=== PATIENT | female | born 1995 | race Caucasian/White ===

== ENCOUNTER 2024-06-10 14:03 | Outpatient (OUT) | payer OTHER, SELFPAY ==
--- NOTE | 2024-06-10 14:10 | US_ITS ---
[place] [id number] Patient Name: DC RODRIGUEZ MRN: [id number] date: 1995 Sex: F Assigned Patient Location: [facility] Current Patient Location: [facility] Accession/Order Number: [id number] Exam Date: 06/10/2024 14:11 Report Date: 06/14/2024 04:30 At the request of: ROBERTO BARBA Procedure: US OB transvaginal EXAMINATION: US OB transvaginal HISTORY: MISSED MENSES COMPARISON: No relevant comparison available. FINDINGS: GESTATIONAL SAC: Present and normal appearing. YOLK SAC: Present and normal appearing. POLE: Present and normal appearing. CARDIAC: Present. UTERUS: Normal size and appearance. OVARIES: Right: Not seen. Left: Normal. CERVIX: 4.0 cm in length and closed. CUL-DE-SAC: Normal. OTHER: None. AGE BY LMP: 9 weeks 5 days JAY BY LMP: 01/08/2025 AGE BY US CRL: 9 weeks 2 days JAY BY US CRL: 01/11/2025 US/US OB transvaginal IMPRESSION: 1. Single live intrauterine . Electronically authenticated by: MERRILL MAGDALENO Date: 06/14/2024 04:30
== END 2024-06-10 14:04 | disposition home or self-care (01) ==
LOC: NOMS 14:03
PROVIDERS: Visit Provider Obstetrics & Gynecology
DX: Z34.01 Encounter for supervision of normal first pregnancy, first trimester (principal); Z3A.09 9 weeks gestation of pregnancy; N92.6 Irregular menstruation, unspecified
CPT/HCPCS: 76817

== ENCOUNTER 2024-06-24 11:46 | Outpatient (OUT) | payer OTHER, SELFPAY ==
--- OUTSIDE RECORDS SUMMARY | 2024-06-24 11:52 | XMS_ITS | CCD ---
Author Organization [facility] CliniSyal Care Team Providers Care Guide Tour Name Role Phone HOY, ТАТЬЯНА Admitting Unavailable HOY, ТАТЬЯНА Attending Unavailable HOY, ТАТЬЯНА Primary Care Unavailable HOY, ТАТЬЯНА Consulting Unavailable KARASIK, JOANNE Admitting Unavailable KARASIK, JOANNE Attending Unavailable HOY, ТАТЬЯНА Primary Care Unavailable KARASIK, JOANNE Consulting Unavailable WESTWILD V Consulting Unavailable KARASIK, JOANNE Admitting Unavailable KARASIK, JOANNE Attending Unavailable HOY, ТАТЬЯНА Primary Care Unavailable KARASIK, JOANNE Consulting Unavailable KARASIK, JOANNE Admitting Unavailable KARASIK, JOANNE Attending Unavailable KARASIK, JOANNE Consulting Unavailable KARASIK, JOANNE Admitting Unavailable KARASIK, JOANNE Attending Unavailable HOY, ТАТЬЯНА Primary Care Unavailable KARASIK, JOANNE Consulting Unavailable KARASIK, JOANNE Admitting Unavailable KARASIK, JOANNE Attending Unavailable HOY, ТАТЬЯНА Primary Care Unavailable KARASIK, JOANNE Consulting Unavailable WEST, WILD V Consulting Unavailable KARASIK, JOANNE Admitting Unavailable KARASIK, JOANNE Attending Unavailable HOY, ТАТЬЯНА Primary Care Unavailable KARASIK, JOANNE Consulting Unavailable KARASIK, JOANNE Admitting Unavailable KARASIK, JOANNE Attending Unavailable KARASIK, JOANNE Primary Care Unavailable KARASIK, JOANNE Consulting Unavailable HOY, ТАТЬЯНА Admitting Unavailable HOY, ТАТЬЯНА Attending Unavailable KARASIK, JOANNE Primary Care Unavailable HOY, ТАТЬЯНА Consulting Unavailable KARASIK, JOANNE Admitting Unavailable KARASIK, JOANNE Attending Unavailable KARASIK, JOANNE Consulting Unavailable KENNEDY, ROBERTO Consulting Unavailable BRYANRAN ROBERTSON L Consulting Unavailable KARASIK, JOANNE Procedure Practitioner Unavaila Marti Casillas Unavailable Татьяна Uriarte MD Primary Care Provider [phone] Allergies Allergy Classification Reported Allergen(s) Allergy Type Date of Onset Reaction(s) Facility (1 source) Latex Drug allergy (disorder) 10-09-18 97 [facility] (1 source) Penicillin Drug Allergy 05-27-20 15 [facility] (1 source) Sulfamethoxazole / Trimethoprim Drug Allergy 05-23-20 15 [facility] (2 sources) [facility] Sulfamethoxazole / Trimethoprim Drug Allergy 06-10-20 anaphylaxis, Palpitations, Shortness of breath [facility] Other (1 source) Sulfamethoxazole Drug Allergy 11-27-19 anaphylaxis [facility] (2 sources) Trimethoprim Drug Allergy 11-27-19 anaphylaxis [facility] (1 source) Latex Propensity to adverse reactions 06-10-20 Rash [facility] (1 source) penicillAMINE Drug Allergy 11-27-19 [facility] (1 source) Penicillins Drug Allergy 06-10-20 Itching, Rash [facility] (1 source) Sulfonamides (Antibiotic) Drug Allergy 11-27-19 [facility] Medications Current Medications Medication Drug Class(es) Dates Sig (Normalized) Sig (Original) ondansetron 4 mg disintegrating oral tablet (1 source) Serotonin-3 Receptor Antagonist Start: 06-10-2024 End: 07-10-2024 take 1 tablet by mouth every six hours for nausea ondansetron ODT (Zofran-ODT) 4 MG disintegrating tablet Indications: Nausea and vomiting in Take 1 tablet (4 mg) by mouth every 6 (six) hours if needed for nausea or vomiting 30 tablet 2 06/10/2024 07/10/2024 Active Completed/Discontinued Medications Medication Drug Class(es) Dates Sig (Normalized) Sig (Original) Albuterol (1 source) beta2-Adrenergic Agonist Ventolin HFA Not-Taking/PRN Aspir-81 (1 source) Aspir-81 Not-Taking/PRN fluticasone propionate 0.05 mg/actuat metered dose nasal spray (1 source) Corticosteroid Start: 09-28-2019 take 1 spray(s) nasal route once daily as needed Fluticasone Propionate 50 MCG/ACT 1 spray in each nostril Nasally Once a day for 30 day(s) Sep, Not-Taking/PRN Labetalol (1 source) beta-Adrenergic Merly Labetalol HCl Not-Taking/PRN oseltamivir 75 mg oral capsule (1 source) Neuraminidase Inhibitor Start: 09-28-2019 take 1 capsule by mouth every twelve hours Tamiflu 75 MG 1 capsule Orally Twice a day for 5 day(s) Sep, Not-Taking/PRN Pre- (1 source) Pre-Nabil with DHA Not-Taking/PRN Problems Active Problems Problem Classification Problem Date Documented Date Episodic/Chronic Hypertension complicating ; childbirth and the puerperium (4 sources) Unspecified pre-existing hypertension complicating , first trimester; Translations: [Unspecified pre-existing hypertension complicating , third trimester] Onset: 10-13-2019 Chronic Immunizations and screening for infectious disease (5 sources) Encounter for screening for other viral diseases; Translations: [Encounter for screening for infections with a predominantly sexual mode of transmission] Onset: 02-16-2020 Episodic Influenza (1 source) Influenza due to other identified influenza virus with other respiratory manifestations Episodic Menstrual disorders (5 sources) Excessive and frequent menstruation with irregular cycle; Translations: [Missed period] Onset: 07-20-2019 06-10-2024 Chronic Other complications of ; puerperium affecting management of mother (1 source) Obesity complicating childbirth; Translations: [OBESITY COMPLICATING CHILDBIRTH] Onset: 03-17-2020 Chronic Other complications of ; puerperium affecting management of mother (1 source) Other viral diseases complicating childbirth; Translations: [OTH VIRAL DISEASES COMP CHILDBIRTH] Onset: 03-17-2020 Episodic Other complications of ; puerperium affecting management of mother (1 source) Streptococcus B carrier state complicating childbirth; Translations: [STREP B LOMBARDI STATE COMP CHILDBIRTH] Onset: 03-17-2020 Other complications of (1 source) Vomiting of , unspecified; Translations: [Unspecified vomiting of , unspecified as to episode of care or not applicable] 06-10-2024 Episodic Other female genital disorders (1 source) Other specified noninflammatory disorders of vagina; Translations: [OTH SPEC NONINFLAMMATORY D/O VAGINA] Onset: 02-16-2020 Episodic Other nutritional; endocrine; and metabolic disorders (1 source) Obesity, unspecified; Translations: [OBESITY UNSPECIFIED] Onset: 03-17-2020 Chronic Other and delivery including normal (11 sources) Single live ; Translations: [Encounter for supervision of other normal , second trimester] Onset: 07-27-2019 06-10-2024 Episodic Other screening for suspected conditions (not mental disorders or infectious disease) (12 sources) Encounter for other specified screening; Translations: [Encounter for screening for Streptococcus B] Onset: 10-11-2019 Residual codes; unclassified (1 source) 12 weeks gestation of ; Translations: [12 WEEKS GESTATION OF ] Onset: 09-08-2019 Residual codes; unclassified (1 source) 39 weeks gestation of ; Translations: [39 WEEKS GESTATION OF ] Onset: 03-17-2020 Unclassified (1 source) COVID-19; Translations: [COVID-19] Onset: 03-17-2020 Past or Other Problems Problem Classification Problem Date Documented Da te Episodic/Chronic Other complications of (1 source) Supervision of high risk , unspecified, first trimester; Translations: [SUP HIGH RISK UNS 1ST TRI] Onset: 09-08-2019 Episodic Other screening for suspected conditions (not mental disorders or infectious disease) (10 sources) Encounter for screening for malignant neoplasm of cervix; Translations: [Encounter for screening for other metabolic disorders] Onset: 09-07-2019 Episodic Unclassified (1 source) Acute cough R05.1 Results Test Name Value Interpretation Reference Range Facility HCG ( test) Ql (U)o n 06-10-2024 Interpretation and review of laboratory results Abnormal [facility] Preg Test, Ur Positive [facility] care [facility] Urinalysis macro (dipstick) panel (U)on 06-10-2024 Bilirubin, UA Negative Negative - 4(70) +++ mg/dL [facility] Blood, UA Negative Negative - 50 Leandro/mcL [facility] Clarity, UA Clear [facility], [facility]A Yellow [facility] Glucose, UA Negative Negative - 2000(110) ++++ mg/dL [facility] Interpretation and review of laboratory results Normal [facility] Ketones, UA Negative Negative - 160(16) ++++ mg/dL [facility] Leukocytes, UA Negative Negative - 500+++ Therese/mcL [facility] Nitrite, UA Negative Negative - Positive [facility] pH, UA 6.5 5 - 9 [facility] Protein, UA Negative Negative - 2000(20) ++++ mg/dL [facility] Spec Grav, UA 1.02 1 - 1.03 [facility] care Urobilinogen, UA 1.0 0.2 - 12 mg/dL [facility] COVID + FLU Quick Testingon 08-19-2023 SARS-CoV-2 (COVID-19) RNA ALISSON+probe Ql (Unsp spec) Negative [facility] Other COVID + FLU Quick Testing Positive [facility] Other COVID + FLU Quick Testing Negative [facility] Other COVID-19 PCRon 03-24-2020 SARS-CoV-2, ALISSON Not Detected Normal Not Detected [facility] Comment on above: Result Comment: This test was developed and its performance characteristics determined by [facility] [employer]. This test has not been FDA cleared or approved. This test has been authorized by FDA under an Emergency Use Authorization (EUA). This test is only authorized for the duration of time the declaration that circumstances exist justifying the authorization of the emergency use of in vitro diagnostic tests for detection of SARS-CoV-2 virus and/or diagnosis of COVID-19 infection under section 564(b)(1) of the Act, 21 U.S.C. 360bbb-3(b)(1), unless the authorization is terminated or revoked sooner. When diagnostic testing is negative, the possibility of a false negative result should be considered in the context of a patient's recent exposures and the presence of clinical signs and symptoms consistent with COVID-19. An individual without symptoms of COVID-19 and who is not shedding SARS-CoV-2 virus would expect to have a negative (not detected) result in this assay. Performed By: #### C BC #### [facility] [address] [address] Dee Dee Griggs CBC AUTO DIFFon 03-11-2020 Basophils (Bld) [#/Vol] 0.0 103/ul Normal 0.0-0.1 [facility] Comment on above: Performed By: #### C BC #### [facility] [address] [place], [place] [address] Dee Dee Indu Basophils/100 WBC (Bld) 0.2 % Normal 0.2-2.0 [facility] Comment on above: Performed By: #### C BC #### [facility] [address] [place], [place] [address] Dee Dee Indu Eosinophils (Bld) [#/Vol] 0.2 103/ul Normal 0.0-0.7 [facility] Comment on above: Performed By: #### C BC #### [facility] [address] [place], [place] [address] Dee Dee Indu Eosinophils/100 WBC (Bld) 1.8 % Normal 0.9-7.0 [facility] Comment on above: Performed By: #### C BC #### [facility] [address] [id number] Dee Dee Indu Erythrocyte distribution width (RBC) [Ratio] 14.0 % Normal 11.0-15.0 [facility] Comment on above: Performed By: #### C BC #### [facility] [address] [place], [place] [address] Dee Dee Indu Hematocrit (Bld) [Volume fraction] 26.9 % Critically low 36.0-48.0 [facility] Comment on above: Performed By: #### C BC #### [facility] [address] [place], [place] [address] Dee Dee Indu Hemoglobin (Bld) [Mass/Vol] 9.1 g/dL Critically low 12.0-16.0 [facility] Comment on above: Performed By: #### C BC #### [facility] [address] [place], [place] [address] Dee Dee Indu IG # 0.08 10e3/ul Critically high 0.00-0.03 [facility] Comment on above: Performed By: #### C BC #### [facility] [address] [id number] Dee Dee Indu IG % 0.6 % Critically high 0.0-0.5 [facility] Comment on above: Performed By: #### C BC #### [facility] [address] [place], [place] [address] Dee Dee Indu Lymphocytes (Bld) [#/Vol] 2.7 103/ul Normal 1.2-3.8 [facility] Comment on above: Performed By: #### C BC #### [facility] [address] [place], [place] [address] Dee Dee Indu Lymphocytes/100 WBC (Bld) 20.9 % Normal 20.5-60.0 [facility] Comment on above: Performed By: #### C BC #### [facility] [address] [place], [place] [address] Dee Dee Indu MANUAL DIFF REQ NO Normal [facility] Comment on above: Performed By: #### C BC #### [facility] [address] [place] [address] Dee Dee Indu MCH (RBC) [Entitic mass] 30.7 pg Normal 26.7-34.0 [facility] Comment on above: Performed By: #### C BC #### [facility] [address] [place] [address] Dee Dee Indu MCHC (RBC) [Mass/Vol] 33.8 g/dL Normal 29.9-35.2 [facility] Comment on above: Performed By: #### C BC #### [facility] [address] [place] [address] Dee Dee Indu MCV (RBC) [Entitic vol] 90.9 fL Normal 81.0-99.0 [facility] Comment on above: Performed By: #### C BC #### [facility] [address] [place], [place] [address] Dee Dee Indu Monocytes (Bld) [#/Vol] 1.2 103/ul Critically high 0.3-0.8 [facility] Comment on above: Performed By: #### C BC #### [facility] [address] [place], [place] [address] Dee Dee Indu Monocytes/100 WBC (Bld) 8.9 % Normal 1.7-12.0 [facility] Comment on above: Performed By: #### C BC #### [facility] [address] [place], [place] [address] Dee Dee Griggs Neutrophils (Bld) [#/Vol] 8.8 103/ul Critically high 1.4-6.5 [facility] Comment on above: Performed By: #### C BC #### [facility] [address] [place] [address] Dee Dee Griggs Neutrophils/100 WBC (Bld) 67.6 % Normal 43.0-75.0 [facility] Comment on above: Performed By: #### C BC #### [facility] [address] [place] [address] Dee Dee Griggs Platelet mean volume (Bld) [Entitic vol] 10.2 fL Normal 9.5-13.5 [facility] Comment on above: Performed By: #### C BC #### [facility] [address] [place] [address] Dee Dee Griggs Platelets (Bld) [#/Vol] 178 103/ul Normal 150-450 [facility] Comment on above: Performed By: #### C BC #### [facility] [address] [place] [address] Dee Dee Acostaen RBC (Bld) [#/Vol] 2.96 106/ul Critically low 4.20-5.40 [facility] Comment on above: Performed By: #### C BC #### [facility] [address] [place] [address] Dee Dee Acostaen WBC (Bld) [#/Vol] 13.1 103/ul Critically high 4.0-11.0 [facility] Comment on above: Performed By: #### C BC #### [facility] [address] [place] [address] Dee Dee Griggs COVID-19 PCRon 03-11-2020 SARS-CoV-2, ALISSON Detected Abnormal Not Detected [facility] Comment on above: Result Comment: This test was developed and its performance characteristics determined by [employer]. This test has not been FDA cleared or approved. This test has been authorized by FDA under an Emergency Use Authorization (EUA). This test is only authorized for the duration of time the declaration that circumstances exist justifying the authorization of the emergency use of in vitro diagnostic tests for detection of SARS-CoV-2 virus and/or diagnosis of COVID-19 infection under section 564(b)(1) of the Act, 21 U.S.C. 360bbb-3(b)(1), unless the authorization is terminated or revoked sooner. When diagnostic testing is negative, the possibility of a false negative result should be considered in the context of a patient's recent exposures and the presence of clinical signs and symptoms consistent with COVID-19. An individual without symptoms of COVID-19 and who is not shedding SARS-CoV-2 virus would expect to have a negative (not detected) result in this assay. Performed By: #### C BC #### [facility] [address] [place] [address] Dee Dee Indu PRIORITY COVID PROCESSINGon 03-11-2020 Comment Comment Normal [facility] Comment on above: Result Comment: Rece ived Performed By: #### C BC #### [facility] [address] [place] [address] Dee Dee Indu RESPIRATORY PANEL PLUSon Adenovirus NOT DETECTED Normal NOT DETECTED [facility] Comment on above: Performed By: #### C BC #### [facility] [address] [place] [address] Dee Dee Indu B. Parapertusis NOT DETECTED Normal NOT DETECTED [facility] Comment on above: Performed By: #### C BC #### [facility] [address] [place] [address] Dee Dee Indu B. Pertussis NOT DETECTED Normal NOT DETECTED [facility] Comment on above: Performed By: #### C BC #### [facility] [address] [place] [address] Dee Dee Indu Chlamydia Pneumoniae NOT DETECTED Normal NOT DETECTED [facility] Comment on above: Performed By: #### C BC #### [facility] [address] [place] [address] Dee Dee Indu Coronavirus 229E NOT DETECTED Normal NOT DETECTED [facility] Comment on above: Performed By: #### C BC #### [facility] [address] [address] Dee Dee Indu Coronavirus HKU1 NOT DETECTED Normal NOT DETECTED [facility] Comment on above: Performed By: #### C BC #### [facility] [address] [address] Dee Dee Indu Coronavirus NL63 NOT DETECTED Normal NOT DETECTED [facility] Comment on above: Performed By: #### C BC #### [facility] [address] [address] Dee Dee Indu Coronavirus OC43 NOT DETECTED Normal NOT DETECTED [facility] Comment on above: Performed By: #### C BC #### [facility] [address] [place] [address] Dee Dee Indu Influenza A H1 2009 NOT DETECTED Normal NOT DETECTED [facility] Comment on above: Performed By: #### C BC #### [facility] [address] [place] [address] Dee Dee Indu Influenza B NOT DETECTED Normal NOT DETECTED [facility] Comment on above: Performed By: #### C BC #### [facility] [address] [place] [address] Dee Dee Indu Metapneumovirus NOT DETECTED Normal NOT DETECTED [facility] Comment on above: Performed By: #### C BC #### [facility] [address] [place] [address] Dee Dee Indu Mycoplas. Pneumoniae NOT DETECTED Normal NOT DETECTED [facility] Comment on above: Performed By: #### C BC #### [facility] [address] [place] [address] Dee Dee Indu Parainfluenza 1 NOT DETECTED Normal NOT DETECTED [facility] Comment on above: Performed By: #### C BC #### [facility] [address] [address] Dee Dee Indu Parainfluenza 2 NOT DETECTED Normal NOT DETECTED [facility] Comment on above: Performed By: #### C BC #### [facility] [address] [place] [address] Dee Dee Indu Parainfluenza 3 NOT DETECTED Normal NOT DETECTED [facility] Comment on above: Performed By: #### C BC #### [facility] [address] [place] [address] Dee Dee Indu Parainfluenza 4 NOT DETECTED Normal NOT DETECTED [facility] Comment on above: Performed By: #### C BC #### [facility] [address] [place] [address] Dee Dee Indu Rhino/Enterovirus NOT DETECTED Normal NOT DETECTED [facility] Comment on above: Performed By: #### C BC #### [facility] [address] [place] [address] Dee Dee Indu RP2 Header 1 RESPIRATORY PANEL: VIRUSES Normal [facility] Comment on above: Performed By: #### C BC #### [facility] [address] [place] [address] Dee Dee Indu RP2 Header 2 RESPIRATORY PANEL: BACTERIA Normal [facility] Comment on above: Performed By: #### C BC #### [facility] [address] [place] [address] Dee Dee Indu RP2 Header 4 EUA SEE BELOW Normal [facility] Comment on above: Result Comment: This test is not yet approved or cleared by the [place] FDA. When there are no FDA-approved or cleared tests available, and other criteria are met, FDA can make tests available under an emergency access mechanism called an Emergency Use Authorization (EUA). The EUA for this test is supported by the [employer] Worker of Health and Human Service?s (HHS?s) declaration that circumstances exist to justify the emergency use of in vitro diagnostics for the detection and/or diagnosis of the virus that causes COVID-19. This EUA will remain in effect (meaning this test can be used) for the duration of the COVID-19 declaration justifying emergency of IVDs, unless it is terminated or revoked by FDA (after which the test may no longer be used). Performed By: #### C BC #### [facility] [address] [place] [address] Dee Dee Indu RSV NOT DETECTED Normal NOT DETECTED [facility] Comment on above: Performed By: #### C BC #### [facility] [address] [place], [place] [id number] Dee Dee Indu SARS-CoV-2: COVID-19 DETECTED NOT DETECTED [facility] Comment on above: Performed By: #### C BC #### [facility] [address] [place], [place] [id number] Dee Dee Indu CBC AUTO DIFFon 03-10-2020 Basophils (Bld) [#/Vol] 0.0 103/ul Normal 0.0-0.1 [facility] Comment on above: Performed By: #### C BC #### [facility] [address] [place] [address] Dee Dee Indu Basophils/100 WBC (Bld) 0.1 % Critically low 0.2-2.0 [facility] Comment on above: Performed By: #### C BC #### [facility] [address] [place] [address] Dee Dee Indu Eosinophils (Bld) [#/Vol] 0.1 103/ul Normal 0.0-0.7 [facility] Comment on above: Performed By: #### C BC #### [facility] [address] [place], [place] [id number] Dee Dee Indu Eosinophils/100 WBC (Bld) 0.5 % Critically low 0.9-7.0 [facility] Comment on above: Performed By: #### C BC #### [facility] [address] [place], [place] [id number] Dee Dee Indu Erythrocyte distribution width (RBC) [Ratio] 13.8 % Normal 11.0-15.0 [facility] Comment on above: Performed By: #### C BC #### [facility] [address] [place] [address] Dee Dee Indu Hematocrit (Bld) [Volume fraction] 30.3 % Critically low 36.0-48.0 [facility] Comment on above: Performed By: #### C BC #### [facility] [address] [place], [place] [phone] Dee Dee Indu Hemoglobin (Bld) [Mass/Vol] 10.1 g/dL Critically low 12.0-16.0 [facility] Comment on above: Performed By: #### C BC #### [facility] [address] [place], [place] [address] Dee Dee Indu IG # 0.08 10e3/ul Critically high 0.00-0.03 [facility] Comment on above: Performed By: #### C BC #### [facility] [address] [id number] Dee Dee Indu IG % 0.6 % Critically high 0.0-0.5 [facility] Comment on above: Performed By: #### C BC #### [facility] [address] [id number] Dee Dee Indu Lymphocytes (Bld) [#/Vol] 2.4 103/ul Normal 1.2-3.8 [facility] Comment on above: Performed By: #### C BC #### [facility] [address] [place], [place] [id number] Dee Dee Indu Lymphocytes/100 WBC (Bld) 16.9 % Critically low 20.5-60.0 [facility] Comment on above: Performed By: #### C BC #### [facility] [address] [id number] Dee Dee Indu MANUAL DIFF REQ NO Normal [facility] Comment on above: Performed By: #### C BC #### [facility] [address] [place], [place] [id number] Dee Dee Indu MCH (RBC) [Entitic mass] 30.2 pg Normal 26.7-34.0 [facility] Comment on above: Performed By: #### C BC #### [facility] [address] [place], [place] [id number] Dee Dee Indu MCHC (RBC) [Mass/Vol] 33.3 g/dL Normal 29.9-35.2 [facility] Comment on above: Performed By: #### C BC #### [facility] [address] [id number] Dee Dee Indu MCV (RBC) [Entitic vol] 90.7 fL Normal 81.0-99.0 [facility] Comment on above: Performed By: #### C BC #### [facility] [address] [place], [place] [address] Dee Dee Indu Monocytes (Bld) [#/Vol] 1.3 103/ul Critically high 0.3-0.8 [facility] Comment on above: Performed By: #### C BC #### [facility] [address] [place], [place] [address] Deed Ee Indu Monocytes/100 WBC (Bld) 8.9 % Normal 1.7-12.0 [facility] Comment on above: Performed By: #### C BC #### [facility] [address] [place], [place] [address] Dee Dee Indu Neutrophils (Bld) [#/Vol] 10.4 103/ul Critically high 1.4-6.5 [facility] Comment on above: Performed By: #### C BC #### [facility] [address] [place] [address] Dee Dee Indu Neutrophils/100 WBC (Bld) 73.0 % Normal 43.0-75.0 [facility] Comment on above: Performed By: #### C BC #### [facility] [address] [place], [place] [address] Dee Dee Indu Platelet mean volume (Bld) [Entitic vol] 10.4 fL Normal 9.5-13.5 [facility] Comment on above: Performed By: #### C BC #### [facility] [address] [place] [address] Dee Dee Indu Platelets (Bld) [#/Vol] 179 103/ul Normal 150-450 [facility] Comment on above: Performed By: #### C BC #### [facility] [address] [place], [place] [address] Dee Dee Indu RBC (Bld) [#/Vol] 3.34 106/ul Critically low 4.20-5.40 Th [facility] Comment on above: Performed By: #### C BC #### [facility] [address] [place], [place] [address] Dee Dee Indu WBC (Bld) [#/Vol] 14.2 103/ul Critically high 4.0-11.0 [facility] Comment on above: Performed By: #### C BC #### [facility] [address] [place] [address] Dee Dee Indu CBC AUTO DIFFon 03-09-2020 Basophils (Bld) [#/Vol] 0.0 103/ul Normal 0.0-0.1 [facility] Comment on above: Performed By: #### N BOX #### [facility] [address] [place] [address] Dee Dee Indu Basophils/100 WBC (Bld) 0.3 % Normal 0.2-2.0 [facility] Comment on above: Performed By: #### N BOX #### [facility] [address] [place] [address] Dee Dee Indu Eosinophils (Bld) [#/Vol] 0.1 103/ul Normal 0.0-0.7 [facility] Comment on above: Performed By: #### N BOX #### [facility] [address] [place] [address] Dee Dee Indu Eosinophils/100 WBC (Bld) 0.9 % Normal 0.9-7.0 [facility] Comment on above: Performed By: #### N BOX #### [facility] [address] [place] [address] Dee Dee Indu Erythrocyte distribution width (RBC) [Ratio] 13.8 % Normal 11.0-15.0 [facility] Comment on above: Performed By: #### N BOX #### [facility] [address] [place] [address] Dee Dee Indu Hematocrit (Bld) [Volume fraction] 35.5 % Critically low 36.0-48.0 [facility] Comment on above: Performed By: #### N BOX #### [facility] [address] [place], [place] [address] Dee Dee Indu Hemoglobin (Bld) [Mass/Vol] 12.0 g/dL Normal 12.0-16.0 [facility] Comment on above: Performed By: #### N BOX #### [facility] [address] [place] [address] Dee Dee Indu IG # 0.09 10e3/ul Critically high 0.00-0.03 [facility] Comment on above: Performed By: #### N BOX #### [facility] [address] [id number] Dee Dee Indu IG % 0.8 % Critically high 0.0-0.5 [facility] Comment on above: Performed By: #### N BOX #### [facility] [address] [address] Dee Dee Indu Lymphocytes (Bld) [#/Vol] 2.3 103/ul Normal 1.2-3.8 [facility] Comment on above: Performed By: #### N BOX #### [facility] [address] [place] [address] Dee Dee Griggs Lymphocytes/100 WBC (Bld) 19.8 % Critically low 20.5-60.0 [facility] Comment on above: Performed By: #### N BOX #### [facility] [address] [place] [address] Dee Dee Griggs MANUAL DIFF REQ NO Normal [facility] Comment on above: Performed By: #### N BOX #### [facility] [address] [place] [address] Dee Deemino Acostaen MCH (RBC) [Entitic mass] 30.4 pg Normal 26.7-34.0 [facility] Comment on above: Performed By: #### N BOX #### [facility] [address] [place] [address] Dee Deemino Griggs MCHC (RBC) [Mass/Vol] 33.8 g/dL Normal 29.9-35.2 [facility] Comment on above: Performed By: #### N BOX #### [facility] [address] [place] [address] Dee Dee Indu MCV (RBC) [Entitic vol] 89.9 fL Normal 81.0-99.0 [facility] Comment on above: Performed By: #### N BOX #### [facility] [address] [place] [address] Dee Dee Indu Monocytes (Bld) [#/Vol] 0.9 103/ul Critically high 0.3-0.8 [facility] Comment on above: Performed By: #### N BOX #### [facility] [address] [place], [place] [address] Dee Dee Indu Monocytes/100 WBC (Bld) 7.8 % Normal 1.7-12.0 [facility] Comment on above: Performed By: #### N BOX #### [facility] [address] [place], [place] [address] Dee Dee Indu Neutrophils (Bld) [#/Vol] 8.2 103/ul Critically high 1.4-6.5 [facility] Comment on above: Performed By: #### N BOX #### [facility] [address] [place], [place] [address] Dee Dee Indu Neutrophils/100 WBC (Bld) 70.4 % Normal 43.0-75.0 [facility] Comment on above: Performed By: #### N BOX #### [facility] [address] [place] [address] Dee Dee Indu Platelet mean volume (Bld) [Entitic vol] 10.3 fL Normal 9.5-13.5 [facility] Comment on above: Performed By: #### N BOX #### [facility] [address] [place], [place] [address] Dee Dee Indu Platelets (Bld) [#/Vol] 211 103/ul Normal 150-450 [facility] Comment on above: Performed By: #### N BOX #### [facility] [address] [place], [place] [address] Dee Dee Indu RBC (Bld) [#/Vol] 3.95 106/ul Critically low 4.20-5.40 Th [facility] Comment on above: Performed By: #### N BOX #### [facility] [address] [place], [place] [address] Dee Dee Indu WBC (Bld) [#/Vol] 11.6 103/ul Critically high 4.0-11.0 [facility] Comment on above: Performed By: #### N BOX #### [facility] [address] [id number] Dee Dee Indu Basophils (Bld) [#/Vol] 0.0 103/ul Normal 0.0-0.1 [facility] Comment on above: Performed By: #### N BOX #### [facility] [address] [id number] Dee Dee Indu Basophils/100 WBC (Bld) 0.4 % Normal 0.2-2.0 [facility] Comment on above: Performed By: #### N BOX #### [facility] [address] [id number] Dee Dee Indu Eosinophils (Bld) [#/Vol] 0.2 103/ul Normal 0.0-0.7 [facility] Comment on above: Performed By: #### N BOX #### [facility] [address] [place] [address] Dee Dee Indu Eosinophils/100 WBC (Bld) 2.0 % Normal 0.9-7.0 [facility] Comment on above: Performed By: #### N BOX #### [facility] [address] [place], [place] [address] Dee Dee Indu Erythrocyte distribution width (RBC) [Ratio] 13.8 % Normal 11.0-15.0 [facility] Comment on above: Performed By: #### N BOX #### [facility] [address] [place], [place] [address] Dee Dee Indu Hematocrit (Bld) [Volume fraction] 35.0 % Critically low 36.0-48.0 [facility] Comment on above: Performed By: #### N BOX #### [facility] [address] [place], [place] [address] Dee Dee Indu Hemoglobin (Bld) [Mass/Vol] 11.8 g/dL Critically low 12.0-16.0 [facility] Comment on above: Performed By: #### N BOX #### [facility] [address] [place], [place] [address] Dee Dee Indu IG # 0.07 10e3/ul Critically high 0.00-0.03 [facility] Comment on above: Performed By: #### N BOX #### [facility] [address] [id number] Dee Dee Indu IG % 0.7 % Critically high 0.0-0.5 [facility] Comment on above: Performed By: #### N BOX #### [facility] [address] [id number] Dee Dee Indu Lymphocytes (Bld) [#/Vol] 3.1 103/ul Normal 1.2-3.8 [facility] Comment on above: Performed By: #### N BOX #### [facility] [address] [place], [place] [address] Dee Dee Indu Lymphocytes/100 WBC (Bld) 29.5 % Normal 20.5-60.0 [facility] Comment on above: Performed By: #### N BOX #### [facility] [address] [place], [place] [address] Dee Dee Indu MANUAL DIFF REQ NO Normal [facility] Comment on above: Performed By: #### N BOX #### [facility] [address] [place] [address] Dee Dee Indu MCH (RBC) [Entitic mass] 30.3 pg Normal 26.7-34.0 [facility] Comment on above: Performed By: #### N BOX #### [facility] [address] [place] [address] Dee Dee Indu MCHC (RBC) [Mass/Vol] 33.7 g/dL Normal 29.9-35.2 [facility] Comment on above: Performed By: #### N BOX #### [facility] [address] [place] [address] Dee Dee Indu MCV (RBC) [Entitic vol] 90.0 fL Normal 81.0-99.0 [facility] Comment on above: Performed By: #### N BOX #### [facility] [address] [place], [place] [address] Dee Dee Indu Monocytes (Bld) [#/Vol] 0.9 103/ul Critically high 0.3-0.8 [facility] Comment on above: Performed By: #### N BOX #### [facility] [address] [place], [place] [address] Dee Dee Indu Monocytes/100 WBC (Bld) 8.4 % Normal 1.7-12.0 [facility] Comment on above: Performed By: #### N BOX #### [facility] [address] [place], [place] [address] Dee Dee Indu Neutrophils (Bld) [#/Vol] 6.3 103/ul Normal 1.4-6.5 [facility] Comment on above: Performed By: #### N BOX #### [facility] [address] [place], [place] [address] Dee Dee Indu Neutrophils/100 WBC (Bld) 59.0 % Normal 43.0-75.0 [facility] Comment on above: Performed By: #### N BOX #### [facility] [address] [place] [address] Dee Dee Indu Platelet mean volume (Bld) [Entitic vol] 10.4 fL Normal 9.5-13.5 [facility] Comment on above: Performed By: #### N BOX #### [facility] [address] [place] [address] Dee Dee Indu Platelets (Bld) [#/Vol] 221 103/ul Normal 150-450 [facility] Comment on above: Performed By: #### N BOX #### [facility] [address] [place] [address] Dee Dee Indu RBC (Bld) [#/Vol] 3.89 106/ul Critically low 4.20-5.40 [facility] Comment on above: Performed By: #### N BOX #### [facility] [address] [place] [address] Dee Dee Indu WBC (Bld) [#/Vol] 10.6 103/ul Normal 4.0-11.0 [facility] Comment on above: Performed By: #### N BOX #### [facility] [address] [place] [address] Dee Dee Indu DRUG SCREEN RAPID (URINE)on 03-09-2020 AMP Negative Normal NEGATIVE [facility] Comment on above: Performed By: #### N BOX #### [facility] [address] [address] Dee Dee Indu BAR Negative Normal NEGATIVE [facility] Comment on above: Performed By: #### N BOX #### [facility] [address] [place] [address] Dee Dee Indu BUP Negative Normal NEGATIVE [facility] Comment on above: Performed By: #### N BOX #### [facility] [address] [place] [address] Dee Dee Indu BZO Negative Normal NEGATIVE [facility] Comment on above: Performed By: #### N BOX #### [facility] [address] [place] [address] Dee Dee Indu CLINT Negative Normal NEGATIVE [facility] Comment on above: Performed By: #### N BOX #### [facility] [address] [place] [address] CUT-OFFS SEE BELOW Normal [facility] Comment on above: Result Comment: AMP (Amphetamine): 500ng/mL, BAR (Barbituates): 200 ng/mL, BZO (Benzodiazepines): 150 ng/mL, BUP (Buprenorphine): 10 ng/mL, CLINT (Cocaine): 150 ng/mL, mAMP (Methamphetamine): 500 ng/mL, MTD (Methadone): 200 ng/mL, OPI (Opiates): 100 ng/mL or 2000 ng/mL, OXY (Oxycodone): 100 ng/mL, PCP (Phencyclidine): 25 ng/mL, PPX (Propoxyphene): 300 ng/mL, THC (Cannabinoids): 50 ng/mL, TCA (Trycyclic Antidepressants): 300 ng/mL Performed By: #### N BOX #### [facility] [address] [place] [address] [facility] DR[facility] CUT HEADER DRUG CLASS TEST SYSTEM CUT-OFF CONCENTRATIONS ARE FOLLOWS: Normal [facility] Comment on above: Performed By: #### N BOX #### [facility] [address] [place] [address] Dee Dee Indu mAMP Negative Normal NEGATIVE [facility] Comment on above: Performed By: #### N BOX #### [facility] [address] [address] Dee Dee Indu MTD Negative Normal NEGATIVE [facility] Comment on above: Performed By: #### N BOX #### [facility] [address] [address] Dee Dee Indu OPI Negative Normal NEGATIVE [facility] Comment on above: Performed By: #### N BOX #### [facility] [address] [place] [address] Dee Dee Indu OXY Negative Normal NEGATIVE [facility] Comment on above: Performed By: #### N BOX #### [facility] [address] [place] [address] Dee Dee Indu PCP Negative Normal NEGATIVE [facility] Comment on above: Performed By: #### N BOX #### [facility] [address] [place] [address] Dee Dee Indu PPX Negative Normal NEGATIVE [facility] Comment on above: Performed By: #### N BOX #### [facility] [address] [place] [address] Dee Dee Indu TCA Negative Normal NEGATIVE [facility] Comment on above: Performed By: #### N BOX #### [facility] [address] [place] [address] Dee Dee Indu THC Negative Normal NEGATIVE [facility] Comment on above: Performed By: #### N BOX #### [facility] [address] [place] [address] Dee Dee Indu LDHon 03-09-2020 LDH 190 U/L Normal 122-222 [facility] Comment on above: Performed By: #### N BOX #### [facility] [address] [place] [address] Dee Dee Indu PROF 14(COMP METB)on 020 Albumin [Mass/Vol] 2.9 g/dL Critically low 3.5-5.0 Th [facility] Comment on above: Performed By: #### N BOX #### [facility] [address] [place] [address] Dee Dee Indu Albumin/Globulin [Mass ratio] 0.7 {ratio} Normal [facility] Comment on above: Performed By: #### N BOX #### [facility] [address] [id number] Dee Dee Indu ALP [Catalytic activity/Vol] 152 U/L Critically high 38-126 [facility] Comment on above: Performed By: #### N BOX #### [facility] [address] [address] Dee Dee Indu Anion gap [Moles/Vol] 13.6 mmol/L Normal [facility] Comment on above: Performed By: #### N BOX #### [facility] [address] [address] Dee Dee Indu Bilirubin Ql (U) 0.7 mg/dL Normal 0.2-1.3 [facility] Comment on above: Performed By: #### N BOX #### [facility] [address] [address] Dee Dee Indu Calcium [Mass/Vol] 9.5 mg/dL Normal 8.4-10.2 [facility] Comment on above: Performed By: #### N BOX #### [facility] [address] [address] Dee Dee Indu Chloride [Moles/Vol] 102 mmol/L Normal 98-107 [facility] Comment on above: Performed By: #### N BOX #### [facility] [address] [place] [address] Dee Dee Indu CO2 [Moles/Vol] 24.1 mmol/L Normal 22.0-30.0 [facility] Comment on above: Performed By: #### N BOX #### [facility] [address] [address] Dee Dee Indu Creatinine [Mass/Vol] 0.63 mg/dL Normal 0.52-1.04 [facility] Comment on above: Performed By: #### N BOX #### [facility] [address] [place] [address] Dee Dee Indu EGFR-AF WALLISIAN >60 Normal >=60 [facility] Comment on above: Performed By: #### N BOX #### [facility] [address] [place], [place] [address] Dee Dee Indu EGFR-NON AF WALLISIAN >60 Normal >=60 [facility] Comment on above: Performed By: #### N BOX #### [facility] [address] [id number] Dee Dee Indu Globulin (S) [Mass/Vol] 4.1 g/dL Normal [facility] Comment on above: Performed By: #### N BOX #### [facility] [address] [address] Dee Dee Indu Glucose [Mass/Vol] 92 mg/dL Normal 74-106 [facility] Comment on above: Performed By: #### N BOX #### [facility] [address] [address] Dee Dee Indu Potassium [Moles/Vol] 3.7 mmol/L Normal 3.4-5.0 [facility] Comment on above: Performed By: #### N BOX #### [facility] [address] [place] [address] Dee Dee Indu Protein [Mass/Vol] 7.0 g/dL Normal 6.1-8.2 [facility] Comment on above: Performed By: #### N BOX #### [facility] [address] [address] Dee Dee Indu Sodium [Moles/Vol] 136 mmol/L Critically low 137-145 Th [facility] Comment on above: Performed By: #### N BOX #### [facility] [address] [address] Dee Dee Indu Urea nitrogen [Mass/Vol] 7.0 mg/dL Normal 7.0-17.0 [facility] Comment on above: Performed By: #### N BOX #### [facility] [address] [id number] Dee Dee Indu Urea nitrogen/Creatinine [Mass ratio] 11.1 mg/mg Normal [facility] Comment on above: Performed By: #### N BOX #### [facility] [address] [id number] Dee Dee Indu PROTIMEon 03-09-2020 INR Coag (PPP) [Relative time] 0.90 {INR} Normal [facility] Comment on above: Performed By: #### N BOX #### [facility] [address] [place] [address] Dee Dee Indu PT Coag (PPP) [Time] PLEASE NOTE: NORMAL RANGE CHANGE 05-05-2014 DUE TO REAGENT LOT CHANGE Normal [facility] Comment on above: Performed By: #### N BOX #### [facility] [address] [place], [place] [id number] Dee Dee Indu PT Coag (PPP) [Time] SEE BELOW Normal [facility] Comment on above: Result Comment: RAYO RED INR: 2.0 - 3.0 CONDITIONS NOT LISTED BELOW 2.5 - 3.5 FOR PROSTHETIC HEART VALVE REPLACEMENT 2.5 - 3.5 RECURRENT THROMBOSIS Performed By: #### N BOX #### [facility] [address] [place] [address] Dee Dee Indu PT Coag (PPP) [Time] 9.4 s Normal 9.0-11.6 [facility] Comment on above: Performed By: #### N BOX #### [facility] [address] [place], [place] [address] Dee Dee Indu PTTon 03-09-2020 aPTT Coag (Bld) [Time] 24.5 s Normal 22.3-36.2 [facility] Comment on above: Performed By: #### N BOX #### [facility] [address] [place], [place] [address] Dee Dee Indu aPTT Coag (Bld) [Time] PLEASE NOTE: NORMAL RANGE CHANGE 07-12-2015 DUE TO REAGENT LOT CHANGE Normal [facility] Comment on above: Performed By: #### N BOX #### [facility] [address] [place], [place] [address] Dee Dee Indu SGOTon 03-09-2020 AST [Catalytic activity/Vol] 16 U/L Normal 14-36 [facility] Comment on above: Performed By: #### N BOX #### [facility] [address] [place], [place] [address] Dee Dee Indu SGPTon 03-09-2020 ALT [Catalytic activity/Vol] 23 U/L Normal 9-52 [facility] Comment on above: Performed By: #### N BOX #### [facility] [address] [address] Dee Dee Griggs URIC ACID SERUMon 03-09-2020 Urate [Mass/Vol] 5.2 mg/dL Normal 2.5-6.2 [facility] Comment on above: Performed By: #### N BOX #### [facility] [address] [address] Dee Dee Griggs GROUP B STREP CULTUREon S. agalactiae Ag Ql (Unsp spec) Culture Observations: FAXED TO OFFICE 02/19/2020 BH Isolate 1 Streptococcus agalactiae Heavy growth of ORGANISM 1 Streptococcus agalactiae ANTIBIOTIC M.I.C RX STATUS Benzylpenicillin <=0.06 S F Ampicillin <=0.25 S F Cefotaxime <=0.12 S F Ceftriaxone <=0.12 S F Levofloxacin 0.5 S F Inducible Clindamycin Resistance Neg NEG F Erythromycin >=8 R F Clindamycin >=1 R F Linezolid <=2 S F Vancomycin 0.5 S F Tetracycline <=0.25 S F Normal [facility] Comment on above: Performed By: #### G BSCX ####[facility] [address] [place], [place] [address] CHLAMYDIA/GONOCOCCUS ALISSON (SW AB/URINE/PAPon 02-18-2020 Chlamydia trachomatis, ALISSON Negative Normal Negative [facility] Comment on above: Performed By: #### C T/NGNA ####[facility] [address] [place] [address] Indu Neisseria gonorrhoeae, ALISSON Negative Normal Negative [facility] Comment on above: Performed By: #### C T/NGNA ####[facility] [address] [place] [address] Indu VAGINITIS/VAGINOSIS DNA PROB Ezequiel 02-17-2020 Fatou species Negative Normal Negative [facility] Comment on above: Performed By: #### V AGINT ####[facility] [address] [place] [address] Indu Gardnerella vaginalis Negative Normal Negative [facility] Comment on above: Performed By: #### V AGINT ####[facility] [address] [place] [address] Indu Trichomonas vaginalis Negative Normal Negative [facility] Comment on above: Performed By: #### V AGINT ####[facility] [address] [place] [address] Indu GLUCOSE - 1HRon 12-02-2019 Glucose [Mass/Vol] 130 mg/dL Critically high 74-106 [facility] Comment on above: Performed By: #### G LU1HR ####[facility] [address] [place] [address] Indu HEMOGRAM AND PLATELon 2019 Hematocrit (Bld) [Volume fraction] 35.2 % Critically low 36.0-48.0 [facility] Comment on above: Performed By: #### H H ####[facility] [address] [place] [address] Indu Hemoglobin (Bld) [Mass/Vol] 11.7 g/dL Critically low 12.0-16.0 [facility] Comment on above: Performed By: #### H H ####[facility] [address] [place] [address] Indu MCH (RBC) [Entitic mass] 30.0 pg Normal 26.7-34.0 [facility] Comment on above: Performed By: #### H H ####[facility] [address] [place] [address] Indu MCHC (RBC) [Mass/Vol] 33.2 g/dL Normal 29.9-35.2 [facility] Comment on above: Performed By: #### H H ####[facility] [address] [place] [address] Indu MCV (RBC) [Entitic vol] 90.3 fL Normal 81.0-99.0 [facility] Comment on above: Performed By: #### H H ####[facility] [address] [place], [place] [address]GgqiqkDee Dee Griggs Platelets (Bld) [#/Vol] 276 103/ul Normal 150-450 [facility] Comment on above: Performed By: #### H H ####[facility] [address] [place], [place] [address]ZledpkDee Dee Griggs RBC (Bld) [#/Vol] 3.90 106/ul Critically low 4.20-5.40 Th [facility] Comment on above: Performed By: #### H H ####[facility] [address] [place], [place] [address]GqtdyeDee Dee Griggs WBC (Bld) [#/Vol] 14.2 103/ul Critically high 4.0-11.0 [facility] Comment on above: Performed By: #### H H ####[facility] [address] [place], [place] [address]WgiexkDee Dee Griggs US PREG ANATOMY SINGLEon US PREG ANATOMY SINGLE EXAMINATION: US PREG ANATOMY SINGLE HISTORY: screening COMPARISON: No relevant comparison available. TECHNIQUE: Transabdominal sonographic examination was performed for obstetrical and evaluation. FINDINGS: Number: 1 Heart Rate: 141 H.B. /min Amniotic Fluid Volume: Subjectively normal Placental Location: Posterior, placental edge 4.1 cm from the internal cervical os Cervix Length: Closed, 4.6 cm Presentation: Cephalic Normally visualized anatomy: Cerebellum, choroid plexus, cisterna magna, lateral cerebral ventricles, orbits, midline falx, hard palate, four-chamber heart, RVOT, LVOT, stomach, kidneys, bladder, umbilical cord insertion into the abdomen, three-vessel cord, cervical spine, thoracic spine, lumbar spine, sacral spine, right upper extremity, left upper extremity, right lower extremity, left lower extremity Suboptimally visualized anatomy: None BIOMETRY: BPD: 4.6 cm 20 weeks 0 days HC: 17.8 cm 20 weeks 2 days AC: 15.2 cm 20 weeks 2 days FL: 3.4 cm 20 weeks 4 days EFW:3 57 g; 56% FL/AC: 0.963277 FL/BPD: 0.499076 HC/AC: 1.169283 GESTATIONAL AGE: Age by EDC: 20 weeks, 0 days Age by current US: 20 weeks, 2 days JAY by current US: 03/14/2020 JAY by EDC: 03/16/2020 IMPRESSION: Normal anatomy scan *Reference: AIUM Practice Guideline for the performance of Obstetric Ultrasound Examinations, May 18, 2007. Normal [facility] AFP MATERNAL FOR SPINA BIFID Aon 10-13-2019 AFP MoM 0.72 Normal [facility] Comment on above: Performed By: #### A FPMAT ####[facility] Ol[address]om[address]ms[address] Indu AFP Value 24.8 ng/mL Normal [facility] Comment on above: Performed By: #### A FPMAT ####[facility] Fjlsaedouz[address] Indu AFP, Serum for Spina Bifida Report Normal [facility] Comment on above: Performed By: #### A FPMAT ####[facility] X[address] Comment Comment Normal [facility] Comment on above: Result Comment: Ashish Robertson, Ph.D., [facility] Principal Genetics Claims Auditor . References: Available Upon Request. . Multiples Of Median Cutoffs For AFP Elevations Cooney 2.5 Black 2.8 IDD 2.0 Twins 4.5 Abbreviation Definitions IDD - Insulin Dep Diabetes OSBR - Open Spina Bifida Risk . For further inquiries contact [employer] [facility] at [phone]. Performed By: #### A FPMAT ####[facility] Uikctqxjle24[address] In[place] Gest Age Collection Date 17.6 weeks Normal [facility] Comment on above: Performed By: #### A FPMAT ####[facility] Rodjswmtsc[address] Indu Gestat, Age Based on Ultrasound Normal [facility] Comment on above: Result Comment: 14.7 on 09/21/2019 Recalculations are not recommended when gestational dating by LMP and ultrasound are within 10 days. Performed By: #### A FPMAT ####[facility] Earywtexdt[address] Indu Insulin Dep Diabetes No Normal [facility] Comment on above: Performed By: #### A FPMAT ####[facility] Yhjpkvlzsq[address] Indu Interpretation Comment Normal [facility] Comment on above: Result Comment: Inte rpretation: Screen Negative . This result is screen negative for OSB. The AFP MoM calculated is based on the gestational age provided. MS-AFP can identify up to 80% of open neural tube defects. Closed neural tube defects and some open defects may not be detected by this test. This test does not screen for Down Syndrome or Trisomy 18. If screening for Down Syndrome or Trisomy 18 is desired, contact [employer] to discuss available options. The [employer] recommends amniocentesis be offered to women age 35 and older. Performed By: #### A FPMAT ####[facility] X[address]bm[address] Indu [age] Normal [facility] Comment on above: Performed By: #### A FPMAT ####[facility] Iwjwphmsqp10[address] Indu Multiple Gestation No Normal [facility] Comment on above: Performed By: #### A FPMAT ####[facility] Wxqjccglwc[address] In[place] OSBR Risk 1 [place] [address] Normal [facility] Comment on above: Performed By: #### A FPMAT ####[facility] U[address]unw[address] Indu PDF . Normal [facility] Comment on above: Performed By: #### A FPMAT ####[facility] Wcfznpyxbt5043 [address] Indu Race Normal [facility] Comment on above: Performed By: #### A FPMAT ####[facility] Lsdnixfxdl2140 [address] Indu Test Results: Negative Normal [facility] Comment on above: Performed By: #### A FPMAT ####[facility] [address] [place] [address]Dee Dee Griggs CHLAMYDIA/GONOCOCCUS ALISSON (SW AB/URINE/PAPon 09-09-2019 Chlamydia trachomatis, ALISSON Negative Normal Negative [facility] Comment on above: Performed By: #### C T/NGNA ####[facility] X[address]oly[address] In[place] Neisseria gonorrhoeae, ALISSON Negative Normal Negative [facility] Comment on above: Performed By: #### C T/NGNA ####[facility] Xlhdoxqbro[address] Indu HEP B SURFACE ANTIGEN SCREEN on 09-08-2019 HBsAg Screen Negative Normal Negative [facility] Comment on above: Performed By: #### H BSANS #### [facility] [address] [address] Dee Dee Griggs HEPATITIS C VIRUS AB W/ REFL EX QUANTon 09-08-2019 HCV AB 0.2 s/co ratio Normal 0.0-0.9 [facility] Comment on above: Performed By: #### H CVPCRR #### [facility] [address] [address] Dee Dee Griggs Interpretation: Comment Normal [facility] Comment on above: Result Comment: Nega tive Not infected with HCV, unless recent infection is suspected or other evidence exists to indicate HCV infection. Performed By: #### H CVPCRR #### [facility] [address] [address] Dee Dee Griggs HIV 1 AND 2 WITH REFLEXon HIV Screen 4th Generation wRfx Non Reactive Normal Non Reactive [facility] Comment on above: Performed By: #### H IV12 #### [facility] [address] [address] Dee Dee Griggs RPR QUANTon 09-08-2019 Rapid Plasma Reagin, Quant Non Reactive Normal NonRea<1:1 [facility] Comment on above: Performed By: #### R PRQ ####[facility] [address] [place] [id number] Griggs RUBELLA AB IGGon 09-08-2019 Rubella Antibodies, IgG 3.18 index Normal Immune >0.99 [facility] Comment on above: Result Comment: Non- immune <0.90 Equivocal 0.90 - 0.99 Immune >0.99 Performed By: #### R UBIGG #### [facility] [address] [place], [place] [address] Dee Dee Indu CBC AUTO DIFFon 09-07-2019 Basophils (Bld) [#/Vol] 0.0 103/ul Normal 0.0-0.1 [facility] Comment on above: Performed By: #### C BC #### [facility] [address] [place] [address] Dee Dee Indu Basophils/100 WBC (Bld) 0.4 % Normal 0.2-2.0 [facility] Comment on above: Performed By: #### C BC #### [facility] [address] [place] [address] Dee Dee Indu Eosinophils (Bld) [#/Vol] 0.3 103/ul Normal 0.0-0.7 [facility] Comment on above: Performed By: #### C BC #### [facility] [address] [place], [place] [address] Dee Dee Indu Eosinophils/100 WBC (Bld) 2.8 % Normal 0.9-7.0 [facility] Comment on above: Performed By: #### C BC #### [facility] [address] [place], [place] [address] Dee Dee Indu Erythrocyte distribution width (RBC) [Ratio] 13.9 % Normal 11.0-15.0 [facility] Comment on above: Performed By: #### C BC #### [facility] [address] [place], [place] [address] Dee Dee Indu Hematocrit (Bld) [Volume fraction] 36.8 % Normal 36.0-48.0 [facility] Comment on above: Performed By: #### C BC #### [facility] [address] [place], [place] [address] Dee [place] In[place] Hemoglobin (Bld) [Mass/Vol] 12.3 g/dL Normal 12.0-16.0 [facility] Comment on above: Performed By: #### C BC #### [facility] [address] [place], [place] [address] Dee Deemino Griggs IG # 0.03 10e3/ul Normal 0.00-0.03 [facility] Comment on above: Performed By: #### C BC #### [facility] [address] [place] [address] Dee Dee In[place] IG % 0.3 % Normal 0.0-0.5 [facility] Comment on above: Performed By: #### C BC #### [facility] [address] [place] [address] Dee Dee Griggs Lymphocytes (Bld) [#/Vol] 2.6 103/ul Normal 1.2-3.8 [facility] Comment on above: Performed By: #### C BC #### [facility] [address] [place] [address] Dee Dee Griggs Lymphocytes/100 WBC (Bld) 23.3 % Normal 20.5-60.0 [facility] Comment on above: Performed By: #### C BC #### [facility] [address] [place], [place] [address] Dee Dee Griggs MANUAL DIFF REQ NO Normal [facility] Comment on above: Performed By: #### C BC #### [facility] [address] [place] [address] Dee Deemino Griggs MCH (RBC) [Entitic mass] 28.7 pg Normal 26.7-34.0 [facility] Comment on above: Performed By: #### C BC #### [facility] [address] [place], [place] [address] Dee Deemino Griggs MCHC (RBC) [Mass/Vol] 33.4 g/dL Normal 29.9-35.2 [facility] Comment on above: Performed By: #### C BC #### [facility] [address] [place], [place] [address] Dee Deemino Griggs MCV (RBC) [Entitic vol] 85.8 fL Normal 81.0-99.0 [facility] Comment on above: Performed By: #### C BC #### [facility] [address] [place] [address] Dee Dee Indu Monocytes (Bld) [#/Vol] 1.0 103/ul Critically high 0.3-0.8 [facility] Comment on above: Performed By: #### C BC #### [facility] [address] [place], [place] [address] Dee Dee Indu Monocytes/100 WBC (Bld) 8.8 % Normal 1.7-12.0 [facility] Comment on above: Performed By: #### C BC #### [facility] [address] [place], [place] [address] Dee Dee Indu Neutrophils (Bld) [#/Vol] 7.1 103/ul Critically high 1.4-6.5 [facility] Comment on above: Performed By: #### C BC #### [facility] [address] [place], [place] [address] Dee Dee Indu Neutrophils/100 WBC (Bld) 64.4 % Normal 43.0-75.0 [facility] Comment on above: Performed By: #### C BC #### [facility] [address] [place], [place] [address] Dee Dee Indu Platelet mean volume (Bld) [Entitic vol] 9.4 fL Critically low 9.5-13.5 [facility] Comment on above: Performed By: #### C BC #### [facility] [address] [place], [place] [address] Dee Dee Indu Platelets (Bld) [#/Vol] 272 103/ul Normal 150-450 [facility] Comment on above: Performed By: #### C BC #### [facility] [address] [place], [place] [address] [place] In[place] RBC (Bld) [#/Vol] 4.29 106/ul Normal 4.20-5.40 [facility] Comment on above: Performed By: #### C BC #### [facility] [address] [place], [place] [address] Dee Dee Indu WBC (Bld) [#/Vol] 11.0 103/ul Normal 4.0-11.0 [facility] Comment on above: Performed By: #### C BC #### [facility] [address] [place], [place] [address] Dee Dee Griggs CULTURE URINEon 09-07-2019 CULTURE URINE Culture Observations: No growth Normal [facility] Comment on above: Performed By: #### U RCX ####[facility] [address] [place], [place] [address]YcsjftDee Dee Griggs GLYCOHEMOGLOBIN A1Con 2019 Glucose [Mass/Vol] 111 mg/dL Normal [facility] Comment on above: Performed By: #### A 1C #### [facility] [address] [place] [id number] Dee Dee Griggs HbA1c (Bld) [Mass fraction] 5.5 % Normal <=6.0 [facility] Comment on above: Performed By: #### A 1C #### [facility] [address] [address] Dee Dee Griggs FANY BOX TEST PT SEND OUTo n 09-07-2019 SENT TO REF LAB 09/07/2019 Normal [facility] Comment on above: Performed By: #### N BOX #### [facility] [address] [id number] Dee Dee Griggs TYPE AND SCREENon 09-07-2019 TYPE AND SCREEN Negative Normal [facility] Comment on above: Performed By: #### T NS #### [facility] [address] [id number] Dee Dee Griggs US PREG TVon 07-27-2019 US PREG TV Patient: ARCHANA RODRIGUEZ Exam Date: 07/27/2019 : 1995 Gender:F Ordering : DR JOANNE FRANKLIN . Admission #: [id number] Family : DR ТАТЬЯНА URIARTE . Order #: [id number] CLICK HERE TO VIEW EXAM RADIOLOGY REPORT PROCEDURE: ULTRASOUND TRANSVAGINAL COMPARISON: None. INDICATIONS: Routine care Z345; 6 weeks, 5 days TECHNIQUE: Transvaginal sonographic examination for obstetrical and evaluation. FINDINGS: GESTATIONAL SAC: Present and normal appearing. POLE: Present and normal appearing. YOLK SAC: Present. CARDIAC ACTIVITY: Present. UTERUS: Normal. OVARIES: Right: Normal. Left: Normal. CERVIX: 3.8 cm in length. Closed. CUL-DE-SAC: Normal. OTHER: None. AGE BY LMP: 10 weeks, 0 days JAY BY LMP: February 22, 2020 AGE BY US CRL: 6 weeks, 5 days JAY BY US CRL: February 15, 2020 CONCLUSION: 1. Viable intrauterine gestation of 6 weeks, 5 days Dictated by: Wild Moody M.D. on 07/27/2019 at 10:12 Approved by: Wild Moody M.D. on 07/27/2019 at 10:12 Normal [facility] PREG QUANT HCGon 07-20-2019 HCG QUANT 7056.00 mIU/mL Normal [facility] Comment on above: Performed By: #### P REGQNT #### [facility] [address] [place], [place] [address] Dee Dee Griggs HCG RANGE SEE BELOW Normal [facility] Comment on above: Result Comment: 5-50 0-1 WEEK 40-300 1-2 WEEKS 100-1,000 2-3 WEEKS 500-6,000 3-4 WEEKS 5,000-200,000 1-2 MONTHS 10,000-100,000 2-3 MONTHS 3,000-50,000 2ND TRIMESTER 1,000-50,000 3RD TRIMESTER Performed By: #### P REGQNT #### [facility] [address] [place], [place] [address] Dee Dee Griggs Vital Signs Date Time Vital Sign Value Performing Clinician Facility 06-10-2024 15:02-0400 Body mass index (BMI) [Ratio] 36.08 kg/m2 [facility] 06-10-2024 15:020400 Body weight 98.34 kg [facility] 11-27-2023 13:56-0400 Body height 167.64 cm [facility] 11-27-2023 13:56-0400 Body mass index (BMI) [Ratio] 34.3 kg/m2 [facility] 11-27-2023 13:56-0400 Body temperature 98.9 [degF] [facility] 11-27-2023 13:56-0400 Body weight 96.61 kg [facility] 11-27-2023 13:56-0400 Heart rate 102 /min [facility] 11-27-2023 13:56-0400 Respiratory rate 16 /min [facility] 11-27-2023 13:56-0400 SaO2% (BldA) [Mass fraction] 97 % [facility] 08-19-2023 14:10-0500 Body height 167.64 cm Marti Lawson Other [facility] Other 08-19-2023 14:10-0500 Body mass index (BMI) [Ratio] 34.44 kg/m2 Marti Lawson Other [facility] 08-19-2023 14:10-0500 Body temperature 99 [degF] Marti Lawson Other [facility] Other 08-19-2023 14:10-0500 Body weight 96.8 kg Marti Lawson Other [facility] Other 08-19-2023 14:10-0500 Respiratory rate 18 /min Marti Lawson Other [facility] Other 08-19-2023 14:10-0500 SaO2% (BldA) [Mass fraction] 98 % Marti Lawson Other [facility] Other 10-13-2019 02:06-0500 Body weight 90.72 kg ТАТЬЯНА RODOLFO [facility] Comment on above: Performed By: #### AFPMAT ####[facility] [address] [place], [place] [address]Ihshso Indu Encounters Encounter Date Encounter Type Care Provider Facility Start: 06-10-2024 End: 06-10-2024 ambulatory Not Available Start: 06-10-2024 End: 06-10-2024 Office outpatient visit 5 minutes [facility] Start: 11-27-2023 End: 11-27-2023 ambulatory [facility] Work Phone: Start: 11-27-2023 End: 11-27-2023 Patient encounter procedure [facility] Work Phone: Start: 08-19-2023 End: 08-19-2023 ambulatory Marti Lawson Other [facility] Other Start: 08-19-2023 Office outpatient ne w 30 minutes Marti Lawson [facility] Start: 03-22-2020 End: 03-23-2020 Patient encounter procedure ТАТЬЯНА URIARTE Facility:[facility] Start: 03-08-2020 End: 03-11-2020 Evaluation and management of inpatient JOANNE FRANKLIN Facility:[facility] Start: 02-15-2020 End: 02-15-2020 Patient encounter procedure JOANNE RODRIGUEZK Facility:[facility] Start: 12-02-2019 End: 12-03-2019 Patient encounter procedure JOANNE ACOSTAASIK Facility:[facility] Start: 10-28-2019 End: 10-29-2019 Patient encounter procedure JOANNE ACOSTAASIK Facility:[facility] Start: 10-11-2019 End: 10-12-2019 Patient encounter procedure JOANNE ACOSTAASIK Facility:[facility] Start: 09-07-2019 End: 09-07-2019 Patient encounter procedure JOANNE ACOSTAASIK Facility:[facility] Start: 09-07-2019 End: 09-08-2019 Patient encounter procedure JOANNE ACOSTAASIK Facility:[facility] Start: 07-27-2019 End: 07-28-2019 Patient encounter procedure JOANNE ACOSTAASIK Facility:[facility] Start: 07-20-2019 End: 07-21-2019 Patient encounter procedure ТАТЬЯНА HOY Facility:[facility] Procedures Date Procedure Procedure Detail Performing Clinician Start: 06-10-2024 End: 06-10-2024 Urnls dip stick/tablet rgnt non-auto w/o micrscp Roberto Kennedy DO Work Phone: Start: 03-09-2020 Delivery of Products of Conception, External Approach ТАТЬЯНА HOY Start: 03-09-2020 Division of Female Perineum, External Approach ТАТЬЯНА HOY Start: 03-09-2020 Drainage of Amniotic Fluid, Therapeutic from Products of Conception, Via Natural or Artificial Opening ТАТЬЯНА HOY Start: 03-08-2020 Introduction of Horm one into Female Reproductive, Via Natural or Artificial Opening ТАТЬЯНА HOY Plan of Treatment Date Care Activity Detail Author Start: 06-28-2024 End: 06-28-2024 Patient encounter procedure 06/28/2024 1:20 PM EST Routine [facility] [address] [place] [address] Roberto Benavides, DO [address] [place] [place] [address] [facility] Start: 06-10-2024 End: 06-10-2025 ABO/Rh ABO/Rh Lab Routine Missed menses , unspecified gestational age Expected: 06/10/2024 (Approximate), Expires: 06/10/2025 [facility] Comment on above: Expected: 06/10/2024 (Approximate), Expires: 06/10/2025 Start: 06-10-2024 End: 06-10-2025 Blood type and Indirect antibody screen panel - Blood Type and screen Lab Routine Missed menses , unspecified gestational age Expected: 06/10/2024 (Approximate), Expires: 06/10/2025 [facility] Work Phone: Comment on above: Expected: 06/10/2024 (Approximate), Expires: 06/10/2025 Start: 06-10-2024 End: 06-10-2025 Drugs of abuse panel - Urine by Screen method Rapid drug screen, urine Lab Routine , unspecified gestational age Encounter for supervision of normal first in first trimester Expected: 06/10/2024 (Approximate), Expires: 06/10/2025 [facility] Comment on above: Expected: 06/10/2024 (Approximate), Expires: 06/10/2025 Start: 06-10-2024 End: 06-10-2025 US Pelvis transvaginal US OB transvaginal Imaging Routine Missed menses Expected: 06/10/2024 (Approximate), Expires: 06/10/2025 [facility] Comment on above: Expected: 06/10/2024 (Approximate), Expires: 06/10/2025 Bacteria identified in Urine by Culture Urine culture Microbiology Routine Missed menses Ordered: 06/10/2024 [facility] Comment on above: Ordered: 06/10/2024 CBC W Auto Different ial panel - Blood CBC and differential Lab Routine Missed menses , unspecified gestational age Ordered: 06/10/2024 [facility] Comment on above: Ordered: 06/10/2024 Hemoglobin A1c/Hemoglobin.total in Blood Hemoglobin A1c Lab Routine Missed menses , unspecified gestational age Ordered: 06/10/2024 [facility] Comment on above: Ordered: 06/10/2024 Hepatitis B virus surface Ag [Presence] in Serum or Plasma by Immunoassay Hepatitis B surface antigen Lab Routine Missed menses , unspecified gestational age Ordered: 06/10/2024 [facility] Comment on above: Ordered: 06/10/2024 Hepatitis C virus Ab [Presence] in Serum or Plasma by Immunoassay Hepatitis C antibody Lab Routine Missed menses , unspecified gestational age Ordered: 06/10/2024 [facility] Comment on above: Ordered: 06/10/2024 HIV-1/HIV-2 antigen/antibody combination immunoassay HIV-1 and HIV-2 antibodies Lab Routine Missed menses , unspecified gestational age Ordered: 06/10/2024 [facility] Comment on above: Ordered: 06/10/2024 Reagin Ab [Presence] in Serum by RPR RPR Lab Routine Missed menses , unspecified gestational age Ordered: 06/10/2024 [facility] Comment on above: Ordered: 06/10/2024 Rubella antibody, IgG Rubella an tibody, IgG Lab Routine Missed menses , unspecified gestational age Ordered: 06/10/2024 [facility] Comment on above: Ordered: 06/10/2024 Payers Date Payer Category Payer Medicaid (Managed Care) GALA SHELTON [id number] 1995 Unknown [id number] 2.16.840.1.638542.3.579.2. 593 1995 Unknown [id number] 2.16.840.1.643540.3.579.2. 593 1995 Unknown [id number] 2.16.840.1.578907.3.579.2. 593 1995 Unknown [id number] 2.16.840.1.637517.3.579.2. 593 1995 Unknown [id number] 2.16.840.1.613061.3.579.2. 593 1996 Unknown [id number] 2.16.840.1.732410.3.579.2. 593 1995 Unknown [id number] 2.16.840.1.614989.3.579.2. 593 1996 Unknown [id number] 2.16.840.1.149777.3.579.2. 593 1995 Unknown [id number] 2.16.840.1.770211.3.579.2. 593 1995 Unknown [id number] 2.16.840.1.602802.3.579.2. 593 1996 Unknown [id number] 2.16.840.1.461620.3.579.2. 1259 1974 Unknown [id number] 2.16.840.1.567122.3.579.2. 593 1974 Unknown [id number] 2.16.840.1.278257.3.579.2. 593 1959 Private Health Insurance [id number] 1959 Unknown [id number] 1947 Unknown [id number] 2.16.840.1.688903.3.579.2. 593 1947 Unknown [id number] 2.16.840.1.361535.3.579.2. 593 Unknown [facility] [id number] Social History Date Type Detail Facility Unknown if ever smoked [facility] Other Sex Assigned At [facility] Other Start: 11-27-2023 Tobacco smoking status NHIS Never smoked tobacco (finding) [facility] Start: 1995 Sex Assigned At Female F [facility] Tobacco smoking status [facility] Tobacco smoking consumption unknown [facility] Start: 05-27-2024 Gender identity Identifies as female gender (finding) [facility] History of Present illness Narrative 06-10-2024 Kerri Mejía LPN - 06/10/2024 2:30 PM EDT Note Date & Type Note Facility 06-10-2024 History of Presen t illness Narrative Reason for Appointment: Patient ID: Alphonse Rodriguez is a 28 y.o. female who presents for Amenorrhea Patient presents today for a Nurse OB Intake appointment. Patient is Unknown with a Estimated Date of Delivery: None noted. OB History Para Term AB Living 1 SAB IAB Ectopic Multiple Live Births # Outcome Date GA Lbr Eugenio/2nd Weight Sex Type Anes PTL Lv 1 Current Current Medications: has a current medication list which includes the following prescription(s): ondansetron odt. Medical History: Active Ambulatory Problems Diagnosis Date Noted No Active Ambulatory Problems Resolved Ambulatory Problems Diagnosis Date Noted No Resolved Ambulatory Problems No Additional Past Medical History No family history on file. Social History Tobacco Use Smoking status: Not on file Smokeless tobacco: Not on file Substance Use Topics Alcohol use: Not on file Drug use: Not on file No past surgical history on file. Allergies Allergen Reactions Sulfamethoxazole-Trimethoprim Anaphylaxis, Palpitations and Shortness of breath Penicillamine Other Reaction(s): hives Sulfa Antibiotics Other Reaction(s): anaphylaxis, tachycardia Trimethoprim Other Reaction(s): anaphylaxis Latex Rash Other Reaction(s): hives Penicillins Itching and Rash Other Reaction(s): hives Vitals: Estimated body mass index is 36.08 kg/m as calculated from the following: Height as of 02/07/22: 5' 5 . Weight as of this encounter: 216 lb 12.8 oz. BP: Patient's last menstrual period was 04/03/2024. Assessment/Plan Diagnoses and all orders for this visit: Missed menses - Type and screen; Future - ABO/Rh; Future - CBC and differential - Hemoglobin A1c - RPR - Rubella antibody, IgG - Hepatitis B surface antigen - Hepatitis C antibody - HIV-1 and HIV-2 antibodies - Urine culture - US OB transvaginal; Future - POCT , urine manually resulted - POCT urinalysis dipstick manually resulted , unspecified gestational age - Type and screen; Future - ABO/Rh; Future - CBC and differential - Hemoglobin A1c - RPR - Rubella antibody, IgG - Hepatitis B surface antigen - Hepatitis C antibody - HIV-1 and HIV-2 antibodies - Rapid drug screen, urine; Future Encounter for supervision of normal first in first trimester - Rapid drug screen, urine; Future Nausea and vomiting in - ondansetron ODT (Zofran-ODT) 4 MG disintegrating tablet; Take 1 tablet (4 mg) by mouth every 6 (six) hours if needed for nausea or vomiting Nurse Note: OB Intake: Patient presents today for first OB visit. Patients history has been reviewed in great detail including any potential risks. Patient signed consent forms and patient desires testing in both trimesters. Patient currently has no complaints and has been advised to drink 6-8 glasses of water a day, eat no raw or undercooked meat, and stay away from [facility]. Patient has also been advised to not change litter boxes and eat 6 small meals a day. Patient has been consulted regarding the do's and don'ts of . Patient was given labs and all questions and concerns were answered. Follow Up: Patient is to return in 4 weeks for routine OB appointment. Follow Up: Patient is to have labs drawn at directed and return to office for initial OB appointment with provider. Patient may call office as needed with any concerns or questions. Nurse Visit Completed by: JOSE MARTIN Garciaally signed by Kerri Mejía LPN at 06/10/2024 3:18 PM EDT documented in this encounter [facility] Evaluation note 08-19-2023 Note Date & Type Note Facility 08-19-2023 Evaluation note Encounter Date Diagnosis Assessment Notes Aug, Acute cough (ICD-10 - R05.1) Aug, Influenza A (ICD-10 - J10.1) Advised patient that rapid Influenza A test was positive, COVID/Influenza B test negative. Patient is currently out of window for Tamiflu medication. Encouraged supportive care, including Tylenol/Motrin as needed for body aches/fever, OTC cold medications increase fluids and rest, use of cool mist humidifier. Work note provided. Follow-up with PCP to advise of positive result and further management need. Advised to stay home from work/activities until fever free for 24 hours without use of antipyretic. Immediate eval if respiratory distress, SOB, difficulty breathing, severe headache and neck pain/stiffness, rash, abdominal pain, N/V, poor PO intake, dehydration, lethargy, or if any new or concerning symptoms arise. Patient verbalizes understanding and is agreeable to treatment plan. Patient left in stable condition [facility] Other Evaluation note Note Date & Type Note Facility Evaluation note No assessment information [facility] Work Phone: Evaluation note Note Date & Type Note Facility Evaluation note Diagnosis Missed menses , unspecified gestational age Encounter for supervision of normal first in first trimester Nausea and vomiting in Unspecified vomiting of , unspecified as to episode of care documented in this encounter [facility] History general Narrative - Reported Note Date & Type Note Facility History general Narrative - Reported Type Medical History asthma Medical History gestational hypertension [facility] Other Summary Purpose Family History No Family History Records Found Relationship Condition Age at Onset Recorded Date/T kishore father Hypertension Unknown Advance Directives No Advanced Directives Records Found Advance Directive Response Recorded Date/ Time Advance Directives No November 26 1:39pm Chief Complaint and Reason for Visit Chief Complaint cough, congestion Additional Source Comments INFORMATION SOURCE (unrecogn ized section and content) DATE CREATED AUTHOR 03/31/2020 [facility] DATE CREATED AUTHOR AUTHOR'S ORGANIZ ATION 06/12/2024 [facility] EPIC REASON FOR VISIT (unrecogniz ed section and content) Reason Comments Amenorrhea Care Teams (unrecognized sec tion and content) Team Status: Active Member Role Status Dates Татьяна Uriarte MD Primary Care Provider Active Team Status: Inactive Member Role Status Dates Татьяна Uriarte MD Primary Care Provider Active Start: November 27, 2023 End: November 27, 2023 Juana Osullivan NP-C Attending Provider Active S tart: November 27, 2023 End: November 27, 2023 Guide Tour Relationship Specialty Start Date End Date Татьяна Uriarte MD [address] [place] [id number] PCP - General Family Medicine 06/10/24 Goals (unrecognized section and content) Goals may be documented in a n alternate section FOR RECORDS PERTAINING TO PATIENTS WHO ARE OR HAVE BEEN ENROLLED IN A CHEMICAL DEPENDENCY/SUBSTANCEABUSE PROGRAM, SOME INFORMATION MAY BE OMITTED. This clinical summary was aggregated from multiple sources. Caution should be exercised in using it in the provision of clinical care. This summary normalizes information from multiple sources, and as a consequence, information in this document may materially change the coding, format and clinical context of patient data. In addition, data may be omitted in some cases. CLINICAL DECISIONS SHOULD BE BASED ON THE PRIMARY CLINICAL RECORDS. [facility] [employer] [facility]. provides no warranty or guarantee of the accuracy or completeness of information in this document.
[2024-06-24 13:07] LABS: Basophils Absolute Auto 0.1 10^3/uL (0.0-0.1); Basophils Percent Auto 0.4 % (0.2-2.0); Eosinophils Absolute Auto 0.1 10^3/uL (0.0-0.7); Hematocrit 37.7 % (36.0-48.0); Hemoglobin 12.7 g/dL (12.0-16.0); Immature Granulocytes Abs Auto 0.04 10^3/uL (0.00-0.03); Immature Granulocytes Pct Auto 0.4 % (0.0-0.5); Lymphocytes Absolute Auto 2.9 10^3/uL (1.2-3.8); Lymphocytes Percent Auto 25.9 % (20.5-60.0); Mean Corpuscular HGB Conc 33.7 g/dL (29.9-35.2); Mean Corpuscular Volume 86.1 fL (81.0-99.0); Mean Platelet Volume 9.3 fL (9.5-13.5); Monocytes Absolute Auto 0.7 10^3/uL (0.3-0.8); Monocytes Percent Auto 6.2 % (1.7-12.0); Neutrophils Absolute Auto 7.5 10^3/uL (1.4-6.5); Neutrophils Percent Auto 66.1 % (43.0-75.0); Platelet Count 338 10^3/uL (150-450); Red Blood Count 4.38 10^6/uL (4.20-5.40); Red Cell Distribution Width 13.1 % (11.0-15.0); White Blood Count 11.4 10^3/uL (4.0-11.0)
[2024-06-24 13:16] LABS: Estimated Average Glucose 105 mg/dL; Glycohemoglobin A1C 5.3 % (4.5-6.2)
[2024-06-24 13:48] LABS: Amphetamine Screen Urine NEGATIVE (NEGATIVE); Barbiturates Screen Urine NEGATIVE (NEGATIVE); Benzodiazepines Screen Urine NEGATIVE (NEGATIVE); Buprenorphine Screen Urine NEGATIVE (NEGATIVE); Cannabinoid Screen Urine NEGATIVE (NEGATIVE); Cocaine Screen Urine NEGATIVE (NEGATIVE); Methadone Screen Urine NEGATIVE (NEGATIVE); Methamphetamines Screen Urine NEGATIVE (NEGATIVE); Opiate Screen Urine NEGATIVE (NEGATIVE); Oxycodone Screen Urine NEGATIVE (NEGATIVE); Phencyclidine Screen Urine NEGATIVE (NEGATIVE); Tricyclic Antidepressant Urine NEGATIVE (NEGATIVE)
[2024-06-24 13:51] LABS: BOX Test Reference Lab UNITY; BOX Test Sent Out UNITY BOX
[2024-06-25 07:10] LABS: HBsAg Screen Negative (Negative); HCV Ab Non Reactive (Non Reactive); HIV Ab/p24 Ag Screen Non Reactive (Non Reactive)
[2024-06-25 08:13] LABS: Rubella Antibodies, IgG 3.23 index (Immune >0.99)
[2024-06-25 11:11] LABS: Rapid Plasma Reagin, Quant Non Reactive titer (NonRea<1:1)
== END 2024-06-24 11:47 | disposition home or self-care (01) ==
LOC: LAB 11:48
PROVIDERS: Visit Provider Obstetrics & Gynecology
DX: Z34.01 Encounter for supervision of normal first pregnancy, first trimester (principal); Z36.0 Encounter for antenatal screening for chromosomal anomalies; N92.6 Irregular menstruation, unspecified
CPT/HCPCS: 36415; 80307; 83036; 85025; 86592; 86762; 86803; 86850; 86900; 86901; 87086; 87340; 87389

== ENCOUNTER 2024-07-28 20:00 | Outpatient (REF) | payer OTHER, SELFPAY ==
--- OUTSIDE RECORDS SUMMARY | 2024-07-28 20:15 | XMS_ITS | CCD ---
Author Organization [facility] [place] [facility] CliniSyid Care Team Providers Care [place] Buyer Name Role Phone HOY, ТАТЬЯНА Admitting Unavailable HOY, ТАТЬЯНА Attending Unavailable HOY, ТАТЬЯНА Primary Care Unavailable HOY, ТАТЬЯНА Consulting Unavailable KARASIK, JOANNE Admitting Unavailable KARASIK, JOANNE Attending Unavailable HOY, ТАТЬЯНА Primary Care Unavailable KARASIK, JOANNE Consulting Unavailable WILD LOCKHART V Consulting Unavailable KARASIK, JOANNE Admitting Unavailable KARASIK, JOANNE Attending Unavailable HOY, ТАТЬЯНА Primary Care Unavailable KARASIK, JOANEN Consulting Unavailable KARASIK, JOANNE Admitting Unavailable KARASIK, [...] JOANNE Attending Unavailable KARASIK, JOANNE Consulting Unavailable ROBERTO BENAVIDES Consulting Unavailable RAN ADAMS Consulting Unavailable KARASIK, JOANNE Procedure Practitioner Unavaila Marti Casillas Unavailable Татьяна Uriarte MD Primary Care Provider [phone] ROBERTO BENAVIDES Attending Unavailable Allergies Allergy Classification Reported Allergen(s) Allergy Type Date of Onset Reaction(s) Facility (1 source) Latex Drug allergy (disorder) 10-09-18 97 [facility] (1 source) Penicillin Drug Allergy 05-27-20 15 [facility] (1 source) Sulfamethoxazole / Trimethoprim Drug Allergy 05-23-20 15 [facility] (2 sources) [facility] Sulfamethoxazole / Trimethoprim Drug Allergy 06-10-20 anaphylaxis, Palpitations, Shortness of breath [facility] Other (1 source) Sulfamethoxazole Drug Allergy 11-27-19 24 anaphylaxis [facility] (6 sources) Trimethoprim Drug Allergy 11-27-19 anaphylaxis [facility] (5 sources) Latex Propensity to adverse reactions 06-10-20 24 Rash [facility] (5 sources) penicillAMINE Drug Allergy 11-27-19 [facility] (5 sources) Penicillins Drug Allergy 06-10-20 Itching, Rash [facility] (5 sources) Sulfonamides (Antibiotic) Drug Allergy 11-27-19 [facility] Medications Current Medications Medication Drug Class(es) Dates Sig (Normalized) Sig (Original) ondansetron 4 mg disintegrating oral tablet (5 sources) Serotonin-3 Receptor Antagonist Start: 06-10-2024 End: 07-10-2024 [...] a day for 5 day(s) Sep, Not-Taking/PRN Pre-Nabil (1 source) Pre-Nabil with DHA Not-Taking/PRN Problems [...] 03-17-2020 Chronic Other and delivery including normal (13 sources) Single live ; Translations: [Encounter for supervision of other normal , second trimester] Onset: 07-27-2019 06-10-2024 Episodic Other screening for suspected conditions (not mental disorders or infectious disease) (12 sources) Encounter for other specified screening; Translations: [Encounter for screening for Streptococcus B] Onset: 10-11-2019 Residual codes; unclassified (2 sources) Gestation period, 12 weeks; Translations: [12 weeks gestation of ] 06-28-2024 Episodic Residual codes; unclassified (1 source) 12 weeks [...] Test Name Value Interpretation Reference Range Facility ALL CBC WITH AUTO DIFFon BASOPHILS ABSOLUTE AUTO 0.1 [facility] Basophils/100 WBC (Bld) 0.4 % 0.2 - 2.0 % [facility] Eosinophils/100 WBC (Bld) 1 % 0.9 - 7.0 % [facility] Erythrocyte distribution width (RBC) [Ratio] 13.1 % 11.0 - 15.0 % [facility] Hematocrit (Bld) [Volume fraction] 37.7 % 36.0 - 48.0 % [facility] Hem[facility] (Bld) [Mass/Vol] 12.7 g/dL 12.0 - 16.0 g/dL [facility] IMMATURE GRANULOCYTES ABS AUTO 0.04 High [facility] Immature granulocytes/100 WBC (Bld) 0.4 % 0.0 - 0.5 % [facility] Interpretation and review of laboratory results Abnormal [facility] LYMPHOCYTES ABSOLUTE AUTO 2.9 [facility] Lymphocytes/100 WBC (Bld) 25.9 % 20.5 - 60.0 % [facility] MCH (RBC) [Entitic mass] 29 pg 26.7 - 34.0 pg [facility] MCHC (RBC) [Mass/Vol] 33.7 g/dL 29.9 - 35.2 g/dL [facility] MCV (RBC) [Entitic vol] 86.1 fL 81.0 - 99.0 fL [facility] MONOCYTES ABSOLUTE AUTO 0.7 [facility] Monocytes/100 WBC (Bld) 6.2 % 1.7 - 12.0 % [facility] NEUTROPHILS ABSOLUTE AUTO 7.5 High [facility] Neutrophils/100 WBC (Bld) 66.1 % 43.0 - 75.0 % [facility] Platelet mean volume (Bld) [Entitic vol] 9.3 fL Low 9.5 - 13.5 fL [facility] are TBH EO # 0.1 [facility] TB PLT [address] [facility] e TB RBC 4.38 [facility] TB WBC 11.4 High [facility] e HCG ( test) Ql (U)o n 06-10-2024 Interpretation and review of laboratory results Abnormal [facility] Preg Test, Ur Positive [facility] Urinalysis macro (dipstick) panel (U)on 06-10-2024 Bilirubin, UA Negative Negative - 4(70) +++ mg/dL [facility] Blood, UA Negative Negative - 50 Leandro/mcL [facility] Clarity, UA Clear [facility] re Color, UA Yellow [facility] Glucose, UA Negative Negative - 2000(110) ++++ mg/dL [facility] Interpretation and review of laboratory results Normal [facility] Ketones, UA Negative Negative - 160(16) ++++ mg/dL [facility] Leukocytes, UA Negative Negative - 500+++ Therese/mcL [facility] Nitrite, UA Negative Negative - Positive [facility] pH, UA 6.5 5 - 9 [facility] Protein, UA Negative Negative - 1999(20) ++++ mg/dL [facility] Spec Grav, UA 1.02 1 - 1.03 [facility] Urobilinogen, UA 1.0 0.2 - 12 mg/dL [facility] COVID + FLU Quick Testingon 08-19-2023 SARS-CoV-2 (COVID-19) RNA ALISSON+probe Ql (Unsp spec) Negative [place] [employer] [facility] [employer] Other COVID + FLU Quick Testing Positive [place] [employer] [facility] [employer] Other COVID + FLU Quick Testing Negative [facility] Other COVID-19 PCRon 03-24-2020 SARS-CoV-2, ALISSON Not Detected Normal Not Detected [facility] Comment on above: Result Comment: This test was developed and its performance characteristics determined by [facility]. This test has not been FDA cleared [...] assay. Performed By: #### C BC #### [facility] [address] [place] [address] Dee Dee Griggs CBC AUTO DIFFon 03-11-2020 Basophils (Bld) [#/Vol] 0.0 103/ul Normal 0.0-0.1 [facility] Comment on above: Performed By: #### C BC #### [facility] [address] [place], [place] [address] Dee Dee Indu Basophils/100 WBC (Bld) 0.2 % Normal 0.2-2.0 [facility] Comment on above: Performed By: #### C BC #### [facility] [address] [place] [id number] Dee Dee Indu Eosinophils (Bld) [#/Vol] 0.2 103/ul Normal 0.0-0.7 [facility] Comment on above: Performed By: #### C BC #### [facility] [address] [place] [id number] [employer] Dee Indu Eosinophils/100 WBC (Bld) 1.8 % Normal 0.9-7.0 [facility] Comment on above: Performed By: #### C BC #### [facility] [address] [place] [id number] Dee Dee Indu Erythrocyte distribution width (RBC) [Ratio] 14.0 % Normal 11.0-15.0 [facility] Comment on above: Performed By: #### C BC #### [facility] [address] [place] [id number] Dee Dee Indu Hematocrit (Bld) [Volume fraction] 26.9 % Critically low 36.0-48.0 [facility] Comment on above: Performed By: #### C BC #### [facility] [address] [place] [id number] Dee Dee Indu Hemoglobin (Bld) [Mass/Vol] 9.1 g/dL Critically low 12.0-16.0 [facility] Comment on above: Performed By: #### C BC #### [facility] [address] [place] [id number] Dee Dee Idnu IG # 0.08 10e3/ul Critically high 0.00-0.03 [facility] Comment on above: Performed By: #### C BC #### [facility] [address] [place] [id number] Dee Dee Indu IG % 0.6 % Critically high 0.0-0.5 [facility] Comment on above: Performed By: #### C BC #### [facility] [address] [id number] Dee Dee Indu Lymphocytes (Bld) [#/Vol] 2.7 103/ul Normal 1.2-3.8 [facility] Comment on above: Performed By: #### C BC #### [facility] [address] [place], [place] [address] Dee Dee Indu Lymphocytes/100 WBC (Bld) 20.9 % Normal 20.5-60.0 [facility] Comment on above: Performed By: #### C BC #### [facility] [address] [place] [address] Dee Dee Indu MANUAL DIFF REQ NO Normal [facility] Comment on above: Performed By: #### C BC #### [facility] [address] [place], [place] [id number] Dee Dee Indu MCH (RBC) [Entitic mass] 30.7 pg Normal 26.7-34.0 [facility] Comment on above: Performed By: #### C BC #### [facility] [address] [place], [place] [id number] Dee Dee Indu MCHC (RBC) [Mass/Vol] 33.8 g/dL Normal 29.9-35.2 [facility] Comment on above: Performed By: #### C BC #### [facility] [address] [place], [place] [id number] Dee Dee Indu MCV (RBC) [Entitic vol] 90.9 fL Normal 81.0-99.0 [facility] Comment on above: Performed By: #### C BC #### [facility] [address] [place], [place] [id number] Dee Dee Indu Monocytes (Bld) [#/Vol] 1.2 103/ul Critically high 0.3-0.8 [facility] Comment on above: Performed By: #### C BC #### [facility] [address] [place], [place] [id number] Dee Dee Indu Monocytes/100 WBC (Bld) 8.9 % Normal 1.7-12.0 [facility] Comment on above: Performed By: #### C BC #### [facility] [address] [place] [address] Dee Dee Indu Neutrophils (Bld) [#/Vol] 8.8 103/ul Critically high 1.4-6.5 [facility] Comment on above: Performed By: #### C BC #### [facility] [address] [place] [address] Dee Dee Griggs Neutrophils/100 WBC (Bld) 67.6 % Normal 43.0-75.0 [facility] Comment on above: Performed By: #### C BC #### [facility] [address] [place] [address] Dee Dee Indu Platelet mean volume (Bld) [Entitic vol] 10.2 fL Normal 9.5-13.5 [facility] Comment on above: Performed By: #### C BC #### [facility] [address] [place] [address] Dee Dee Griggs Platelets (Bld) [#/Vol] 178 103/ul Normal 150-450 [facility] Comment on above: Performed By: #### C BC #### [facility] [address] [place] [address] Dee Dee Indu RBC (Bld) [#/Vol] 2.96 106/ul Critically low 4.20-5.40 [facility] Comment on above: Performed By: #### C BC #### [facility] [address] [place] [address] Dee Deemino Acostaen WBC (Bld) [#/Vol] 13.1 103/ul Critically high 4.0-11.0 [facility] Comment on above: Performed By: #### C BC #### [facility] [address] [place] [address] Dee Dee Griggs COVID-19 PCRon 03-11-2020 SARS-CoV-2, ALISSON Detected Abnormal Not Detected [facility] Comment on above: Result Comment: This test was developed and its performance characteristics determined by [facility]. This test has not been FDA cleared [...] assay. Performed By: #### C BC #### [facility] [address] [place] [address] Dee Dee Indu PRIORITY COVID PROCESSINGon 03-11-2020 Comment Comment Normal [facility] Comment on above: Result Comment: Rece ived Performed By: #### C BC #### [facility] [address] [place] [address] Dee Dee Indu RESPIRATORY PANEL PLUSon Adenovirus NOT DETECTED Normal NOT DETECTED [facility] Comment on above: Performed By: #### C BC #### [facility] [address] [place] [address] Dee Dee Indu B. Parapertusis NOT DETECTED Normal NOT DETECTED [facility] Comment on above: Performed By: #### C BC #### [facility] [address] [place] [address] Dee Dee Indu B. Pertussis NOT DETECTED Normal NOT DETECTED [facility] Comment on above: Performed By: #### C BC #### [facility] [address] [place] [address] Dee Dee Indu Chlamydia Pneumoniae NOT DETECTED Normal NOT DETECTED [facility] Comment on above: Performed By: #### C BC #### [facility] [address] [place] [address] Dee Dee Indu Coronavirus 229E NOT DETECTED Normal NOT DETECTED [facility] Comment on above: Performed By: #### C BC #### [facility] [address] [place], [place] [id number] Dee Dee Indu Coronavirus HKU1 NOT DETECTED Normal NOT DETECTED [facility] Comment on above: Performed By: #### C BC #### [facility] [address] [place] [address] Dee Dee Indu Coronavirus NL63 NOT DETECTED Normal NOT DETECTED [facility] Comment on above: Performed By: #### C BC #### [facility] [address] [place] [address] Dee Dee Indu Coronavirus OC43 NOT DETECTED Normal NOT DETECTED [facility] Comment on above: Performed By: #### C BC #### [facility] [address] [place] [address] Dee Dee Indu Influenza A H1 2009 NOT DETECTED Normal NOT DETECTED [facility] Comment on above: Performed By: #### C BC #### [facility] [address] [place] [address] Dee Dee Indu Influenza B NOT DETECTED Normal NOT DETECTED [facility] Comment on above: Performed By: #### C BC #### [facility] [address] [place] [address] Dee Dee Indu Metapneumovirus NOT DETECTED Normal NOT DETECTED [facility] Comment on above: Performed By: #### C BC #### [facility] [address] [place] [address] Dee Dee Indu Mycoplas. Pneumoniae NOT DETECTED Normal NOT DETECTED [facility] Comment on above: Performed By: #### C BC #### [facility] [address] [place] [address] Dee Dee Indu Parainfluenza 1 NOT DETECTED Normal NOT DETECTED [facility] Comment on above: Performed By: #### C BC #### [facility] [address] [place] [address] Dee Dee Indu Parainfluenza 2 NOT DETECTED Normal NOT DETECTED [facility] Comment on above: Performed By: #### C BC #### [facility] [address] [place] [address] Dee Dee Indu Parainfluenza 3 NOT DETECTED Normal NOT DETECTED [facility] Comment on above: Performed By: #### C BC #### [facility] [address] [place] [address] Dee Dee Indu Parainfluenza 4 NOT DETECTED Normal NOT DETECTED [facility] Comment on above: Performed By: #### C BC #### [facility] [address] [place] [address] Dee Dee Indu Rhino/Enterovirus NOT DETECTED Normal NOT DETECTED [facility] Comment on above: Performed By: #### C BC #### [facility] [address] [place] [address] Dee Dee Indu RP2 Header 1 RESPIRATORY PANEL: VIRUSES Normal [facility] Comment on above: Performed By: #### C BC #### [facility] [address] [place] [address] Dee Dee Indu RP2 Header 2 RESPIRATORY PANEL: BACTERIA Normal [facility] Comment on above: Performed By: #### C BC #### [facility] [address] [place] [address] Dee Dee Indu RP2 Header 4 EUA SEE BELOW Normal [facility] Comment on above: Result Comment: This test is not yet approved or cleared by the [place] FDA. When there are no FDA-approved or cleared tests available, and other criteria are met, FDA can make tests available under an emergency access mechanism called an Emergency Use Authorization (EUA). The EUA for this test is supported by the [place] of Health and Human Service?s (HHS?s) declaration [...] used). Performed By: #### C BC #### [facility] [address] [place] [address] Dee Dee Indu RSV NOT DETECTED Normal NOT DETECTED [facility] Comment on above: Performed By: #### C BC #### [facility] [address] [place] [address] Dee Dee Griggs SARS-CoV-2: COVID-19 DETECTED NOT DETECTED [facility] Comment on above: Performed By: #### C BC #### [facility] [address] [place], [place] [id number] Dee Dee Indu CBC AUTO DIFFon 03-10-2020 Basophils (Bld) [#/Vol] 0.0 103/ul Normal 0.0-0.1 [facility] Comment on above: Performed By: #### C BC #### [facility] [address] [place] [address] Dee Dee Indu Basophils/100 WBC (Bld) 0.1 % Critically low 0.2-2.0 [facility] Comment on above: Performed By: #### C BC #### [facility] [address] [place] [address] Dee Dee Indu Eosinophils (Bld) [#/Vol] 0.1 103/ul Normal 0.0-0.7 [facility] Comment on above: Performed By: #### C BC #### [facility] [address] [place] [address] Dee Dee Indu Eosinophils/100 WBC (Bld) 0.5 % Critically low 0.9-7.0 [facility] Comment on above: Performed By: #### C BC #### [facility] [address] [place] [address] Dee Deemino Acostaen Erythrocyte distribution width (RBC) [Ratio] 13.8 % Normal 11.0-15.0 [facility] Comment on above: Performed By: #### C BC #### [facility] [address] [place] [address] Dee Dee Indu Hematocrit (Bld) [Volume fraction] 30.3 % Critically low 36.0-48.0 [facility] Comment on above: Performed By: #### C BC #### [facility] [address] [place] [address] Dee Dee Indu Hemoglobin (Bld) [Mass/Vol] 10.1 g/dL Critically low 12.0-16.0 [facility] Comment on above: Performed By: #### C BC #### [facility] [address] [place] [id number] Dee Dee Indu IG # 0.08 10e3/ul Critically high 0.00-0.03 [facility] Comment on above: Performed By: #### C BC #### [facility] [address] [place] [id number] Dee Dee Indu IG % 0.6 % Critically high 0.0-0.5 [facility] Comment on above: Performed By: #### C BC #### [facility] [address] [place] [id number] Dee Dee Indu Lymphocytes (Bld) [#/Vol] 2.4 103/ul Normal 1.2-3.8 [facility] Comment on above: Performed By: #### C BC #### [facility] [address] [place], [place] [address] Dee Dee Indu Lymphocytes/100 WBC (Bld) 16.9 % Critically low 20.5-60.0 [facility] Comment on above: Performed By: #### C BC #### [facility] [address] [place], [place] [address] Dee Dee Indu MANUAL DIFF REQ NO Normal [facility] Comment on above: Performed By: #### C BC #### [facility] [address] [place], [place] [address] Dee Dee Indu MCH (RBC) [Entitic mass] 30.2 pg Normal 26.7-34.0 [facility] Comment on above: Performed By: #### C BC #### [facility] [address] [place], [place] [id number] Dee Dee Indu MCHC (RBC) [Mass/Vol] 33.3 g/dL Normal 29.9-35.2 [facility] Comment on above: Performed By: #### C BC #### [facility] [address] [place], [place] [address] Dee Dee Indu MCV (RBC) [Entitic vol] 90.7 fL Normal 81.0-99.0 [facility] Comment on above: Performed By: #### C BC #### [facility] [address] [place] [address] Dee Dee Indu Monocytes (Bld) [#/Vol] 1.3 103/ul Critically high 0.3-0.8 [facility] Comment on above: Performed By: #### C BC #### [facility] [address] [place] [address] Dee Dee Indu Monocytes/100 WBC (Bld) 8.9 % Normal 1.7-12.0 [facility] Comment on above: Performed By: #### C BC #### [facility] [address] [place] [address] Dee Dee Indu Neutrophils (Bld) [#/Vol] 10.4 103/ul Critically high 1.4-6.5 [facility] Comment on above: Performed By: #### C BC #### [facility] [address] [place] [address] Dee Dee Indu Neutrophils/100 WBC (Bld) 73.0 % Normal 43.0-75.0 [facility] Comment on above: Performed By: #### C BC #### [facility] [address] [place] [address] Dee Dee Indu Platelet mean volume (Bld) [Entitic vol] 10.4 fL Normal 9.5-13.5 [facility] Comment on above: Performed By: #### C BC #### [facility] [address] [place] [address] Dee Dee Indu Platelets (Bld) [#/Vol] 179 103/ul Normal 150-450 [facility] Comment on above: Performed By: #### C BC #### [facility] [address] [place] [address] Dee Dee Indu RBC (Bld) [#/Vol] 3.34 106/ul Critically low 4.20-5.40 [facility] Comment on above: Performed By: #### C BC #### [facility] [address] [place] [address] Dee Dee Indu WBC (Bld) [#/Vol] 14.2 103/ul Critically high 4.0-11.0 [facility] Comment on above: Performed By: #### C BC #### [facility] [address] [place], [place] [address] Dee Dee Indu CBC AUTO DIFFon 03-09-2020 Basophils (Bld) [#/Vol] 0.0 103/ul Normal 0.0-0.1 [facility] Comment on above: Performed By: #### N BOX #### [facility] [address] [place], [place] [address] Dee Dee Indu Basophils/100 WBC (Bld) 0.3 % Normal 0.2-2.0 [facility] Comment on above: Performed By: #### N BOX #### [facility] [address] [place] [address] Dee Dee Indu Eosinophils (Bld) [#/Vol] 0.1 103/ul Normal 0.0-0.7 [facility] Comment on above: Performed By: #### N BOX #### [facility] [address] [place] [address] Dee Dee Indu Eosinophils/100 WBC (Bld) 0.9 % Normal 0.9-7.0 [facility] Comment on above: Performed By: #### N BOX #### [facility] [address] [place] [address] Dee Deemino Griggs Erythrocyte distribution width (RBC) [Ratio] 13.8 % Normal 11.0-15.0 [facility] Comment on above: Performed By: #### N BOX #### [facility] [address] [place] [address] Dee Dee Indu Hematocrit (Bld) [Volume fraction] 35.5 % Critically low 36.0-48.0 [facility] Comment on above: Performed By: #### N BOX #### [facility] [address] [place], [place] [id number] Dee Dee Indu Hemoglobin (Bld) [Mass/Vol] 12.0 g/dL Normal 12.0-16.0 [facility] Comment on above: Performed By: #### N BOX #### [facility] [address] [place] [address] Dee Dee Indu IG # 0.09 10e3/ul Critically high 0.00-0.03 [facility] Comment on above: Performed By: #### N BOX #### [facility] [address] [id number] Dee Deemino Griggs IG % 0.8 % Critically high 0.0-0.5 [facility] Comment on above: Performed By: #### N BOX #### [facility] [address] [id number] Dee Dee Indu Lymphocytes (Bld) [#/Vol] 2.3 103/ul Normal 1.2-3.8 [facility] Comment on above: Performed By: #### N BOX #### [facility] [address] [id number] Dee Dee Griggs Lymphocytes/100 WBC (Bld) 19.8 % Critically low 20.5-60.0 [facility] Comment on above: Performed By: #### N BOX #### [facility] [address] [place], [place] [id number] Dee Dee Indu MANUAL DIFF REQ NO Normal [facility] Comment on above: Performed By: #### N BOX #### [facility] [address] [place], [place] [id number] Dee Deemino Griggs MCH (RBC) [Entitic mass] 30.4 pg Normal 26.7-34.0 [facility] Comment on above: Performed By: #### N BOX #### [facility] [address] [place], [place] [address] Dee Deemino Griggs MCHC (RBC) [Mass/Vol] 33.8 g/dL Normal 29.9-35.2 [facility] Comment on above: Performed By: #### N BOX #### [facility] [address] [id number] Dee Deemino Griggs MCV (RBC) [Entitic vol] 89.9 fL Normal 81.0-99.0 [facility] Comment on above: Performed By: #### N BOX #### [facility] [address] [place], [place] [address] Dee Dee Indu Monocytes (Bld) [#/Vol] 0.9 103/ul Critically high 0.3-0.8 [facility] Comment on above: Performed By: #### N BOX #### [facility] [address] [id number] Dee Dee Indu Monocytes/100 WBC (Bld) 7.8 % Normal 1.7-12.0 [facility] Comment on above: Performed By: #### N BOX #### [facility] [address] [place], [place] [address] Dee Dee Indu Neutrophils (Bld) [#/Vol] 8.2 103/ul Critically high 1.4-6.5 [facility] Comment on above: Performed By: #### N BOX #### [facility] [address] [place], [place] [address] Dee Dee Indu Neutrophils/100 WBC (Bld) 70.4 % Normal 43.0-75.0 [facility] Comment on above: Performed By: #### N BOX #### [facility] [address] [place], [place] [address] Dee Dee Indu Platelet mean volume (Bld) [Entitic vol] 10.3 fL Normal 9.5-13.5 [facility] Comment on above: Performed By: #### N BOX #### [facility] [address] [place], [place] [address] Dee Dee Indu Platelets (Bld) [#/Vol] 211 103/ul Normal 150-450 [facility] Comment on above: Performed By: #### N BOX #### [facility] [address] [place], [place] [address] Dee Dee Indu RBC (Bld) [#/Vol] 3.95 106/ul Critically low 4.20-5.40 [facility] Comment on above: Performed By: #### N BOX #### [facility] [address] [place], [place] [address] Dee Dee Indu WBC (Bld) [#/Vol] 11.6 103/ul Critically high 4.0-11.0 [facility] Comment on above: Performed By: #### N BOX #### [facility] [address] [place], [place] [address] Dee Dee Inud Basophils (Bld) [#/Vol] 0.0 103/ul Normal 0.0-0.1 [facility] Comment on above: Performed By: #### N BOX #### [facility] [address] [address] Dee Dee Indu Basophils/100 WBC (Bld) 0.4 % Normal 0.2-2.0 [facility] Comment on above: Performed By: #### N BOX #### [facility] [address] [address] Dee Dee Indu Eosinophils (Bld) [#/Vol] 0.2 103/ul Normal 0.0-0.7 [facility] Comment on above: Performed By: #### N BOX #### [facility] [address] [place] [address] Dee Dee Indu Eosinophils/100 WBC (Bld) 2.0 % Normal 0.9-7.0 [facility] Comment on above: Performed By: #### N BOX #### [facility] [address] [place] [address] Dee Dee Griggs Erythrocyte distribution width (RBC) [Ratio] 13.8 % Normal 11.0-15.0 [facility] Comment on above: Performed By: #### N BOX #### [facility] [address] [place] [address] Dee Dee Griggs Hematocrit (Bld) [Volume fraction] 35.0 % Critically low 36.0-48.0 [facility] Comment on above: Performed By: #### N BOX #### [facility] [address] [place] [address] Dee Dee Indu Hemoglobin (Bld) [Mass/Vol] 11.8 g/dL Critically low 12.0-16.0 [facility] Comment on above: Performed By: #### N BOX #### [facility] [address] [place] [address] Dee Dee Indu IG # 0.07 10e3/ul Critically high 0.00-0.03 [facility] Comment on above: Performed By: #### N BOX #### [facility] [address] [place] [address] Dee Dee Indu IG % 0.7 % Critically high 0.0-0.5 [facility] Comment on above: Performed By: #### N BOX #### [facility] [address] [place] [address] Dee Dee Indu Lymphocytes (Bld) [#/Vol] 3.1 103/ul Normal 1.2-3.8 [facility] Comment on above: Performed By: #### N BOX #### [facility] [address] [place] [address] Dee Dee Indu Lymphocytes/100 WBC (Bld) 29.5 % Normal 20.5-60.0 [facility] Comment on above: Performed By: #### N BOX #### [facility] [address] [place] [address] Dee Dee Griggs MANUAL DIFF REQ NO Normal [facility] Comment on above: Performed By: #### N BOX #### [facility] [address] [place] [address] Dee Deemino Acostaen MCH (RBC) [Entitic mass] 30.3 pg Normal 26.7-34.0 [facility] Comment on above: Performed By: #### N BOX #### [facility] [address] [place] [address] Dee Deemino Griggs MCHC (RBC) [Mass/Vol] 33.7 g/dL Normal 29.9-35.2 [facility] Comment on above: Performed By: #### N BOX #### [facility] [address] [place] [address] Dee Deemino Acostaen MCV (RBC) [Entitic vol] 90.0 fL Normal 81.0-99.0 [facility] Comment on above: Performed By: #### N BOX #### [facility] [address] [place] [address] Dee Dee Indu Monocytes (Bld) [#/Vol] 0.9 103/ul Critically high 0.3-0.8 [facility] Comment on above: Performed By: #### N BOX #### [facility] [address] [place], [place] [address] Dee Dee Indu Monocytes/100 WBC (Bld) 8.4 % Normal 1.7-12.0 [facility] Comment on above: Performed By: #### N BOX #### [facility] [address] [place], [place] [address] Dee Dee Indu Neutrophils (Bld) [#/Vol] 6.3 103/ul Normal 1.4-6.5 [facility] Comment on above: Performed By: #### N BOX #### [facility] [address] [place], [place] [address] Dee Dee Indu Neutrophils/100 WBC (Bld) 59.0 % Normal 43.0-75.0 [facility] Comment on above: Performed By: #### N BOX #### [facility] [address] [place], [place] [address] Dee Dee Indu Platelet mean volume (Bld) [Entitic vol] 10.4 fL Normal 9.5-13.5 [facility] Comment on above: Performed By: #### N BOX #### [facility] [address] [place] [address] Dee Dee Indu Platelets (Bld) [#/Vol] 221 103/ul Normal 150-450 [facility] Comment on above: Performed By: #### N BOX #### [facility] [address] [place], [place] [address] Dee Dee Indu RBC (Bld) [#/Vol] 3.89 106/ul Critically low 4.20-5.40 [facility] Comment on above: Performed By: #### N BOX #### [facility] [address] [place] [address] Dee Dee Indu WBC (Bld) [#/Vol] 10.6 103/ul Normal 4.0-11.0 [facility] Comment on above: Performed By: #### N BOX #### [facility] [address] [place], [place] [address] Dee Dee Indu DRUG SCREEN RAPID (URINE)on 03-09-2020 AMP Negative Normal NEGATIVE [facility] Comment on above: Performed By: #### N BOX #### [facility] [address] [place], [place] [address] Dee Dee Indu BAR Negative Normal NEGATIVE [facility] Comment on above: Performed By: #### N BOX #### [facility] [address] [place] [address] Dee Dee Indu BUP Negative Normal NEGATIVE [facility] Comment on above: Performed By: #### N BOX #### [facility] [address] [place] [address] Dee Dee Indu BZO Negative Normal NEGATIVE [facility] Comment on above: Performed By: #### N BOX #### [facility] [address] [place] [address] Dee Dee Indu CLINT Negative Normal NEGATIVE [facility] Comment on above: Performed By: #### N BOX #### [facility] [address] [place] [address] Dee Dee Indu CUT-OFFS SEE BELOW Normal [facility] Comment on above: Result Comment: AMP [...] ng/mL Performed By: #### N BOX #### [facility] [address] [place] [address] Dee Dee Indu DRUG CUT HEADER DRUG CLASS TEST SYSTEM CUT-OFF CONCENTRATIONS ARE FOLLOWS: Normal [facility] Comment on above: Performed By: #### N BOX #### [facility] [address] [place] [address] Dee Dee Indu mAMP Negative Normal NEGATIVE [facility] Comment on above: Performed By: #### N BOX #### [facility] [address] [place] [address] Dee Dee Indu MTD Negative Normal NEGATIVE [facility] Comment on above: Performed By: #### N BOX #### [facility] [address] [address] Dee Dee Indu OPI Negative Normal NEGATIVE [facility] Comment on above: Performed By: #### N BOX #### [facility] [address] [address] Dee Dee Indu OXY Negative Normal NEGATIVE [facility] Comment on above: Performed By: #### N BOX #### [facility] [address] [address] Dee Dee Indu PCP Negative Normal NEGATIVE [facility] Comment on above: Performed By: #### N BOX #### [facility] [address] [address] Dee Dee Indu PPX Negative Normal NEGATIVE [facility] Comment on above: Performed By: #### N BOX #### [facility] [address] [place] [address] Dee Dee Indu TCA Negative Normal NEGATIVE [facility] Comment on above: Performed By: #### N BOX #### [facility] [address] [address] Dee Dee Indu THC Negative Normal NEGATIVE [facility] Comment on above: Performed By: #### N BOX #### [facility] [address] [address] Dee Dee Griggs LDHon 03-09-2020 LDH 190 U/L Normal 122-222 [facility] Comment on above: Performed By: #### N BOX #### [facility] [address] [address] Dee Dee Indu PROF 14(COMP METB)on 020 Albumin [Mass/Vol] 2.9 g/dL Critically low 3.5-5.0 Th e [facility] Comment on above: Performed By: #### N BOX #### [facility] [address] [address] Dee Dee Indu Albumin/Globulin [Mass ratio] 0.7 {ratio} Normal [facility] Comment on above: Performed By: #### N BOX #### [facility] [address] [id number] Dee Dee Indu ALP [Catalytic activity/Vol] 152 U/L Critically high 38-126 [facility] Comment on above: Performed By: #### N BOX #### [facility] [address] [address] Dee Dee Indu Anion gap [Moles/Vol] 13.6 mmol/L Normal [facility] Comment on above: Performed By: #### N BOX #### [facility] [address] [address] Dee Dee Indu Bilirubin Ql (U) 0.7 mg/dL Normal 0.2-1.3 [facility] Comment on above: Performed By: #### N BOX #### [facility] [address] [address] Dee Dee Indu Calcium [Mass/Vol] 9.5 mg/dL Normal 8.4-10.2 [facility] Comment on above: Performed By: #### N BOX #### [facility] [address] [address] Dee Dee Indu Chloride [Moles/Vol] 102 mmol/L Normal 98-107 [facility] Comment on above: Performed By: #### N BOX #### [facility] [address] [address] Dee Dee Indu CO2 [Moles/Vol] 24.1 mmol/L Normal 22.0-30.0 [facility] Comment on above: Performed By: #### N BOX #### [facility] [address] [address] Dee Dee Indu Creatinine [Mass/Vol] 0.63 mg/dL Normal 0.52-1.04 [facility] Comment on above: Performed By: #### N BOX #### [facility] [address] [id number] Dee Dee Indu EGFR-AF SPANISH >60 Normal >=60 [facility] Comment on above: Performed By: #### N BOX #### [facility] [address] [address] Dee Dee Indu EGFR-NON AF SPANISH >60 Normal >=60 [facility] Comment on above: Performed By: #### N BOX #### [facility] [address] [place], [place] [address] Dee Dee Indu Globulin (S) [Mass/Vol] 4.1 g/dL Normal [facility] Comment on above: Performed By: #### N BOX #### [facility] [address] [place], [place] [address] Dee Dee Indu Glucose [Mass/Vol] 92 mg/dL Normal 74-106 [facility] Comment on above: Performed By: #### N BOX #### [facility] [address] [place], [place] [address] Dee Dee Indu Potassium [Moles/Vol] 3.7 mmol/L Normal 3.4-5.0 [facility] Comment on above: Performed By: #### N BOX #### [facility] [address] [address] Dee Dee Indu Protein [Mass/Vol] 7.0 g/dL Normal 6.1-8.2 [facility] Comment on above: Performed By: #### N BOX #### [facility] [address] [address] Dee Dee Indu Sodium [Moles/Vol] 136 mmol/L Critically low 137-145 [facility] Comment on above: Performed By: #### N BOX #### [facility] [address] [place], [place] [address] Dee Dee Indu Urea nitrogen [Mass/Vol] 7.0 mg/dL Normal 7.0-17.0 [facility] Comment on above: Performed By: #### N BOX #### [facility] [address] [place], [place] [address] Dee Dee Indu Urea nitrogen/Creatinine [Mass ratio] 11.1 mg/mg Normal [facility] Comment on above: Performed By: #### N BOX #### [facility] [address] [place], [place] [address] Dee Dee Indu PROTIMEon 03-09-2020 INR Coag (PPP) [Relative time] 0.90 {INR} Normal [facility] Comment on above: Performed By: #### N BOX #### [facility] [address] [place] [address] Dee Dee Indu PT Coag (PPP) [Time] PLEASE NOTE: NORMAL RANGE CHANGE 05-05-2014 DUE TO REAGENT LOT CHANGE Normal [facility] Comment on above: Performed By: #### N BOX #### [facility] [address] [place] [address] Dee Dee Indu PT Coag (PPP) [Time] SEE BELOW Normal [facility] Comment on above: Result Comment: RAYO RED INR: 2.0 - 3.0 CONDITIONS NOT LISTED BELOW 2.5 - 3.5 FOR PROSTHETIC HEART VALVE REPLACEMENT 2.5 - 3.5 RECURRENT THROMBOSIS Performed By: #### N BOX #### [facility] [address] [place] [address] Dee Dee Indu PT Coag (PPP) [Time] 9.4 s Normal 9.0-11.6 [facility] Comment on above: Performed By: #### N BOX #### [facility] [address] [place] [address] Dee Dee Indu PTTon 03-09-2020 aPTT Coag (Bld) [Time] 24.5 s Normal 22.3-36.2 [facility] Comment on above: Performed By: #### N BOX #### [facility] [address] [place] [address] Dee Dee Indu aPTT Coag (Bld) [Time] PLEASE NOTE: NORMAL RANGE CHANGE 07-12-2015 DUE TO REAGENT LOT CHANGE Normal [facility] Comment on above: Performed By: #### N BOX #### [facility] [address] [place] [address] Dee Dee Indu SGOTon 03-09-2020 AST [Catalytic activity/Vol] 16 U/L Normal 14-36 [facility] Comment on above: Performed By: #### N BOX #### [facility] [address] [place] [address] Dee Dee Indu SGPTon 03-09-2020 ALT [Catalytic activity/Vol] 23 U/L Normal 9-52 [facility] Comment on above: Performed By: #### N BOX #### [facility] [address] [address] Dee Dee Griggs URIC ACID SERUMon 03-09-2020 Urate [Mass/Vol] 5.2 mg/dL Normal 2.5-6.2 [facility] Comment on above: Performed By: #### N BOX #### [facility] [address] [address] Dee Dee Griggs GROUP B STREP CULTUREon S. agalactiae Ag Ql (Unsp spec) Culture Observations: FAXED TO OFFICE 02/19/2020 Isolate 1 Streptococcus agalactiae Heavy growth of ORGANISM 1 Streptococcus agalactiae ANTIBIOTIC M.I.C RX STATUS Benzylpenicillin <=0.06 S F Ampicillin <=0.25 S F Cefotaxime <=0.12 S F Ceftriaxone <=0.12 S F Levofloxacin 0.5 S F Inducible Clindamycin Resistance Neg NEG F Erythromycin >=8 R F Clindamycin >=1 R F Linezolid <=2 S F Vancomycin 0.5 S F Tetracycline <=0.25 S F Normal [facility] Comment on above: Performed By: #### G BSCX ####[facility] [address] Indu CHLAMYDIA/GONOCOCCUS ALISSON (SW AB/URINE/PAPon 02-18-2020 Chlamydia trachomatis, ALISSON Negative Normal Negative [facility] Comment on above: Performed By: #### C T/NGNA ####[facility] C[address] [place] Neisseria gonorrhoeae, ALISSON Negative Normal Negative [facility] Comment on above: Performed By: #### C T/NGNA ####[facility] [address] In[place] VAGINITIS/VAGINOSIS DNA PROB Ezequiel 02-17-2020 Fatou species Negative Normal Negative [facility] Comment on above: Performed By: #### V AGINT ####[facility] K[address]oficy[address] [place] Gardnerella vaginalis Negative Normal Negative [facility] Comment on above: Performed By: #### V AGINT ####[facility] V[address]kzh[address] Indu Trichomonas vaginalis Negative Normal Negative [facility] Comment on above: Performed By: #### V AGINT ####[facility] V[address]ixsu[address] Indu GLUCOSE - 1HRon 12-02-2019 Glucose [Mass/Vol] 130 mg/dL Critically high 74-106 T [facility] Comment on above: Performed By: #### G LU1HR ####[facility] [address] [place] [address] Indu HEMOGRAM AND PLATELon 2019 Hematocrit (Bld) [Volume fraction] 35.2 % Critically low 36.0-48.0 [facility] Comment on above: Performed By: #### H H ####[facility] [address] [place] [address] Indu Hemoglobin (Bld) [Mass/Vol] 11.7 g/dL Critically low 12.0-16.0 [facility] Comment on above: Performed By: #### H H ####[facility] [address] [place] [address] Indu MCH (RBC) [Entitic mass] 30.0 pg Normal 26.7-34.0 [facility] Comment on above: Performed By: #### H H ####[facility] [address] [place] [address] Indu MCHC (RBC) [Mass/Vol] 33.2 g/dL Normal 29.9-35.2 [facility] Comment on above: Performed By: #### H H ####[facility] [address] [place] [address] Indu MCV (RBC) [Entitic vol] 90.3 fL Normal 81.0-99.0 [facility] Comment on above: Performed By: #### H H ####[facility] [address] [place] [address] Indu Platelets (Bld) [#/Vol] 276 103/ul Normal 150-450 [facility] Comment on above: Performed By: #### H H ####[facility] [address] [place], [place] [address]DtaciwDee Dee Griggs RBC (Bld) [#/Vol] 3.90 106/ul Critically low 4.20-5.40 Th e [facility] Comment on above: Performed By: #### H H ####[facility] [address] [place], [place] [address]OsctnwDee Dee Griggs WBC (Bld) [#/Vol] 14.2 103/ul Critically high 4.0-11.0 T [facility] Comment on above: Performed By: #### H H ####[facility] [address] [place], [place] [address]MnlxnvTereso Griggs US PREG ANATOMY SINGLEon US PREG [...] 4 days EFW:3 57 g; 56% FL/AC: [id number] FL/BPD: 0.927782 HC/AC: 1.839349 GESTATIONAL AGE: Age by EDC: 20 weeks, 0 days Age by current US: 20 weeks, 2 days JAY by current US: 03/14/2020 JAY by EDC: 03/16/2020 IMPRESSION: Normal anatomy scan *Reference: [facility] Practice Guideline for the performance of Obstetric Ultrasound Examinations, May 18, 2007. Normal [facility] AFP MATERNAL FOR SPINA BIFID Aon 10-13-2019 AFP MoM 0.72 Normal [facility] Comment on above: Performed By: #### A FPMAT ####[facility] [address] Indu AFP Value 24.8 ng/mL Normal [facility] Comment on above: Performed By: #### A FPMAT ####[facility] [address] Indu AFP, Serum for Spina Bifida Report Normal [facility] [facility] Comment on above: Performed By: #### A FPMAT ####[facility] Bfbculcvwn9545 [address] Indu Comment Comment Normal [facility] Comment on above: Result Comment: Ashish Robertson, Ph.D., [facility] Principal Genetics Industrial Maintenance Technician . References: Available Upon Request. . Multiples Of Median Cutoffs For AFP Elevations Cooney 2.5 Black 2.8 IDD 2.0 Twins 4.5 Abbreviation Definitions IDD - Insulin Dep Diabetes OSBR - Open Spina Bifida Risk . For further inquiries contact [employer] [facility] at [phone]. Performed By: #### A FPMAT ####[facility] Urberajgyw3694 [address] Indu Gest Age Collection Date 17.6 weeks Normal [facility] Comment on above: Performed By: #### A FPMAT ####[facility] Vvaqeptaxj6337 [address] Indu Gestat, Age Based on Ultrasound [facility] Comment on above: Result Comment: 14.7 on 09/21/2019 Recalculations are not recommended when gestational dating by LMP and ultrasound are within 10 days. Performed By: #### A FPMAT ####[facility] Bxnqpqmyvg3783 [address] Indu Insulin Dep Diabetes No Normal [facility] Comment on above: Performed By: #### A FPMAT ####[facility] Mfmnjkpwwm0771 [address] Indu Interpretation Comment Normal [facility] Comment on above: Result Comment: Inte rpretation: [...] Customer Services to discuss available options. The [employer] recommends amniocentesis be offered to women age 35 and older. Performed By: #### A FPMAT ####[facility] [id number] [address] Indu [age] Normal [facility] Comment on above: Performed By: #### A FPMAT ####[facility] Shsznhfhjh6256 [address] Indu Multiple Gestation No Normal [facility] Comment on above: Performed By: #### A FPMAT ####[facility] Xzsbwituxs4530 [address] In[place] 1 [place] [address] Normal [facility] Comment on above: Performed By: #### A FPMAT ####[facility] Zuorcplidi6231 [address] Indu PDF . Normal [facility] Comment on above: Performed By: #### A FPMAT ####[facility] Tjidgkwzsm8857 [address] Indu Race Normal [facility] Comment on above: Performed By: #### A FPMAT ####[facility] Rwlewoehbn3221 [address] Indu Test Results: Negative Normal [facility] Comment on above: Performed By: #### A FPMAT ####[facility] [address] [id number] Dee Griggs CHLAMYDIA/GONOCOCCUS ALISSON (SW AB/URINE/PAPon 09-09-2019 Chlamydia trachomatis, ALISSON Negative Normal Negative [facility] Comment on above: Performed By: #### C T/NGNA ####[facility] [address] [place] [address]D[place] Griggs Neisseria gonorrhoeae, ALISSON Negative Normal Negative [facility] Comment on above: Performed By: #### C T/NGNA ####[facility] [address] [address]Dee Dee Griggs HEP B SURFACE ANTIGEN SCREEN on 09-08-2019 HBsAg Screen Negative Normal Negative [facility] Comment on above: Performed By: #### H BSANS #### [facility] [address] [place] [address] Dee Dee Griggs HEPATITIS C VIRUS AB W/ REFL EX QUANTon 09-08-2019 HCV AB 0.2 s/co ratio Normal 0.0-0.9 [facility] Comment on above: Performed By: #### H CVPCRR #### [facility] [address] [address] Dee Dee Griggs Interpretation: Comment Normal [facility] Comment on above: Result Comment: Nega tive Not infected with HCV, unless recent infection is suspected or other evidence exists to indicate HCV infection. Performed By: #### H CVPCRR #### [facility] [address] [address] Dee Dee Griggs HIV 1 AND 2 WITH REFLEXon HIV Screen 4th Generation wRfx Non Reactive Normal Non Reactive [facility] Comment on above: Performed By: #### H IV12 #### [facility] [address] [address] Dee Dee Griggs RPR QUANTon 09-08-2019 Rapid Plasma Reagin, Quant Non Reactive Normal NonRea<1:1 [facility] Comment on above: Performed By: #### R PRQ ####[facility] [address] [place] [address]Dee [place] Griggs RUBELLA AB IGGon 09-08-2019 Rubella Antibodies, IgG 3.18 index Normal Immune >0.99 [facility] Comment on above: Result Comment: Non- immune <0.90 Equivocal 0.90 - 0.99 Immune >0.99 Performed By: #### R UBIGG #### [facility] [address] [place] [address] [address] In[place] CBC AUTO DIFFon 09-07-2019 Basophils (Bld) [#/Vol] 0.0 103/ul Normal 0.0-0.1 [facility] Comment on above: Performed By: #### C BC #### [facility] [address] [place], [place] [id number] Dee Dee Indu Basophils/100 WBC (Bld) 0.4 % Normal 0.2-2.0 [facility] Comment on above: Performed By: #### C BC #### [facility] [address] [place], [place] [id number] [place] Indu Eosinophils (Bld) [#/Vol] 0.3 103/ul Normal 0.0-0.7 [facility] Comment on above: Performed By: #### C BC #### [facility] [address] [place], [place] [address] [place] In[place] Eosinophils/100 WBC (Bld) 2.8 % Normal 0.9-7.0 [facility] Comment on above: Performed By: #### C BC #### [facility] [address] [place], [place] [address] Dee Dee Acostaen Erythrocyte distribution width (RBC) [Ratio] 13.9 % Normal 11.0-15.0 [facility] Comment on above: Performed By: #### C BC #### [facility] [address] [place], [place] [id number] [place] In[place] Hematocrit (Bld) [Volume fraction] 36.8 % Normal 36.0-48.0 [facility] Comment on above: Performed By: #### C BC #### [facility] [address] [place], [place] [id number] [place] Hemoglobin (Bld) [Mass/Vol] 12.3 g/dL Normal 12.0-16.0 [facility] Comment on above: Performed By: #### C BC #### [facility] [address] [id number] [address] [place] Indu IG # 0.03 10e3/ul Normal 0.00-0.03 [facility] Comment on above: Performed By: #### C BC #### [facility] [address] [id number] [place] Indu IG % 0.3 % Normal 0.0-0.5 [facility] Comment on above: Performed By: #### C BC #### [facility] [address] [place], [place] [id number] [place] Indu Lymphocytes (Bld) [#/Vol] 2.6 103/ul Normal 1.2-3.8 [facility] Comment on above: Performed By: #### C BC #### [facility] [address] [place], [place] [address] [place] In[place] Lymphocytes/100 WBC (Bld) 23.3 % Normal 20.5-60.0 [facility] Comment on above: Performed By: #### C BC #### [facility] [address] [place], [place] [address] [place] In[place] MANUAL DIFF REQ NO Normal [facility] Comment on above: Performed By: #### C BC #### [facility] [address] [place], [place] [address] [place] In[place] MCH (RBC) [Entitic mass] 28.7 pg Normal 26.7-34.0 [facility] Comment on above: Performed By: #### C BC #### [facility] [address] [place], [place] [address] [place] Indu MCHC (RBC) [Mass/Vol] 33.4 g/dL Normal 29.9-35.2 [facility] Comment on above: Performed By: #### C BC #### [facility] [address] [place], [place] [address] [place] Indu MCV (RBC) [Entitic vol] 85.8 fL Normal 81.0-99.0 [facility] Comment on above: Performed By: #### C BC #### [facility] [address] [place], [place] [address] [place] In[place] Monocytes (Bld) [#/Vol] 1.0 103/ul Critically high 0.3-0.8 [facility] Comment on above: Performed By: #### C BC #### [facility] [address] [place], [place] [address] [address] [place] In[place] Monocytes/100 WBC (Bld) 8.8 % Normal 1.7-12.0 [facility] Comment on above: Performed By: #### C BC #### [facility] [address] [place] [address] [address] [place] Neutrophils (Bld) [#/Vol] 7.1 103/ul Critically high 1.4-6.5 [facility] Comment on above: Performed By: #### C BC #### [facility] [address] [place] [address] [address] [place] Neutrophils/100 WBC (Bld) 64.4 % Normal 43.0-75.0 [facility] Comment on above: Performed By: #### C BC #### [facility] [address] [place] [address] [address] [place] Platelet mean volume (Bld) [Entitic vol] 9.4 fL Critically low 9.5-13.5 [facility] Comment on above: Performed By: #### C BC #### [facility] [address] [place] [address] [address] [place] Platelets (Bld) [#/Vol] 272 103/ul Normal 150-450 [facility] Comment on above: Performed By: #### C BC #### [facility] [address] [place], [place] [address] [address] [place] RBC (Bld) [#/Vol] 4.29 106/ul Normal 4.20-5.40 [facility] Comment on above: Performed By: #### C BC #### [facility] [address] [place], [place] [address] [address] [place] WBC (Bld) [#/Vol] 11.0 103/ul Normal 4.0-11.0 [facility] Comment on above: Performed By: #### C BC #### [facility] [address] [place], [place] [address] Dee Dee Griggs CULTURE URINEon 09-07-2019 CULTURE URINE Culture Observations: No growth Normal [facility] Comment on above: Performed By: #### U RCX ####[facility] [address] [place], [place] [address]KrulyuDee Dee Griggs GLYCOHEMOGLOBIN A1Con 2019 Glucose [Mass/Vol] 111 mg/dL Normal [facility] Comment on above: Performed By: #### A 1C #### [facility] [address] [place], [place] [address] Dee Dee Griggs HbA1c (Bld) [Mass fraction] 5.5 % Normal <=6.0 [facility] Comment on above: Performed By: #### A 1C #### [facility] [address] [address] Dee Dee Griggs FANY BOX TEST PT SEND OUTo n 09-07-2019 SENT TO REF LAB 09/07/2019 Normal [facility] Comment on above: Performed By: #### N BOX #### [facility] [address] [phone] Dee Dee Griggs TYPE AND SCREENon 09-07-2019 TYPE AND SCREEN Negative Normal [facility] Comment on above: Performed By: #### T NS #### [facility] [address] [id number] Dee Dee Griggs US PREG TVon 07-27-2019 US PREG TV Patient: ARCHANA RODRIGUEZ Exam Date: 07/27/2019 : 1995 Gender:F Ordering : DR JOANNE FRANKLIN . Admission #: [id number] Family : DR ТАТЬЯНА URIARTE . Order #: [id number] CLICK HERE TO VIEW EXAM RADIOLOGY REPORT [...] 6 weeks, 5 days Dictated by: Wild Lockhart M.D. on 07/27/2019 at 10:12 Approved by: Wild Lockhart M.D. on 07/27/2019 at 10:12 Normal [facility] PREG QUANT HCGon 07-20-2019 HCG QUANT 7056.00 mIU/mL Normal [facility] Comment on above: Performed By: #### P REGQNT #### [facility] [address] [place], [place] [address] Dee Dee Griggs HCG RANGE SEE BELOW Normal [facility] Comment on above: Result Comment: 5-50 0-1 WEEK 40-300 1-2 WEEKS 100-1,000 2-3 WEEKS 500-6,000 3-4 WEEKS 5,000-200,000 1-2 MONTHS 10,000-100,000 2-3 MONTHS 3,000-50,000 2ND TRIMESTER 1,000-50,000 3RD TRIMESTER Performed By: #### P REGQNT #### [facility] [address] [place], [place] [address] Dee Dee Griggs Vital Signs Date Time Vital Sign Value Performing Clinician Facility 06-28-2024 13:29-0500 Body mass index (BMI) [Ratio] 35.74 kg/m2 [facility] Work Phone: [facility] 06-28-2024 13:29-0500 Body weight 97.43 kg [employer] Work Phone: [facility] 06-28-2024 13:29-0500 Diastolic blood pressure 74 mm[Hg] [facility] Phone: [facility] 06-28-2024 13:29-0500 Systolic blood pressure 124 mm[Hg] Roberto Kennedy DO Work Phone: [facility] 06-10-2024 15:02-0400 Body mass index (BMI) [Ratio] 36.08 kg/m2 [facility] 06-10-2024 15:02-0400 Body weight 98.34 kg [facility] Nurse [facility] 11-27-2023 13:56-0400 Body height 167.64 cm [facility] 11-27-2023 13:56-0400 Body mass index (BMI) [Ratio] 34.3 kg/m2 [facility] 11-27-2023 13:56-0400 Body temperature 98.9 [degF] [facility] 11-27-2023 13:56-0400 Body weight 96.61 kg [facility] 11-27-2023 13:56-0400 Heart rate 102 /min [facility] 11-27-2023 13:56-0400 Respiratory rate 16 /min [facility] 11-27-2023 13:56-0400 SaO2% (BldA) [Mass fraction] 97 % [facility] 08-19-2023 14:10-0500 Body height 167.64 cm Marti Lawson Other [facility] [employer] Other 08-19-2023 14:10-0500 Body mass index (BMI) [Ratio] 34.44 kg/m2 Marti Lawson Other [employer] Other 08-19-2023 14:10-0500 Body temperature 99 [degF] Marti Lawson Other [employer] Other 08-19-2023 14:10-0500 Body weight 96.8 kg Marti Lawson Other [employer] Other 08-19-2023 14:10-0500 Respiratory rate 18 /min Marti Lawson Other [employer] Other 08-19-2023 14:10-0500 SaO2% (BldA) [Mass fraction] 98 % Marti Lawson Other [employer] Other 10-13-2019 02:06-0500 Body weight 90.72 kg ТАТЬЯНА URIARTE [facility] Comment on above: Performed By: #### AFPMAT ####[facility] [address] [place], [place] [address]D[address]zay Indu Encounters Encounter Date Encounter Type Care Provider Facility Start: 06-28-2024 End: 06-28-2024 Bamboo flowsheet Roberto Kennedy DO Work Phone: [facility] Start: 06-28-2024 End: 06-28-2024 Bamboo flowsheet Roberto Kennedy DO Work Phone: [facility] Start: 06-28-2024 End: 06-28-2024 Office outpatient visit 15 minutes Roberto Kennedy DO Work Phone: [facility] Comment on above: Second trimester pre gnancy; 12 weeks gestation of Start: 06-28-2024 End: 06-28-2024 ambulatory ROBERTO KENNEDY Not Available Start: 06-24-2024 End: 06-24-2024 Clinisync Result Encounter Roberto Kennedy DO Work Phone: [facility] Unsolicited Start: 06-24-2024 End: 06-24-2024 Clinisync Result Encounter Roberto Kennedy DO Work Phone: [facility] Unsolicited Start: 06-10-2024 End: 06-10-2024 ambulatory ROBERTO KENNEDY Not Available Start: 06-10-2024 End: 06-10-2024 Office outpatient visit 5 minutes [facility] Kennedy Nurse [facility] Start: 11-27-2023 End: 11-27-2023 ambulatory [facility] Work Phone: Start: 11-27-2023 End: 11-27-2023 Patient encounter procedure [facility] Work Phone: Start: 08-19-2023 End: 08-19-2023 ambulatory Marti Lawson Other [employer] Other Start: 08-19-2023 Office outpatient ne w 30 minutes Marti Lawson [facility] [place] Start: 03-22-2020 End: 03-23-2020 Patient encounter procedure ТАТЬЯНА HOY Facility:[facility] Start: 03-08-2020 End: 03-11-2020 Evaluation and management of inpatient JOANNE RODRIGUEZK Facility:[facility] Start: 02-15-2020 End: 02-15-2020 Patient encounter procedure JOANNE DAVEASIK Facility:[facility] Start: 12-02-2019 End: 12-03-2019 Patient encounter procedure JOANNE DAVEASIK Facility:[facility] Start: 10-28-2019 End: 10-29-2019 Patient encounter procedure JOANNE ACOSTAASIK Facility:[facility] Start: 10-11-2019 End: 10-12-2019 Patient encounter procedure JOANNE KARASIK Facility:[facility] Start: 09-07-2019 End: 09-07-2019 Patient encounter procedure JOANNE RODRIGUEZK Facility:[facility] Start: 09-07-2019 End: 09-08-2019 Patient encounter procedure JOANNE ACOSTAASIK Facility:[facility] Start: 07-27-2019 End: 07-28-2019 Patient encounter procedure JOANNE RODRIGUEZK Facility:[facility] Start: 07-20-2019 End: 07-21-2019 Patient encounter procedure ТАТЬЯНА HOSonia Facility:[facility]1 Procedures Date Procedure Procedure Detail Performing Clinician Start: 06-24-2024 ALL CBC WITH AUTO DIFF Roberto Benavides DO Work Phone: Start: 06-10-2024 End: 06-10-2024 Urnls dip stick/tablet [...] Reproductive, Via Natural or Artificial Opening ТАТЬЯНА URIARTE Plan of Treatment Date Care Activity Detail Author Start: 07-26-2024 End: 07-26-2024 Patient encounter procedure 07/26/2024 1:30 PM EST Routine [facility] [address] [place] [phone] Becca Gabriel PA [address] [place], [place] [id number] [facility] Start: 06-28-2024 End: 06-28-2024 Patient encounter procedure 06/28/2024 1:20 PM EST Routine [facility] [address] [place] [phone] Roberto Benavides DO [address] [place] [address] [facility] Start: 06-10-2024 End: 06-10-2025 ABO/Rh ABO/Rh Lab Routine Missed menses , unspecified gestational age Expected: 06/10/2024 (Approximate), Expires: 06/10/2025 [facility] Comment on above: Expected: 06/10/2024 (Approximate), Expires: 06/10/2025 Start: 06-10-2024 End: 06-10-2025 Blood type and Indirect antibody screen panel - Blood Type and screen Lab Routine Missed menses , unspecified gestational age Expected: 06/10/2024 (Approximate), Expires: 06/10/2025 [facility] Work Phone: Comment on above: Expected: 06/10/2024 (Approximate), Expires: 06/10/2025 Start: 06-10-2024 End: 06-10-2025 Drugs of abuse panel - Urine by Screen method Rapid drug screen, urine Lab Routine , unspecified gestational age Encounter for supervision of normal first in first trimester Expected: 06/10/2024 (Approximate), Expires: 06/10/2025 [facility] Comment on above: Expected: 06/10/2024 (Approximate), Expires: 06/10/2025 Start: 06-10-2024 End: 06-10-2025 US Pelvis transvaginal US OB transvaginal Imaging Routine Missed menses Expected: 06/10/2024 (Approximate), Expires: 06/10/2025 [facility] Comment on above: Expected: 06/10/2024 (Approximate), Expires: 06/10/2025 Bacteria identified in Urine by Culture Urine culture Microbiology Routine Missed menses Ordered: 06/10/2024 [facility] Comment on above: Ordered: 06/10/2024 CBC W Auto Different ial panel - Blood CBC and differential Lab Routine Missed menses , unspecified gestational age Ordered: 06/10/2024 [facility] Comment on above: Ordered: 06/10/2024 Hemoglobin A1c/Hemoglobin.total in Blood Hemoglobin A1c Lab Routine Missed menses , unspecified gestational age Ordered: 06/10/2024 [facility] Comment on above: Ordered: 06/10/2024 Hepatitis B virus surface Ag [Presence] in Serum or Plasma by Immunoassay Hepatitis B surface antigen Lab Routine Missed menses , unspecified gestational age Ordered: 06/10/2024 [facility] Comment on above: Ordered: 06/10/2024 Hepatitis C virus Ab [Presence] in Serum or Plasma by Immunoassay Hepatitis C antibody Lab Routine Missed menses , unspecified gestational age Ordered: 06/10/2024 [facility] Comment on above: Ordered: 06/10/2024 HIV-1/HIV-2 antigen/antibody combination immunoassay HIV-1 and HIV-2 antibodies Lab Routine Missed menses , unspecified gestational age Ordered: 06/10/2024 [facility] Comment on above: Ordered: 06/10/2024 Reagin Ab [Presence] in Serum by RPR RPR Lab Routine Missed menses , unspecified gestational age Ordered: 06/10/2024 [facility] Comment on above: Ordered: 06/10/2024 Rubella antibody, IgG Rubella an tibody, IgG Lab Routine Missed menses , unspecified gestational age Ordered: 06/10/2024 [facility] Comment on above: Ordered: 06/10/2024 Payers Date Payer Category Payer Medicaid (Managed Care) GALA SHELTON [id number] 1995 Unknown [id number] 2.16.840.1.776456.3.579.2. 593 1995 Unknown [id number] 2.16.840.1.174333.3.579.2. 593 1995 Unknown [id number] 2.16.840.1.082948.3.579.2. 593 1995 Unknown [id number] 2.16.840.1.761365.3.579.2. 593 1995 Unknown [id number] 2.16.840.1.611678.3.579.2. 593 1995 Unknown [id number] 2.16.840.1.219436.3.579.2. 593 1995 Unknown [id number] 2.16.840.1.332303.3.579.2. 593 1996 Unknown [id number] 2.16.840.1.289851.3.579.2. 593 1996 Unknown [id number] 2.16.840.1.645600.3.579.2. 593 1996 Unknown [id number] 2.16.840.1.386326.3.579.2. 593 1996 Unknown [id number] 2.16.840.1.400625.3.579.2. 1259 1996 Unknown [id number] 2.16.840.1.771355.3.579.2. 1259 1974 Unknown [id number] 2.16.840.1.282331.3.579.2. 593 1974 Unknown [id number] 2.16.840.1.222738.3.579.2. 593 1959 Private Health Insurance [id number] 1959 Unknown [id number] 1947 Unknown [id number] 2.16.840.1.251443.3.579.2. 593 1947 Unknown [id number] 2.16.840.1.941636.3.579.2. 593 Unknown [facility] [id number] Social History Date Type Detail Facility Unknown if ever smoked [facility] [employer] Other Sex Assigned At [facility] [employer] Other Start: 11-27-2023 Tobacco smoking status [facility] Never smoked tobacco (finding) [facility] Start: 1995 Sex Assigned At Female [facility] Tobacco smoking status [facility] Tobacco smoking consumption unknown [facility] Start: 05-27-2024 Gender identity Identifies as female gender (finding) [facility] Start: 04-17-2024 [facility] History of Present illness Narrative 06-28-2024 Kimberly Earl LPN - 06/28/2024 1:20 PM EST Note Date & Type Note Facility 06-28-2024 History of Presen t illness Narrative Reason for Appointment: Patient ID: Alphonse Rodriguez is a 28 y.o. female who presents for Routine Visit Patient presents today for Return OB appointment. MEDICATIONS Current Outpatient Medications Medication Instructions ondansetron ODT (ZOFRAN-ODT) 4 mg, Oral, Every 6 hours PRN ALLERGIES Allergies Allergen Reactions Sulfamethoxazole-Trimethoprim Anaphylaxis, Palpitations and Shortness of breath Penicillamine Other Reaction(s): hives Sulfa Antibiotics Other Reaction(s): anaphylaxis, tachycardia Trimethoprim Other Reaction(s): anaphylaxis Latex Rash Other Reaction(s): hives Penicillins Itching and Rash Other Reaction(s): hives PROBLEMS Active Ambulatory Problems Diagnosis Date Noted No Active Ambulatory Problems Resolved Ambulatory Problems Diagnosis Date Noted No Resolved Ambulatory Problems No Additional Past Medical History HISTORY PAST MEDICAL HISTORY SOCIAL HISTORY History reviewed. No pertinent past medical history. Social History Tobacco Use Smoking status: Not on file Smokeless tobacco: Not on file Substance Use Topics Alcohol use: Not on file Drug use: Not on file FAMILY HISTORY No family history on file. SURGICAL HISTORY History reviewed. No pertinent surgical history. REVIEW OF SYSTEMS Review of Systems: Review of Systems All other systems reviewed and are negative. OBJECTIVE Objective: Physical Exam Constitutional: Appearance: Normal appearance. She is well-developed. Cardiovascular: Rate and Rhythm: Normal rate and regular rhythm. Pulmonary: Effort: Pulmonary effort is normal. Breath sounds: Normal breath sounds. Abdominal: General: Bowel sounds are normal. There is no distension. Palpations: Abdomen is soft. Tenderness: There is no abdominal tenderness. There is no guarding or rebound. Musculoskeletal: General: No swelling. Normal range of motion. Right lower leg: No edema. Left lower leg: No edema. Neurological: Mental Status: She is alert and oriented to person, place, and time. Skin: General: Skin is warm and dry. Psychiatric: Mood and Affect: Mood normal. Behavior: Behavior normal. Vitals and nursing note reviewed. Exam conducted with a police service technician present. Vitals: Estimated body mass index is 35.74 kg/m as calculated from the following: Height as of 02/07/22: 5' 5 . Weight as of this encounter: 214 lb 12.8 oz. BP: 124/74 Patient's last menstrual period was 04/03/2024. ASSESSMENT & PLAN ICD-10-CM 1. Second trimester Z34.92 2. 12 weeks gestation of Z3A.12 New OB: Patient presents today for 1st time obstetrics appointment with provider. Patient is currently 12w2d . Patients history has been reviewed in great detail including any potential risks. Patient stated she currently has no complaints. Expectations throughout regarding labs, ultrasounds, and appointments have been discussed with the patient in detail. It was reiterated that the patient is to drink 6-8 glasses of water a day, eat 6 small meals a day, do not consume raw or undercooked meat, and stay away from [facility]. Patient has been consulted regarding any further do's and don'ts of . Patient voiced understanding and all questions and concerns were answered. Follow Up: Patient is to return in 4 weeks for routine OB appointment. Documented by Kimberly Earl LPN on behalf of: Roberto Benavides DO documented in this encounter [facility] History of Present illness Narrative 06-10-2024 [...] or undercooked meat, and stay away from [facility]. Patient has also been advised to not [...] concerns or questions. Nurse Visit Completed by: Kerri Mejía LPN documented in this encounter [facility] Evaluation note 08-19-2023 Note Date & [...] treatment plan. Patient left in stable condition [facility] Other Evaluation note Note Date & Type Note Facility Evaluation note No assessment information availa [facility] Work Phone: Evaluation note Note Date & Type Note Facility Evaluation note Diagnosis Missed menses , unspecified gestational age Encounter for supervision of normal first in first trimester Nausea and vomiting in Unspecified vomiting of , unspecified as to episode of care documented in this encounter [facility] Evaluation note Note Date & Type Note Facility Evaluation note Diagnosis Second trimester state, incidental 12 weeks gestation of documented in this encounter [facility] History general Narrative - Reported Note Date & Type Note Facility History general Narrative - Reported Type Medical History asthma Medical History gestational hypertension [facility] [employer] Other Summary Purpose Family History Relationship Condition Age at Onset Recorded Date/T kishore father Hypertension Unknown Advance Directives Advance Directive Response Recorded Date/ Time Advance Directives No November 26 024 1:39pm Chief Complaint and Reason for Visit Chief Complaint cough, congestion Additional Source Comments INFORMATION SOURCE (unrecogn ized section and content) DATE CREATED AUTHOR 03/31/2020 [facility] DATE CREATED AUTHOR AUTHOR'S ORGANIZ ATION 06/29/[address] [facility] EPIC REASON FOR VISIT (unrecogniz ed section and content) Reason Comments Amenorrhea Reason Comments Routine Visit Care Teams (unrecognized sec tion and content) Team Status: Active Member Role Status Dates Татьяна Uriarte MD Primary Care Provider Active Team Status: Inactive Member Role Status Dates Татьяна Uriarte MD Primary Care Provider Active Start: November 27, 2023 End: November 27, 2023 YELITZA Orozco Attending Provider Active S tart: November 27, 2023 End: November 27, 2023 [employer] Relationship Specialty Start Date End Date Татьяна Uriarte MD [address] [place] [address] PCP - General Family Medicine 06/10/24 [employer] Relationship Specialty Start Date End Date Татьяна Uriarte MD [address] [place] [address] PCP - General Family Medicine 06/10/24 [employer] Relationship Specialty Start Date End Date Татьяна Uriarte MD [address] [place] [facility] [address] PCP - General Family Medicine 06/10/24 Goals [...] BE BASED ON THE PRIMARY CLINICAL RECORDS. [facility] [employer] [facility]. provides no warranty or guarantee of the accuracy or completeness of information in this document.
== END 2024-07-28 20:01 | disposition home or self-care (01) ==
LOC: LAB 20:00
PROVIDERS: Visit Provider Physician Assistant
DX: Z01.419 Encounter for gynecological examination (general) (routine) without abnormal findings (principal)
CPT/HCPCS: 88175

== ENCOUNTER 2024-08-30 15:19 | Outpatient (OUT) | payer OTHER, SELFPAY ==
--- OUTSIDE RECORDS SUMMARY | 2024-08-30 15:25 | XMS_ITS | CCD ---
Author Organization [facility] CliniSymn Care Team Providers Care Chute Boss Name Role Phone HOY, ТАТЬЯНА Admitting Unavailable [...] Unavailable Татьяна Uriarte MD Primary Care Provider [phone] ROBERTO BENAVIDES Attending Unavailable BECCA GOMEZ Attending Unavailable Allergies Allergy Classification Reported Allergen(s) Allergy Type Date of Onset Reaction(s) Facility (1 source) Latex Drug allergy (disorder) 10-09-18 97 [facility] Repository (1 source) Penicillin Drug Allergy 05-27-20 15 [facility] (1 source) Sulfamethoxazole / Trimethoprim Drug Allergy 05-23-20 15 [facility] (3 sources) penicillAMINE Drug Allergy 11-27-19 24 hives [facility] (11 sources) Sulfamethoxazole / Trimethoprim Drug Allergy 06-10-20 24 anaphylaxis, Palpitations, Shortness of breath [facility] Other (2 sources) Sulfamethoxazole Drug Allergy 11-27-19 24 anaphylaxis [facility] (12 sources) Trimethoprim Drug Allergy 11-27-19 24 anaphylaxis [facility] (10 sources) Latex Propensity to adverse reactions 06-10-20 24 Rash [facility] (10 sources) penicillAMINE Drug Allergy 11-27-19 24 [facility] (10 sources) Penicillins Drug Allergy 06-10-20 24 Itching, Rash [facility] (10 sources) Sulfonamides (Antibiotic) Drug Allergy 11-27-19 [facility] Medications Current Medications Medication Drug Class(es) Dates Sig (Normalized) Sig (Original) Compressor, For Nebulizer device (1 source) Start: 08-19-2024 End: 08-19-2024 Compressor, For Nebulizer device Discontinued 0 .Route 1 August 19, 2024 12:00am August 19, 2024 2:38pm As directed ondansetron 4 mg disintegrating oral tablet (5 [...] propionate 0.05 mg/actuat metered dose nasal spray (2 sources) Corticosteroid Start: 11-27-2023 End: 08-19-2024 take 1 spray(s) nasal route once daily Fluticasone Propionate 50 mcg/actuation spray,suspension Discontinued 2 SPRAY INTRANASAL Daily November 26, 2023 11:00pm August 19, 2024 12:50pm administer into each nostril Start: 09-28-2019 take 1 spray(s) nasa l route once daily as needed Fluticasone Propionate 50 MCG/ACT 1 spray in each nostril Nasally Once a day for 30 day(s) Sep, Not-Taking/PRN Labetalol (1 source) beta-Adrenergic Merly Labetalol HCl Not-Taking/PRN methylPREDNISolone 4 mg oral tablet (1 source) Corticosteroid Start : 11-26 End: 08-19 take 1 tablet by mouth once Methylprednisolone (Medrol (Aneesh)) 4 mg tablets,dose pack Discontinued 0 PO per package directions November 26, 2023 11:00pm August 19, 2024 12:50pm PO PER PKG DIR for 6 days oseltamivir 75 mg oral capsule (1 source) Neuraminidase Inhibitor Start : 09-28 take 1 capsule by mouth every twelve hours Tamiflu 75 MG 1 capsule Orally Twice a day for 5 day(s) Sep, Not-Taking/PRN Pre-Nabil (1 source) Pre-Nabil with D [place] Not-Taking/PRN Problems Active Problems Problem Classification Problem Date Documented Date Episodic/Chronic Acute bronchitis (2 sources) Acute bronchiolitis due to respiratory syncytial virus; Translations: [Acute bronchiolitis due to respiratory syncytial virus] 08-19-2024 Episodic Hypertension complicating ; childbirth and the puerperium (4 sources) Unspecified pre-existing hypertension complicating , first trimester; Translations: [Unspecified pre-existing hypertension complicating , third trimester] Onset: 10-13-2019 Chronic Immunizations and screening for infectious disease (8 sources) Encounter for screening for other viral diseases; Translations: [Encounter for screening for infections with a predominantly sexual mode of transmission] Onset: 02-16-2020 07-28-2024 Episodic Influenza (1 source) Influenza due to [...] NONINFLAMMATORY D/O VAGINA] Onset: 02-16-2020 Episodic Other female genital disorders (2 sources) Vaginal discharge; Translations: [Other specified noninflammatory disorders of vagina] 07-28-2024 Episodic Other nutritional; endocrine; and metabolic disorders (1 source) Obesity, unspecified; Translations: [OBESITY UNSPECIFIED] Onset: 03-17-2020 Chronic Other and delivery including normal (15 sources) Single live ; Translations: [Encounter for supervision of other normal , second trimester] Onset: 07-27-2019 06-10-2024 Episodic Other screening for suspected conditions (not mental disorders or infectious disease) (12 sources) Encounter for screening for malignant neoplasm of cervix; Translations: [Encounter for screening for other metabolic disorders] Onset: 09-07-2019 07-28-2024 Episodic Other screening for suspected conditions (not mental disorders or infectious disease) (12 sources) Encounter for other specified screening; Translations: [Encounter for screening for Streptococcus B] Onset: 10-11-2019 Residual codes; unclassified (2 sources) Gestation period, 12 weeks; Translations: [12 weeks gestation of ] 06-28-2024 Episodic Residual codes; unclassified (2 sources) Gestation period, 16 weeks; Translations: [16 weeks gestation of ] 07-28-2024 Episodic Residual codes; unclassified (1 source) 12 weeks gestation of ; Translations: [12 WEEKS GESTATION OF ] Onset: 09-08-2019 Residual codes; unclassified (1 source) 39 weeks gestation of ; Translations: [39 WEEKS GESTATION OF ] Onset: 03-17-2020 Unclassified (1 source) COVID-19; Translations: [COVID-19] Onset: 03-17-2020 Unclassified (5 sources) OB Reminders Onset: 07-22-2024 07-22-2024 Past or Other Problems Problem Classification Problem Date Documented Da te Episodic/Chronic Other complications of (1 source) Supervision of high risk , unspecified, first trimester; Translations: [SUP HIGH RISK UNS 1ST TRI] Onset: 09-08-2019 Episodic Unclassified (1 source) Acute cough R05.1 Results Test Name Value Interpretation Reference Range Facility IGP,APTIMA HPV,AGE GDLNon AGE GDLN ACOG TESTING Note . [facility] Comment on above: TESTS RESULT FLAG U NITS REF RANGE LAB Clinician Provided Cytology Information Source.............Cervix No. of containers..01 ThinPrep Vial Age Algo ACOG Alecia... -15 09 FLAG LEGEND: L-Low Normal,H-High Normal,LL-Alert Low,HH-Alert High <-Panic Low,>-Panic High,A-Abnormal,AA-Critical Abnormal Performed at: 01 =G [facility] [address] [facility] [place] [address] Loreto Pacheco MD, IGP, RFX APTIMA HPV ASCU Note . [facility] Comment on above: TESTS RESULT FLAG UN ITS REF RANGE LAB DIAGNOSIS: 02 NEGATIVE FOR INTRAEPITHELIAL LESION OR MALIGNANCY. Specimen adequacy: 02 Satisfactory for evaluation. Endocervical and/or squamous metaplastic cells (endocervical component) are present. Performed by: Manolo Davila [employer] ([facility]) . 02 Note: Note 02 The Pap smear is a screening test designed to aid in the detection of premalignant and malignant conditions of the uterine cervix. It is not a diagnostic procedure and should not be used as the sole means of detecting cervical cancer. Both false-positive and false-negative reports do occur. Test Methodology: Note 02 This liquid based ThinPrep(R) pap test was screened with the use of an image guided system. . 02 The HPV DNA reflex criteria were not met with this specimen result therefore, no HPV testing was performed. FLAG LEGEND: L-Low Normal,H-High Normal,LL-Alert Low,HH-Alert High <-Panic Low,>-Panic High,A-Abnormal,AA-Critical Abnormal Performed at: 02 WB [facility] [address] [place] [address] Loreto Pacheco MD, Performed at: = - [facility] [id number] Guest Services Assistant: Loreto Pacheco MD, Phone: [phone] Performed at: [facility] [id number] Guest Services Assistant: Loreto Pacheco MD, Phone: [phone] SPATULA-ALONE CERVIX [facility] RECURRENT VAGINITIS (HTRX)on 07-30-2024 ATOPOBIUM VAGINAE 0 [facility] althcare ATOPOBIUM VAGINAE Not detected [facility] BVAB 2,3 (BACTERIAL VAGINOSIS ASSOCIATED BACTERIA 2, 3); MOBILUNCUS SPP 0 [facility] BVAB 2,3 (BACTERIAL VAGINOSIS ASSOCIATED BACTERIA 2, 3); MOBILUNCUS SPP Not detected [facility] FATOU ALBICANS, PARAPSILOSIS, TROPICALIS 0 [facility] FATOU ALBICANS, PARAPSILOSIS, TROPICALIS Not detected [facility] FATOU GLABRATA 0 [facility] Hea lthcare FATOU GLABRATA Not detected [facility] FATOU KRUSEI 0 [facility] FATOU KRUSEI Not detected [facility] CHLAMYDIA TRACHOMATIS 0 [facility] CHLAMYDIA TRACHOMATIS Not detected [facility] GARDNERELLA VAGINALIS 0 [facility] GARDNERELLA VAGINALIS Not detected [facility] MEGASPHAERA (TYPES 1, 2) 0 [facility] MEGASPHAERA (TYPES 1, 2) Not detected [facility] MYCOPLASMA GENITALIUM 0 [facility] MYCOPLASMA GENITALIUM Not detected [facility] NEISSERIA GONORRHOEAE 0 [facility] NEISSERIA GONORRHOEAE Not detected [facility] TRICHOMONAS VAGINALIS 0 [facility] TRICHOMONAS VAGINALIS Not detected [facility] e Urinalysis macro (dipstick) panel (U)on 07-28-2024 Bilirubin, UA Negative Negative - 4(70) +++ mg/dL [facility] Blood, UA Negative Negative - 50 Leandro/mcL [facility] Clarity, UA [facility] re Color, UA Yellow [facility] Glucose, UA Negative Negative - 2000(110) ++++ mg/dL [facility] Interpretation and review of laboratory results Normal [facility] Ketones, UA Negative Negative - 160(16) ++++ mg/dL [facility] Leukocytes, UA Negative Negative - 500+++ Therese/mcL [facility] Nitrite, UA Negative Negative - Positive [facility] pH, UA 5.5 5 - 9 [facility] Protein, UA Negative Negative - 1999(20) ++++ mg/dL [facility] Spec Grav, UA 1.02 1 - 1.03 [facility] Urobilinogen, UA 1.0 0.2 - 12 mg/dL [facility] e ALL CBC WITH AUTO DIFFon BASOPHILS ABSOLUTE AUTO 0.1 [facility] Basophils/100 WBC (Bld) 0.4 % 0.2 - 2.0 % [facility] Eosinophils/100 WBC (Bld) 1 % 0.9 - 7.0 % [facility] Erythrocyte distribution width (RBC) [Ratio] 13.1 % 11.0 - 15.0 % [facility] Hematocrit (Bld) [Volume fraction] 37.7 % 36.0 - 48.0 % [facility] Hemoglobin (Bld) [Mass/Vol] 12.7 g/dL 12.0 - 16.0 g/dL [facility] IMMATURE GRANULOCYTES ABS AUTO 0.04 High [facility] Immature granulocytes/100 WBC (Bld) 0.4 % 0.0 - 0.5 % [facility] Interpretation and review of laboratory results Abnormal [facility] LYMPHOCYTES ABSOLUTE AUTO 2.9 [facility] Lymphocytes/100 WBC (Bld) 25.9 % 20.5 - 60.0 % [facility] MCH (RBC) [Entitic mass] 29 pg 26.7 - 34.0 pg [facility] MCHC (RBC) [Mass/Vol] 33.7 g/dL 29.9 - 35.2 g/dL [facility] MCV (RBC) [Entitic vol] 86.1 fL 81.0 - 99.0 fL [facility] MONOCYTES ABSOLUTE AUTO 0.7 [facility] Monocytes/100 WBC (Bld) 6.2 % 1.7 - 12.0 % [facility] NEUTROPHILS ABSOLUTE AUTO 7.5 High [facility] Neutrophils/100 WBC (Bld) 66.1 % 43.0 - 75.0 % [facility] Platelet mean volume (Bld) [Entitic vol] 9.3 fL Low 9.5 - 13.5 fL [facility] are [facility] EO # 0.1 [facility] PLT 338 [facility] RBC 4.38 [facility] WBC 11.4 High [facility] HCG ( test) Ql (U)o n 06-10-2024 Interpretation and review of laboratory results Abnormal [facility] Preg Test, Ur Positive [facility] Urinalysis macro (dipstick) panel (U)on 06-10-2024 Bilirubin, UA Negative Negative - 4(70) +++ mg/dL [facility] Blood, UA Negative Negative - 50 Leandro/mcL [facility] Clarity, UA [facility] re Color, UA Yellow [facility] Glucose, UA Negative Negative - 1999(110) ++++ mg/dL [facility] Interpretation and review of laboratory results Normal [facility] Ketones, UA Negative Negative - 160(16) ++++ mg/dL [facility] Leukocytes, UA Negative Negative - 500+++ Therese/mcL [facility] Nitrite, UA Negative Negative - Positive [facility] pH, UA 6.5 5 - 9 [facility] Protein, UA Negative Negative - 1999(20) ++++ mg/dL [facility] Spec Grav, UA 1.02 1 - 1.03 [facility] Urobilinogen, UA 1.0 0.2 - 12 mg/dL [facility] COVID + FLU Quick Testingon 08-19-2023 SARS-CoV-2 (COVID-19) RNA ALISSON+probe Ql (Unsp spec) Negative [facility] brettapproved Other COVID + FLU Quick Testing Positive [facility] Other COVID + FLU Quick Testing Negative Unified [facility] brettapproved Other COVID-19 PCRon 03-24-2020 SARS-CoV-2, ALISSON Not Detected Normal Not Detected [facility] Comment on above: Result Comment: This test was developed and its performance characteristics determined by [facility] [employer]. This test has not been FDA cleared [...] assay. Performed By: #### C BC #### [facility] [address] [place], [place] [id number] [facility] CBC AUTO DIFFon 03-11-2020 Basophils (Bld) [#/Vol] 0.0 103/ul Normal 0.0-0.1 [facility] Comment on above: Performed By: #### C BC #### [facility] [address] [place], [place] [id number] [employer] [place] [employer] Basophils/100 WBC (Bld) 0.2 % Normal 0.2-2.0 [facility] Comment on above: Performed By: #### C BC #### [facility] [address] [place] [address] [facility] [employer] Eosinophils (Bld) [#/Vol] 0.2 103/ul Normal 0.0-0.7 [facility] Comment on above: Performed By: #### C BC #### [facility] [address] [place], [place] [id number] [employer] Eosinophils/100 WBC (Bld) 1.8 % Normal 0.9-7.0 [facility] Comment on above: Performed By: #### C BC #### [facility] [address] [place], [place] [id number] [employer] Erythrocyte distribution width (RBC) [Ratio] 14.0 % Normal 11.0-15.0 [facility] Comment on above: Performed By: #### C BC #### [facility] [address] [place], [place] [id number] [facility] [employer] Hematocrit (Bld) [Volume fraction] 26.9 % Critically low 36.0-48.0 [facility] Comment on above: Performed By: #### C BC #### [facility] [address] [place], [place] [id number] [employer] [place] [employer] Hemoglobin (Bld) [Mass/Vol] 9.1 g/dL Critically low 12.0-16.0 [facility] Comment on above: Performed By: #### C BC #### [facility] [address] [place], [place] [address] [employer] IG # 0.08 10e3/ul Critically high 0.00-0.03 [facility] Comment on above: Performed By: #### C BC #### [facility] [address] [place], [place] [address] [employer] [place] [employer] IG % 0.6 % Critically high 0.0-0.5 [facility] Comment on above: Performed By: #### C BC #### [facility] [address] [place], [place] [id number] [employer] [place] [employer] Lymphocytes (Bld) [#/Vol] 2.7 103/ul Normal 1.2-3.8 [facility] Comment on above: Performed By: #### C BC #### [facility] [address] [place], [place] [address] [employer] [place] [employer] Lymphocytes/100 WBC (Bld) 20.9 % Normal 20.5-60.0 [facility] Comment on above: Performed By: #### C BC #### [facility] [address] [place], [place] [id number] [employer] MANUAL DIFF REQ NO Normal [facility] Comment on above: Performed By: #### C BC #### [facility] [address] [place], [place] [id number] [employer] MCH (RBC) [Entitic mass] 30.7 pg Normal 26.7-34.0 [facility] Comment on above: Performed By: #### C BC #### [facility] [address] [place], [place] [id number] [facility] [employer] MCHC (RBC) [Mass/Vol] 33.8 g/dL Normal 29.9-35.2 [facility] Comment on above: Performed By: #### C BC #### [facility] [address] [place], [place] [address] [facility] [place] [employer] MCV (RBC) [Entitic vol] 90.9 fL Normal 81.0-99.0 [facility] Comment on above: Performed By: #### C BC #### [facility] [address] [place] [id number] [facility] [employer] Monocytes (Bld) [#/Vol] 1.2 103/ul Critically high 0.3-0.8 [facility] Comment on above: Performed By: #### C BC #### [facility] [address] [place], [place] [address] [place] [employer] Monocytes/100 WBC (Bld) 8.9 % Normal 1.7-12.0 [facility] Comment on above: Performed By: #### C BC #### [facility] [address] [place], [place] [address] [employer] Neutrophils (Bld) [#/Vol] 8.8 103/ul Critically high 1.4-6.5 [facility] Comment on above: Performed By: #### C BC #### [facility] [address] [place], [place] [address] [employer] [place] [employer] Neutrophils/100 WBC (Bld) 67.6 % Normal 43.0-75.0 [facility] Comment on above: Performed By: #### C BC #### [facility] [address] [place], [place] [address] [employer] Platelet mean volume (Bld) [Entitic vol] 10.2 fL Normal 9.5-13.5 [facility] Comment on above: Performed By: #### C BC #### [facility] [address] [place], [place] [id number] [employer] Platelets (Bld) [#/Vol] 178 103/ul Normal 150-450 [facility] Comment on above: Performed By: #### C BC #### [facility] [address] [place], [place] [address] Dee Dee Griggs RBC (Bld) [#/Vol] 2.96 106/ul Critically low 4.20-5.40 Th [facility] Comment on above: Performed By: #### C BC #### [facility] [address] [place] [address] Dee Dee Griggs WBC (Bld) [#/Vol] 13.1 103/ul Critically high 4.0-11.0 [facility] Comment on above: Performed By: #### C BC #### [facility] [address] [place] [address] Dee [facility] Griggs COVID-19 PCRon 03-11-2020 SARS-CoV-2, ALISSON Detected Abnormal Not Detected [facility] Comment on above: Result Comment: This test was developed and its performance characteristics determined by [facility]. This test has not been FDA cleared [...] assay. Performed By: #### C BC #### [facility] [address] [place], [place] [address] Dee [employer] Griggs PRIORITY COVID PROCESSINGon 03-11-2020 Comment Comment Normal [facility] Comment on above: Result Comment: Rece ived Performed By: #### C BC #### [facility] [address] [place], [place] [address] [facility] [employer] Gr[place]gs RESPIRATORY PANEL PLUSon Adenovirus NOT DETECTED Normal NOT DETECTED [facility] Comment on above: Performed By: #### C BC #### [facility] [address] [place] [address] [employer] [place] [employer] B. Parapertusis NOT DETECTED Normal NOT DETECTED [facility] Comment on above: Performed By: #### C BC #### [facility] [address] [place] [address] [employer] [place] [employer] B. Pertussis NOT DETECTED Normal NOT DETECTED [facility] Comment on above: Performed By: #### C BC #### [facility] [address] [place] [address] [employer] Chlamydia Pneumoniae NOT DETECTED Normal NOT DETECTED [facility] Comment on above: Performed By: #### C BC #### [facility] [address] [place] [address] [employer] Coronavirus 229E NOT DETECTED Normal NOT DETECTED [facility] Comment on above: Performed By: #### C BC #### [facility] [address] [place] [address] [employer] Coronavirus HKU1 NOT DETECTED Normal NOT DETECTED [facility] Comment on above: Performed By: #### C BC #### [facility] [address] [place] [address] [employer] Coronavirus NL63 NOT DETECTED Normal NOT DETECTED [facility] Comment on above: Performed By: #### C BC #### [facility] [address] [place] [address] [employer] Coronavirus OC43 NOT DETECTED Normal NOT DETECTED [facility] Comment on above: Performed By: #### C BC #### [facility] [address] [place] [address] [employer] Influenza A H1 2008 NOT DETECTED Normal NOT DETECTED [facility] Comment on above: Performed By: #### C BC #### [facility] [address] [place] [address] [employer] [place] [employer] Influenza B NOT DETECTED Normal NOT DETECTED [facility] Comment on above: Performed By: #### C BC #### [facility] [address] [place], [place] [id number] [employer] Metapneumovirus NOT DETECTED Normal NOT DETECTED [facility] Comment on above: Performed By: #### C BC #### [facility] [address] [place] [address] [facility] [place] [employer] Mycoplas. Pneumoniae NOT DETECTED Normal NOT DETECTED [facility] Comment on above: Performed By: #### C BC #### [facility] [address] [place] [address] [place] [employer] Parainfluenza 1 NOT DETECTED Normal NOT DETECTED [facility] Comment on above: Performed By: #### C BC #### [facility] [address] [place] [address] [employer] [place] [employer] Parainfluenza 2 NOT DETECTED Normal NOT DETECTED [facility] Comment on above: Performed By: #### C BC #### [facility] [address] [place] [address] [employer] [place] [employer] Parainfluenza 3 NOT DETECTED Normal NOT DETECTED [facility] Comment on above: Performed By: #### C BC #### [facility] [address] [place] [address] Dee Dee Inud Parainfluenza 4 NOT DETECTED Normal NOT DETECTED The [facility] Comment on above: Performed By: #### C BC #### [facility] [address] [place] [address] Dee Dee Indu Rhino/Enterovirus NOT DETECTED Normal NOT DETECTED [facility] Comment on above: Performed By: #### C BC #### [facility] [address] [place] [address] Dee Dee Indu RP2 Header 1 RESPIRATORY PANEL: VIRUSES Normal [facility] Comment on above: Performed By: #### C BC #### [facility] [address] [place] [address] Dee Dee Indu RP2 Header 2 RESPIRATORY PANEL: BACTERIA Normal [facility] Comment on above: Performed By: #### C BC #### [facility] [address] [place] [address] Dee Dee Indu RP2 Header 4 EUA SEE BELOW Normal The [facility] Comment on above: Result Comment: This test is not yet approved or cleared by the [place] FDA. When there are no FDA-approved or cleared tests available, and other criteria are met, FDA can make tests available under an emergency access mechanism called an Emergency Use Authorization (EUA). The EUA for this test is supported by the [place] of Health and Human Service?s (HHS?s) declaration [...] used). Performed By: #### C BC #### [facility] [address] [place] [address] Dee Dee Indu RSV NOT DETECTED Normal NOT DETECTED The [facility] Comment on above: Performed By: #### C BC #### [facility] [address] [place] [address] Dee Dee Griggs SARS-CoV-2: COVID-19 DETECTED NOT DETECTED Th [facility] Comment on above: Performed By: #### C BC #### [facility] [address] [place], [place] [id number] Dee Dee Acostaen CBC AUTO DIFFon 03-10-2020 Basophils (Bld) [#/Vol] 0.0 103/ul Normal 0.0-0.1 [facility] Comment on above: Performed By: #### C BC #### [facility] [address] [place] [address] Dee Dee Griggs Basophils/100 WBC (Bld) 0.1 % Critically low 0.2-2.0 [facility] Comment on above: Performed By: #### C BC #### [facility] [address] [place] [address] Dee Dee Indu Eosinophils (Bld) [#/Vol] 0.1 103/ul Normal 0.0-0.7 [facility] Comment on above: Performed By: #### C BC #### [facility] [address] [place] [address] Dee Dee Indu Eosinophils/100 WBC (Bld) 0.5 % Critically low 0.9-7.0 [facility] Comment on above: Performed By: #### C BC #### [facility] [address] [place], [place] [id number] Dee Dee Indu Erythrocyte distribution width (RBC) [Ratio] 13.8 % Normal 11.0-15.0 [facility] Comment on above: Performed By: #### C BC #### [facility] [address] [place], [place] [id number] Dee Dee Indu Hematocrit (Bld) [Volume fraction] 30.3 % Critically low 36.0-48.0 [facility] Comment on above: Performed By: #### C BC #### [facility] [address] [place], [place] [id number] Dee Dee Indu Hemoglobin (Bld) [Mass/Vol] 10.1 g/dL Critically low 12.0-16.0 [facility] Comment on above: Performed By: #### C BC #### [facility] [address] [place], [place] [address] Dee Dee Indu IG # 0.08 10e3/ul Critically high 0.00-0.03 The [facility] Comment on above: Performed By: #### C BC #### [facility] [address] [place], [place] [address] Dee Dee Inud IG % 0.6 % Critically high 0.0-0.5 The [facility] Comment on above: Performed By: #### C BC #### [facility] [address] [place], [place] [address] Dee Dee Indu Lymphocytes (Bld) [#/Vol] 2.4 103/ul Normal 1.2-3.8 [facility] Comment on above: Performed By: #### C BC #### [facility] [address] [place], [place] [address] Dee Dee Indu Lymphocytes/100 WBC (Bld) 16.9 % Critically low 20.5-60.0 [facility] Comment on above: Performed By: #### C BC #### [facility] [address] [place], [place] [address] Dee Dee Griggs MANUAL DIFF REQ NO Normal The [facility] Comment on above: Performed By: #### C BC #### [facility] [address] [id number] Dee Dee Griggs MCH (RBC) [Entitic mass] 30.2 pg Normal 26.7-34.0 [facility] Comment on above: Performed By: #### C BC #### [facility] [address] [id number] Dee Deemino Griggs MCHC (RBC) [Mass/Vol] 33.3 g/dL Normal 29.9-35.2 [facility] Comment on above: Performed By: #### C BC #### [facility] [address] [place], [place] [address] Dee Deemino Griggs MCV (RBC) [Entitic vol] 90.7 fL Normal 81.0-99.0 [facility] Comment on above: Performed By: #### C BC #### [facility] [address] [place], [place] [address] Dee Dee Indu Monocytes (Bld) [#/Vol] 1.3 103/ul Critically high 0.3-0.8 [facility] Comment on above: Performed By: #### C BC #### [facility] [address] [place], [place] [address] Dee Dee Indu Monocytes/100 WBC (Bld) 8.9 % Normal 1.7-12.0 [facility] Comment on above: Performed By: #### C BC #### [facility] [address] [place], [place] [address] Dee Dee Indu Neutrophils (Bld) [#/Vol] 10.4 103/ul Critically high 1.4-6.5 [facility] Comment on above: Performed By: #### C BC #### [facility] [address] [place], [place] [address] Dee Dee Indu Neutrophils/100 WBC (Bld) 73.0 % Normal 43.0-75.0 [facility] Comment on above: Performed By: #### C BC #### [facility] [address] [place] [address] Dee Dee Indu Platelet mean volume (Bld) [Entitic vol] 10.4 fL Normal 9.5-13.5 [facility] Comment on above: Performed By: #### C BC #### [facility] [address] [place] [address] Dee Dee Indu Platelets (Bld) [#/Vol] 179 103/ul Normal 150-450 [facility] Comment on above: Performed By: #### C BC #### [facility] [address] [place], [place] [address] Dee Dee Indu RBC (Bld) [#/Vol] 3.34 106/ul Critically low 4.20-5.40 [facility] Comment on above: Performed By: #### C BC #### [facility] [address] [place], [place] [address] Dee Dee Indu WBC (Bld) [#/Vol] 14.2 103/ul Critically high 4.0-11.0 [facility] Comment on above: Performed By: #### C BC #### [facility] [address] [place], [place] [address] Dee Dee Indu CBC AUTO DIFFon 03-09-2020 Basophils (Bld) [#/Vol] 0.0 103/ul Normal 0.0-0.1 [facility] Comment on above: Performed By: #### N BOX #### [facility] [address] [place], [place] [address] Dee Dee Indu Basophils/100 WBC (Bld) 0.3 % Normal 0.2-2.0 [facility] Comment on above: Performed By: #### N BOX #### [facility] [address] [place] [address] Dee Dee Indu Eosinophils (Bld) [#/Vol] 0.1 103/ul Normal 0.0-0.7 [facility] Comment on above: Performed By: #### N BOX #### [facility] [address] [place], [place] [address] Dee Dee Indu Eosinophils/100 WBC (Bld) 0.9 % Normal 0.9-7.0 [facility] Comment on above: Performed By: #### N BOX #### [facility] [address] [id number] Dee Dee Griggs Erythrocyte distribution width (RBC) [Ratio] 13.8 % Normal 11.0-15.0 [facility] Comment on above: Performed By: #### N BOX #### [facility] [address] [id number] Dee Dee Griggs Hematocrit (Bld) [Volume fraction] 35.5 % Critically low 36.0-48.0 [facility] Comment on above: Performed By: #### N BOX #### [facility] [address] [id number] Dee Dee Indu Hemoglobin (Bld) [Mass/Vol] 12.0 g/dL Normal 12.0-16.0 [facility] Comment on above: Performed By: #### N BOX #### [facility] [address] [address] Dee Dee Indu IG # 0.09 10e3/ul Critically high 0.00-0.03 [facility] Comment on above: Performed By: #### N BOX #### [facility] [address] [id number] Dee Dee Griggs IG % 0.8 % Critically high 0.0-0.5 [facility] Comment on above: Performed By: #### N BOX #### [facility] [address] [id number] Dee Dee Indu Lymphocytes (Bld) [#/Vol] 2.3 103/ul Normal 1.2-3.8 [facility] Comment on above: Performed By: #### N BOX #### [facility] [address] [id number] Dee Dee Indu Lymphocytes/100 WBC (Bld) 19.8 % Critically low 20.5-60.0 [facility] Comment on above: Performed By: #### N BOX #### [facility] [address] [id number] Dee Dee Griggs MANUAL DIFF REQ NO Normal [facility] Comment on above: Performed By: #### N BOX #### [facility] [address] [place], [place] [address] Dee Deemino Acostaen MCH (RBC) [Entitic mass] 30.4 pg Normal 26.7-34.0 [facility] Comment on above: Performed By: #### N BOX #### [facility] [address] [place], [place] [address] Dee Deemino Griggs MCHC (RBC) [Mass/Vol] 33.8 g/dL Normal 29.9-35.2 [facility] Comment on above: Performed By: #### N BOX #### [facility] [address] [place], [place] [address] Dee Dee Indu MCV (RBC) [Entitic vol] 89.9 fL Normal 81.0-99.0 [facility] Comment on above: Performed By: #### N BOX #### [facility] [address] [place], [place] [address] Dee Dee Indu Monocytes (Bld) [#/Vol] 0.9 103/ul Critically high 0.3-0.8 [facility] Comment on above: Performed By: #### N BOX #### [facility] [address] [place], [place] [address] Dee Dee Indu Monocytes/100 WBC (Bld) 7.8 % Normal 1.7-12.0 [facility] Comment on above: Performed By: #### N BOX #### [facility] [address] [place], [place] [address] Dee Dee Indu Neutrophils (Bld) [#/Vol] 8.2 103/ul Critically high 1.4-6.5 [facility] Comment on above: Performed By: #### N BOX #### [facility] [address] [place], [place] [address] Dee Dee Indu Neutrophils/100 WBC (Bld) 70.4 % Normal 43.0-75.0 [facility] Comment on above: Performed By: #### N BOX #### [facility] [address] [place], [place] [address] Dee Dee Indu Platelet mean volume (Bld) [Entitic vol] 10.3 fL Normal 9.5-13.5 [facility] Comment on above: Performed By: #### N BOX #### [facility] [address] [place], [place] [address] Dee Dee Indu Platelets (Bld) [#/Vol] 211 103/ul Normal 150-450 [facility] Comment on above: Performed By: #### N BOX #### [facility] [address] [place] [address] Dee Dee Indu RBC (Bld) [#/Vol] 3.95 106/ul Critically low 4.20-5.40 Th [facility] Comment on above: Performed By: #### N BOX #### [facility] [address] [place] [address] Dee Dee Indu WBC (Bld) [#/Vol] 11.6 103/ul Critically high 4.0-11.0 [facility] Comment on above: Performed By: #### N BOX #### [facility] [address] [place] [address] Dee Dee Indu Basophils (Bld) [#/Vol] 0.0 103/ul Normal 0.0-0.1 [facility] Comment on above: Performed By: #### N BOX #### [facility] [address] [place] [address] Dee Dee Indu Basophils/100 WBC (Bld) 0.4 % Normal 0.2-2.0 [facility] Comment on above: Performed By: #### N BOX #### [facility] [address] [place], [place] [address] Dee Dee Indu Eosinophils (Bld) [#/Vol] 0.2 103/ul Normal 0.0-0.7 [facility] Comment on above: Performed By: #### N BOX #### [facility] [address] [place] [address] Dee Dee Indu Eosinophils/100 WBC (Bld) 2.0 % Normal 0.9-7.0 [facility] Comment on above: Performed By: #### N BOX #### [facility] [address] [place] [address] Dee Dee Indu Erythrocyte distribution width (RBC) [Ratio] 13.8 % Normal 11.0-15.0 [facility] Comment on above: Performed By: #### N BOX #### [facility] [address] [place] [address] Dee Dee Griggs Hematocrit (Bld) [Volume fraction] 35.0 % Critically low 36.0-48.0 [facility] Comment on above: Performed By: #### N BOX #### [facility] [address] [place] [address] Dee Dee Griggs Hemoglobin (Bld) [Mass/Vol] 11.8 g/dL Critically low 12.0-16.0 [facility] Comment on above: Performed By: #### N BOX #### [facility] [address] [place] [address] Dee Dee Griggs IG # 0.07 10e3/ul Critically high 0.00-0.03 [facility] Comment on above: Performed By: #### N BOX #### [facility] [address] [place] [address] Dee Dee Griggs IG % 0.7 % Critically high 0.0-0.5 [facility] Comment on above: Performed By: #### N BOX #### [facility] [address] [place] [address] Dee Dee Griggs Lymphocytes (Bld) [#/Vol] 3.1 103/ul Normal 1.2-3.8 [facility] Comment on above: Performed By: #### N BOX #### [facility] [address] [place] [address] Dee Dee Griggs Lymphocytes/100 WBC (Bld) 29.5 % Normal 20.5-60.0 [facility] Comment on above: Performed By: #### N BOX #### [facility] [address] [place] [address] Dee Dee Griggs MANUAL DIFF REQ NO Normal [facility] Comment on above: Performed By: #### N BOX #### [facility] [address] [place] [address] Dee Dee Griggs MCH (RBC) [Entitic mass] 30.3 pg Normal 26.7-34.0 [facility] Comment on above: Performed By: #### N BOX #### [facility] [address] [id number] Dee Deemino Griggs MCHC (RBC) [Mass/Vol] 33.7 g/dL Normal 29.9-35.2 [facility] Comment on above: Performed By: #### N BOX #### [facility] [address] [place], [place] [address] Dee Dee Indu MCV (RBC) [Entitic vol] 90.0 fL Normal 81.0-99.0 [facility] Comment on above: Performed By: #### N BOX #### [facility] [address] [place] [address] Dee Dee Indu Monocytes (Bld) [#/Vol] 0.9 103/ul Critically high 0.3-0.8 [facility] Comment on above: Performed By: #### N BOX #### [facility] [address] [place] [address] Dee Dee Indu Monocytes/100 WBC (Bld) 8.4 % Normal 1.7-12.0 [facility] Comment on above: Performed By: #### N BOX #### [facility] [address] [place] [address] Dee Dee Indu Neutrophils (Bld) [#/Vol] 6.3 103/ul Normal 1.4-6.5 [facility] Comment on above: Performed By: #### N BOX #### [facility] [address] [place], [place] [address] Dee Dee Indu Neutrophils/100 WBC (Bld) 59.0 % Normal 43.0-75.0 [facility] Comment on above: Performed By: #### N BOX #### [facility] [address] [place], [place] [address] Dee Dee Indu Platelet mean volume (Bld) [Entitic vol] 10.4 fL Normal 9.5-13.5 [facility] Comment on above: Performed By: #### N BOX #### [facility] [address] [place], [place] [address] Dee Dee Indu Platelets (Bld) [#/Vol] 221 103/ul Normal 150-450 [facility] Comment on above: Performed By: #### N BOX #### [facility] [address] [place] [address] Dee Dee Griggs RBC (Bld) [#/Vol] 3.89 106/ul Critically low 4.20-5.40 Th [facility] Comment on above: Performed By: #### N BOX #### [facility] [address] [place] [address] Dee Dee Griggs WBC (Bld) [#/Vol] 10.6 103/ul Normal 4.0-11.0 [facility] Comment on above: Performed By: #### N BOX #### [facility] [address] [place] [address] Dee Dee Griggs DRUG SCREEN RAPID (URINE)on 03-09-2020 AMP Negative Normal NEGATIVE [facility] Comment on above: Performed By: #### N BOX #### [facility] [address] [place] [address] Dee Dee Indu BAR Negative Normal NEGATIVE [facility] Comment on above: Performed By: #### N BOX #### [facility] [address] [place] [address] Dee Dee Indu BUP Negative Normal NEGATIVE [facility] Comment on above: Performed By: #### N BOX #### [facility] [address] [place] [address] Dee Dee Indu BZO Negative Normal NEGATIVE [facility] Comment on above: Performed By: #### N BOX #### [facility] [address] [place] [address] Dee Dee Indu CLINT Negative Normal NEGATIVE [facility] Comment on above: Performed By: #### N BOX #### [facility] [address] [place] [address] Dee Dee Indu CUT-OFFS SEE BELOW Normal [facility] Comment on above: Result Comment: AMP [...] ng/mL Performed By: #### N BOX #### [facility] [address] [place] [address] DRUG CUT HEADER DRUG CLASS TEST SYSTEM CUT-OFF CONCENTRATIONS ARE FOLLOWS: Normal [facility] Comment on above: Performed By: #### N BOX #### [facility] [address] [place] [address] Indu mAMP Negative Normal NEGATIVE [facility] Comment on above: Performed By: #### N BOX #### [facility] [address] [place] [address] Dee Dee Indu MTD Negative Normal NEGATIVE [facility] Comment on above: Performed By: #### N BOX #### [facility] [address] [place] [address] Dee Dee Indu OPI Negative Normal NEGATIVE [facility] Comment on above: Performed By: #### N BOX #### [facility] [address] [place] [address] Dee Dee Indu OXY Negative Normal NEGATIVE [facility] Comment on above: Performed By: #### N BOX #### [facility] [address] [place], [place] [address] PCP Negative Normal NEGATIVE [facility] Comment on above: Performed By: #### N BOX #### [facility] [address] [place] [address] PPX Negative Normal NEGATIVE [facility] Comment on above: Performed By: #### N BOX #### [facility] [address] [place] [address] Dee Dee Indu TCA Negative Normal NEGATIVE [facility] Comment on above: Performed By: #### N BOX #### [facility] [address] [place], [place] [address] Dee Dee Inud THC Negative Normal NEGATIVE [facility] Comment on above: Performed By: #### N BOX #### [facility] [address] [place], [place] [address] Dee Dee Indu LDHon 03-09-2020 LDH 190 U/L Normal 122-222 [facility] Comment on above: Performed By: #### N BOX #### [facility] [address] [place], [place] [address] Dee Dee Indu PROF 14(COMP METB)on 020 Albumin [Mass/Vol] 2.9 g/dL Critically low 3.5-5.0 Th [facility] Comment on above: Performed By: #### N BOX #### [facility] [address] [place] [address] Dee Dee Indu Albumin/Globulin [Mass ratio] 0.7 {ratio} Normal [facility] Comment on above: Performed By: #### N BOX #### [facility] [address] [place] [address] Dee Dee Indu ALP [Catalytic activity/Vol] 152 U/L Critically high 38-126 [facility] Comment on above: Performed By: #### N BOX #### [facility] [address] [place] [address] Dee Dee Indu Anion gap [Moles/Vol] 13.6 mmol/L Normal [facility] Comment on above: Performed By: #### N BOX #### [facility] [address] [place], [place] [address] Dee Dee Indu Bilirubin Ql (U) 0.7 mg/dL Normal 0.2-1.3 [facility] Comment on above: Performed By: #### N BOX #### [facility] [address] [place], [place] [address] Dee Dee Indu Calcium [Mass/Vol] 9.5 mg/dL Normal 8.4-10.2 [facility] Comment on above: Performed By: #### N BOX #### [facility] [address] [place], [place] [address] Dee Dee Indu Chloride [Moles/Vol] 102 mmol/L Normal 98-107 [facility] Comment on above: Performed By: #### N BOX #### [facility] [address] [place] [address] Dee Dee Indu CO2 [Moles/Vol] 24.1 mmol/L Normal 22.0-30.0 [facility] Comment on above: Performed By: #### N BOX #### [facility] [address] [place] [address] Dee Dee Indu Creatinine [Mass/Vol] 0.63 mg/dL Normal 0.52-1.04 [facility] Comment on above: Performed By: #### N BOX #### [facility] [address] [place] [address] Dee Dee Indu EGFR-AF CAMEROONIAN >60 Normal >=60 [facility] Comment on above: Performed By: #### N BOX #### [facility] [address] [place] [address] Dee Dee Indu EGFR-NON AF CAMEROONIAN >60 Normal >=60 [facility] Comment on above: Performed By: #### N BOX #### [facility] [address] [place] [address] Dee Dee Indu Globulin (S) [Mass/Vol] 4.1 g/dL Normal [facility] Comment on above: Performed By: #### N BOX #### [facility] [address] [place] [address] Dee Dee Indu Glucose [Mass/Vol] 92 mg/dL Normal 74-106 [facility] Comment on above: Performed By: #### N BOX #### [facility] [address] [place] [address] Dee Dee Indu Potassium [Moles/Vol] 3.7 mmol/L Normal 3.4-5.0 [facility] Comment on above: Performed By: #### N BOX #### [facility] [address] [place], [place] [id number] [place] Indu Protein [Mass/Vol] 7.0 g/dL Normal 6.1-8.2 [facility] Comment on above: Performed By: #### N BOX #### [facility] [address] [place], [place] [address] [place] Sodium [Moles/Vol] 136 mmol/L Critically low 137-145 Th e [facility] Comment on above: Performed By: #### N BOX #### [facility] [address] [place], [place] [address] [place] Indu Urea nitrogen [Mass/Vol] 7.0 mg/dL Normal 7.0-17.0 [facility] Comment on above: Performed By: #### N BOX #### [facility] [address] [place], [place] [address] [place] Indu Urea nitrogen/Creatinine [Mass ratio] 11.1 mg/mg Normal [facility] Comment on above: Performed By: #### N BOX #### [facility] [address] [place] [address] [place] Indu PROTIMEon 03-09-2020 INR Coag (PPP) [Relative time] 0.90 {INR} Normal [facility] Comment on above: Performed By: #### N BOX #### [facility] [address] [place], [place] [id number] [place] In[place] PT Coag (PPP) [Time] PLEASE NOTE: NORMAL RANGE CHANGE 05-05-2014 DUE TO REAGENT LOT CHANGE Normal [facility] Comment on above: Performed By: #### N BOX #### [facility] [address] [place] [address] [place] PT Coag (PPP) [Time] SEE BELOW Normal [facility] Comment on above: Result Comment: RAYO RED INR: 2.0 - 3.0 CONDITIONS NOT LISTED BELOW 2.5 - 3.5 FOR PROSTHETIC HEART VALVE REPLACEMENT 2.5 - 3.5 RECURRENT THROMBOSIS Performed By: #### N BOX #### [facility] [address] [place], [place] [id number] [place] Indu PT Coag (PPP) [Time] 9.4 s Normal 9.0-11.6 [facility] Comment on above: Performed By: #### N BOX #### [facility] [address] [place] [address] [place] Indu PTTon 07-23-2020 aPTT Coag (Bld) [Time] 24.5 s Normal 22.3-36.2 [facility] Comment on above: Performed By: #### N BOX #### [facility] [address] [place], [place] [id number] Dee Dee Griggs aPTT Coag (Bld) [Time] PLEASE NOTE: NORMAL RANGE CHANGE 07-12-2015 DUE TO REAGENT LOT CHANGE Normal [facility] Comment on above: Performed By: #### N BOX #### [facility] [address] [place] [address] Dee [place] Gr[place]gs SGOTon 03-09-2020 AST [Catalytic activity/Vol] 16 U/L Normal 14-36 [facility] Comment on above: Performed By: #### N BOX #### [facility] [address] [place] [address] Dee [place] Griggs SGPTon 03-09-2020 ALT [Catalytic activity/Vol] 23 U/L Normal 9-52 [facility] Comment on above: Performed By: #### N BOX #### [facility] [address] [place] [address] Dee Dee Griggs URIC ACID SERUMon 03-09-2020 Urate [Mass/Vol] 5.2 mg/dL Normal 2.5-6.[address] [facility] Comment on above: Performed By: #### N BOX #### [facility] [address] [place] [address] Dee Dee Griggs GROUP B STREP CULTUREon [...] F Tetracycline <=0.25 S F Normal [facility] Comment on above: Performed By: #### G BSCX ####[facility] Dmqxuahutq5[address] Indu CHLAMYDIA/GONOCOCCUS ALISSON (SW AB/URINE/PAPon 02-18-2020 Chlamydia trachomatis, ALISSON Negative Normal Negative [facility] Comment on above: Performed By: #### C T/NGNA ####[facility] Dnxzjyzwap55[address] Indu Neisseria gonorrhoeae, ALISSON Negative Normal Negative [facility] Comment on above: Performed By: #### C T/NGNA ####[facility] Fcyjozwizb4342 [address] Indu VAGINITIS/VAGINOSIS DNA PROB Ezequiel 02-17-2020 Fatou species Negative Normal Negative [facility] Comment on above: Performed By: #### V AGINT ####[facility] [address] [place] [address] Indu Gardnerella vaginalis Negative Normal Negative [facility] Comment on above: Performed By: #### V AGINT ####[facility] Y[address] [place] [address] Indu Trichomonas vaginalis Negative Normal Negative [facility] Comment on above: Performed By: #### V AGINT ####[facility] Dmjvjttgos2467 [address] Indu GLUCOSE - 1HRon 12-02-2019 Glucose [Mass/Vol] 130 mg/dL Critically high 74-106 T [facility] Comment on above: Performed By: #### G LU1HR ####[facility] Yonkdfwdou1670 [address] Indu HEMOGRAM AND PLATELon 2019 Hematocrit (Bld) [Volume fraction] 35.2 % Critically low 36.0-48.0 [facility] Comment on above: Performed By: #### H H ####[facility] [address] [place] [address] Indu Hemoglobin (Bld) [Mass/Vol] 11.7 g/dL Critically low 12.0-16.0 [facility] Comment on above: Performed By: #### H H ####[facility] Bsdsefayov3693 [address] Griggs MCH (RBC) [Entitic mass] 30.0 pg Normal 26.7-34.0 [facility] Comment on above: Performed By: #### H H ####[facility] [address] [place] [address] Indu MCHC (RBC) [Mass/Vol] 33.2 g/dL Normal 29.9-35.2 [facility] Comment on above: Performed By: #### H H ####[facility] [address] [place], [place] [address]mino Griggs MCV (RBC) [Entitic vol] 90.3 fL Normal 81.0-99.0 [facility] Comment on above: Performed By: #### H H ####[facility] [address] [place] [address] Indu Platelets (Bld) [#/Vol] 276 103/ul Normal 150-450 [facility] Comment on above: Performed By: #### H H ####[facility] [address] [place], [place] [address] Indu RBC (Bld) [#/Vol] 3.90 106/ul Critically low 4.20-5.40 Th [facility] Comment on above: Performed By: #### H H ####[facility] [address] [place], [place] [address] Indu WBC (Bld) [#/Vol] 14.2 103/ul Critically high 4.0-11.0 [facility] Comment on above: Performed By: #### H H ####[facility] [address] [place], [place] [address] Indu US PREG ANATOMY SINGLEon US PREG ANATOMY [...] 4 days EFW:3 57 g; 56% FL/AC: 0.703020 FL/BPD: 0.609639 HC/AC: 1.593052 GESTATIONAL AGE: Age by EDC: 20 weeks, 0 days Age by current US: 20 weeks, 2 days JAY by current US: 03/14/2020 JAY by EDC: 03/16/2020 IMPRESSION: Normal anatomy scan *Reference: [facility] Practice Guideline for the performance of Obstetric Ultrasound Examinations, May 18, 2007. Normal [facility] AFP MATERNAL FOR SPINA BIFID Aon 10-13-2019 AFP MoM 0.72 Normal [facility] Comment on above: Performed By: #### A FPMAT ####[facility] Brhsbrvikn[address] AFP Value 24.8 ng/mL Normal [facility] Comment on above: Performed By: #### A FPMAT ####[facility] Vpzbcuoicl[address] AFP, Serum for Spina Bifida Report Normal [facility] Comment on above: Performed By: #### A FPMAT ####[facility] Jnnpgmcplg7082 [address] Comment Comment Normal [facility] Comment on above: Result Comment: Ashish Robertson, Ph.D., [facility] Principal Genetics [employer]ic . References: Available Upon Request. . Multiples Of Median Cutoffs For AFP Elevations Cooney 2.5 Black 2.8 IDD 2.0 Twins 4.5 Abbreviation Definitions IDD - Insulin Dep Diabetes OSBR - Open Spina Bifida Risk . For further inquiries contact [facility] at [phone]. Performed By: #### A FPMAT ####[facility] Yrzlfbwmmb[address]26 [address] Indu Gest Age Collection Date 17.6 weeks Normal [facility] Comment on above: Performed By: #### A FPMAT ####[facility] Ylkvbhtihh9458 [address] Gestat, Age Based on Ultrasound Normal [facility] Comment on above: Result Comment: 14.7 on 09/21/2019 Recalculations are not recommended when gestational dating by LMP and ultrasound are within 10 days. Performed By: #### A FPMAT ####[facility] Fhuslifskt7435 [address] Insulin Dep Diabetes No Normal [facility] Comment on above: Performed By: #### A FPMAT ####[facility] Hjgdwrclut6[address] Interpretation Comment Normal [facility] Comment on above: Result Comment: Inte rpretation: [...] Customer Services to discuss available options. The [employer] recommends amniocentesis be offered to women age 35 and older. Performed By: #### A FPMAT ####[facility] Bfbiqbftfo[address] Indu [age] Normal [facility] Comment on above: Performed By: #### A FPMAT ####[facility] Njttxlvtgj50[address] Indu Multiple Gestation No Normal [facility] Comment on above: Performed By: #### A FPMAT ####[facility] Chzhehtmsn[address] [place] OS[place] [address] [facility] Comment on above: Performed By: #### A FPMAT ####[facility] Amlibdahnk7544 [address] Indu PDF . Normal [facility] Comment on above: Performed By: #### A FPMAT ####[facility] Ukoewykvkj0238 [address] Indu Race Normal [facility] Comment on above: Performed By: #### A FPMAT ####[facility] Hgqefzlkhy7457 [address] Indu Test Results: Negative Normal [facility] Comment on above: Performed By: #### A FPMAT ####[facility] Miksbsjyyf2632 [address] Indu CHLAMYDIA/GONOCOCCUS ALISSON (SW AB/URINE/PAPon 09-09-2019 Chlamydia trachomatis, ALISSON Negative Normal Negative [facility] Comment on above: Performed By: #### C T/NGNA ####[facility] Qcdbgrnjpb1443 [address] Indu Neisseria gonorrhoeae, ALISSON Negative Normal Negative [facility] Comment on above: Performed By: #### C T/NGNA ####[facility] Yprkxoogfq4874 [address] Indu HEP B SURFACE ANTIGEN SCREEN on 09-08-2019 HBsAg Screen Negative Normal Negative [facility] Comment on above: Performed By: #### H BSANS #### [facility] [address] Indu HEPATITIS C VIRUS AB W/ REFL EX QUANTon 09-08-2019 HCV AB 0.2 s/co ratio Normal 0.0-0.[address] [facility] Comment on above: Performed By: #### H CVPCRR #### [facility] [address] [place] [id number] Dee Dee Griggs Interpretation: Comment Normal [facility] Comment on above: Result Comment: Nega tive Not infected with HCV, unless recent infection is suspected or other evidence exists to indicate HCV infection. Performed By: #### H CVPCRR #### [facility] [address] [place] [address] Dee Dee Griggs HIV 1 AND 2 WITH REFLEXon HIV Screen 4th Generation wRfx Non Reactive Normal Non Reactive [facility] Comment on above: Performed By: #### H IV12 #### [facility] [address] [place] [address] Dee Dee Griggs RPR QUANTon 09-08-2019 Rapid Plasma Reagin, Quant Non Reactive Normal NonRea<1:1 [facility] Comment on above: Performed By: #### R PRQ ####[facility] [address] [place] [address]Germino Griggs RUBELLA AB IGGon 09-08-2019 Rubella Antibodies, IgG 3.18 index Normal Immune >0.99 [facility] Comment on above: Result Comment: Non- immune <0.90 Equivocal 0.90 - 0.99 Immune >0.99 Performed By: #### R UBIGG #### [facility] [address] [place] [address] Dee Dee Griggs CBC AUTO DIFFon 09-07-2019 Basophils (Bld) [#/Vol] 0.0 103/ul Normal 0.0-0.1 [facility] Comment on above: Performed By: #### C BC #### [facility] [address] [place] [address] Dee Dee [place]gs Basophils/100 WBC (Bld) 0.4 % Normal 0.2-2.0 [facility] Comment on above: Performed By: #### C BC #### [facility] [address] [place] [address] Dee Dee [place]gs Eosinophils (Bld) [#/Vol] 0.3 103/ul Normal 0.0-0.7 [facility] Comment on above: Performed By: #### C BC #### [facility] [address] [place] [address] [place] Indu Eosinophils/100 WBC (Bld) 2.8 % Normal 0.9-7.0 [facility] Comment on above: Performed By: #### C BC #### [facility] [address] [place], [place] [address] [place] Erythrocyte distribution width (RBC) [Ratio] 13.9 % Normal 11.0-15.0 [facility] Comment on above: Performed By: #### C BC #### [facility] [address] [place], [place] [address] [place] Hematocrit (Bld) [Volume fraction] 36.8 % Normal 36.0-48.0 [facility] Comment on above: Performed By: #### C BC #### [facility] [address] [place], [place] [address] [place] Hemoglobin (Bld) [Mass/Vol] 12.3 g/dL Normal 12.0-16.0 [facility] Comment on above: Performed By: #### C BC #### [facility] [address] [place], [place] [address] [place] In[place] IG # 0.03 10e3/ul Normal 0.00-0.03 [facility] Comment on above: Performed By: #### C BC #### [facility] [address] [place], [place] [address] [place] IG % 0.3 % Normal 0.0-0.5 [facility] Comment on above: Performed By: #### C BC #### [facility] [address] [place], [place] [address] [place] Indu Lymphocytes (Bld) [#/Vol] 2.6 103/ul Normal 1.2-3.8 [facility] Comment on above: Performed By: #### C BC #### [facility] [address] [place], [place] [address] [place] Indu Lymphocytes/100 WBC (Bld) 23.3 % Normal 20.5-60.0 [facility] Comment on above: Performed By: #### C BC #### [facility] [address] [place], [place] [address] [place] Indu MANUAL DIFF REQ NO Normal [facility] Comment on above: Performed By: #### C BC #### [facility] [address] [place], [place] [address] [place] Indu MCH (RBC) [Entitic mass] 28.7 pg Normal 26.7-34.0 [facility] Comment on above: Performed By: #### C BC #### [facility] [address] [place], [place] [address] [place] Indu MCHC (RBC) [Mass/Vol] 33.4 g/dL Normal 29.9-35.2 [facility] Comment on above: Performed By: #### C BC #### [facility] [address] [place] [address] [place] Indu MCV (RBC) [Entitic vol] 85.8 fL Normal 81.0-99.0 [facility] Comment on above: Performed By: #### C BC #### [facility] [address] [place] [address] [place] Monocytes (Bld) [#/Vol] 1.0 103/ul Critically high 0.3-0.8 [facility] Comment on above: Performed By: #### C BC #### [facility] [address] [place] [address] [place] Indu Monocytes/100 WBC (Bld) 8.8 % Normal 1.7-12.0 [facility] Comment on above: Performed By: #### C BC #### [facility] [address] [place] [address] [place] Indu Neutrophils (Bld) [#/Vol] 7.1 103/ul Critically high 1.4-6.5 [facility] Comment on above: Performed By: #### C BC #### [facility] [address] [place], [place] [address] Dee [place] Indu Neutrophils/100 WBC (Bld) 64.4 % Normal 43.0-75.0 [facility] Comment on above: Performed By: #### C BC #### [facility] [address] [place], [place] [address] Dee Dee Griggs Platelet mean volume (Bld) [Entitic vol] 9.4 fL Critically low 9.5-13.5 [facility] Comment on above: Performed By: #### C BC #### [facility] [address] [place], [place] [address] Dee Dee Griggs Platelets (Bld) [#/Vol] 272 103/ul Normal 150-450 [facility] Comment on above: Performed By: #### C BC #### [facility] [address] [place], [place] [address] Dee Dee Griggs RBC (Bld) [#/Vol] 4.29 106/ul Normal 4.20-5.40 [facility] Comment on above: Performed By: #### C BC #### [facility] [address] [place] [id number] Dee Dee Griggs WBC (Bld) [#/Vol] 11.0 103/ul Normal 4.0-11.0 [facility] Comment on above: Performed By: #### C BC #### [facility] [address] [place] [address] Dee Dee Griggs CULTURE URINEon 09-07-2019 CULTURE URINE Culture Observations: No growth Normal [facility] Comment on above: Performed By: #### U RCX ####[facility] [address] [place], [place] [address]Lzdcqq Karen GLYCOHEMOGLOBIN A1Con 2019 Glucose [Mass/Vol] 111 mg/dL Normal [facility] Comment on above: Performed By: #### A 1C #### [facility] [address] [place] [address] Dee Dee Griggs HbA1c (Bld) [Mass fraction] 5.5 % Normal <=6.0 [facility] Comment on above: Performed By: #### A 1C #### [facility] [address] [place] [id number] Dee Dee Griggs FANY BOX TEST PT SEND OUTo n 09-07-2019 SENT TO REF LAB 09/07/2019 Normal [facility] Comment on above: Performed By: #### N BOX #### [facility] [address] [place] [address] Dee Dee Indu TYPE AND SCREENon 09-07-2019 TYPE AND SCREEN Negative Normal [facility] Comment on above: Performed By: #### T NS #### [facility] [address] [place] [address] Dee Dee Indu US PREG TVon 07-27-2019 US PREG TV Patient: ARCHANA RODRIGUEZ Exam Date: 07/27/2019 : 1995 Gender:F Ordering : DR JOANNE FRANKLIN . Admission #: [id number] Family : DR ТАТЬЯНА URIARTE . Order #: [id number] CLICK HERE TO VIEW EXAM RADIOLOGY REPORT [...] Lockhart M.D. on 07/27/2019 at 10:12 Normal [facility] PREG QUANT HCGon 07-20-2019 HCG QUANT 7056.00 mIU/mL Normal [facility] Comment on above: Performed By: #### P REGQNT #### [facility] [address] [place] [address] Dee Dee Griggs HCG RANGE SEE BELOW Normal [facility] Comment on above: Result Comment: 5-50 0-1 WEEK 40-300 1-2 WEEKS 100-1,000 2-3 WEEKS 500-6,000 3-4 WEEKS 5,000-200,000 1-2 MONTHS 10,000-100,000 2-3 MONTHS 3,000-50,000 2ND TRIMESTER 1,000-50,000 3RD TRIMESTER Performed By: #### P REGQNT #### [facility] [address] [place] [address] Dee Dee Griggs Vital Signs Date Time Vital Sign Value Performing Clinician Facility 08-19-2024 13:20-0500 Body height 167.64 cm [facility] 08-19-2024 13:20-0500 Body mass index (BMI) [Ratio] 34.2 kg/m2 [facility] 08-19-2024 13:20-0500 Body temperature 98.2 [degF] [facility] 08-19-2024 13:20-0500 Body weight 96.33 kg [facility] 08-19-2024 13:20-0500 Diastolic blood pressure 74 mm[Hg] [facility] 08-19-2024 13:20-0500 Heart rate 108 /min [facility] 08-19-2024 13:20-0500 Respiratory rate 18 /min [facility] 08-19-2024 13:20-0500 SaO2% (BldA) [Mass fraction] 98 % [facility] 08-19-2024 13:20-0500 Systolic blood pressure 117 mm[Hg] [facility] 07-28-2024 15:29-0500 Body mass index (BMI) [Ratio] 35.84 kg/m2 Becca DIAZ Work Phone: [facility] 07-28-2024 15:29-0500 Body weight 97.7 kg Becca DIAZ Work Phone: [facility] 07-28-2024 15:29-0500 Diastolic blood pressure 70 mm[Hg] Becca DIAZ Work Phone: [facility] 07-28-2024 15:29-0500 Systolic blood pressure 114 mm[Hg] Becca DIAZ Work Phone: [facility] 06-28-2024 13:29-0500 Body mass index (BMI) [Ratio] 35.74 kg/m2 Roberto Kennedy DO Work Phone: [facility] 06-28-2024 13:29-0500 Body weight 97.43 kg Roberto Kennedy DO Work Phone: [facility] 06-28-2024 13:29-0500 Diastolic blood pressure 74 mm[Hg] Roberto Kennedy DO Work Phone: [facility] 06-28-2024 13:29-0500 Systolic blood pressure 124 mm[Hg] Roberto Kennedy DO Work Phone: [facility] 06-10-2024 15:02-0400 Body mass index (BMI) [Ratio] 36.08 kg/m2 [facility] Nurse [facility] 06-10-2024 15:02-0400 Body weight 98.34 kg [facility] Nurse [facility] 11-27-2023 13:56-0400 Body height 167.64 cm [facility] 11-27-2023 13:56-0400 Body mass index (BMI) [Ratio] 34.3 kg/m2 [facility] 11-27-2023 13:56-0400 Body temperature 98.9 [degF] [facility] 11-27-2023 13:56-0400 Body weight 96.61 kg [facility] 11-27-2023 13:56-0400 Heart rate 102 /min [facility] 11-27-2023 13:56-0400 Respiratory rate 16 /min [facility] 11-27-2023 13:56-0400 SaO2% (BldA) [Mass fraction] 97 % [facility] 08-19-2023 14:10-0500 Body height 167.64 cm Marti Lawson Other [facility] Other 08-19-2023 14:10-0500 Body mass index (BMI) [Ratio] 34.44 kg/m2 Marti Lawson Other [facility] Other 08-19-2023 14:10-0500 Body temperature 99 [degF] Marti Lawson Other [facility] Other 08-19-2023 14:10-0500 Body weight 96.8 kg aMrti Lawson Other [facility] Other 08-19-2023 14:10-0500 Respiratory rate 18 /min Marti Lawson Other [facility] Other 08-19-2023 14:10-0500 SaO2% (BldA) [Mass fraction] 98 % Marti Lawson Other [employer] Other 10-13-2019 02:06-0500 Body weight 90.72 kg ТАТЬЯНА Sonia [facility] Comment on above: Performed By: #### AFPMAT ####[facility] ospital [address] [place], [place] [id number] Indu Encounters Encounter Date Encounter Type Care Provider Facility Start: 08-19-2024 End: 08-19-2024 ambulatory [facility] Work Phone: Start: 08-19-2024 End: 08-19-2024 Patient encounter procedure [facility] [place] Work Phone: Start: 07-28-2024 End: 07-28-2024 Patient encounter procedure Becca DIAZ Work Phone: [facility] Start: 07-28-2024 End: 07-28-2024 Periodic preventive med est patient 18-39 yrs Becca DIAZ Work Phone: [facility] Comment on above: Screening, , for anatomic survey; Well woman exam with routine gynecological exam; Second trimester ; 16 weeks gestation of ; Vaginal discharge; STD exposure Start: 07-28-2024 End: 07-28-2024 ambulatory BECCA [place]OME[place] Not Available Start: 07-28-2024 End: 07-28-2024 Bamboo flowsheet Becca DIZA Work Phone: [facility] Start: 07-28-2024 End: 08-05-2024 Bamboo flowsheet Becca DIAZ Work Phone: [facility] Start: 07-28-2024 End: 08-05-2024 Clinisync Result Encounter Becca DAIZ Work Phone: [facility] Unsolicited Start: 07-28-2024 End: 07-30-2024 External Result Encounter Becca Morrisgiancarlo IDAZ Work Phone: [facility] Unsolicited Start: 06-28-2024 End: 06-28-2024 Bamboo flowsheet Roberto [...] [facility] Start: 11-27-2023 End: 11-27-2023 ambulatory [facility] Work Phone: Start: 11-27-2023 End: 11-27-2023 Patient encounter procedure [facility] Work Phone: Start: 08-19-2023 End: 08-19-2023 ambulatory Marti Lawson Other [facility] brettapproved Other Start: 08-19-2023 Office outpatient ne w 30 minutes Marti Lawson [facility] Start: 03-22-2020 End: 03-23-2020 Patient encounter procedure ТАТЬЯНА VALERAY Facility:[facility]1 Start: 03-08-2020 End: 03-11-2020 Evaluation and management of inpatient JOANNE RODRIGUEZK Facility:[facility]1 Start: 02-15-2020 End: 02-15-2020 Patient encounter procedure JOANNE DAVEASIK Facility:[facility]1 Start: 12-02-2019 End: 12-03-2019 Patient encounter procedure JOANNE ACOSTAASIK Facility:[facility]1 Start: 10-28-2019 End: 10-29-2019 Patient encounter procedure JOANNE DAVEASIK Facility:[facility]1 Start: 10-11-2019 End: 10-12-2019 Patient encounter procedure JOANNE DAVEASIK Facility:[facility]1 Start: 09-07-2019 End: 09-07-2019 Patient encounter procedure JOANNE ACOSTAASIK Facility:H1 Start: 09-07-2019 End: 09-08-2019 Patient encounter procedure JOANNE ACOSTAASIK Facility:[facility]1 Start: 07-27-2019 End: 07-28-2019 Patient encounter procedure JOANNE RODRIGUEZK Facility:[facility]1 Start: 07-20-2019 End: 07-21-2019 Patient encounter procedure ТАТЬЯНА URIARTE Facility:[facility]1 Procedures Date Procedure Procedure Detail Performing Clinician Start: 07-28-2024 RECURRENT VAGINITIS (HTRX) Becca DIAZ Work Phone: Start: 07-28-2024 Urnls dip stick/tabl et rgnt non-auto w/o micrscp Becca DIAZ Work Phone: Start: 07-28-2024 IGP,APTIMA HPV,AGE GDLN Becca DIAZ Work Phone: Start: 06-24-2024 ALL CBC WITH AUTO DIFF Roberto Kennedy DO Work Phone: Start: 06-10-2024 End: 06-10-2024 Urnls dip stick/tablet rgnt non-auto w/o micrscp Roberto Benavides DO Work Phone: Start: 03-09-2020 Delivery of [...] Treatment Date Care Activity Detail Author Start: 08-30-2024 End: 08-30-2024 Patient encounter procedure 08/30/2024 2:10 PM EST Routine [facility] [address] [place], [place] [address] [phone] Roberto Benavides, [address] [place], [place] [id number] [facility] Start: 08-30-2024 End: 08-30-2024 Professional / ancillary services management 08/30/2024 1:00 PM EST Ancillary Procedure [facility] [address] [place], [place] [address] [phone] [facility] Start: 07-28-2024 End: 07-28-2024 Patient encounter procedure 07/28/2024 2:30 PM EST Routine [facility] [address] [place], [place] [address] [phone] Becca Gomez PA [address] [place] [address] Arrived [facility] Comment on above: Arrived Start: 07-28-2024 End: 11-26-2024 Alpha fetoprotein, maternal Alpha fetoprotein, maternal Lab Routine Second trimester 16 weeks gestation of Expected: 07/28/2024 (Approximate), Expires: 11/26/2024 [facility] Comment on above: Expected: 07/28/2024 (Approximate), Expires: 11/26/2024 Start: 07-28-2024 End: 07-28-2025 US for US OB ANATOMY SINGLE W US OB CERVICAL LENGTH Imaging Routine Screening, , for anatomic survey Expected: 07/28/2024 (Approximate), Expires: 07/28/2025 [facility] Comment on above: Expected: 07/28/2024 (Approximate), Expires: 07/28/2025 Start: 07-26-2024 End: 07-26-2024 Patient encounter procedure 07/26/2024 1:30 PM EST Routine [facility] [address] [place] [phone] Becca [place] PA [address] [facility] [address] [address] [place], [place] [id number] [facility] Start: 06-28-2024 End: 06-28-2024 Patient encounter procedure 06/28/2024 1:20 PM EST Routine [facility] [address] [place] [phone] Roberto Benavides DO [address] [address] [place] [place], [place] [id number] [facility] Start: 06-10-2024 End: 06-10-2025 ABO/Rh ABO/Rh Lab Routine Missed menses , unspecified gestational age Expected: 06/10/2024 (Approximate), Expires: 06/10/2025 [facility] Comment on above: Expected: 06/10/2024 (Approximate), Expires: 06/10/2025 Start: 06-10-2024 End: 06-10-2025 Blood type and Indirect antibody screen panel - Blood Type and screen Lab Routine Missed menses , unspecified gestational age Expected: 06/10/2024 (Approximate), Expires: 06/10/2025 [facility] Work Phone: Comment on above: Expected: 06/10/2024 (Approximate), Expires: 06/10/2025 Start: 06-10-2024 End: 06-10-2025 Drugs of abuse panel - Urine by Screen method Rapid drug screen, urine Lab Routine , unspecified gestational age Encounter for supervision of normal first in first trimester Expected: 06/10/2024 (Approximate), Expires: 06/10/2025 [facility] Comment on above: Expected: 06/10/2024 (Approximate), Expires: 06/10/2025 Start: 06-10-2024 End: 06-10-2025 US Pelvis transvaginal US OB transvaginal Imaging Routine Missed menses Expected: 06/10/2024 (Approximate), Expires: 06/10/2025 [facility] Comment on above: Expected: 06/10/2024 (Approximate), Expires: 06/10/2025 Bacteria identified in Urine by Culture Urine culture Microbiology Routine Missed menses Ordered: 06/10/2024 [facility] Comment on above: Ordered: 06/10/2024 CBC W Auto Different ial panel - Blood CBC and differential Lab Routine Missed menses , unspecified gestational age Ordered: 06/10/2024 [facility] Comment on above: Ordered: 06/10/2024 CHLAMYDIA TRACHOMATI S (GENITO/STI) CHLAMYDIA TRACHOMATIS (GENITO/STI) Lab Routine STD exposure Ordered: 07/28/2024 [facility] Comment on above: Ordered: 07/28/2024 Cytology Cervical or vaginal smear or scraping study Pap Smear Pathology and Cytology Routine Well woman exam with routine gynecological exam Ordered: 07/28/2024 [facility] Comment on above: Ordered: 07/28/2024 Hemoglobin A1c/Hemoglobin.total in Blood Hemoglobin A1c Lab Routine Missed menses , unspecified gestational age Ordered: 06/10/2024 [facility] Comment on above: Ordered: 06/10/2024 Hepatitis B virus surface Ag [Presence] in Serum or Plasma by Immunoassay Hepatitis B surface antigen Lab Routine Missed menses , unspecified gestational age Ordered: 06/10/2024 [facility] Comment on above: Ordered: 06/10/2024 Hepatitis C virus Ab [Presence] in Serum or Plasma by Immunoassay Hepatitis C antibody Lab Routine Missed menses , unspecified gestational age Ordered: 06/10/2024 [facility] Comment on above: Ordered: 06/10/2024 HIV-1/HIV-2 antigen/antibody combination immunoassay HIV-1 and HIV-2 antibodies Lab Routine Missed menses , unspecified gestational age Ordered: 06/10/2024 [facility] Comment on above: Ordered: 06/10/2024 Neisseria gonorrhoea e DNA [Presence] in Unspecified specimen by ALISSON with probe detection Neisseria gonorrhea DNA probe, direct Lab Routine STD exposure Ordered: 07/28/2024 [facility] Comment on above: Ordered: 07/28/2024 Reagin Ab [Presence] in Serum by RPR RPR Lab Routine Missed menses , unspecified gestational age Ordered: 06/10/2024 [facility] Comment on above: Ordered: 06/10/2024 Rubella antibody, IgG Rubella an tibody, IgG Lab Routine Missed menses , unspecified gestational age Ordered: 06/10/2024 [facility] Comment on above: Ordered: 06/10/2024 SURESWAB(R) ADVANCED VAGINITIS PLUS, TMA SURESWAB(R) ADVANCED VAGINITIS PLUS, TMA Pathology and Cytology Routine Vaginal discharge Ordered: 07/28/2024 [facility] Work Phone: Comment on above: Ordered: 07/28/2024 [facility] Payers Date Payer Category Payer Medicaid (Managed Care) GALA SHELTON [id number] 1996 Unknown [id number] 2.840.1.064466.3.579.2. 593 1996 Unknown [id number] 2.840.1.507757.3.579.2. 593 1996 Unknown [id number] 2.840.1.352315.3.579.2. 593 1996 Unknown [id number] 2.16.840.1.413409.3.579.2. 593 1996 Unknown [id number] 2.16.840.1.261072.3.579.2. 593 1996 Unknown [id number] 2.16.840.1.089652.3.579.2. 593 1996 Unknown [id number] 2.16.840.1.530344.3.579.2. 593 1996 Unknown [id number] 2.16.840.1.667652.3.579.2. 593 1996 Unknown [id number] 2.16.840.1.771627.3.579.2. 593 1996 Unknown [id number] 2.16.840.1.714282.3.579.2. 593 1996 Unknown [id number] 2.16.840.1.823110.3.579.2. 1259 1996 Unknown [id number] 2.16.840.1.167134.3.579.2. 1259 1996 Unknown [id number] 2.16.840.1.859678.3.579.2. 1259 1974 Unknown [id number] 2.16.840.1.740678.3.579.2. 593 1974 Unknown [id number] 2.16.840.1.486214.3.579.2. 593 1959 Private Health Insurance [id number] 1959 Unknown [id number] 1947 Unknown [id number] 2.16.840.1.338758.3.579.2. 593 1947 Unknown [id number] 2.16.840.1.076365.3.579.2. 593 Unknown [facility] [id number] Social History Date Type Detail Facility Unknown if ever smoked [facility] brettapproved Other Sex Assigned At [facility] brettapproved Other Start: 11-27-2023 End: 11-27-2023 Tobacco smoking status NHIS Never smoked tobacco (finding) [facility] Start: 1995 Sex Assigned At Female [facility] Tobacco smoking status AKIS Tobacco smoking consumption unknown [facility] Start: 05-27-2024 Gender identity Identifies as female gender (finding) [facility] Start: 04-17-2024 [facility] Start: 08-19-2024 Sex Female (finding) [facility] Goals Date Patient Goal Desired Activity /State Personal health goal Evaluation note 08-19-2024 Note Date & Type Note Facility 08-19-2024 Evaluation note Diagnosis Onset Date Resolution RSV (acute bronchiolitis due to respiratory syncytial virus) acute August 19 12:22pm Contact with and (suspected) exposure to covid-19 noneactive August 19 12:22pm [facility] Work Phone: History of Present illness Narrative 07-28-2024 EMILY Segundo - 07/28/2024 2:30 PM EST Note Date & Type Note Facility 07-28-2024 History of Presen t illness Narrative Reason for Appointment: Patient ID: Alphonse Rodriguez is a 28 y.o. female who presents for Routine Visit, Well Women Visit, and STI Screening Patient presents today for Annual Exam. and Return OB appointment. MEDICATIONS No current outpatient medications ALLERGIES Allergies Allergen Reactions Sulfamethoxazole-Trimethoprim Anaphylaxis, Palpitations [...] History HISTORY PAST MEDICAL HISTORY SOCIAL HISTORY No past medical history on file. Social History Tobacco Use Smoking status: Not on file Smokeless tobacco: Not on file Substance Use Topics Alcohol use: Not on file Drug use: Not on file FAMILY HISTORY No family history on file. SURGICAL HISTORY No past surgical history on file. REVIEW OF SYSTEMS Review of Systems: Review of Systems Constitutional: Negative. HENT: Negative. Eyes: Negative. Respiratory: Negative. Cardiovascular: Negative. Gastrointestinal: Negative. Genitourinary: Negative. Musculoskeletal: Negative. Skin: Negative. Neurological: Negative. All other systems reviewed and are negative. Hematological: Negative. Endocrine: Negative. Allergic/Immunologic: Negative. OBJECTIVE Objective: Physical Exam Constitutional: Appearance: Normal appearance. Genitourinary: Right Adnexa: not tender and no mass present. Left Adnexa: not tender and no mass present. No cervical discharge. Breasts: Breasts are soft. Right: Normal. Left: Normal. HENT: Head: Normocephalic. Nose: Nose normal. Mouth/Throat: Mouth: Mucous membranes are moist. Cardiovascular: Rate and Rhythm: Normal rate. Pulmonary: Effort: Pulmonary effort is normal. Abdominal: General: Bowel sounds are normal. Palpations: Abdomen is soft. Musculoskeletal: General: Normal range of motion. Cervical back: Normal range of motion. Neurological: General: No focal deficit present. Mental Status: She is alert. Skin: General: Skin is warm and dry. Psychiatric: Mood and Affect: Mood normal. Vitals and nursing note reviewed. Exam conducted with a healthcare project manager present. Vitals: Estimated body mass index is 35.84 kg/m as calculated from the following: Height as of 02/07/22: 5' 5 . Weight as of this encounter: 215 lb 6.4 oz. BP: 114/70 Patient's last menstrual period was 04/03/2024. ASSESSMENT & PLAN ICD-10-CM 1. Screening, , for anatomic survey Z36.89 US OB ANATOMY SINGLE W US OB CERVICAL LENGTH 2. Well woman exam with routine gynecological exam Z01.419 Pap Smear 3. Second trimester Z34.92 POCT urinalysis dipstick manually resulted Alpha fetoprotein, maternal Alpha fetoprotein, maternal 4. 16 weeks gestation of Z3A.16 POCT urinalysis dipstick manually resulted Alpha fetoprotein, maternal Alpha fetoprotein, maternal 5. Vaginal discharge N89.8 SURESWAB(R) ADVANCED VAGINITIS PLUS, TMA 6. STD exposure Z20.2 CHLAMYDIA TRACHOMATIS (GENITO/STI) Neisseria gonorrhea DNA probe, direct Return OB/Annual Exam: Patient presents today for an annual exam/routine obstetrics appointment. Patient is currently 16w4d . Patient is doing well and states she has no complaints. Pap/cultures was obtained without difficulty and patient was given msAFP order to have obtained. Orders Placed This Encounter Procedures US OB ANATOMY SINGLE W US OB CERVICAL LENGTH CHLAMYDIA TRACHOMATIS (GENITO/STI) Neisseria gonorrhea DNA probe, direct Alpha fetoprotein, maternal POCT urinalysis dipstick manually resulted Follow Up: Patient is to return to our office in 4 weeks for routine OB appointment Documented by EMILY Segundo on behalf of: EMILY Segundo documented in this encounter [facility] History of Present illness Narrative 06-28-2024 Kimberly Earl, JOSE MARTIN - 06/28/2024 1:20 PM EST Note Date [...] nursing note reviewed. Exam conducted with a healthcare project manager present. Vitals: Estimated body mass index is [...] or undercooked meat, and stay away from [facility]. Patient has been consulted regarding any further do's and don'ts of . Patient voiced understanding and all questions and concerns were answered. Follow Up: Patient is to return in 4 weeks for routine OB appointment. Documented by Kimberly aErl LPN on behalf of: Roberto Benavides DO [...] or undercooked meat, and stay away from [facility]. Patient has also been advised to [...] Kerri Mejía LPN documented in this encounter [facility] Evaluation note 08-19-2023 Note Date & Type [...] treatment plan. Patient left in stable condition [employer] Other Evaluation note Note Date & Type Note Facility Evaluation note No assessment information availa [facility] Work Phone: Evaluation note Note Date & Type Note Facility Evaluation note Diagnosis Missed menses , unspecified gestational age Encounter for supervision of normal first in first trimester Nausea and vomiting in Unspecified vomiting of , unspecified as to episode of care documented in this encounter [facility] Evaluation note Note Date & Type Note Facility Evaluation note Diagnosis Second trimester state, incidental 12 weeks gestation of documented in this encounter [facility] Evaluation note Note Date & Type Note Facility Evaluation note Diagnosis Screening, , for anatomic survey Encounter for anatomic survey Well woman exam with routine gynecological exam Routine gynecological examination Second trimester state, incidental 16 weeks gestation of Vaginal discharge Leukorrhea, not specified as infective STD exposure documented in this encounter [facility] Healthcare History general Narrative - Reported Note Date & Type Note Facility History general Narrative - Reported Type Medical History asthma Medical History gestational hypertension [employer] Other Summary Purpose Family History Relationship Condition Age at Onset Recorded Date/T kishore father Hypertension Unknown Advance Directives Advance Directive Response Recorded Date/ Time Advance Directives No November 26 1:39pm Advance Directive Response Recorded Date/ Time Advance Directives No November 26 024 12:39pm Chief Complaint and Reason for Visit Chief Complaint cough, congestion Chief Complaint Admit Date Cough, congestion, sore throat with aver y August 19, 2024 12:22pm Reason for Visit Admit Date RSV (acute bronchiolitis due to respiratory syncytial virus) August 19, 2024 12:22pm Contact with and (suspected) exposure to covid-19 August 19, 2024 12:22pm Additional Source Comments INFORMATION SOURCE (unrecogn ized section and content) DATE CREATED AUTHOR 03/31/2020 [facility] DATE CREATED AUTHOR AUTHOR'S ORGANIZ ATION 07/31/2024 [facility] EPIC REASON FOR VISIT (unrecogniz ed section and content) Reason Comments Amenorrhea Reason Comments Routine Visit Reason Comments Routine Visit Well Women Visit STI Screening Care Teams (unrecognized sec tion and content) Team Status: Active Member Role Status Dates Татьяна Uriarte MD Primary Care Provider Active Team Status: Inactive Member Role Status Dates Татьяна Uriarte MD Primary Care Provider Active Start: November 27, 2023 End: November 27, 2023 AMY OrozcoC Attending Provider Active S tart: November 27, 2023 End: November 27, 2023 Chute Boss Relationship Specialty Start Date End Date Татьяна Uriarte MD [address] [place] [facility] [place] [address] PCP - General Family Medicine 06/10/24 Chute Boss Relationship Specialty Start Date End Date Татьяна Uriarte MD [address] [place] [facility] [place] [address] PCP - General Family Medicine 06/10/24 Chute Boss Relationship Specialty Start Date End Date Татьяна Uriarte MD [address] [place] [facility] [place] [address] PCP - General Family Medicine 06/10/24 Chute Boss Relationship Specialty Start Date End Date Татьяна Uriarte MD [address] [facility] [place] [phone] PCP - General Family Medicine 06/10/24 Chute Boss Relationship Specialty Start Date End Date Татьяна Uriarte MD [address] [facility] [place] [address] PCP - General Family Medicine 06/10/24 Team Status: Inactive Member Role Status Dates Татьяна Uriarte MD Primary Care Provider Active Start: August 19, 2024 End: August 19, 2024 Aileen Calero APRN Attending Provider Active S tart: August 19, 2024 End: August 19, 2024 Goals (unrecognized section and content) Goals may [...] BE BASED ON THE PRIMARY CLINICAL RECORDS. [employer] provides no warranty or guarantee of the accuracy or completeness of information in this document.
[2024-09-02 01:07] LABS: AFP Value 42.8 ng/mL (.); Gest. Age on Collection Date 21.3 weeks (.); Insulin Dep Diabetes No (.); Maternal Age At EDD 28.2 yr (.); OSBR Risk 1 IN 10000 (.); Results Report (.)
== END 2024-08-30 15:20 | disposition home or self-care (01) ==
LOC: LAB 15:20
PROVIDERS: Visit Provider Physician Assistant
DX: Z34.92 Encounter for supervision of normal pregnancy, unspecified, second trimester (principal)
CPT/HCPCS: 36415; 82105

== ENCOUNTER 2024-09-24 09:28 | Outpatient (OUT) | payer OTHER, SELFPAY ==
--- OUTSIDE RECORDS SUMMARY | 2024-09-24 09:33 | XMS_ITS | CCD ---
Author Organization [facility] CliniSyal Care Team Providers Care Sales Agent Business Services Name Role Phone HOY, ТАТЬЯНА Admitting Unavailable [...] Unavailable Татьяна Uriarte MD Primary Care Provider [phone] ROBERTO BENAVIDES Attending Unavailable BECCA GOMEZ Attending Unavailable ROBERTO BENAVIDES Attending Unavailable Allergies Allergy Classification Reported Allergen(s) Allergy Type Date of Onset Reaction(s) Facility (1 source) Latex Drug allergy (disorder) 10-09-18 97 [facility] (1 source) Penicillin Drug Allergy 05-27-20 15 [facility] (1 source) Sulfamethoxazole / Trimethoprim Drug Allergy 05-23-20 15 [facility] (3 sources) penicillAMINE Drug Allergy 11-27-19 24 hives [facility] (14 sources) Sulfamethoxazole / Trimethoprim Drug Allergy 06-10-20 24 anaphylaxis, Palpitations, Shortness of breath [facility] Other (2 sources) Sulfamethoxazole Drug Allergy 11-27-19 24 anaphylaxis [facility] (15 sources) Trimethoprim Drug Allergy 11-27-19 24 anaphylaxis [facility] (13 sources) Latex Propensity to adverse reactions 06-10-20 24 Rash [facility] (13 sources) penicillAMINE Drug Allergy 11-27-19 [facility] (13 sources) Penicillins Drug Allergy 06-10-20 24 Itching, Rash [facility] (13 sources) Sulfonamides (Antibiotic) Drug Allergy 11-27-19 [facility] Medications Current Medications Medication Drug Class(es) Dates [...] 03-17-2020 Chronic Other and delivery including normal (17 sources) Single live ; Translations: [Encounter for supervision of other normal , second trimester] Onset: 07-27-2019 06-10-2024 Episodic Other screening for suspected conditions (not mental disorders or infectious disease) (14 sources) Encounter for screening for malignant neoplasm [...] of ] 07-28-2024 Episodic Residual codes; unclassified (2 sources) Gestation period, 21 weeks; Translations: [21 weeks gestation of ] 08-30-2024 Episodic Residual codes; unclassified (1 source) 12 weeks gestation of ; Translations: [12 WEEKS GESTATION OF ] Onset: 09-08-2019 Residual codes; unclassified (1 source) 39 weeks gestation of ; Translations: [39 WEEKS GESTATION OF ] Onset: 03-17-2020 Unclassified (1 source) COVID-19; Translations: [COVID-19] Onset: 03-17-2020 Unclassified (8 sources) OB Reminders Onset: 07-22-2024 07-22-2024 Past or Other Problems Problem Classification Problem Date Documented Da te Episodic/Chronic Other complications of (1 source) Supervision of high risk , unspecified, first trimester; Translations: [SUP HIGH RISK UNS 1ST TRI] Onset: 09-08-2019 Episodic Unclassified (1 source) Acute cough R05.1 Results Test Name Value Interpretation Reference Range Facility AFP, SERUM, OPEN SPINA BIFID Aon 09-02-2024 AFP MOM 0.81 . [facility] [employer] AFP VALUE 42.8 ng/mL . [facility] [employer] COMMENT: Comment . [facility] e Comment on above: Brooklyn Banda , Ph.D., [facility] Director References: Available Upon Request. Multiples Of Median Cutoffs For AFP Elevations Cooney 2.5 Black 2.8 IDD 2.0 Twins 4.5 Abbreviation Definitions IDD - Insulin Dep Diabetes OSBR - Open Spina Bifida Risk For further inquiries contact [facility] at [phone]. This test was developed and its performance characteristics determined by [employer]. It has not been cleared or approved by the Food and Drug Administration. Performed at: [facility] [address] [place], [place] [id number] Reporting Manager: Og Lopez [facility], Phone: [phone] GEST. AGE ON COLLECTION DATE 21.3 . weeks [facility] GESTAT. AGE BASED ON LMP . [facility] Comment on above: Recalculations are n ot recommended when gestational dating by LMP and ultrasound are within 10 days. INSULIN DEP DIABETES No . [facility] INTERPRETATION Comment . [facility] Comment on above: Interpretation: Scre en Negative This result is screen negative for OSB. [...] Customer Services to discuss available options. The [employer] recommends amniocentesis be offered to women age 35 and older. [age] [facility] MULTIPLE GESTATION No . [facility] [place] [address] [place] [id number] . [facility] Vicki beasley RACE . [facility] [employer] RESULTS Report . [facility] [employer] TEST RESULTS: Negative . [facility] [employer] care WEIGHT 215 . lbs [facility] [employer] PREGNQNCY N N LMP [id number] 16 N 1 Y 215 N N N N N White/ [facility] [employer] US OB 14+ WEEKS ANATOMY SCAN on 08-30-2024 US OB 14+ WEEKS ANATOMY SCAN TITLE OF EXAM: OB Ultrasound: REASON FOR EXAM: Anatomy. COMPARISON: None TECHNIQUE: Grayscale and M-mode Doppler imaging is performed. FINDINGS: heart rate: 149 bpm BPD: 4.9 cm HC: 18.6 cm AC: 16.5 cm FL: 3.6 cm GA for sonogram: 20.9 wk (29.5-22.3) Cervix length: 4.4 cm JAY: 01/08/2025 Weight Estimate: Weight: 421 gm / 0 lbs, 14 oz (360-483 gm) Hadlock Normal: 422 gm (350-493 gm) Hadlock Wt%: 51% for 21.3 wks Presentation: Cephalic Lie: Longitudinal Amniotic Fluid: Subjectively normal Placental Location: Anterior, Low lying placenta within 1 cm of internal os. Cervical Length: 4.4 cm Closed Heart Rate: 149 bpm Anatomy Observed: Lateral Ventricles: Visualized Cerebellum: Visualized Posterior Fossa: Visualized Nose Lips: Visualized Orbits: Visualized 4 Chamber heart: Visualized RVOT/LVOT: Visualized Diaphragm: Visualized Stomach: Visualized Kidneys: Visualized Abd Cord Insert: Visualized Bladder: Visualized Umbilical Arteries: Visualized 3 Vessel Cord: Visualized Spine: Visualized Extremities: Visualized Gender: XX IMPRESSION: 1. Single live intrauterine gestation estimated at 20.9 weeks. This is concordant with the provided clinical dates. 2. Anterior placenta is low lying and within 1 cm insertion of the internal os. This should be reevaluated with repeat ultrasound in 4-6 weeks. 3. Remaining visualized structures are unremarkable. Dictated and transcribed 08/31/24/dpd This report has been electronically signed and approved by the interpreting radiologist. Normal Not Available Comment on above: Order Comment: US OB ANATOMY SINGLE W US OB CERVICAL LENGTH Estimated Date of Delivery: 01/08/25 Gestational Age as of 07/28/2024: 20w6d Urinalysis macro (dipstick) panel (U)on 08-30-2024 Bilirubin, UA Negative Negative - 4(70) +++ mg/dL [facility] Blood, UA Negative Negative - 50 Leandro/mcL [facility] Clarity, UA Clear [facility] re Color, UA Yellow [facility] [employer] [facility] Glucose, UA Negative Negative - 1999(110) ++++ mg/dL [facility] Interpretation and review of laboratory results Normal [facility] Ketones, UA Negative Negative - 160(16) ++++ mg/dL [facility] Leukocytes, UA Negative Negative - 500+++ Therese/mcL [facility] Nitrite, UA Negative Negative - Positive [facility] pH, UA 6 5 - 9 [facility] e Protein, UA Negative Negative - 1999(20) ++++ mg/dL [facility] Spec Grav, UA 1.015 1 - 1.03 [facility] Urobilinogen, UA 0.2 0.2 - 12 mg/dL [facility] IGP,APTIMA HPV,AGE GDLNon AGE GDLN ACOG TESTING Note . [facility] Comment on above: TESTS RESULT FLAG UN ITS REF RANGE LAB Clinician Provided Cytology Information Source.............Cervix No. of containers..01 ThinPrep Vial Age Bijal CASTELAN Alecia... FLAG LEGEND: L-Low Normal,H-High Normal,LL-Alert Low,HH-Alert High <-Panic Low,>-Panic High,A-Abnormal,AA-Critical Abnormal Performed at: 01 =[address] [facility] [address] Loreto Pacheco MD, IGP, RFX APTIMA HPV ASCU Note . [facility] Comment on above: TESTS RESULT FLAG UN ITS REF RANGE LAB DIAGNOSIS: 02 NEGATIVE FOR INTRAEPITHELIAL LESION OR MALIGNANCY. Specimen adequacy: 02 Satisfactory for evaluation. Endocervical and/or squamous metaplastic cells (endocervical component) are present. Performed by: Manolo Davila Geriatric Aide ([facility]) . 02 Note: Note 02 [...] <-Panic Low,>-Panic High,A-Abnormal,AA-Critical Abnormal Performed at: [address] [id number] Loreto Pacheco MD, Performed at: =[address] [id number] Reporting Manager: Loreto Pacheco MD, Phone: [phone] Performed at: [address] [id number] Reporting Manager: Loreto Pacheco MD, Phone: [phone] SPATULA-ALONE CERVIX [facility] RECURRENT VAGINITIS (HTRX)on 07-30-2024 ATOPOBIUM VAGINAE 0 [facility] ATOPOBIUM VAGINAE Not detected [facility] BVAB 2,3 (BACTERIAL VAGINOSIS ASSOCIATED BACTERIA 2, 3); MOBILUNCUS SPP 0 [facility] BVAB 2,3 (BACTERIAL VAGINOSIS ASSOCIATED BACTERIA 2, 3); MOBILUNCUS SPP Not detected [facility] FATOU ALBICANS, PARAPSILOSIS, TROPICALIS 0 [facility] FATOU ALBICANS, PARAPSILOSIS, TROPICALIS Not detected [facility] FATOU GLABRATA 0 [facility] FAT[facility] GLABRATA Not detected [facility] FATOU KRUSEI [address] [facility] FATOU KRUSEI Not detected [facility]care CHLAMYDIA TRACHOMATIS 0 [facility] CHLAMYDIA TRACHOMATIS Not detected [facility] GARDNERELLA VAGINALIS 0 [facility] GARDNERELLA VAGINALIS Not detected [facility] MEGASPHAERA (TYPES 1, 2) 0 [facility] MEGASPHAERA (TYPES 1, 2) Not detected [facility] MYCOPLASMA GENITALIUM 0 [facility] MYCOPLASMA GENITALIUM Not detected [facility] NEISSERIA GONORRHOEAE 0 [facility] NEISSERIA GONORRHOEAE Not detected [facility] TRICHOMONAS VAGINALIS 0 [facility] TRICHOMONAS VAGINALIS Not detected [facility] Urinalysis macro (dipstick) panel (U)on 07-28-2024 Bilirubin, UA Negative Negative - 4(70) +++ mg/dL [facility] Blood, UA Negative Negative - 50 Leandro/mcL [facility] Clarity, UA Clear [facility] re Color, UA Yellow [facility] Glucose, UA Negative Negative - 1999(110) ++++ mg/dL [facility] Interpretation and review of laboratory results Normal [facility] Ketones, UA Negative Negative - 160(16) ++++ mg/dL [facility] Leukocytes, UA Negative Negative - 500+++ Therese/mcL [facility] Nitrite, UA Negative Negative - Positive [facility] pH, UA 5.5 5 - 9 [facility] Protein, UA Negative Negative - 1999(20) ++++ mg/dL [facility] Spec Grav, UA 1.02 1 - 1.03 [facility] Urobilinogen, UA 1.0 0.2 - 12 mg/dL [facility] ALL CBC WITH AUTO DIFFon BASOPHILS ABSOLUTE AUTO 0.1 [facility] Basophils/100 WBC (Bld) 0.4 % 0.2 - 2.0 % [facility] Eosinophils/100 WBC (Bld) 1 % 0.9 - 7.0 % [facility] Erythrocyte distribution width (RBC) [Ratio] 13.1 % 11.0 - 15.0 % [facility] Hematocrit (Bld) [Volume fraction] 37.7 % 36.0 - 48.0 % [facility] Hemoglobin (Bld) [Mass/Vol] 12.7 g/dL 12.0 - 16.0 g/dL [facility] IMMATURE GRANULOCYTES ABS AUTO 0.04 High [facility] Immature granulocytes/100 WBC (Bld) 0.4 % 0.0 - 0.5 % [facility] Interpretation and review of laboratory results Abnormal [facility] LYMPHOCYTES ABSOLUTE AUTO 2.9 [facility] Lymphocytes/100 WBC (Bld) 25.9 % 20.5 - 60.0 % [facility] MCH (RBC) [Entitic mass] 29 pg 26.7 - 34.0 pg [facility] MCHC (RBC) [Mass/Vol] 33.7 g/dL 29.9 - 35.2 g/dL [facility] MCV (RBC) [Entitic vol] 86.1 fL 81.0 - 99.0 fL [facility] MONOCYTES ABSOLUTE AUTO 0.7 [facility] Monocytes/100 WBC (Bld) 6.2 % 1.7 - 12.0 % [facility] NEUTROPHILS ABSOLUTE AUTO 7.5 High [facility] Neutrophils/100 WBC (Bld) 66.1 % 43.0 - 75.0 % [facility] Platelet mean volume (Bld) [Entitic vol] 9.3 fL Low 9.5 - 13.5 fL [facility] EO # 0.1 [facility] TB PLT 338 [facility] e TB RBC 4.38 [facility] e TB WBC 11.4 High [facility] HCG ( test) Ql (U)o n 06-10-2024 Interpretation and review of laboratory results Abnormal [facility] Preg Test, Ur Positive [facility] Urinalysis macro (dipstick) panel (U)on 06-10-2024 Bilirubin, UA Negative Negative - 4(70) +++ mg/dL [facility] Blood, UA Negative Negative - 50 Leandro/mcL [facility] Clarity, UA Clear [facility] re Color, UA Yellow [facility] Glucose, UA Negative Negative - 1999(110) ++++ mg/dL [facility] Interpretation and review of laboratory results Normal [facility] Ketones, UA Negative Negative - 160(16) ++++ mg/dL [facility] Leukocytes, UA Negative Negative - 500+++ Therese/mcL [facility] Nitrite, UA Negative Negative - Positive [facility] pH, UA 6.5 5 - 9 [facility] e Protein, UA Negative Negative - 1999(20) ++++ mg/dL [facility] Spec Grav, UA 1.02 1 - 1.03 [facility] Urobilinogen, UA 1.0 0.2 - 12 mg/dL [facility] COVID + FLU Quick Testingon 08-19-2023 SARS-CoV-2 (COVID-19) RNA ALISSON+probe Ql (Unsp spec) Negative [facility] Other COVID + FLU Quick Testing Positive [facility] [employer] Other COVID + FLU Quick Testing Negative [facility] Other COVID-19 PCRon 03-24-2020 SARS-CoV-2, ALISSON Not Detected Normal Not Detected [facility] Comment on above: Result Comment: This test was developed and its performance characteristics determined by [employer]. This test has not been FDA cleared [...] assay. Performed By: #### C BC #### [facility] [address] [place] [address] [employer] CBC AUTO DIFFon 03-11-2020 Basophils (Bld) [#/Vol] 0.0 103/ul Normal 0.0-0.1 [facility] Comment on above: Performed By: #### C BC #### [facility] [address] [place] [address] [employer] Basophils/100 WBC (Bld) 0.2 % Normal 0.2-2.0 [facility] Comment on above: Performed By: #### C BC #### [facility] [address] [place] [address] [employer] Eosinophils (Bld) [#/Vol] 0.2 103/ul Normal 0.0-0.7 [facility] Comment on above: Performed By: #### C BC #### [facility] [address] [place], [place] [id number] [employer] Eosinophils/100 WBC (Bld) 1.8 % Normal 0.9-7.0 [facility] Comment on above: Performed By: #### C BC #### [facility] [address] [place] [address] [employer] Erythrocyte distribution width (RBC) [Ratio] 14.0 % Normal 11.0-15.0 [facility] Comment on above: Performed By: #### C BC #### [facility] [address] [place] [address] [employer] Hematocrit (Bld) [Volume fraction] 26.9 % Critically low 36.0-48.0 [facility] Comment on above: Performed By: #### C BC #### [facility] [address] [place] [address] [employer] Hemoglobin (Bld) [Mass/Vol] 9.1 g/dL Critically low 12.0-16.0 [facility] Comment on above: Performed By: #### C BC #### [facility] [address] [place] [address] [employer] IG # 0.08 10e3/ul Critically high 0.00-0.03 [facility] Comment on above: Performed By: #### C BC #### [facility] [address] [place] [address] [employer] IG % 0.6 % Critically high 0.0-0.5 [facility] Comment on above: Performed By: #### C BC #### [facility] [address] [place], [place] [id number] Deed [employer] Lymphocytes (Bld) [#/Vol] 2.7 103/ul Normal 1.2-3.8 [facility] Comment on above: Performed By: #### C BC #### [facility] [address] [place], [place] [id number] [employer] Lymphocytes/100 WBC (Bld) 20.9 % Normal 20.5-60.0 [facility] Comment on above: Performed By: #### C BC #### [facility] [address] [place], [place] [id number] Dee [employer] Griggs MANUAL DIFF REQ NO Normal [facility] Comment on above: Performed By: #### C BC #### [facility] [address] [place], [place] [id number] [employer] MCH (RBC) [Entitic mass] 30.7 pg Normal 26.7-34.0 [facility] Comment on above: Performed By: #### C BC #### [facility] [address] [place], [place] [id number] Dee Deemino Acostaen MCHC (RBC) [Mass/Vol] 33.8 g/dL Normal 29.9-35.2 [facility] Comment on above: Performed By: #### C BC #### [facility] [address] [place], [place] [id number] Dee Deemino Acostaen MCV (RBC) [Entitic vol] 90.9 fL Normal 81.0-99.0 [facility] Comment on above: Performed By: #### C BC #### [facility] [address] [place], [place] [id number] [employer] Monocytes (Bld) [#/Vol] 1.2 103/ul Critically high 0.3-0.8 [facility] Comment on above: Performed By: #### C BC #### [facility] [address] [place], [place] [id number] [employer] Monocytes/100 WBC (Bld) 8.9 % Normal 1.7-12.0 [facility] Comment on above: Performed By: #### C BC #### [facility] [address] [place], [place] [id number] [employer] Neutrophils (Bld) [#/Vol] 8.8 103/ul Critically high 1.4-6.5 [facility] Comment on above: Performed By: #### C BC #### [facility] [address] [place], [place] [id number] [employer] Neutrophils/100 WBC (Bld) 67.6 % Normal 43.0-75.0 [facility] Comment on above: Performed By: #### C BC #### [facility] [address] [place] [address] Dee Dee Griggs Platelet mean volume (Bld) [Entitic vol] 10.2 fL Normal 9.5-13.5 [facility] Comment on above: Performed By: #### C BC #### [facility] [address] [place] [address] Dee Dee Griggs Platelets (Bld) [#/Vol] 178 103/ul Normal 150-450 [facility] Comment on above: Performed By: #### C BC #### [facility] [address] [place], [place] [id number] Dee Dee Griggs RBC (Bld) [#/Vol] 2.96 106/ul Critically low 4.20-5.40 [facility] Comment on above: Performed By: #### C BC #### [facility] [address] [place] [address] Dee Dee Griggs WBC (Bld) [#/Vol] 13.1 103/ul Critically high 4.0-11.0 [facility] Comment on above: Performed By: #### C BC #### [facility] [address] [place] [address] Dee Dee Griggs COVID-19 PCRon 03-11-2020 SARS-CoV-2, ALISSON Detected Abnormal Not Detected [facility] Comment on above: Result Comment: This test was developed and its performance characteristics determined by [facility]. This test has not been FDA cleared [...] assay. Performed By: #### C BC #### [facility] [address] [place] [address] [employer] PRIORITY COVID PROCESSINGon 03-11-2020 Comment Comment Normal [facility] Comment on above: Result Comment: Rece ived Performed By: #### C BC #### [facility] [address] [place] [address] [employer] RESPIRATORY PANEL PLUSon Adenovirus NOT DETECTED Normal NOT DETECTED [facility] Comment on above: Performed By: #### C BC #### [facility] [address] [place] [address] [employer] B. Parapertusis NOT DETECTED Normal NOT DETECTED [facility] Comment on above: Performed By: #### C BC #### [facility] [address] [place] [address] [employer] B. Pertussis NOT DETECTED Normal NOT DETECTED [facility] Comment on above: Performed By: #### C BC #### [facility] [address] [place] [address] [employer] Chlamydia Pneumoniae NOT DETECTED Normal NOT DETECTED [facility] Comment on above: Performed By: #### C BC #### [facility] [address] [place] [address] [employer] Coronavirus 229E NOT DETECTED Normal NOT DETECTED [facility] Comment on above: Performed By: #### C BC #### [facility] [address] [place] [address] [employer] Coronavirus HKU1 NOT DETECTED Normal NOT DETECTED [facility] Comment on above: Performed By: #### C BC #### [facility] [address] [place] [address] [employer] Coronavirus NL63 NOT DETECTED Normal NOT DETECTED [facility] Comment on above: Performed By: #### C BC #### [facility] [address] [address] [employer] Coronavirus OC43 NOT DETECTED Normal NOT DETECTED [facility] Comment on above: Performed By: #### C BC #### [facility] [address] [address] [employer] Influenza A H1 2009 NOT DETECTED Normal NOT DETECTED [facility] Comment on above: Performed By: #### C BC #### [facility] [address] [address] [employer] Influenza B NOT DETECTED Normal NOT DETECTED [facility] Comment on above: Performed By: #### C BC #### [facility] [address] [place] [address] [employer] Metapneumovirus NOT DETECTED Normal NOT DETECTED [facility] Comment on above: Performed By: #### C BC #### [facility] [address] [place] [address] [employer] Mycoplas. Pneumoniae NOT DETECTED Normal NOT DETECTED [facility] Comment on above: Performed By: #### C BC #### [facility] [address] [place] [address] [employer] Parainfluenza 1 NOT DETECTED Normal NOT DETECTED [facility] Comment on above: Performed By: #### C BC #### [facility] [address] [place] [address] [employer] Parainfluenza 2 NOT DETECTED Normal NOT DETECTED [facility] Comment on above: Performed By: #### C BC #### [facility] [address] [place] [address] [employer] Parainfluenza 3 NOT DETECTED Normal NOT DETECTED [facility] Comment on above: Performed By: #### C BC #### [facility] [address] [place] [address] [employer] Parainfluenza 4 NOT DETECTED Normal NOT DETECTED [facility] Comment on above: Performed By: #### C BC #### [facility] [address] [place] [address] Dee Dee Indu Rhino/Enterovirus NOT DETECTED Normal NOT DETECTED [facility] Comment on above: Performed By: #### C BC #### [facility] [address] [place] [address] Dee Dee Griggs RP2 Header 1 RESPIRATORY PANEL: VIRUSES Normal [facility] Comment on above: Performed By: #### C BC #### [facility] [address] [place] [address] Dee Dee Indu RP2 Header 2 RESPIRATORY PANEL: BACTERIA Normal [facility] Comment on above: Performed By: #### C BC #### [facility] [address] [place] [address] Dee Dee Griggs RP2 Header 4 EUA SEE BELOW Normal [facility] Comment on above: Result Comment: This test is not yet approved or cleared by the [place] FDA. When there are no FDA-approved or cleared tests available, and other criteria are met, FDA can make tests available under an emergency access mechanism called an Emergency Use Authorization (EUA). The EUA for this test is supported by the [place] of Health and Human Service?s (HHS?s) declaration [...] used). Performed By: #### C BC #### [facility] [address] [place] [address] Dee Dee Griggs RSV NOT DETECTED Normal NOT DETECTED [facility] Comment on above: Performed By: #### C BC #### [facility] [address] [place] [address] Dee Dee Griggs SARS-CoV-2: COVID-19 DETECTED NOT DETECTED [facility] Comment on above: Performed By: #### C BC #### [facility] [address] [place] [address] Dee Dee Griggs CBC AUTO DIFFon 03-10-2020 Basophils (Bld) [#/Vol] 0.0 103/ul Normal 0.0-0.1 [facility] Comment on above: Performed By: #### C BC #### [facility] [address] [place], [place] [id number] Dee Dee Indu Basophils/100 WBC (Bld) 0.1 % Critically low 0.2-2.0 [facility] Comment on above: Performed By: #### C BC #### [facility] [address] [place], [place] [id number] Dee Dee Indu Eosinophils (Bld) [#/Vol] 0.1 103/ul Normal 0.0-0.7 [facility] Comment on above: Performed By: #### C BC #### [facility] [address] [place] [address] Dee Dee Nidu Eosinophils/100 WBC (Bld) 0.5 % Critically low 0.9-7.0 [facility] Comment on above: Performed By: #### C BC #### [facility] [address] [place] [address] Dee Dee Indu Erythrocyte distribution width (RBC) [Ratio] 13.8 % Normal 11.0-15.0 [facility] Comment on above: Performed By: #### C BC #### [facility] [address] [place], [place] [id number] Dee Dee Indu Hematocrit (Bld) [Volume fraction] 30.3 % Critically low 36.0-48.0 [facility] Comment on above: Performed By: #### C BC #### [facility] [address] [place], [place] [id number] Dee Dee Indu Hemoglobin (Bld) [Mass/Vol] 10.1 g/dL Critically low 12.0-16.0 [facility] Comment on above: Performed By: #### C BC #### [facility] [address] [place], [place] [id number] Dee Dee Indu IG # 0.08 10e3/ul Critically high 0.00-0.03 [facility] Comment on above: Performed By: #### C BC #### [facility] [address] [place], [place] [address] Dee Dee Indu IG % 0.6 % Critically high 0.0-0.5 [facility] Comment on above: Performed By: #### C BC #### [facility] [address] [place] [address] Dee Dee Indu Lymphocytes (Bld) [#/Vol] 2.4 103/ul Normal 1.2-3.8 [facility] Comment on above: Performed By: #### C BC #### [facility] [address] [place], [place] [id number] Dee Dee Indu Lymphocytes/100 WBC (Bld) 16.9 % Critically low 20.5-60.0 [facility] Comment on above: Performed By: #### C BC #### [facility] [address] [place], [place] [id number] Dee Deemino Acostaen MANUAL DIFF REQ NO Normal [facility] Comment on above: Performed By: #### C BC #### [facility] [address] [place] [address] Dee Dee Indu MCH (RBC) [Entitic mass] 30.2 pg Normal 26.7-34.0 [facility] Comment on above: Performed By: #### C BC #### [facility] [address] [place], [place] [id number] Dee Deemino Acostaen MCHC (RBC) [Mass/Vol] 33.3 g/dL Normal 29.9-35.2 [facility] Comment on above: Performed By: #### C BC #### [facility] [address] [place], [place] [id number] Dee Dee Indu MCV (RBC) [Entitic vol] 90.7 fL Normal 81.0-99.0 [facility] Comment on above: Performed By: #### C BC #### [facility] [address] [place], [place] [address] Dee Dee Indu Monocytes (Bld) [#/Vol] 1.3 103/ul Critically high 0.3-0.8 [facility] Comment on above: Performed By: #### C BC #### [facility] [address] [place], [place] [address] Dee Dee Indu Monocytes/100 WBC (Bld) 8.9 % Normal 1.7-12.0 [facility] Comment on above: Performed By: #### C BC #### [facility] [address] [place], [place] [address] Dee Dee Indu Neutrophils (Bld) [#/Vol] 10.4 103/ul Critically high 1.4-6.5 [facility] Comment on above: Performed By: #### C BC #### [facility] [address] [place], [place] [address] Dee Dee Indu Neutrophils/100 WBC (Bld) 73.0 % Normal 43.0-75.0 [facility] Comment on above: Performed By: #### C BC #### [facility] [address] [place], [place] [address] Dee Dee Indu Platelet mean volume (Bld) [Entitic vol] 10.4 fL Normal 9.5-13.5 [facility] Comment on above: Performed By: #### C BC #### [facility] [address] [place] [address] Dee Dee Indu Platelets (Bld) [#/Vol] 179 103/ul Normal 150-450 [facility] Comment on above: Performed By: #### C BC #### [facility] [address] [place], [place] [address] Dee Dee Indu RBC (Bld) [#/Vol] 3.34 106/ul Critically low 4.20-5.40 [facility] Comment on above: Performed By: #### C BC #### [facility] [address] [place], [place] [address] Dee Dee Indu WBC (Bld) [#/Vol] 14.2 103/ul Critically high 4.0-11.0 [facility] Comment on above: Performed By: #### C BC #### [facility] [address] [place], [place] [address] Dee Dee Indu CBC AUTO DIFFon 03-09-2020 Basophils (Bld) [#/Vol] 0.0 103/ul Normal 0.0-0.1 [facility] Comment on above: Performed By: #### N BOX #### [facility] [address] [id number] Dee Dee Indu Basophils/100 WBC (Bld) 0.3 % Normal 0.2-2.0 [facility] Comment on above: Performed By: #### N BOX #### [facility] [address] [address] Dee Dee Indu Eosinophils (Bld) [#/Vol] 0.1 103/ul Normal 0.0-0.7 [facility] Comment on above: Performed By: #### N BOX #### [facility] [address] [phone] Dee Dee Indu Eosinophils/100 WBC (Bld) 0.9 % Normal 0.9-7.0 [facility] Comment on above: Performed By: #### N BOX #### [facility] [address] [place] [address] Dee Dee Indu Erythrocyte distribution width (RBC) [Ratio] 13.8 % Normal 11.0-15.0 [facility] Comment on above: Performed By: #### N BOX #### [facility] [address] [place] [address] Dee Dee Indu Hematocrit (Bld) [Volume fraction] 35.5 % Critically low 36.0-48.0 [facility] Comment on above: Performed By: #### N BOX #### [facility] [address] [place], [place] [phone] Dee Dee Indu Hemoglobin (Bld) [Mass/Vol] 12.0 g/dL Normal 12.0-16.0 [facility] Comment on above: Performed By: #### N BOX #### [facility] [address] [place] [address] Dee Dee Indu IG # 0.09 10e3/ul Critically high 0.00-0.03 [facility] Comment on above: Performed By: #### N BOX #### [facility] [address] [place], [place] [address] Dee Dee Indu IG % 0.8 % Critically high 0.0-0.5 [facility] Comment on above: Performed By: #### N BOX #### [facility] [address] [place], [place] [address] Dee Dee Indu Lymphocytes (Bld) [#/Vol] 2.3 103/ul Normal 1.2-3.8 [facility] Comment on above: Performed By: #### N BOX #### [facility] [address] [place], [place] [address] Dee Dee Indu Lymphocytes/100 WBC (Bld) 19.8 % Critically low 20.5-60.0 [facility] Comment on above: Performed By: #### N BOX #### [facility] [address] [place], [place] [address] Dee Dee Indu MANUAL DIFF REQ NO Normal [facility] Comment on above: Performed By: #### N BOX #### [facility] [address] [place], [place] [address] Dee Dee Indu MCH (RBC) [Entitic mass] 30.4 pg Normal 26.7-34.0 [facility] Comment on above: Performed By: #### N BOX #### [facility] [address] [place], [place] [address] Dee Dee Indu MCHC (RBC) [Mass/Vol] 33.8 g/dL Normal 29.9-35.2 [facility] Comment on above: Performed By: #### N BOX #### [facility] [address] [place], [place] [address] Dee Dee Indu MCV (RBC) [Entitic vol] 89.9 fL Normal 81.0-99.0 [facility] Comment on above: Performed By: #### N BOX #### [facility] [address] [place], [place] [address] Dee Dee Indu Monocytes (Bld) [#/Vol] 0.9 103/ul Critically high 0.3-0.8 [facility] Comment on above: Performed By: #### N BOX #### [facility] [address] [place], [place] [address] Dee Dee Indu Monocytes/100 WBC (Bld) 7.8 % Normal 1.7-12.0 [facility] Comment on above: Performed By: #### N BOX #### [facility] [address] [place], [place] [address] Dee Dee Indu Neutrophils (Bld) [#/Vol] 8.2 103/ul Critically high 1.4-6.5 [facility] Comment on above: Performed By: #### N BOX #### [facility] [address] [place], [place] [address] Dee Dee Indu Neutrophils/100 WBC (Bld) 70.4 % Normal 43.0-75.0 [facility] Comment on above: Performed By: #### N BOX #### [facility] [address] [place] [address] Dee Dee Indu Platelet mean volume (Bld) [Entitic vol] 10.3 fL Normal 9.5-13.5 [facility] Comment on above: Performed By: #### N BOX #### [facility] [address] [place] [address] Dee Dee Indu Platelets (Bld) [#/Vol] 211 103/ul Normal 150-450 [facility] Comment on above: Performed By: #### N BOX #### [facility] [address] [place] [address] Dee Dee Indu RBC (Bld) [#/Vol] 3.95 106/ul Critically low 4.20-5.40 [facility] Comment on above: Performed By: #### N BOX #### [facility] [address] [place] [address] Dee Dee Indu WBC (Bld) [#/Vol] 11.6 103/ul Critically high 4.0-11.0 [facility] Comment on above: Performed By: #### N BOX #### [facility] [address] [place] [address] Dee Dee Indu Basophils (Bld) [#/Vol] 0.0 103/ul Normal 0.0-0.1 [facility] Comment on above: Performed By: #### N BOX #### [facility] [address] [place] [address] Dee Dee Indu Basophils/100 WBC (Bld) 0.4 % Normal 0.2-2.0 [facility] Comment on above: Performed By: #### N BOX #### [facility] [address] [phone] Dee Dee Indu Eosinophils (Bld) [#/Vol] 0.2 103/ul Normal 0.0-0.7 [facility] Comment on above: Performed By: #### N BOX #### [facility] [address] [phone] Dee Dee Indu Eosinophils/100 WBC (Bld) 2.0 % Normal 0.9-7.0 [facility] Comment on above: Performed By: #### N BOX #### [facility] [address] [phone] Dee Dee Indu Erythrocyte distribution width (RBC) [Ratio] 13.8 % Normal 11.0-15.0 [facility] Comment on above: Performed By: #### N BOX #### [facility] [address] [address] Dee Dee Indu Hematocrit (Bld) [Volume fraction] 35.0 % Critically low 36.0-48.0 [facility] Comment on above: Performed By: #### N BOX #### [facility] [address] [phone] Dee Dee Indu Hemoglobin (Bld) [Mass/Vol] 11.8 g/dL Critically low 12.0-16.0 [facility] Comment on above: Performed By: #### N BOX #### [facility] [address] [phone] Dee Dee Indu IG # 0.07 10e3/ul Critically high 0.00-0.03 [facility] Comment on above: Performed By: #### N BOX #### [facility] [address] [phone] Dee Dee Indu IG % 0.7 % Critically high 0.0-0.5 [facility] Comment on above: Performed By: #### N BOX #### [facility] [address] [phone] Dee Dee Indu Lymphocytes (Bld) [#/Vol] 3.1 103/ul Normal 1.2-3.8 [facility] Comment on above: Performed By: #### N BOX #### [facility] [address] [place], [place] [address] Dee Dee Indu Lymphocytes/100 WBC (Bld) 29.5 % Normal 20.5-60.0 [facility] Comment on above: Performed By: #### N BOX #### [facility] [address] [place], [place] [address] Dee Dee Indu MANUAL DIFF REQ NO Normal [facility] Comment on above: Performed By: #### N BOX #### [facility] [address] [place], [place] [address] Dee Dee Indu MCH (RBC) [Entitic mass] 30.3 pg Normal 26.7-34.0 [facility] Comment on above: Performed By: #### N BOX #### [facility] [address] [place] [address] Dee Dee Indu MCHC (RBC) [Mass/Vol] 33.7 g/dL Normal 29.9-35.2 [facility] Comment on above: Performed By: #### N BOX #### [facility] [address] [place], [place] [address] Dee Dee Indu MCV (RBC) [Entitic vol] 90.0 fL Normal 81.0-99.0 [facility] Comment on above: Performed By: #### N BOX #### [facility] [address] [place], [place] [address] Dee Dee Indu Monocytes (Bld) [#/Vol] 0.9 103/ul Critically high 0.3-0.8 [facility] Comment on above: Performed By: #### N BOX #### [facility] [address] [place], [place] [address] Dee Dee Indu Monocytes/100 WBC (Bld) 8.4 % Normal 1.7-12.0 [facility] Comment on above: Performed By: #### N BOX #### [facility] [address] [place], [place] [address] Dee Dee Indu Neutrophils (Bld) [#/Vol] 6.3 103/ul Normal 1.4-6.5 [facility] Comment on above: Performed By: #### N BOX #### [facility] [address] [place], [place] [address] Dee Dee Indu Neutrophils/100 WBC (Bld) 59.0 % Normal 43.0-75.0 [facility] Comment on above: Performed By: #### N BOX #### [facility] [address] [place], [place] [address] Dee Dee Indu Platelet mean volume (Bld) [Entitic vol] 10.4 fL Normal 9.5-13.5 [facility] Comment on above: Performed By: #### N BOX #### [facility] [address] [place], [place] [phone] Dee Dee Indu Platelets (Bld) [#/Vol] 221 103/ul Normal 150-450 [facility] Comment on above: Performed By: #### N BOX #### [facility] [address] [place], [place] [address] Dee Dee Indu RBC (Bld) [#/Vol] 3.89 106/ul Critically low 4.20-5.40 [facility] Comment on above: Performed By: #### N BOX #### [facility] [address] [place], [place] [address] Dee Dee Indu WBC (Bld) [#/Vol] 10.6 103/ul Normal 4.0-11.0 [facility] Comment on above: Performed By: #### N BOX #### [facility] [address] [place], [place] [address] Dee Dee Griggs DRUG SCREEN RAPID (URINE)on 03-09-2020 AMP Negative Normal NEGATIVE [facility] Comment on above: Performed By: #### N BOX #### [facility] [address] [place], [place] [address] Dee Dee Indu BAR Negative Normal NEGATIVE [facility] Comment on above: Performed By: #### N BOX #### [facility] [address] [place], [place] [address] Dee Dee Indu BUP Negative Normal NEGATIVE [facility] Comment on above: Performed By: #### N BOX #### [facility] [address] [place] [address] Dee Dee Indu BZO Negative Normal NEGATIVE [facility] Comment on above: Performed By: #### N BOX #### [facility] [address] [place] [address] Dee Dee Indu CLINT Negative Normal NEGATIVE [facility] Comment on above: Performed By: #### N BOX #### [facility] [address] [place] [address] Dee Dee Indu CUT-OFFS SEE BELOW Normal [facility] Comment on above: Result Comment: AMP (Amphetamine): [...] ng/mL Performed By: #### N BOX #### [facility] [address] [place] [address] Dee Dee Indu DRUG CUT HEADER DRUG CLASS TEST SYSTEM CUT-OFF CONCENTRATIONS ARE FOLLOWS: Normal [facility] Comment on above: Performed By: #### N BOX #### [facility] [address] [place] [address] Dee Dee Indu mAMP Negative Normal NEGATIVE [facility] Comment on above: Performed By: #### N BOX #### [facility] [address] [place] [address] Dee Dee Indu MTD Negative Normal NEGATIVE [facility] Comment on above: Performed By: #### N BOX #### [facility] [address] [place] [address] Dee Dee Indu OPI Negative Normal NEGATIVE [facility] Comment on above: Performed By: #### N BOX #### [facility] [address] [place], [place] [address] Dee Dee Indu OXY Negative Normal NEGATIVE [facility] Comment on above: Performed By: #### N BOX #### [facility] [address] [place] [address] Dee Dee Griggs PCP Negative Normal NEGATIVE [facility] Comment on above: Performed By: #### N BOX #### [facility] [address] [place] [address] Dee Dee Griggs PPX Negative Normal NEGATIVE [facility] Comment on above: Performed By: #### N BOX #### [facility] [address] [place] [address] Dee Dee Griggs TCA Negative Normal NEGATIVE [facility] Comment on above: Performed By: #### N BOX #### [facility] [address] [place] [address] Dee Dee Griggs THC Negative Normal NEGATIVE [facility] Comment on above: Performed By: #### N BOX #### [facility] [address] [place] [address] Dee Dee Griggs LDHon 03-09-2020 LDH 190 U/L Normal 122-222 [facility] Comment on above: Performed By: #### N BOX #### [facility] [address] [place] [address] Dee Dee Griggs PROF 14(COMP METB)on 020 Albumin [Mass/Vol] 2.9 g/dL Critically low 3.5-5.0 [facility] Comment on above: Performed By: #### N BOX #### [facility] [address] [place] [address] Dee Dee Griggs Albumin/Globulin [Mass ratio] 0.7 {ratio} Normal [facility] Comment on above: Performed By: #### N BOX #### [facility] [address] [place] [address] Dee Dee Griggs ALP [Catalytic activity/Vol] 152 U/L Critically high 38-126 [facility] Comment on above: Performed By: #### N BOX #### [facility] [address] [place] [address] Dee Dee Griggs Anion gap [Moles/Vol] 13.6 mmol/L Normal [facility] Comment on above: Performed By: #### N BOX #### [facility] [address] [address] Dee Dee Indu Bilirubin Ql (U) 0.7 mg/dL Normal 0.2-1.3 [facility] Comment on above: Performed By: #### N BOX #### [facility] [address] [address] Dee Dee Indu Calcium [Mass/Vol] 9.5 mg/dL Normal 8.4-10.2 [facility] Comment on above: Performed By: #### N BOX #### [facility] [address] [address] Dee Dee Indu Chloride [Moles/Vol] 102 mmol/L Normal 98-107 [facility] Comment on above: Performed By: #### N BOX #### [facility] [address] [place] [address] Dee Dee Indu CO2 [Moles/Vol] 24.1 mmol/L Normal 22.0-30.0 [facility] Comment on above: Performed By: #### N BOX #### [facility] [address] [place] [address] Dee Dee Indu Creatinine [Mass/Vol] 0.63 mg/dL Normal 0.52-1.04 [facility] Comment on above: Performed By: #### N BOX #### [facility] [address] [place] [address] Dee Dee Indu EGFR-AF MARTINIQUAIS >60 Normal >=60 [facility] Comment on above: Performed By: #### N BOX #### [facility] [address] [place] [address] Dee Dee Indu EGFR-NON AF MARTINIQUAIS >60 Normal >=60 [facility] Comment on above: Performed By: #### N BOX #### [facility] [address] [place] [address] Dee Dee Indu Globulin (S) [Mass/Vol] 4.1 g/dL Normal [facility] Comment on above: Performed By: #### N BOX #### [facility] [address] [phone] Dee Dee Indu Glucose [Mass/Vol] 92 mg/dL Normal 74-106 [facility] Comment on above: Performed By: #### N BOX #### [facility] [address] [phone] Dee Dee Indu Potassium [Moles/Vol] 3.7 mmol/L Normal 3.4-5.0 [facility] Comment on above: Performed By: #### N BOX #### [facility] [address] [address] Dee Dee Indu Protein [Mass/Vol] 7.0 g/dL Normal 6.1-8.2 [facility] Comment on above: Performed By: #### N BOX #### [facility] [address] [address] Dee Dee Indu Sodium [Moles/Vol] 136 mmol/L Critically low 137-145 [facility] Comment on above: Performed By: #### N BOX #### [facility] [address] [address] Dee Dee Indu Urea nitrogen [Mass/Vol] 7.0 mg/dL Normal 7.0-17.0 [facility] Comment on above: Performed By: #### N BOX #### [facility] [address] [address] Dee Dee Indu Urea nitrogen/Creatinine [Mass ratio] 11.1 mg/mg Normal [facility] Comment on above: Performed By: #### N BOX #### [facility] [address] [phone] Dee Dee Indu PROTIMEon 03-09-2020 INR Coag (PPP) [Relative time] 0.90 {INR} Normal [facility] Comment on above: Performed By: #### N BOX #### [facility] [address] [id number] Dee [place] Indu PT Coag (PPP) [Time] PLEASE NOTE: NORMAL RANGE CHANGE 05-05-2014 DUE TO REAGENT LOT CHANGE Normal [facility] Comment on above: Performed By: #### N BOX #### [facility] [address] [place], [place] [id number] Dee [place] Indu PT Coag (PPP) [Time] SEE BELOW Normal [facility] Comment on above: Result Comment: RAYO RED INR: 2.0 - 3.0 CONDITIONS NOT LISTED BELOW 2.5 - 3.5 FOR PROSTHETIC HEART VALVE REPLACEMENT 2.5 - 3.5 RECURRENT THROMBOSIS Performed By: #### N BOX #### [facility] [address] [place] [address] Dee Dee Indu PT Coag (PPP) [Time] 9.4 s Normal 9.0-11.6 [facility] Comment on above: Performed By: #### N BOX #### [facility] [address] [place], [place] [id number] Dee Dee Griggs PTTon 03-09-2020 aPTT Coag (Bld) [Time] 24.5 s Normal 22.3-36.2 [facility] Comment on above: Performed By: #### N BOX #### [facility] [address] [place] [address] [place] Indu aPTT Coag (Bld) [Time] PLEASE NOTE: NORMAL RANGE CHANGE 07-12-2015 DUE TO REAGENT LOT CHANGE Normal [facility] Comment on above: Performed By: #### N BOX #### [facility] [address] [place] [address] Dee Dee Griggs SGOTon 03-09-2020 AST [Catalytic activity/Vol] 16 U/L Normal 14-36 [facility] Comment on above: Performed By: #### N BOX #### [facility] [address] [place] [address] Dee [place] Griggs SGPTon 03-09-2020 ALT [Catalytic activity/Vol] 23 U/L Normal 9-52 [facility] Comment on above: Performed By: #### N BOX #### [facility] [address] [place] [address] Dee Dee Griggs URIC ACID SERUMon 03-09-2020 Urate [Mass/Vol] 5.2 mg/dL Normal 2.5-6.2 [facility] Comment on above: Performed By: #### N BOX #### [facility] [address] Indu GROUP B STREP CULTUREon S. agalactiae Ag [...] F Tetracycline <=0.25 S F Normal [facility] Comment on above: Performed By: #### G BSCX ####[facility] [address] [place] [address] Indu CHLAMYDIA/GONOCOCCUS ALISSON ( AB/URINE/PAPon 02-18-2020 Chlamydia trachomatis, ALISSON Negative Normal Negative [facility] Comment on above: Performed By: #### C T/NGNA ####[facility] [address] [place] [address] Indu Neisseria gonorrhoeae, ALISSON Negative Normal Negative [facility] Comment on above: Performed By: #### C T/NGNA ####[facility] [address] [place] [address] Indu VAGINITIS/VAGINOSIS DNA PROB Ezequiel 02-17-2020 Fatou species Negative Normal Negative The [facility] Comment on above: Performed By: #### V AGINT ####[facility] [address] [place] [address] Indu Gardnerella vaginalis Negative Normal Negative [facility] Comment on above: Performed By: #### V AGINT ####[facility] [address] [place] [address] Trichomonas vaginalis Negative Normal Negative [facility] Comment on above: Performed By: #### V AGINT ####[facility] [address] [place] [address] Indu GLUCOSE - 1HRon 12-02-2019 Glucose [Mass/Vol] 130 mg/dL Critically high 74-106 T [facility] Comment on above: Performed By: #### G LU1HR ####[facility] [address] [id number] Dee Griggs HEMOGRAM AND PLATELon 2019 Hematocrit (Bld) [Volume fraction] 35.2 % Critically low 36.0-48.0 [facility] Comment on above: Performed By: #### H H ####[facility] [address] Indu Hemoglobin (Bld) [Mass/Vol] 11.7 g/dL Critically low 12.0-16.0 [facility] Comment on above: Performed By: #### H H ####[facility] [address] [place] [address] Indu MCH (RBC) [Entitic mass] 30.0 pg Normal 26.7-34.0 [facility] Comment on above: Performed By: #### H H ####[facility] [address] [place] [address] Indu MCHC (RBC) [Mass/Vol] 33.2 g/dL Normal 29.9-35.2 [facility] Comment on above: Performed By: #### H H ####[facility] [address] [place] [address] Indu MCV (RBC) [Entitic vol] 90.3 fL Normal 81.0-99.0 [facility] Comment on above: Performed By: #### H H ####[facility] Tw[address] Indu Platelets (Bld) [#/Vol] 276 103/ul Normal 150-450 [facility] Comment on above: Performed By: #### H H ####[facility] [address] [place] [address] Indu RBC (Bld) [#/Vol] 3.90 106/ul Critically low 4.20-5.40 Th e [facility] Comment on above: Performed By: #### H H ####[facility] [address] [place], [place] [address] Indu WBC (Bld) [#/Vol] 14.2 103/ul Critically high 4.0-11.0 T [facility] Comment on above: Performed By: #### H H ####[facility] [address] [place], [place] [address]Fdnvyo Indu US PREG ANATOMY SINGLEon US PREG [...] 4 days EFW:3 57 g; 56% FL/AC: 0.005133 FL/BPD: 0.070748 HC/AC: 1.415919 GESTATIONAL AGE: Age by EDC: 20 weeks, 0 days Age by current US: 20 weeks, 2 days JAY by current US: 03/14/2020 JAY by EDC: 03/16/2020 IMPRESSION: Normal anatomy scan *Reference: AIUM Practice Guideline for the performance of Obstetric Ultrasound Examinations, May 18, 2007. Normal [facility] AFP MATERNAL FOR SPINA BIFID Aon 10-13-2019 AFP MoM 0.72 Normal [facility] Comment on above: Performed By: #### A FPMAT ####[facility] [address] [address] Indu AFP Value 24.8 ng/mL Normal [facility] Comment on above: Performed By: #### A FPMAT ####[facility] [address] [address] Indu AFP, Serum for Spina Bifida Report Normal [facility] Comment on above: Performed By: #### A FPMAT ####[facility] [address]sep[address] Indu Comment Comment Normal [facility] Comment on above: Result Comment: Ashish Robertson, Ph.D., [facility] Principal Genetics [employer] . References: Available Upon Request. . Multiples Of Median Cutoffs For AFP Elevations Cooney 2.5 Black 2.8 IDD 2.0 Twins 4.5 Abbreviation Definitions IDD - Insulin Dep Diabetes OSBR - Open Spina Bifida Risk . For further inquiries contact [facility] at [phone]. Performed By: #### A FPMAT ####[facility] [address] [address] Indu Gest Age Collection Date 17.6 weeks Normal [facility] Comment on above: Performed By: #### A FPMAT ####[facility] [address] Indu Gestat, Age Based on Ultrasound Normal [facility] Comment on above: Result Comment: 14.7 on 09/21/2019 Recalculations are not recommended when gestational dating by LMP and ultrasound are within 10 days. Performed By: #### A FPMAT ####[facility] Qxzpd[address] Indu Insulin Dep Diabetes No Normal [facility] Comment on above: Performed By: #### A FPMAT ####[facility] Pw[address] Indu Interpretation Comment Normal The [facility] Comment on above: Result Comment: Inte [...] Customer Services to discuss available options. The [employer] recommends amniocentesis be offered to women age 35 and older. Performed By: #### A FPMAT ####[facility] A[address] [age] Normal [facility] Comment on above: Performed By: #### A FPMAT ####[facility] W[address] Multiple Gestation No Normal [facility] Comment on above: Performed By: #### A FPMAT ####[facility] [address] [place], [place] [address] OSBR Risk 1 [place] [address] Normal [facility] Comment on above: Performed By: #### A FPMAT ####[facility] Y[address] Indu PDF . Normal [facility] Comment on above: Performed By: #### A FPMAT ####[facility] F[address]wknkx[address] Indu Race Normal [facility] Comment on above: Performed By: #### A FPMAT ####[facility] [address] Test Results: Negative Normal [facility] Comment on above: Performed By: #### A FPMAT ####[facility] X[address] CHLAMYDIA/GONOCOCCUS ALISSON (SW AB/URINE/PAPon 09-09-2019 Chlamydia trachomatis, ALISSON Negative Normal Negative [facility] Comment on above: Performed By: #### C T/NGNA ####[facility] [address] [address] Griggs Neisseria gonorrhoeae, ALISSON Negative Normal Negative [facility] Comment on above: Performed By: #### C T/NGNA ####[facility] [address] [address] [place] Griggs HEP B SURFACE ANTIGEN SCREEN on 09-08-2019 HBsAg Screen Negative Normal Negative [facility] Comment on above: Performed By: #### H BSANS #### [facility] [address] [address] Dee Dee Griggs HEPATITIS C VIRUS AB W/ REFL EX QUANTon 09-08-2019 HCV AB 0.2 s/co ratio Normal 0.0-0.9 [facility] Comment on above: Performed By: #### H CVPCRR #### [facility] [address] [place] [address] Dee Dee Griggs Interpretation: Comment Normal [facility] Comment on above: Result Comment: Nega tive Not infected with HCV, unless recent infection is suspected or other evidence exists to indicate HCV infection. Performed By: #### H CVPCRR #### [facility] [address] [address] Dee Dee Griggs HIV 1 AND 2 WITH REFLEXon HIV Screen 4th Generation wRfx Non Reactive Normal Non Reactive [facility] Comment on above: Performed By: #### H IV12 #### [facility] [address] [place] [address] Dee Dee Griggs RPR QUANTon 09-08-2019 Rapid Plasma Reagin, Quant Non Reactive Normal NonRea<1:1 [facility] Comment on above: Performed By: #### R PRQ ####[facility] [address] [address] Indu RUBELLA AB IGGon 09-08-2019 Rubella Antibodies, IgG 3.18 index Normal Immune >0.99 [facility] Comment on above: Result Comment: Non- immune <0.90 Equivocal 0.90 - 0.99 Immune >0.99 Performed By: #### R UBIGG #### [facility] [address] [address] [place] Dee Griggs CBC AUTO DIFFon 09-07-2019 Basophils (Bld) [#/Vol] 0.0 103/ul Normal 0.0-0.1 [facility] Comment on above: Performed By: #### C BC #### [facility] [address] [place] [address] Dee Dee Indu Basophils/100 WBC (Bld) 0.4 % Normal 0.2-2.0 [facility] Comment on above: Performed By: #### C BC #### [facility] [address] [place] [address] Dee [place] Indu Eosinophils (Bld) [#/Vol] 0.3 103/ul Normal 0.0-0.7 [facility] Comment on above: Performed By: #### C BC #### [facility] [address] [place] [address] Dee [place] Indu Eosinophils/100 WBC (Bld) 2.8 % Normal 0.9-7.0 [facility] Comment on above: Performed By: #### C BC #### [facility] [address] [place] [address] [place] Indu Erythrocyte distribution width (RBC) [Ratio] 13.9 % Normal 11.0-15.0 [facility] Comment on above: Performed By: #### C BC #### [facility] [address] [place] [address] Dee Dee Indu Hematocrit (Bld) [Volume fraction] 36.8 % Normal 36.0-48.0 [facility] Comment on above: Performed By: #### C BC #### [facility] [address] [place], [place] [phone] Dee Dee Indu Hemoglobin (Bld) [Mass/Vol] 12.3 g/dL Normal 12.0-16.0 [facility] Comment on above: Performed By: #### C BC #### [facility] [address] [place] [address] Dee [place] Indu IG # 0.03 10e3/ul Normal 0.00-0.03 [facility] Comment on above: Performed By: #### C BC #### [facility] [address] [phone] [place] Indu IG % 0.3 % Normal 0.0-0.5 [facility] Comment on above: Performed By: #### C BC #### [facility] [address] [place], [place] [phone] Dee [place] Indu Lymphocytes (Bld) [#/Vol] 2.6 103/ul Normal 1.2-3.8 [facility] Comment on above: Performed By: #### C BC #### [facility] [address] [place], [place] [address] Dee [place] Indu Lymphocytes/100 WBC (Bld) 23.3 % Normal 20.5-60.0 [facility] Comment on above: Performed By: #### C BC #### [facility] [address] [place], [place] [address] Dee Dee Indu MANUAL DIFF REQ NO Normal [facility] Comment on above: Performed By: #### C BC #### [facility] [address] [place], [place] [address] Dee [place] Inud MCH (RBC) [Entitic mass] 28.7 pg Normal 26.7-34.0 [facility] Comment on above: Performed By: #### C BC #### [facility] [address] [place], [place] [phone] Dee Dee Indu MCHC (RBC) [Mass/Vol] 33.4 g/dL Normal 29.9-35.2 [facility] Comment on above: Performed By: #### C BC #### [facility] [address] [place], [place] [phone] Dee Dee Indu MCV (RBC) [Entitic vol] 85.8 fL Normal 81.0-99.0 [facility] Comment on above: Performed By: #### C BC #### [facility] [address] [place], [place] [address] Dee Dee Indu Monocytes (Bld) [#/Vol] 1.0 103/ul Critically high 0.3-0.8 [facility] Comment on above: Performed By: #### C BC #### [facility] [address] [place], [place] [address] Dee Dee Indu Monocytes/100 WBC (Bld) 8.8 % Normal 1.7-12.0 [facility] Comment on above: Performed By: #### C BC #### [facility] [address] [place] [address] Dee Dee Indu Neutrophils (Bld) [#/Vol] 7.1 103/ul Critically high 1.4-6.5 [facility] Comment on above: Performed By: #### C BC #### [facility] [address] [place], [place] [address] Dee Dee Indu Neutrophils/100 WBC (Bld) 64.4 % Normal 43.0-75.0 [facility] Comment on above: Performed By: #### C BC #### [facility] [address] [place], [place] [phone] Dee Dee Indu Platelet mean volume (Bld) [Entitic vol] 9.4 fL Critically low 9.5-13.5 [facility] Comment on above: Performed By: #### C BC #### [facility] [address] [place] [address] Dee Dee Indu Platelets (Bld) [#/Vol] 272 103/ul Normal 150-450 [facility] Comment on above: Performed By: #### C BC #### [facility] [address] [place] [address] Dee [place] Indu RBC (Bld) [#/Vol] 4.29 106/ul Normal 4.20-5.40 [facility] [place] [facility] Comment on above: Performed By: #### C BC #### [facility] [address] [place] [address] Dee [place] Indu WBC (Bld) [#/Vol] 11.0 103/ul Normal 4.0-11.0 [facility] [place] [facility] Comment on above: Performed By: #### C BC #### [facility] [address] [place] [address] Dee [place] Indu CULTURE URINEon 09-07-2019 CULTURE URINE Culture Observations: No growth Normal [facility] Comment on above: Performed By: #### U RCX ####[facility] [address] [place], [place] [address]XtlunbDee Dee Griggs GLYCOHEMOGLOBIN A1Con 2019 Glucose [Mass/Vol] 111 mg/dL Normal [facility] Comment on above: Performed By: #### A 1C #### [facility] [address] [place], [place] [address] Dee Dee Griggs HbA1c (Bld) [Mass fraction] 5.5 % Normal <=6.0 [facility] Comment on above: Performed By: #### A 1C #### [facility] [address] [place], [place] [address] Dee Dee Griggs FANY BOX TEST PT SEND OUTo n 09-07-2019 SENT TO REF LAB 09/07/2019 Normal [facility] Comment on above: Performed By: #### N BOX #### [facility] [address] [address] Dee Dee Griggs TYPE AND SCREENon 09-07-2019 TYPE AND SCREEN Negative Normal [facility] Comment on above: Performed By: #### T NS #### [facility] [address] [place], [place] [address] Dee Dee Griggs US PREG TVon 07-27-2019 US PREG TV Patient: ARCHANA RODRIGUEZ Exam Date: 07/27/2019 : 1995 Gender:F Ordering : DR JOANNE FRANKLIN . Admission #: [id number] Family : DR ТАТЬЯНА URIARTE . Order #: [id number] CLICK HERE TO VIEW EXAM RADIOLOGY REPORT [...] Lockhart M.D. on 07/27/2019 at 10:12 Normal [facility] PREG QUANT HCGon 07-20-2019 HCG QUANT 7056.00 mIU/mL Normal [facility] Comment on above: Performed By: #### P REGQNT #### [facility] [address] [phone] Dee Dee Griggs HCG RANGE SEE BELOW Normal [facility] Comment on above: Result Comment: 5-50 0-1 WEEK 40-300 1-2 WEEKS 100-1,000 2-3 WEEKS 500-6,000 3-4 WEEKS 5,000-200,000 1-2 MONTHS 10,000-100,000 2-3 MONTHS 3,000-50,000 2ND TRIMESTER 1,000-50,000 3RD TRIMESTER Performed By: #### P REGQNT #### [facility] [address] [phone] Dee Dee Griggs Vital Signs Date Time Vital Sign Value Performing Clinician Facility 08-30-2024 14:27-0500 Body mass index (BMI) [Ratio] 35.47 kg/m2 [employer] Work Phone: [facility] 08-30-2024 14:27-0500 Body weight 96.67 kg [employer] Work Phone: [facility] 08-30-2024 14:27-0500 Diastolic blood pressure 76 mm[Hg] [employer] Work Phone: [facility] 08-30-2024 14:27-0500 Systolic blood pressure 120 mm[Hg] [employer] Work Phone: [facility] 08-19-2024 13:20-0500 Body height 167.[address] [facility] 08-19-2024 13:20-0500 Body mass index (BMI) [Ratio] 34.2 kg/m2 [facility] 08-19-2024 13:20-0500 Body temperature 98.2 [degF] [facility] 08-19-2024 13:20-0500 Body weight 96.[address] [facility] 08-19-2024 13:20-0500 Diastolic blood pressure 74 mm[Hg] [facility] 08-19-2024 13:20-0500 Heart rate 108 /min [facility] 08-19-2024 13:20-0500 Respiratory rate 18 /min [facility] 08-19-2024 13:20-0500 SaO2% (BldA) [Mass fraction] 98 % [facility] 08-19-2024 13:20-0500 Systolic blood pressure 117 mm[Hg] [facility] 07-28-2024 15:29-0500 Body mass index (BMI) [Ratio] 35.84 kg/m2 Becca DIAZ Work Phone: [facility] 07-28-2024 15:29-0500 Body weight 97.7 kg Becca DIAZ Work Phone: [facility] 07-28-2024 15:29-0500 Diastolic blood pressure 70 mm[Hg] Becca DIAZ Work Phone: [facility] 07-28-2024 15:29-0500 Systolic blood pressure 114 mm[Hg] Becca DIAZ Work Phone: [facility] 06-28-2024 13:29-0500 Body mass index (BMI) [Ratio] 35.74 kg/m2 Roberto Kennedy DO Work Phone: [facility] 06-28-2024 13:29-0500 Body weight 97.43 kg Roberto Kennedy DO Work Phone: [facility] 06-28-2024 13:29-0500 Diastolic blood pressure 74 mm[Hg] Roberto Kenneyd DO Work Phone: [facility] 06-28-2024 13:29-0500 Systolic blood pressure 124 mm[Hg] Roberto Kennedy DO Work Phone: [facility] 06-10-2024 15:02-0400 Body mass index (BMI) [Ratio] 36.08 kg/m2 [facility] 06-10-2024 15:02-0400 Body weight 98.34 kg [facility] 11-27-2023 13:56-0400 Body height 167.[address] [facility] 11-27-2023 13:56-0400 Body mass index (BMI) [Ratio] 34.3 kg/m2 [facility] 11-27-2023 13:56-0400 Body temperature 98.9 [degF] [facility] 11-27-2023 13:56-0400 Body weight 96.[address] [facility] 11-27-2023 13:56-0400 Heart rate 102 /min [facility] 11-27-2023 13:56-0400 Respiratory rate 16 /min [facility] 11-27-2023 13:56-0400 SaO2% (BldA) [Mass fraction] 97 % [facility] 08-19-2023 14:10-0500 Body height 167.64 cm Marti Lawson Other [facility] [employer] Other 08-19-2023 14:10-0500 Body mass index (BMI) [Ratio] 34.44 kg/m2 Marti Lawson Other [facility] [employer] Other 08-19-2023 14:10-0500 Body temperature 99 [degF] Marti Lawson Other [facility] [employer] Other 08-19-2023 14:10-0500 Body weight 96.8 kg Marti Lawson Other [employer] Other 08-19-2023 14:10-0500 Respiratory rate 18 /min Marti Lawson Other [facility] [employer] Other 08-19-2023 14:10-0500 SaO2% (BldA) [Mass fraction] 98 % Marti Lawson Other [facility] [employer] Other 10-13-2019 02:06-0500 Body weight 90.72 kg ТАТЬЯНА URIARTE [facility] Comment on above: Performed By: #### AFPMAT ####[facility] [address] [place], [place] [address]LupwlfDee Dee Griggs Encounters Encounter Date Encounter Type Care Provider Facility Start: 08-30-2024 End: 08-30-2024 Office outpatient visit 15 minutes Roberto Kennedy DO Work Phone: [facility] Comment on above: 21 weeks gestation o f ; Second trimester ; Diabetes mellitus screening Start: 08-30-2024 End: 09-02-2024 Clinisync Result Encounter Becca DIAZ Work Phone: [facility] External Department Unsolicited Start: 08-30-2024 End: 09-02-2024 Clinisync Result Encounter Becca DIAZ Work Phone: [facility] Unsolicited Start: 08-30-2024 End: 08-30-2024 ambulatory ROBERTO KENNEDY Not Available Start: 08-30-2024 End: 08-30-2024 ambulatory ROBERTO KENNEDY Not Available Start: 08-19-2024 End: 08-19-2024 ambulatory [facility] Work Phone: Start: 08-19-2024 End: 08-19-2024 Patient encounter procedure [facility] [place] Work Phone: Start: 07-28-2024 End: 07-28-2024 Patient encounter procedure Becca DIAZ Work Phone: [facility] Start: 07-28-2024 End: 07-28-2024 Periodic preventive med est patient 18-39 yrs Becca DIAZ Work Phone: [facility] Comment on above: Screening, , for anatomic survey; Well woman exam with routine gynecological exam; Second trimester ; 16 weeks gestation of ; Vaginal discharge; STD exposure Start: 07-28-2024 End: 07-28-2024 ambulatory BECCA GOMEZ Not Available Start: 07-28-2024 End: 07-28-2024 Bamboo flowsheet Becca DIAZ Work Phone: [facility] Start: 07-28-2024 End: 08-05-2024 Bamboo flowsheet Becca Morrisey PA Work Phone: [facility] Start: 07-28-2024 End: 08-05-2024 Clinisync Result Encounter Becca Gomez EMILY Work Phone: [facility] Unsolicited Start: 07-28-2024 End: 07-30-2024 External Result Encounter Becca Gomez EMILY Work Phone: [facility] Unsolicited Start: 06-28-2024 End: 06-28-2024 Bamboo flowsheet Roberto Kennedy DO Work Phone: [facility] Start: 06-28-2024 End: 06-28-2024 Bamboo flowsheet Roberto Kennedy DO Work Phone: [facility] Start: 06-28-2024 End: 06-28-2024 Office outpatient visit 15 minutes Roberot Kennedy DO Work Phone: [facility] [...] Start: 11-27-2023 End: 11-27-2023 ambulatory [facility] Work Phone: Start: 11-27-2023 End: 11-27-2023 Patient encounter procedure [facility] Work Phone: Start: 08-19-2023 End: 08-19-2023 ambulatory Marti Lawson Other [facility] [employer] Other Start: 08-19-2023 Office outpatient ne w 30 minutes Marti Lawson [facility] Start: 03-22-2020 End: 03-23-2020 Patient encounter procedure ТАТЬЯНА HOY Facility:[facility] Start: 03-08-2020 End: 03-11-2020 Evaluation and management of inpatient JOANNE FRANKLIN Facility:[facility] Start: 02-15-2020 End: 02-15-2020 Patient encounter procedure JOANNE DAVEASIK Facility:[facility] Start: 12-02-2019 End: 12-03-2019 Patient encounter procedure JOANNE KARASIK Facility:[facility] Start: 10-28-2019 End: 10-29-2019 Patient encounter procedure JOANNE DAVEASIK Facility:[facility] Start: 10-11-2019 End: 10-12-2019 Patient encounter procedure JOANNE DAVEASIK Facility:[facility] Start: 09-07-2019 End: 09-07-2019 Patient encounter procedure JOANNE ACOSTAASIK Facility:[facility] Start: 09-07-2019 End: 09-08-2019 Patient encounter procedure JOANNE DAVEASIK Facility:[facility] Start: 07-27-2019 End: 07-28-2019 Patient encounter procedure JOANNE DAVEASIK Facility:[facility] Start: 07-20-2019 End: 07-21-2019 Patient encounter procedure ТАТЬЯНА HOY Facility:[facility] Procedures Date Procedure Procedure Detail Performing Clinician Start: 08-30-2024 AFP, SERUM, OPEN SPI NA BIFIDA Becca DIAZ Work Phone: Start: 08-30-2024 Urnls dip stick/tabl et rgnt non-auto w/o micrscp Roberto Kennedy DO Work Phone: Start: 07-28-2024 RECURRENT VAGINITIS (HTRX) Becca DIAZ [...] Treatment Date Care Activity Detail Author Start: 09-28-2024 End: 09-28-2024 Patient encounter procedure 09/28/2024 1:30 PM EST Routine [facility] [address] [facility] [place] [place] [id number] Becca Gomez PA [address] [place] [address] [facility] Start: 08-30-2024 End: 08-30-2024 Patient encounter procedure 08/30/2024 2:10 PM EST Routine [facility] [address] [place] [phone] Roberto Benavides, DO [address] [place], [place] [id number] [facility] Start: 08-30-2024 End: 08-30-2025 CBC panel - Blood by Automated count CBC Lab Routine Diabetes mellitus screening Expected: 08/30/2024 (Approximate), Expires: 08/30/2025 [facility] Work Phone: Comment on above: Expected: 08/30/2024 (Approximate), Expires: 08/30/2025 Start: 08-30-2024 End: 08-30-2025 Measurement of glucose 1 hour after glucose challenge for glucose tolerance test Glucose tolerance, 1 hour Lab Routine Diabetes mellitus screening Expected: 08/30/2024 (Approximate), Expires: 08/30/2025 [facility] Comment on above: Expected: 08/30/2024 (Approximate), Expires: 08/30/2025 Start: 08-30-2024 End: 08-30-2024 Professional / ancillary services management 08/30/2024 1:00 PM EST Ancillary Procedure [facility] [address] [facility] [place] [place] [address] [facility] Start: 07-28-2024 End: 07-28-2024 Patient encounter procedure 07/28/2024 2:30 PM EST Routine [facility] [address] [place] [id number] Becca [place] PA [address] [facility] [address] [place], [facility] Arrived [facility] Comment on above: Arrived Start: 07-28-2024 End: 11-26-2024 Alpha fetoprotein, maternal Alpha fetoprotein, maternal Lab Routine Second trimester 16 weeks gestation of Expected: 07/28/2024 (Approximate), Expires: 11/26/2024 [facility] Comment on above: Expected: 07/28/2024 (Approximate), Expires: 11/26/2024 Start: 07-28-2024 End: 07-28-2025 US for US OB ANATOMY SINGLE W US OB CERVICAL LENGTH Imaging Routine Screening, , for anatomic survey Expected: 07/28/2024 (Approximate), Expires: 07/28/2025 [facility] Comment on above: Expected: 07/28/2024 (Approximate), Expires: 07/28/2025 Start: 07-26-2024 End: 07-26-2024 Patient encounter procedure 07/26/2024 1:30 PM EST Routine [facility] [address] [place] [phone] Becca [place] PA [address] [facility] [address] [place], [place] [id number] [facility] Start: 06-28-2024 End: 06-28-2024 Patient encounter procedure 06/28/2024 1:20 PM EST Routine [facility] [address] [place] [phone] Roberto Benavides DO [address] [facility] [place] [address] [facility] Start: 06-10-2024 End: 06-10-2025 ABO/Rh ABO/Rh Lab Routine Missed menses , unspecified gestational age Expected: 06/10/2024 (Approximate), Expires: 06/10/2025 [facility] Comment on above: Expected: 06/10/2024 (Approximate), Expires: 06/10/2025 Start: 06-10-2024 End: 06-10-2025 Blood type and Indirect antibody screen panel - Blood Type and screen Lab Routine Missed menses , unspecified gestational age Expected: 06/10/2024 (Approximate), Expires: 06/10/2025 [facility] Work Phone: Comment on above: Expected: 06/10/2024 (Approximate), Expires: 06/10/2025 Start: 06-10-2024 End: 06-10-2025 Drugs of abuse panel - Urine by Screen method Rapid drug screen, urine Lab Routine , unspecified gestational age Encounter for supervision of normal first in first trimester Expected: 06/10/2024 (Approximate), Expires: 06/10/2025 [facility] Comment on above: Expected: 06/10/2024 (Approximate), Expires: 06/10/2025 Start: 06-10-2024 End: 06-10-2025 US Pelvis transvaginal US OB transvaginal Imaging Routine Missed menses Expected: 06/10/2024 (Approximate), Expires: 06/10/2025 [facility] Comment on above: Expected: 06/10/2024 (Approximate), Expires: 06/10/2025 Bacteria identified in Urine by Culture Urine culture Microbiology Routine Missed menses Ordered: 06/10/2024 [facility] Comment on above: Ordered: 06/10/2024 CBC W Auto Different ial panel - Blood CBC and differential Lab Routine Missed menses , unspecified gestational age Ordered: 06/10/2024 [facility] Comment on above: Ordered: 06/10/2024 CHLAMYDIA TRACHOMATI S (GENITO/STI) CHLAMYDIA TRACHOMATIS (GENITO/STI) Lab Routine STD exposure Ordered: 07/28/2024 [facility] Comment on above: Ordered: 07/28/2024 Cytology Cervical or vaginal smear or scraping study Pap Smear Pathology and Cytology Routine Well woman exam with routine gynecological exam Ordered: 07/28/2024 [facility] Comment on above: Ordered: 07/28/2024 Hemoglobin A1c/Hemoglobin.total in Blood Hemoglobin A1c Lab Routine Missed menses , unspecified gestational age Ordered: 06/10/2024 [facility] Comment on above: Ordered: 06/10/2024 Hepatitis B virus surface Ag [Presence] in Serum or Plasma by Immunoassay Hepatitis B surface antigen Lab Routine Missed menses , unspecified gestational age Ordered: 06/10/2024 [facility] Comment on above: Ordered: 06/10/2024 Hepatitis C virus Ab [Presence] in Serum or Plasma by Immunoassay Hepatitis C antibody Lab Routine Missed menses , unspecified gestational age Ordered: 06/10/2024 [facility] Comment on above: Ordered: 06/10/2024 HIV-1/HIV-2 antigen/antibody combination immunoassay HIV-1 and HIV-2 antibodies Lab Routine Missed menses , unspecified gestational age Ordered: 06/10/2024 [facility] Comment on above: Ordered: 06/10/2024 Neisseria gonorrhoea e DNA [Presence] in Unspecified specimen by ALISSON with probe detection Neisseria gonorrhea DNA probe, direct Lab Routine STD exposure Ordered: 07/28/2024 [facility] Comment on above: Ordered: 07/28/2024 Reagin Ab [Presence] in Serum by RPR RPR Lab Routine Missed menses , unspecified gestational age Ordered: 06/10/2024 [facility] Comment on above: Ordered: 06/10/2024 Rubella antibody, IgG Rubella an tibody, IgG Lab Routine Missed menses , unspecified gestational age Ordered: 06/10/2024 [facility] Comment on above: Ordered: 06/10/2024 SURESWAB(R) ADVANCED VAGINITIS PLUS, TMA SURESWAB(R) ADVANCED VAGINITIS PLUS, TMA Pathology and Cytology Routine Vaginal discharge Ordered: 07/28/2024 [facility] Work Phone: Comment on above: Ordered: 07/28/2024 [facility] Payers Date Payer Category Payer Medicaid (Managed Care) 1.2. [id number] 1996 Unknown [id number] 2.16.840.1.997287.3.579.2.5 1996 Unknown [id number] 2.16.840.1.828905.3.579.2.5 1996 Unknown [id number] 2.16.840.1.327385.3.579.2.5 1996 Unknown [id number] 2.16.840.1.907637.3.579.2.5 1996 Unknown [id number] 2.16.840.1.167498.3.579.2.5 1996 Unknown [id number] 2.16.840.1.740005.3.579.2.5 1996 Unknown [id number] 2.16.840.1.996567.3.579.2.5 1996 Unknown [id number] 2.16.840.1.824591.3.579.2.5 1996 Unknown [id number] 2.16.840.1.915276.3.579.2.5 1996 Unknown [id number] 2.16.840.1.432014.3.579.2.5 93 1996 Unknown [id number] 2.16.840.1.418716.3.579.2.1 259 1996 Unknown [id number] 2.16.840.1.580660.3.579.2.1 259 1996 Unknown [id number] 2.16.840.1.965786.3.579.2.1 259 1996 Unknown [id number] 2.16.840.1.802978.3.579.2.1 259 1996 Unknown [id number] 2.16.840.1.386046.3.579.2.1 259 1974 Unknown [id number] 2.16.840.1.024126.3.579.2.5 93 1974 Unknown [id number] 2.16.840.1.121714.3.579.2.5 93 1959 Private Health Insurance [id number] 1959 Unknown [id number] 1947 Unknown [id number] 2.16.840.1.224181.3.579.2.5 93 1947 Unknown [id number] 2.16.840.1.871360.3.579.2.5 93 Unknown [facility] [id number] Social History Date Type Detail Facility Unknown if ever smoked [facility] Other Sex Assigned At [facility] Start: 11-27-2023 End: 11-27-2023 Tobacco smoking status FLIS Never smoked tobacco (finding) [facility] Start: 1995 Sex Assigned At Female F [facility] Tobacco smoking status FLIS Tobacco smoking consumption unknown [facility] Start: 05-27-2024 Gender identity Identifies as female gender (finding) [facility] Start: 04-17-2024 [facility] Start: 08-19-2024 Sex Female (finding) [facility] Goals Date Patient Goal Desired Activity /State Personal health goal Clinical Notes 08-19-2023 to 08-30-2024 Kimberly EarlJOSE MARTIN - 08/30/2024 2:10 PM EST Note Date & Type Note Facility 08-30-2024 History of Presen t illness Narrative Reason for Appointment: Patient ID: Alphonse Rodriguez is a 28 y.o. female who presents for Routine Visit Patient presents today for Return OB appointment. MEDICATIONS No current outpatient [...] nursing note reviewed. Exam conducted with a utility spray operator present. Vitals: Estimated body mass index is 35.47 kg/m as calculated from the following: Height as of 02/07/22: 5' 5 . Weight as of this encounter: 213 lb 1.9 oz. BP: 120/76 Patient's last menstrual period was 04/03/2024. ASSESSMENT & PLAN ICD-10-CM 1. 21 weeks gestation of Z3A.21 POCT urinalysis dipstick manually resulted 2. Second trimester Z34.92 POCT urinalysis dipstick manually resulted 3. Diabetes mellitus screening Z13.1 CBC Glucose tolerance, 1 hour CBC Glucose tolerance, 1 hour Patient presents today for a routine obstetrics appointment. Patient is currently 21w2d with a Estimated Date of Delivery: 01/08/25. Patient given orders for CBC and 1hr gtt. Patient to return to clinic in 4 weeks for routine OB care appointment. Documented by Kimberly Earl LPN on behalf of: Roberto Benavides DO documented in this encounter [facility] 08-19-2024 Evaluation note Diagnosis Onset Date Resolution RSV (acute bronchiolitis due to respiratory syncytial virus) acute August 19 12:22pm Contact with and (suspected) exposure to covid-19 noneactive August 19 12:22pm [facility] Work Phone: [phone] 537-427412-11-2024 History of Present illness Narrative* EMILY Segundo - 07/28/2024 2:30 PM EST Reason for Appointment: Patient ID: Alphonse Rodriguez [...] nursing note reviewed. Exam conducted with a utility spray operator present. Vitals: Estimated body mass index is [...] behalf of: EMILY Segundo documented in this encounterSaint John's Health [id number] History of Present illness Narrative* Kimberly Mady, WEIGHT LOSS CONSULTANT - 06/28/2024 1:20 PM EST Reason for Appointment: Patient ID: Alphonse Rodriguez [...] nursing note reviewed. Exam conducted with a utility spray operator present. Vitals: Estimated body mass index is [...] or undercooked meat, and stay away from [facility]. Patient has been consulted regarding any further do's and don'tsof . Patient voiced understanding and all questions and concerns were answered. Follow Up: Patient is to return in 4 weeks for routine OB appointment. Documented by Kimberly Earl LPN on behalf of: Roberto Benavides DO documented in this encounterSaint John's Health [id number] History of Present illness Narrative* Kerri Mejía LPN - 06/10/2024 2:30 PM EDT Reason for Appointment: Patient ID: Alphonse Rodriguez [...] drink 6-8 glasses of water a day, eatno raw or undercooked meat, and stay away from [facility]. Patient has also been advised to not change litter boxes and eat 6 small meals a day. Patient has been consulted regarding the do's and don'ts ofpregnancy. Patient was given labs and all questions [...] by: Kerri Mejía LPN documented in this encounterSaint John's Health [id number] Evaluation note* Encounter Date Diagnosis Assessment Notes Treatment Notes Treatment Clinical Notes Aug, Acute cough (ICD-10 - R05.1) [...] treatment plan. Patient left in stable condition [facility] Other Evaluation noteNo assessment information available [facility] Work Phone: Evaluation note* Diagnosis Missed menses , unspecified gestational age Encounter for supervision of normal first in first trimester Nausea and vomiting in Unspecified vomiting of , unspecified as to episode of care documented [facility]* Diagnosis Second trimester state, incidental 12 weeks gestation of documented in this encounter [facility]* Diagnosis Screening, , for anatomic survey Encounter for anatomic survey Well woman exam with routine gynecological exam Routine gynecological examination Second trimester state, incidental 16 weeks gestation of Vaginal discharge Leukorrhea, not specified as infective STD exposure documented [facility] this encounter [facility]* Diagnosis 21 weeks gestation of Second trimester state, incidental Diabetes mellitus screening Screening for diabetes mellitus documented in this encounter [facility] general Narrative - Reported* Type Description Date Medical History asthma Medical History gestational hypertension [facility] Other Summary Purpose Family History No Family History Records Found Relationship Condition Age at Onset Recorded Date/T kishore father Hypertension Unknown Advance Directives No Advanced Directives Records Found Advance Directive Response Recorded Date/ Time Advance Directives No November 26 1:39pm Advance Directive Response Recorded Date/ Time Advance Directives No November 26 12:39pm Chief Complaint and Reason for Visit [...] section and content) DATE CREATED AUTHOR 03/31/2020 [facility] DATE CREATED AUTHOR AUTHOR'S ORGANIZ ATION 09/02/2024 [facility] EPIC REASON FOR VISIT (unrecogniz ed section and content) Reason Comments Amenorrhea Reason Comments Routine Visit Reason Comments Routine Visit Well Women Visit STI Screening Care Teams (unrecognized sec tion and content) Team Status: Active Member Role Status Prakash Uriarte MD Primary Care Provider Active Team Status: Inactive Member Role Status Dates Татьяна Uriarte MD Primary Care Provider Active Start: November 27, 2023 End: November 27, 2023 YELITZA Orozco Attending Provider Active S tart: November 27, 2023 End: November 27, 2023 Sales Agent Business Services Relationship Specialty Start Date End Date Татьяна Uriarte MD [address] [place] [facility] [place] [address] PCP - General Family Medicine 06/10/24 Sales Agent Business Services Relationship Specialty Start Date End Date Татьяна Uriarte MD [address] [place] [facility] [place] [address] PCP - General Family Medicine 06/10/24 Sales Agent Business Services Relationship Specialty Start Date End Date Татьяна Uriarte MD [address] [place] [facility] [place] [address] PCP - General Family Medicine 06/10/24 Sales Agent Business Services Relationship Specialty Start Date End Date Татьяна Uriarte MD [address] [place] [facility] [place] [address] PCP - General Family Medicine 06/10/24 Sales Agent Business Services Relationship Specialty Start Date End Date Татьяна Uriarte MD [address] [place] [facility] [place] [address] PCP - General Family Medicine 06/10/24 Team Status: Inactive Member Role Status Dates Татьяна rUiarte MD Primary Care Provider Active Start: August 19, 2024 End: August 19, 2024 Aileen Calero APRN Attending Provider Active S tart: August 19, 2024 End: August 19, 2024 Sales Agent Business Services Relationship Specialty Start Date End Date Татьяна Uriarte MD [address] [place] [facility] [place] [address] PCP - General Family Medicine 06/10/24 Goals [...] BE BASED ON THE PRIMARY CLINICAL RECORDS. [facility] [email or web address] [facility]. provides no warranty or guarantee of the accuracy or completeness of information in this document.
[2024-09-24 10:48] LABS: Basophils Percent Auto 0.3 % (0.2-2.0); Eosinophils Absolute Auto 0.1 10^3/uL (0.0-0.7); Eosinophils Percent Auto 0.8 % (0.9-7.0); Hematocrit 34.2 % (36.0-48.0); Hemoglobin 11.4 g/dL (12.0-16.0); Immature Granulocytes Abs Auto 0.08 10^3/uL (0.00-0.03); Immature Granulocytes Pct Auto 0.6 % (0.0-0.5); Lymphocytes Absolute Auto 2.9 10^3/uL (1.2-3.8); Lymphocytes Percent Auto 21.6 % (20.5-60.0); Mean Corpuscular HGB Conc 33.3 g/dL (29.9-35.2); Mean Corpuscular Hemoglobin 29.2 pg (26.7-34.0); Mean Corpuscular Volume 87.7 fL (81.0-99.0); Mean Platelet Volume 9.6 fL (9.5-13.5); Monocytes Absolute Auto 0.7 10^3/uL (0.3-0.8); Monocytes Percent Auto 4.9 % (1.7-12.0); Neutrophils Absolute Auto 9.7 10^3/uL (1.4-6.5); Neutrophils Percent Auto 71.8 % (43.0-75.0); Platelet Count 303 10^3/uL (150-450); Red Cell Distribution Width 13.7 % (11.0-15.0); White Blood Count 13.5 10^3/uL (4.0-11.0)
[2024-09-24 11:44] LABS: Glucose 1 Hour 132 mg/dL (<130)
== END 2024-09-24 09:29 | disposition home or self-care (01) ==
LOC: LAB 09:29
PROVIDERS: Visit Provider Obstetrics & Gynecology
DX: Z13.1 Encounter for screening for diabetes mellitus (principal)
CPT/HCPCS: 36415; 82950; 85025

== ENCOUNTER 2024-12-16 08:09 | Outpatient (REF) | payer OTHER, SELFPAY | END 2024-12-16 08:10 | disposition home or self-care (01) | LOC: LAB 08:09 | PROVIDERS: Visit Provider Nurse Practitioner Family | DX: Z34.93 Encounter for supervision of normal pregnancy, unspecified, third trimester (principal) | CPT/HCPCS: 87081; 87184 ==

== ENCOUNTER 2024-12-27 15:12 | Inpatient (IN) | payer OTHER, SELFPAY ==
[2024-12-27] VITALS (34 sets, daily range): BP systolic 116–178; BP diastolic 60–98; PULSE 77–96; TEMP 35.9–36.6
[2024-12-27 15:47] LABS: Basophils Percent Auto 0.3 % (0.2-2.0); Eosinophils Absolute Auto 0.1 10^3/uL (0.0-0.7); Eosinophils Percent Auto 0.6 % (0.9-7.0); Hemoglobin 11.7 g/dL (12.0-16.0); Immature Granulocytes Pct Auto 0.8 % (0.0-0.5); Lymphocytes Absolute Auto 3.1 10^3/uL (1.2-3.8); Lymphocytes Percent Auto 23.7 % (20.5-60.0); Mean Corpuscular HGB Conc 34.4 g/dL (29.9-35.2); Mean Corpuscular Hemoglobin 29.5 pg (26.7-34.0); Mean Corpuscular Volume 85.9 fL (81.0-99.0); Mean Platelet Volume 10.9 fL (9.5-13.5); Monocytes Absolute Auto 1.3 10^3/uL (0.3-0.8); Monocytes Percent Auto 9.5 % (1.7-12.0); Neutrophils Absolute Auto 8.6 10^3/uL (1.4-6.5); Neutrophils Percent Auto 65.1 % (43.0-75.0); Platelet Count 273 10^3/uL (150-450); Red Blood Count 3.96 10^6/uL (4.20-5.40); Red Cell Distribution Width 14.1 % (11.0-15.0); White Blood Count 13.3 10^3/uL (4.0-11.0)
[2024-12-27 15:57] LABS: Bilirubin Urine NEGATIVE (NEGATIVE); Blood Urine TRACE-I (NEGATIVE); Clarity Urine CLEAR (CLEAR); Color Urine LT. YELLOW (YELLOW); Glucose Urine UA NEGATIVE (NEGATIVE); Ketones Urine NEGATIVE (NEGATIVE); Leukocyte Esterase Urine SMALL (NEGATIVE); Nitrite Urine NEGATIVE (NEGATIVE); Protein Urine NEGATIVE (NEG/TRACE); Specific Gravity Urine <=1.005 (1.005-1.025); Urobilinogen Urine 0.2 EU/dL (0.2-1.0); pH Urine 6.5 (5.0-9.0)
[2024-12-27 15:58] LABS: Urine Microscopic Indicated YES
[2024-12-27 16:03] LABS: Alanine Aminotransferase 14 U/L (14-59); Aspartate Amino Transferase 13 U/L (15-37); Estimated GFR (African America >60 (>=60 mL/min/1.73m^2); Estimated GFR (Non-African Ame >60 (>=60 mL/min/1.73m^2); Uric Acid 4.1 mg/dL (2.6-6.0)
[2024-12-27 16:03] LABS: Creatinine Urine Random <13.00 mg/dL (20.00-300.00); Total Protein Urine Random <6.0 mg/dL (<=11.9)
[2024-12-27 16:10] LABS: Partial Thromboplastin Time 25.6 sec (22.3-36.2); Prothrombin Time 9.5 sec (9.0-11.6)
[2024-12-27 16:12] LABS: Bacteria Urine SMALL #/HPF (NONE SEEN); RBC Urine 0-2 #/HPF (0-2)
[2024-12-27 16:13] LABS: Cast Seen? NONE SEEN #/LPF (NONE SEEN); Crystals Seen? None Seen #/HPF (None Seen); Mucus Urine NONE SEEN (NONE SEEN); Squamous Epithelial Cell Urine MODERATE #/LPF (NONE/RARE); Urine Culture Indicated YES-LC
[2024-12-27 16:16] LABS: INR <0.93
[2024-12-27 16:18] LABS: Fibrinogen 376 mg/dL (200-400)
[2024-12-27] MEDS: LABETALOL HCL 20 MG/4 ML SYRINGE IVP (17:18)
[2024-12-27 17:27] LABS: Amphetamine Screen Urine NEGATIVE (NEGATIVE); Barbiturates Screen Urine NEGATIVE (NEGATIVE); Benzodiazepines Screen Urine NEGATIVE (NEGATIVE); Buprenorphine Screen Urine NEGATIVE (NEGATIVE); Cannabinoid Screen Urine NEGATIVE (NEGATIVE); Cocaine Screen Urine NEGATIVE (NEGATIVE); Methadone Screen Urine NEGATIVE (NEGATIVE); Methamphetamines Screen Urine NEGATIVE (NEGATIVE); Opiate Screen Urine NEGATIVE (NEGATIVE); Oxycodone Screen Urine NEGATIVE (NEGATIVE); Phencyclidine Screen Urine NEGATIVE (NEGATIVE); Tricyclic Antidepressant Urine NEGATIVE (NEGATIVE)
[2024-12-27] MEDS: MISOPROSTOL 100 MCG TABLET 25 MCG VAGINAL ×3 (18:04→23:59)
[2024-12-27] MEDS: LABETALOL HCL 100 MG TABLET 200 MG PO (19:45)
[2024-12-28] VITALS (58 sets, daily range): BP systolic 101–159; BP diastolic 51–94; PULSE 75–116; TEMP 35.5–36.9
[2024-12-28] MEDS: 0.9 % SODIUM CHLORIDE 1,000 ML 125 ML IV (04:30)
[2024-12-28] MEDS: 0.9 % SODIUM CHLORIDE 1,000 ML 1000 ML IV (06:12)
[2024-12-28] MEDS: CEFAZOLIN SODIUM/DEXTROSE,ISO 2 GM/50 ML PIGGYBACK IV (06:13)
[2024-12-28] MEDS: OXYTOCIN/0.9 % SODIUM CHLORIDE 10 UNITS/500 ML PLAST..BAG 6 UNIT IV (06:13)
[2024-12-28] MEDS: CALCIUM CARBONATE 500 MG (200MG ELEMENTAL) TAB CHEW PO (06:25)
[2024-12-28] MEDS: ONDANSETRON PF 4 MG/2 ML VIAL IV (06:26)
[2024-12-28] MEDS: ROPIVACAINE HCL/PF 400 MG/200 ML PREMIX 8 MG EPIDURAL (07:20)
--- NOTE | 2024-12-28 08:54 | PM.OBPRCVD ---
Procedure Intrapartal events: None Induction method: per misoprostol protocol Delivery augmentation: rupture of membranes and pitocin Delivery monitor: external FHT and external uterine Route of delivery: Episiotomy Description: none L&D Laceration Description: periurethral - 1st degree Delivery repair: Vicryl Estimated blood loss (mL): 300 Anesthesia type: Epidural Disposition: floor Infant Delivery date: 12/28/24 Gender: male presentation: vertex Placental delivery description: Spontaneous cord description: 3 Vessels and Nuchal Cord
[2024-12-28] MEDS: OXYTOCIN/0.9 % SODIUM CHLORIDE 20 UNITS/1,000 ML PLAST..BAG 125 UNIT IV (09:10)
[2024-12-28] MEDS: IBUPROFEN 600 MG TABLET PO (09:20)
[2024-12-28] MEDS: BENZOCAINE/MENTHOL 85 GRAM SPRAY BOTTLE 1 APPLIC TOPICAL (09:21)
[2024-12-28] MEDS: GLYCERIN/WITCH HAZEL PADS 1 PAD TOPICAL (09:21)
[2024-12-28] MEDS: LABETALOL HCL 100 MG TABLET PO (23:23)
[2024-12-29 04:18] VITALS: BP 115/77; PULSE 88
[2024-12-29 06:22] LABS: Basophils Absolute Auto 0.1 10^3/uL (0.0-0.1); Basophils Percent Auto 0.4 % (0.2-2.0); Eosinophils Absolute Auto 0.1 10^3/uL (0.0-0.7); Eosinophils Percent Auto 0.4 % (0.9-7.0); Hematocrit 31.8 % (36.0-48.0); Hemoglobin 10.7 g/dL (12.0-16.0); Immature Granulocytes Abs Auto 0.09 10^3/uL (0.00-0.03); Immature Granulocytes Pct Auto 0.7 % (0.0-0.5); Lymphocytes Absolute Auto 3.3 10^3/uL (1.2-3.8); Lymphocytes Percent Auto 24.3 % (20.5-60.0); Mean Corpuscular HGB Conc 33.6 g/dL (29.9-35.2); Mean Corpuscular Hemoglobin 29.6 pg (26.7-34.0); Mean Corpuscular Volume 88.1 fL (81.0-99.0); Mean Platelet Volume 10.9 fL (9.5-13.5); Monocytes Absolute Auto 1.1 10^3/uL (0.3-0.8); Monocytes Percent Auto 8.3 % (1.7-12.0); Neutrophils Absolute Auto 8.8 10^3/uL (1.4-6.5); Neutrophils Percent Auto 65.9 % (43.0-75.0); Platelet Count 246 10^3/uL (150-450); Red Blood Count 3.61 10^6/uL (4.20-5.40); Red Cell Distribution Width 14.6 % (11.0-15.0); White Blood Count 13.4 10^3/uL (4.0-11.0)
[2024-12-29 09:16] VITALS: BP 137/89; PULSE 102
[2024-12-29] MEDS: ONDANSETRON PF 4 MG/2 ML VIAL IV (09:21)
[2024-12-29] MEDS: DOCUSATE SODIUM 100 MG CAPSULE PO ×2 (09:23→21:19)
--- NOTE | 2024-12-29 09:41 | PM.OBPN ---
OB - PN: Subj Subjective Interval history: Pt is pp#1 s/p Patient comments: no complaints, pain well controlled, tolerating diet and flatus present Exam Constitutional Vital Signs, click to edit/add: Last Vital Signs Temp 95.9 F L 12/28/24 23:11 Pulse 102 H 12/29/24 09:16 Resp 16 12/28/24 16:30 BP 137/89 12/29/24 09:16 O2 Del Method Room Air 12/28/24 23:15 Documenting provider has reviewed patient's vital signs: yes Common normals: no apparent distress, average body habitus, oriented x3, no limitations, healthy appearing, alert and well nourished Nutritional appearance: other (Normal appearance) Orientation/consciousness: Yes awake, Yes oriented to person, Yes oriented to place and Yes oriented to time GI Common normals: Normal to inspection, nondistended, normoactive bowel sounds present (Fundus firm and contracted and 1 fingerbreadth below the umbilicus.) Inspection: normal to inspection Uterus palpation: other (1 fingerbreadth below umbilicus) Back & Pelvis Other: Mild lochia rubra present Psych Common normals: mental status grossly normal, thought process normal, cooperative, affect normal, speech normal, activity/motor behavior normal and denies hallucinations (No evidence of depression.) Appearance: grossly normal Attitude: calm Results Labs Labs: Short CBC 12/29/24 Range/Units 06:08 WBC 13.4 H (4.0-11.0) 10^3/uL Hgb 10.7 L (12.0-16.0) g/dL Hct 31.8 L (36.0-48.0) % Plt Count 246 (150-450) 10^3/uL OB - PN: A/P Assessment and Plan (1) care following vaginal delivery: Plan Patient is post probably #1 progressing well. Will continue supportive care. Plan - Vaginal Delivery day: 1 Plan: routine care Comment: Will continue supportive care. Time Spent with Patient Time: Total time spent is greater than 50% in coordination of care (as documented) at patient's floor/unit and/or counseling patient: Total time spent with greater than 50% in coordination of care (as documented) at patient's floor/unit and/or counseling patient: less than 15 minutes
[2024-12-29 16:13] VITALS: BP 128/72; PULSE 83
--- NOTE | 2024-12-29 19:28 | W.PC.ACHO ---
Registration Status: ADM IN Primary Language: Guamanian Preferred Language: Guamanian Report given to Coco ADHIKARI at 1910. Care relinquished. Active Medications Generic Name Dose Route Start Last Admin Trade Name Shanice PRN Reason Stop Dose Admin Acetaminophen 650 mg 12/28/24 08:55 Acetaminophen 325 Mg Tablet PO Q6H PRN Mild Pain Al Hydroxide/Mg Hydroxide 2,400 mg 12/28/24 08:55 Magnesium Hydroxide 2,400 Mg/10 Ml Oral.Susp PO Q6H PRN Dyspepsia Benzocaine/Menthol 1 applic 12/28/24 08:55 12/28/24 09:21 Benzocaine/Menthol 85 Gram Pablo Bottle TOPICAL 1 applic Q2H PRN Administration Pain Calcium Carbonate 500 mg 12/28/24 06:17 12/28/24 06:25 Calcium Carbonate 500 Mg (200mg Elemental) Tab Chew PO 500 mg TID PRN Administration Heartburn Diphtheria/Pertussis/Tetanus Vacc 0.5 ml 12/30/24 09:00 Adacel Diph,Pertuss(Acell),Tet Vac/Pf 0.5 Ml Adult Syringe IM 12/30/24 09:01 .ONCE ONE Docusate Sodium 100 mg 12/29/24 09:00 12/29/24 09:23 Docusate Sodium 100 Mg Capsule PO 100 mg BID PRINCE Administration Sodium Chloride 1,000 mls @ 125 mls/hr 12/27/24 16:30 12/28/24 09:00 Sodium Chloride 0.9% 1,000 Ml IV Infused .Q8H PRINCE Infusion Ibuprofen 600 mg 12/28/24 08:55 12/28/24 09:20 Ibuprofen 600 Mg Tablet PO 600 mg Q6H PRN Administration Moderate Pain Measles/Mumps/Rubella Vaccine Live 0.5 ml 12/30/24 09:00 Measles,Mumps,Rubella Vacc/Pf 0.5 Ml Vial SQ 12/30/24 09:01 .ONCE ONE Ondansetron HCl 4 mg 12/27/24 16:16 12/29/24 09:21 Ondansetron Pf 4 Mg/2 Ml Vial IV 4 mg Q6H PRN Administration Nausea And Vomiting Ondansetron HCl 4 mg 12/27/24 16:16 Ondansetron 4 Mg Rapdis Tablet SL Q6H PRN Nausea And Vomiting Senna 17.2 mg 12/28/24 20:00 Sennosides 8.6 Mg Tablet PO QHS PRN Constipation Simethicone 80 mg 12/28/24 08:55 Simethicone 80 Mg Tab.Chew PO QID PRN Abdominal Distention Temazepam 15 mg 12/28/24 08:55 Temazepam 15 Mg Capsule PO QHS PRN Sleep Witch Berna/Glycerin 1 pad 12/28/24 08:55 12/28/24 09:21 Glycerin/Witch Berna Pads TOPICAL 1 pad Q2H PRN Administration Pain Respiratory Oxygen Delivery Method Room Air Oxygen Delivery Method Room Air Oxygen Delivery Method Room Air Cardiology Heart Sounds Strong,Regular Heart Sounds Strong,Regular Bowels Bowel Pattern No Bowel Movement Renal Bladder Pattern Continent Bladder Pattern Continent Bladder Pattern Continent
[2024-12-29] MEDS: IBUPROFEN 600 MG TABLET PO (21:19)
[2024-12-29 22:05] VITALS: TEMP 36.4
[2024-12-29 22:06] VITALS: BP 132/74; PULSE 83
[2024-12-30 08:20] VITALS: BP 143/77; PULSE 90; TEMP 37.1
[2024-12-30 08:24] VITALS: BP 143/77; PULSE 90
[2024-12-30] MEDS: DOCUSATE SODIUM 100 MG CAPSULE PO (08:26)
--- NOTE | 2024-12-30 09:31 | PM.OBPN ---
OB - PN: Subj Subjective Interval history: Pt is pp#2 s/p Patient comments: no complaints, pain well controlled, tolerating diet and flatus present [place] feeding status: exclusively Exam Narrative Exam Narrative: General appearance: Alert and oriented without any distress. Constitutional Vital Signs, click to edit/add: Last Vital Signs Temp 98.8 F 12/30/24 08:20 Pulse 90 12/30/24 08:24 Resp 16 12/30/24 08:20 BP 143/77 H 12/30/24 08:24 O2 Del Method Room Air 12/29/24 22:44 Common normals: no apparent distress, average body habitus, oriented x3, no limitations, healthy appearing, alert and well nourished General appearance: cooperative, comfortable, well kempt and well developed Orientation/consciousness: Yes awake, Yes oriented to person, Yes oriented to place and Yes oriented to time GI Common normals: Normal to inspection, nondistended, normoactive bowel sounds present, soft to palpation and non-tender Palpation: soft (Fundus firm contracted 2 fingerbreadths below the umbilicus.) Back & Pelvis Pelvis: other (Mild lochia rubra is present) Extremity Common normals: normal to inspection, no calf tenderness and no pedal edema Psych Common normals: mental status grossly normal, thought process normal, cooperative, affect normal and speech normal Appearance: grossly normal and well kempt Attitude: calm and engaged Activity/motor behavior: appropriate eye contact OB - PN: A/P Assessment and Plan (1) care following vaginal delivery: Assessment and Plan: Patient day #2 doing well. Patient for discharge to home today Plan Patient is day #2 doing well. Patient is for discharge to home today. Plan - Vaginal Delivery day: 2 Plan: routine care, discharge home and follow up 6 weeks Time Spent with Patient Time: Total time spent is greater than 50% in coordination of care (as documented) at patient's floor/unit and/or counseling patient: Total time spent with greater than 50% in coordination of care (as documented) at patient's floor/unit and/or counseling patient: less than 15 minutes
--- NOTE | 2024-12-30 09:39 | PM.OBDS ---
DS: Providers Provider Date of admission: 12/27/24 15:12 Primary care physician: Non-Staff Physician, Admitting clinician: Byron Benavides Attending physician on admission: Byron Benavides Attending physician on discharge: Rashid Erickson Discharging clinician: Rashid Erickson Anticipated date of discharge: 12/30/24 DS: Diagnosis Discharge Diagnosis (1) care following vaginal delivery: Assessment and plan: day #2. Patient for discharge home today Plan Post primary #2. Patient for discharge home today OB - DS: Summary Hospital Course Hospital Course: Benign course. Time spent discussing smoking cessation with patient: 3 to 10 minutes Peripartum Data - Vaginal Delivery Laceration description: periurethral - 2nd degree Episiotomy Description: none Procedures: Normal spontaneous vaginal delivery Complications complications: none Delivery method: spontaneous vaginal delivery Gender: male Discharge plan: home Status at Discharge Cognitive/behavioral status at discharge: Within normal limits. Functional status at discharge: independent ambulation Overall status at discharge: patient is back to baseline Time Spent with Patient Time attestation: Total time spent providing and/or coordinating discharge services: Time spent: less than 30 minutes Specific discharge activities: Patient may resume normal activities as tolerated. Exam Narrative Exam Narrative: General appearance: Alert and oriented without distress. Constitutional Vital Signs, click to edit/add: Last Vital Signs Temp 98.8 F 12/30/24 08:20 Pulse 90 12/30/24 08:24 Resp 16 12/30/24 08:20 BP 143/77 H 12/30/24 08:24 O2 Del Method Room Air 12/29/24 22:44 Documenting provider has reviewed patient's vital signs: yes Common normals: no apparent distress, average body habitus, oriented x3 and no limitations General appearance: cooperative, comfortable, well kempt and well developed Orientation/consciousness: Yes awake, Yes oriented to person, Yes oriented to place and Yes oriented to time GI Common normals: Normal to inspection, nondistended, normoactive bowel sounds present, soft to palpation and non-tender (Fundus firm and contracted into fingerbreadths below the umbilicus.) Back & Pelvis Pelvis: other (Mild lochia rubra) Extremity Common normals: normal to inspection, no calf tenderness and no pedal edema Discharge Plan Discharge Disposition: Home, Self-Care Condition: Good Assessment: Patient is day #2 doing well. Health Concerns: None Plan of Treatment: Discharge medications as prescribed Discharge Medications: New acetaminophen 325 mg Tablet 650 mg PO Q6H PRN (Reason: Mild Pain) Qty: 56 0RF Dermoplast (with menthol) 20-0.5 % Aerosol 1 spray topical Q2H PRN (Reason: Pain) Qty: 14 0RF calcium carbonate 200 mg calcium (500 mg) Tablet,Chewable 500 mg PO TID PRN (Reason: Heartburn) Qty: 60 0RF ibuprofen 600 mg Tablet 600 mg PO Q6H PRN (Reason: Moderate Pain) Qty: 60 0RF simethicone [Gas Relief 80 (simethicone)] 80 mg Tablet,Chewable 80 mg PO QID PRN (Reason: Abdominal Distention) Qty: 60 0RF A.E.R. Witch Berna 12.5-50 % Pads, Medicated 1 pad topical Q2H PRN (Reason: Pain) Qty: 40 0RF Activity: resume usual activities as tolerated Diet: regular diet Print Language: [place] Islander Patient Instructions: Depression (GEN), Prevent [place] and Drops in the Hospital (GEN) Forms: Vaginal Delivery - Discharge, Portal Instructions Follow Up Appointments: Patient to schedule appointment for 6 weeks.
== END 2024-12-30 11:00 | disposition home or self-care (01) | DRG 560 ==
PROVIDERS: Admitting Provider Obstetrics & Gynecology; Visit Provider Obstetrics & Gynecology
DX: O13.4 Gestational [pregnancy-induced] hypertension without significant proteinuria, complicating childbirth (principal); Z3A.38 38 weeks gestation of pregnancy; Z37.0 Single live birth; O71.82 Other specified trauma to perineum and vulva; O69.81X0 Labor and delivery complicated by cord around neck, without compression, not applicable or unspecified; O99.52 Diseases of the respiratory system complicating childbirth; J45.909 Unspecified asthma, uncomplicated; Z88.1 Allergy status to other antibiotic agents; Z23 Encounter for immunization; Z79.899 Other long term (current) drug therapy; Z79.82 Long term (current) use of aspirin; Z88.0 Allergy status to penicillin; Z88.2 Allergy status to sulfonamides; Z91.040 Latex allergy status
CPT/HCPCS: 36415; 59025; 59050; 59410; 80307; 81001; 82565; 82570; 84156; 84450; 84460; 84520; 84550; 85025; 85384; 85610; 85730; 86850; 86900; 86901; 87086; J0690; J1920; J2405; J2795

== ENCOUNTER 2025-01-03 08:30 | Outpatient (OUT) | payer OTHER, SELFPAY ==
--- OUTSIDE RECORDS SUMMARY | 2025-01-03 08:53 | XMS_ITS | CCD ---
Author Organization [facility] CliniSyny Care Team Providers Care Mechanical Planner Name Role Phone HOY, ТАТЬЯНА Admitting Unavailable [...] JOANNE Consulting Unavailable KENNEDY, ROBERTO Consulting Unavailable BRYAN, RAN L Consulting Unavailable KARASIK, JOANNE Procedure Practitioner Unavaila Marti Casillas Unavailable Татьяна Uriarte MD Primary Care Provider [phone] Татьяна Uriarte MD Primary Care Provider [phone] BECCA GOMEZ Attending Unavailable BECCA GOMEZ Attending Unavailable BECCA GOMEZ Referring Unavailable ROBERTO BENAVIDES Attending Unavailable ROBERTO BENAVIDES Attending Unavailable ROBERTO BENAVIDES Attending Unavailable BECCA GOMEZ Attending Unavailable KENNEDY, ROBERTO Attending Unavailable CAROLA HARLEY Attending Unavailable BECCA GOMEZ Attending Unavailable ROBERTO BENAVIDES Attending Unavailable Allergies Allergy Classification Reported Allergen(s) Allergy Type Date of Onset Reaction(s) Facility (1 source) Latex Drug allergy (disorder) 10-09-18 97 [facility] Repository (1 source) Penicillin Drug Allergy 05-27-20 15 [facility] Repository (1 source) Sulfamethoxazole / Trimethoprim Drug Allergy 05-23-20 15 [facility] Repository (3 sources) penicillAMINE Drug Allergy 11-27-19 24 [facility] (20 sources) Sulfamethoxazole / Trimethoprim Drug Allergy 06-10-20 24 anaphylaxis, Palpitations, Shortness of breath [employer] Other (2 sources) Sulfamethoxazole Drug Allergy 11-27-19 24 anaphylaxis [facility] (20 sources) Trimethoprim Drug Allergy 11-27-19 24 anaphylaxis [facility] (20 sources) Latex Propensity to adverse reactions 06-10-20 24 Rash [facility] (20 sources) penicillAMINE Drug Allergy 11-27-19 24 [facility] (20 sources) Penicillins Drug Allergy 06-10-20 24 Itching, Rash [facility] (20 sources) Sulfonamides (Antibiotic) Drug Allergy 11-27-19 24 [facility] Medications Current Medications Medication Drug Class(es) Dates Sig (Normalized) Sig (Original) [id number] 200 actuat albuterol 0.09 mg/actuat metered dose inhaler (15 sources) beta2-Adrenergic Agonist albuterol 108 (90 Base) MCG/ACT inhaler Albuterol Sulfate HFA Active Ventolin HFA Not -Taking/PRN albuterol 108 (90 Base) MCG/ACT inhaler (2 sources) albuterol 108 (9 0 Base) MCG/ACT inhaler Albuterol Sulfate HFA Active aspirin 81 mg delayed release oral tablet (16 sources) Platelet Aggregation Inhibitor, Nonsteroidal Anti-inflammatory Drug take 1 tablet by mouth once daily aspirin 81 MG EC tablet Take 81 mg by mouth Daily Active Compressor, For Nebulizer device (1 source) Start: 08-19-19 End: 08-19-19 Compressor, For Nebulizer device Discontinued 0 .Route August 19, 2024 12:00am August 19, 2024 2:38pm As directed ondansetron 4 mg disintegrating oral tablet (5 sources) Serotonin-3 Receptor Antagonist Start: 06-10-20 End: 07-10-20 take 1 tablet by mouth every six hours for nausea ondansetron ODT (Zofran-ODT) 4 MG disintegrating tablet Indications: Nausea and vomiting in Take 1 tablet (4 mg) by mouth every 6 (six) hours if needed for nausea or vomiting 30 tablet 2 06/10/2024 07/10/2024 Active Completed/Discontinued Medications Medication Drug Class(es) Dates Sig (Normalized) Sig (Original) Aspir-81 (1 source) Aspir-81 Not-Taking/PRN fluticasone propionate [...] 03-17-2020 Chronic Other and delivery including normal (20 sources) Single live ; Translations: [Encounter for [...] of ] 08-30-2024 Episodic Residual codes; unclassified (2 sources) Gestation period, 25 weeks; Translations: [25 weeks gestation of ] 09-28-2024 Episodic Residual codes; unclassified (2 sources) Gestation period, 32 weeks; Translations: [32 weeks gestation of ] 11-15-2024 Episodic Residual codes; unclassified (2 sources) Gestation period, 34 weeks; Translations: [34 weeks gestation of ] 12-01-2024 Episodic Residual codes; unclassified (2 sources) Gestation period, 36 weeks; Translations: [36 weeks gestation of ] 12-16-2024 Episodic Residual codes; unclassified (2 sources) Gestation period, 37 weeks; Translations: [37 weeks gestation of ] 12-22-2024 Episodic Residual codes; unclassified (2 sources) Gestation period, 38 weeks; Translations: [38 weeks gestation of ] 12-27-2024 Episodic Residual codes; unclassified (1 source) 12 weeks gestation of ; Translations: [12 WEEKS GESTATION OF ] Onset: 09-08-2019 Residual codes; unclassified (1 source) 39 weeks gestation of ; Translations: [39 WEEKS GESTATION OF ] Onset: 03-17-2020 Unclassified (1 source) COVID-19; Translations: [COVID-19] Onset: 03-17-2020 Unclassified (20 sources) OB Reminders Onset: 07-22-2024 07-22-2024 Past [...] WITH AUTO DIFFon BASOPHILS ABSOLUTE AUTO 0.1 [facility] Basophils/100 WBC (Bld) 0.4 % 0.2 - 2.0 % [facility] Eosinophils/100 WBC (Bld) 0.4 % Low 0.9 - 7.0 % [facility] Erythrocyte distribution width (RBC) [Ratio] 14.6 % 11.0 - 15.0 % [facility] Hematocrit (Bld) [Volume fraction] 31.8 % Low 36.0 - 48.0 % [facility] Hemoglobin (Bld) [Mass/Vol] 10.7 g/dL Low 12.0 - 16.0 g/dL [facility] IMMATURE GRANULOCYTES ABS AUTO 0.09 High [facility] Immature granulocytes/100 WBC (Bld) 0.7 % High 0.0 - 0.5 % [facility] Interpretation and review of laboratory results Abnormal [facility] LYMPHOCYTES ABSOLUTE AUTO 3.3 [facility] Lymphocytes/100 WBC (Bld) 24.3 % 20.5 - 60.0 % [facility] MCH (RBC) [Entitic mass] 29.6 pg 26.7 - 34.0 pg [facility] MCHC (RBC) [Mass/Vol] 33.6 g/dL 29.9 - 35.2 g/dL [facility] MCV (RBC) [Entitic vol] 88.1 fL 81.0 - 99.0 fL [facility] MONOCYTES ABSOLUTE AUTO 1.1 High [facility] Monocytes/100 WBC (Bld) 8.3 % 1.7 - 12.0 % [facility] NEUTROPHILS ABSOLUTE AUTO 8.8 High [facility] Neutrophils/100 WBC (Bld) 65.9 % 43.0 - 75.0 % [facility] Platelet mean volume (Bld) [Entitic vol] 10.9 fL 9.5 - 13.5 fL [facility] EO # 0.1 [facility] TBH PLT 246 [facility] TB RBC 3.61 Low [facility] TBH WBC 13.4 High [facility] ALL CBC WITH AUTO DIFFon BASOPHILS ABSOLUTE AUTO 0 [facility] Basophils/100 WBC (Bld) 0.3 % 0.2 - 2.0 % [facility] Eosinophils/100 WBC (Bld) 0.6 % Low 0.9 - 7.0 % [facility] Erythrocyte distribution width (RBC) [Ratio] 14.1 % 11.0 - 15.0 % [facility] Hematocrit (Bld) [Volume fraction] 34 % Low 36.0 - 48.0 % [facility] Healthcar e Hemoglobin (Bld) [Mass/Vol] 11.7 g/dL Low 12.0 - 16.0 g/dL [facility] IMMATURE GRANULOCYTES ABS AUTO 0.1 High [facility] Immature granulocytes/100 WBC (Bld) 0.8 % High 0.0 - 0.5 % [facility] Interpretation and review of laboratory results Abnormal [facility] LYMPHOCYTES ABSOLUTE AUTO 3.1 [facility] Lymphocytes/100 WBC (Bld) 23.7 % 20.5 - 60.0 % [facility] MCH (RBC) [Entitic mass] 29.5 pg 26.7 - 34.0 pg [facility] MCHC (RBC) [Mass/Vol] 34.4 g/dL 29.9 - 35.2 g/dL [facility] MCV (RBC) [Entitic vol] 85.9 fL 81.0 - 99.0 fL [facility] MONOCYTES ABSOLUTE AUTO 1.3 High [facility] Monocytes/100 WBC (Bld) 9.5 % 1.7 - 12.0 % [facility] NEUTROPHILS ABSOLUTE AUTO 8.6 High [facility] Neutrophils/100 WBC (Bld) 65.1 % 43.0 - 75.0 % [facility] Platelet mean volume (Bld) [Entitic vol] 10.9 fL 9.5 - 13.5 fL [facility] EO # 0.1 [facility] TBH PLT 273 [facility] TB RBC 3.96 Low [facility] Healthcar e TBH WBC 13.3 High [facility] Healthcar e CL[facility] e Urinalysis macro (dipstick) panel (U)on 12-27-2024 Bilirubin, UA Negative Negative - 4(70) +++ mg/dL [facility] Blood, UA Negative Negative - 50 Leandro/mcL [facility] Clarity, UA Clear [facility] re Color, UA Yellow [facility] Glucose, UA Negative Negative - 1999(110) ++++ mg/dL [facility] Interpretation and review of laboratory results Normal [facility] Ketones, UA Negative Negative - 160(16) ++++ mg/dL [facility] Leukocytes, UA Negative Negative - 500+++ Therese/mcL [facility] Nitrite, UA Negative Negative - Positive [facility] pH, UA 5.5 5 - 9 [facility] Healthcar e Protein, UA Negative Negative - 1999(20) ++++ mg/dL [facility] Spec Grav, UA 1.025 1 - 1.03 [facility] Urobilinogen, UA 1.0 0.2 - 12 mg/dL [facility] Urinalysis macro (dipstick) panel (U)on 12-22-2024 Bilirubin, UA Negative Negative - 4(70) +++ mg/dL [facility] Blood, UA Negative Negative - 50 Leandro/mcL [facility] Clarity, UA Clear [facility] re Color, UA Yellow [facility] Health[facility] e Glucose, UA Negative Negative - 1999(110) ++++ mg/dL [facility] Interpretation and review of laboratory results Normal [facility] Ketones, UA Negative Negative - 160(16) ++++ mg/dL [facility] Leukocytes, UA Negative Negative - 500+++ Therese/mcL [facility] Nitrite, UA Negative Negative - Positive [facility] pH, UA 6.5 5 - 9 [facility] Protein, UA Negative Negative - 1999(20) ++++ mg/dL [facility] Spec Grav, UA 1.025 1 - 1.03 [facility] Urobilinogen, UA 0.2 0.2 - 12 mg/dL [facility] Urinalysis macro (dipstick) panel (U)on 12-16-2024 Bilirubin, UA Negative Negative - 4(70) +++ mg/dL [facility] Blood, UA Negative Negative - 50 Leandro/mcL [facility] Clarity, UA Clear [facility] Color, UA Yellow [facility] Glucose, UA Negative Negative - 1999(110) ++++ mg/dL [facility] Interpretation and review of laboratory results Normal [facility] Ketones, UA Negative Negative - 160(16) ++++ mg/dL [facility] Leukocytes, UA Negative Negative - 500+++ Therese/mcL [facility] Nitrite, UA Negative Negative - Positive [facility] pH, UA 5.5 5 - 9 [facility] Protein, UA Negative Negative - 1999(20) ++++ mg/dL [facility] Spec Grav, UA 1.025 1 - 1.03 [facility] Urobilinogen, UA 1.0 0.2 - 12 mg/dL [facility] US OB FOLLOW UP TRANSABDOMIN AL APPROACHon 11-15-2024 US OB FOLLOW UP TRANSABDOMINAL APPROACH EXAM: US OB FOLLOW UP TRANSABDOMINAL APPROACH HISTORY: Inconsistent size. COMPARISON: OB ultrasound [...] days (+/- 16 days gestation). Estimated Weight: 1992 grams, +/- 299 grams ( 4 lb 6 oz). Weight Percentile for gestational age: 47 % IMPRESSION: 1. Single, live intrauterine gestation 32 weeks, 2 days by LMP. Today's ultrasound measurements correlate with a gestational age of 32 weeks 4 days. Estimated weight is 1992 grams, +/- 299 grams ( 4 lb 6 oz) which correlates to 47 %. JAY is 01/06/2025. Electronically Signed:Electronicall y signed by CLARISSA TYLER II, MD, PHD at 16-Nov-2024 10:00:00 AM [facility] [place] [facility] Normal Not Available Comment on above: Order Comment: US OB SCAN FOR GROWTH Estimated Date of Delivery: 01/08/25 Gestational Age as of 11/01/2024: 30w2d Urinalysis macro (dipstick) panel (U)on 11-15-2024 Bilirubin, UA Negative Negative - 4(70) +++ mg/dL [facility] Blood, UA Negative Negative - 50 Leandro/mcL [facility] Clarity, UA Clear [facility] Color, UA Yellow [facility] Glucose, UA Negative Negative - 1999(110) ++++ mg/dL [facility] Interpretation and review of laboratory results Normal [facility] Ketones, UA Negative Negative - 160(16) ++++ mg/dL [facility] Leukocytes, UA Negative Negative - 500+++ Therese/mcL [facility] Nitrite, UA Negative Negative - Positive [facility] pH, UA 7 5 - 9 [facility] Healthcar e Protein, UA Negative Negative - 1999(20) ++++ mg/dL [facility] Spec Grav, UA 1.01 1 - 1.03 [facility] Urobilinogen, UA 0.2 0.2 - 12 mg/dL [facility] US OB LIMITED 1+ FETUSESon 0 09-28-2024 US OB LIMITED 1+ FETUSES EXAM: US OB LIMITED 1+ FETUSES HISTORY: Low-lying placenta. TECHNIQUE: Two-dimensional transabdominal grayscale [...] No evidence of a low-lying placenta. Electronically Signed:Electronicall y signed by CLARISSA TYLER II, MD, PHD at 01-Oct-2024 08:37:25 AM [facility] [place] [facility] Normal Not Available Comment on above: Order Comment: US OB PLACENTA W US OB TRANSVAGINAL Estimated Date of Delivery: 01/08/25 Gestational Age as of 09/02/2024: 22w2d Urinalysis macro (dipstick) panel (U)on 09-28-2024 Bilirubin, UA Negative Negative - 4(70) +++ mg/dL [facility] Blood, UA Negative Negative - 50 Leandro/mcL [facility] Clarity, UA Clear [facility] re Color, UA Yellow [facility] Glucose, UA Negative Negative - 1999(110) ++++ mg/dL [facility] Interpretation and review of laboratory results Normal [facility] Ketones, UA Negative Negative - 160(16) ++++ mg/dL [facility] Leukocytes, UA Negative Negative - 500+++ Therese/mcL [facility] Nitrite, UA Negative Negative - Positive [facility] pH, UA 7 5 - 9 [facility] e Protein, UA Negative Negative - 1999(20) ++++ mg/dL [facility] Spec Grav, UA 1.02 1 - 1.03 [facility] Urobilinogen, UA 0.2 0.2 - 12 mg/dL [facility] Health[facility] e ALL CBC WITH AUTO DIFFon BASOPHILS ABSOLUTE AUTO 0 [facility] Basophils/100 WBC (Bld) 0.3 % 0.2 - 2.0 % [facility] Eosinophils/100 WBC (Bld) 0.8 % Low 0.9 - 7.0 % [facility] Erythrocyte distribution width (RBC) [Ratio] 13.7 % 11.0 - 15.0 % [facility] Hematocrit (Bld) [Volume fraction] 34.2 % Low 36.0 - 48.0 % [facility] Hemoglobin (Bld) [Mass/Vol] 11.4 g/dL Low 12.0 - 16.0 g/dL [facility] IMMATURE GRANULOCYTES ABS AUTO 0.08 High [facility] Immature granulocytes/100 WBC (Bld) 0.6 % High 0.0 - 0.5 % [facility] Interpretation and review of laboratory results Abnormal [facility] LYMPHOCYTES ABSOLUTE AUTO 2.9 [facility] Lymphocytes/100 WBC (Bld) 21.6 % 20.5 - 60.0 % [facility] MCH (RBC) [Entitic mass] 29.2 pg 26.7 - 34.0 pg [facility] MCHC (RBC) [Mass/Vol] 33.3 g/dL 29.9 - 35.2 g/dL [facility] MCV (RBC) [Entitic vol] 87.7 fL 81.0 - 99.0 fL [facility] MONOCYTES ABSOLUTE AUTO 0.7 [facility] Monocytes/100 WBC (Bld) 4.9 % 1.7 - 12.0 % [facility] NEUTROPHILS ABSOLUTE AUTO 9.7 High [facility] Neutrophils/100 WBC (Bld) 71.8 % 43.0 - 75.0 % [facility] Platelet mean volume (Bld) [Entitic vol] 9.6 fL 9.5 - 13.5 fL [facility] EO # 0.1 [facility] TBH PLT 303 [facility] TB[facility] RBC 3.9 Low [facility] TBH WBC 13.5 High [facility] AFP, SERUM, OPEN SPINA BIFID Aon 09-02-2024 AFP MOM 0.81 . [facility] AFP VALUE 42.8 ng/mL . [facility] COMMENT: Comment . [facility] Healthcar e Comment on above: Brooklyn Banda , Ph.D., [facility] Director References: Available Upon Request. Multiples Of Median Cutoffs For AFP Elevations Cooney 2.5 Black 2.8 IDD 2.0 Twins 4.5 Abbreviation Definitions IDD - Insulin Dep Diabetes OSBR - Open Spina Bifida Risk For further inquiries contact [employer] [facility] at [phone]. This test was developed and its performance characteristics determined by [facility]. It has not been cleared or approved by the Food and Drug Administration. Performed at: [facility] [address] [place], [place] [id number] Enamel Finisher: Og Lopez [facility], Phone: [phone] GEST. AGE ON COLLECTION DATE 21.3 . weeks [facility] GESTAT. AGE BASED ON LMP . [facility] Comment on above: Recalculations are n ot recommended when gestational dating by LMP and ultrasound are within 10 days. INSULIN DEP DIABETES No . [facility] Healthcare INTERPRETATION Comment . [facility] Comment on above: Interpretation: Scre en [...] Customer Services to discuss available options. The [place] [employer] recommends amniocentesis be offered to women age 35 and older. [age] [facility] MULTIPLE GESTATION No . [facility] [place] [address] [place] [id number] . [facility] Healt hcare RACE . [facility] MOBi-LEARN e RESULTS Report . [facility] [employer] TEST RESULTS: Negative . [facility] Health care WEIGHT 215 . lbs [facility] [employer] PREGNQNCY N N LMP [id number] 4 16 N 1 Y 215 N N N N N White/ CLINISYNC [facility] Healthcar e US OB 14+ WEEKS ANATOMY SCAN [...] UA Negative Negative - 4(70) +++ mg/dL [facility] Blood, UA Negative Negative - 50 Leandro/mcL [facility] Clarity, UA Clear [facility] [employer] re Color, UA Yellow [facility] MOBi-LEARN e Glucose, UA Negative Negative - 1999(110) ++++ mg/dL [facility] Interpretation and review of laboratory results Normal [facility] Ketones, UA Negative Negative - 160(16) ++++ mg/dL [facility] Leukocytes, UA Negative Negative - 500+++ Therese/mcL [facility] Nitrite, UA Negative Negative - Positive [facility] pH, UA 6 5 - 9 [facility] MOBi-LEARN e Protein, UA Negative Negative - 1999(20) ++++ mg/dL [facility] Spec Grav, UA 1.015 1 - 1.03 [facility] Urobilinogen, UA 0.2 0.2 - 12 mg/dL [facility] M[facility]-LEARN e IGP,APTIMA HPV,AGE GDLNon AGE GDLN ACOG TESTING Note . [facility] Comment on above: TESTS RESULT FLAG UN ITS REF RANGE LAB Clinician Provided Cytology Information Source.............Cervix No. of containers..01 ThinPrep Vial Age Algo ACOG Alecia... -15 09 FLAG LEGEND: L-Low Normal,H-High Normal,LL-Alert Low,HH-Alert High <-Panic Low,>-Panic High,A-Abnormal,AA-Critical Abnormal Performed at: 01 =G [facility] [address] [place] [address] Loreto Pacheco MD, IGP, RFX APTIMA HPV ASCU Note . [facility] Comment on above: TESTS RESULT FLAG UN ITS REF RANGE LAB DIAGNOSIS: 02 NEGATIVE FOR INTRAEPITHELIAL LESION OR MALIGNANCY. Specimen adequacy: 02 Satisfactory for evaluation. Endocervical and/or squamous metaplastic cells (endocervical component) are present. Performed by: Manolo Davila Supervisor [employer] ([facility]) . 02 Note: Note 02 The Pap [...] <-Panic Low,>-Panic High,A-Abnormal,AA-Critical Abnormal Performed at: [address] [id number] Loreto Pacheco MD, Performed at: =[facility] [id number] Enamel Finisher: Loreto Pacheco MD, Phone: [phone] Performed at: [address] [id number] Enamel Finisher: Loreto Pacheco MD, Phone: [phone] SPATULA-ALONE CERVIX CL[facility] e RECURRENT VAGINITIS (HTRX)on 07-30-2024 ATOPOBIUM VAGINAE 0 [facility] ATOPOBIUM VAGINAE Not detected [facility] BVAB 2,3 (BACTERIAL VAGINOSIS ASSOCIATED BACTERIA 2, 3); MOBILUNCUS SPP 0 [facility] BVAB 2,3 (BACTERIAL VAGINOSIS ASSOCIATED BACTERIA 2, 3); MOBILUNCUS SPP Not detected [facility] FATOU ALBICANS, PARAPSILOSIS, TROPICALIS 0 [facility] FATOU ALBICANS, PARAPSILOSIS, TROPICALIS Not detected [facility] FAT[facility]ATA 0 [facility] FATOU GLABRATA Not detected [facility] ealthcare FATOU KRUSEI 0 [facility] FATOU KRUSEI Not detected [facility] lthcare CHLAMYDIA TRACHOMATIS 0 [facility] CHLAMYDIA TRACHOMATIS Not detected [facility] GARDNERELLA VAGINALIS 0 [facility] GARDNERELLA VAGINALIS Not detected [facility] Healthcare MEGASPHAERA (TYPES 1, 2) 0 [facility] MEGASPHAERA (TYPES 1, 2) Not detected [facility] Healthcare MYCOPLASMA GENITALIUM 0 [facility] MYCOPLASMA GENITALIUM Not detected [facility] NEISSERIA GONORRHOEAE 0 [facility] NEISSERIA GONORRHOEAE Not detected [facility] TRICHOMONAS VAGINALIS 0 [facility] TRICHOMONAS VAGINALIS Not detected [facility] Urinalysis macro (dipstick) panel (U)on 07-28-2024 Bilirubin, UA Negative Negative - 4(70) +++ mg/dL [facility] Blood, UA Negative Negative - 50 Leandro/mcL [facility] Clarity, UA Clear [facility] re Color, UA Yellow [facility] Healthcar e Glucose, UA Negative Negative - 1999(110) ++++ mg/dL [facility] Interpretation and review of laboratory results Normal [facility] Ketones, UA Negative Negative - 160(16) ++++ mg/dL [facility] Leukocytes, UA Negative Negative - 500+++ Therese/mcL [facility] Nitrite, UA Negative Negative - Positive [facility] [facility] pH, UA 5.5 5 - 9 [facility] Protein, UA Negative Negative - 1999(20) ++++ mg/dL [facility] Spec Grav, UA 1.02 1 - 1.03 [facility] Urobilinogen, UA 1.0 0.2 - 12 mg/dL [facility] e ALL CBC WITH AUTO DIFFon BASOPHILS ABSOLUTE AUTO 0.1 [facility] Basophils/100 WBC (Bld) 0.4 % 0.2 - 2.0 % [facility] Eosinophils/100 WBC (Bld) 1 % 0.9 - 7.0 % [facility] Erythrocyte distribution width (RBC) [Ratio] 13.1 % 11.0 - 15.0 % [facility] Hematocrit (Bld) [Volume fraction] 37.7 % 36.0 - 48.0 % [facility] Hemoglobin (Bld) [Mass/Vol] 12.7 g/dL 12.0 - 16.0 g/dL [facility] IMMATURE GRANULOCYTES ABS AUTO 0.04 High [facility] Immature granulocytes/100 WBC (Bld) 0.4 % 0.0 - 0.5 % [facility] Interpretation and review of laboratory results Abnormal [facility] LYMPHOCYTES ABSOLUTE AUTO 2.9 [facility] Lymphocytes/100 WBC (Bld) 25.9 % 20.5 - 60.0 % [facility] MCH (RBC) [Entitic mass] 29 pg 26.7 - 34.0 pg [facility] MCHC (RBC) [Mass/Vol] 33.7 g/dL 29.9 - 35.2 g/dL [facility] MCV (RBC) [Entitic vol] 86.1 fL 81.0 - 99.0 fL [facility] MONOCYTES ABSOLUTE AUTO 0.7 [facility] Monocytes/100 WBC (Bld) 6.2 % 1.7 - 12.0 % [facility] NEUTROPHILS ABSOLUTE AUTO 7.5 High [facility] Neutrophils/100 WBC (Bld) 66.1 % 43.0 - 75.0 % [facility] Platelet mean volume (Bld) [Entitic vol] 9.3 fL Low 9.5 - 13.5 fL [facility] EO # 0.1 [facility] TB PLT 338 [facility] TB RBC 4.38 [facility] TBH WBC 11.4 High [facility] HCG ( test) Ql (U)o n 06-10-2024 Interpretation and review of laboratory results Abnormal [facility] Preg Test, Ur Positive [facility] Urinalysis macro (dipstick) panel (U)on 06-10-2024 Bilirubin, UA Negative Negative - 4(70) +++ mg/dL [facility] Blood, UA Negative Negative - 50 Leandro/mcL [facility] Clarity, UA Clear [facility] re Color, UA [facility] Glucose, UA Negative Negative - 1999(110) ++++ mg/dL [facility] Interpretation and review of laboratory results Normal [facility] Ketones, UA Negative Negative - 160(16) ++++ mg/dL [facility] Leukocytes, UA Negative Negative - 500+++ Therese/mcL [facility] Nitrite, UA Negative Negative - Positive [facility] pH, UA 6.5 5 - 9 [facility] Protein, UA Negative Negative - 1999(20) ++++ mg/dL [facility] Spec Grav, UA 1.02 1 - 1.03 [facility] Urobilinogen, UA 1.0 0.2 - 12 mg/dL [facility] COVID + FLU Quick Testingon 08-19-2023 SARS-CoV-2 (COVID-19) RNA ALISSON+probe Ql (Unsp spec) Negative [employer] Other COVID + FLU Quick Testing Positive [employer] Other COVID + FLU Quick Testing Negative [employer] Other COVID-19 PCRon 03-24-2020 SARS-CoV-2, ALISSON Not Detected Normal Not Detected [facility] Comment on above: Result Comment: This test was developed and its performance characteristics determined by [employer]. This test has not been FDA cleared [...] assay. Performed By: #### C BC #### [facility] [address] [place] [id number] Dee Dee Indu CBC AUTO DIFFon 03-11-2020 Basophils (Bld) [#/Vol] 0.0 103/ul Normal 0.0-0.1 [facility] Comment on above: Performed By: #### C BC #### [facility] [address] [place] [id number] [employer] In[employer] Basophils/100 WBC (Bld) 0.2 % Normal 0.2-2.0 [facility] Comment on above: Performed By: #### C BC #### [facility] [address] [place] [id number] [employer] Eosinophils (Bld) [#/Vol] 0.2 103/ul Normal 0.0-0.7 [facility] Comment on above: Performed By: #### C BC #### [facility] [address] [place] [id number] [employer] Eosinophils/100 WBC (Bld) 1.8 % Normal 0.9-7.0 [facility] Comment on above: Performed By: #### C BC #### [facility] [address] [place] [address] Dee Deemino Griggs Erythrocyte distribution width (RBC) [Ratio] 14.0 % Normal 11.0-15.0 [facility] Comment on above: Performed By: #### C BC #### [facility] [address] [place] [address] Dee Dee Indu Hematocrit (Bld) [Volume fraction] 26.9 % Critically low 36.0-48.0 [facility] Comment on above: Performed By: #### C BC #### [facility] [address] [place] [address] Dee Dee Indu Hemoglobin (Bld) [Mass/Vol] 9.1 g/dL Critically low 12.0-16.0 [facility] Comment on above: Performed By: #### C BC #### [facility] [address] [place] [address] Dee Dee Indu IG # 0.08 10e3/ul Critically high 0.00-0.03 [facility] Comment on above: Performed By: #### C BC #### [facility] [address] [place] [address] Dee Dee Indu IG % 0.6 % Critically high 0.0-0.5 [facility] Comment on above: Performed By: #### C BC #### [facility] [address] [place] [address] Dee Dee Indu Lymphocytes (Bld) [#/Vol] 2.7 103/ul Normal 1.2-3.8 [facility] Comment on above: Performed By: #### C BC #### [facility] [address] [place], [place] [id number] Dee Dee Indu Lymphocytes/100 WBC (Bld) 20.9 % Normal 20.5-60.0 [facility] Comment on above: Performed By: #### C BC #### [facility] [address] [place] [address] Dee Dee Indu MANUAL DIFF REQ NO Normal [facility] Comment on above: Performed By: #### C BC #### [facility] [address] [place], [place] [id number] Dee Deemino Griggs MCH (RBC) [Entitic mass] 30.7 pg Normal 26.7-34.0 [facility] Comment on above: Performed By: #### C BC #### [facility] [address] [place], [place] [phone] Dee Deemino Griggs MCHC (RBC) [Mass/Vol] 33.8 g/dL Normal 29.9-35.2 [facility] Comment on above: Performed By: #### C BC #### [facility] [address] [place], [place] [phone] Dee Dee Indu MCV (RBC) [Entitic vol] 90.9 fL Normal 81.0-99.0 [facility] Comment on above: Performed By: #### C BC #### [facility] [address] [place] [address] Dee Dee Indu Monocytes (Bld) [#/Vol] 1.2 103/ul Critically high 0.3-0.8 [facility] Comment on above: Performed By: #### C BC #### [facility] [address] [place], [place] [phone] Dee Dee Indu Monocytes/100 WBC (Bld) 8.9 % Normal 1.7-12.0 [facility] Comment on above: Performed By: #### C BC #### [facility] [address] [place], [place] [phone] Dee Dee Indu Neutrophils (Bld) [#/Vol] 8.8 103/ul Critically high 1.4-6.5 [facility] Comment on above: Performed By: #### C BC #### [facility] [address] [place], [place] [phone] Dee Dee Indu Neutrophils/100 WBC (Bld) 67.6 % Normal 43.0-75.0 [facility] Comment on above: Performed By: #### C BC #### [facility] [address] [place], [place] [phone] Dee Dee Indu Platelet mean volume (Bld) [Entitic vol] 10.2 fL Normal 9.5-13.5 [facility] Comment on above: Performed By: #### C BC #### [facility] [address] [place], [place] [phone] Dee Dee Griggs Platelets (Bld) [#/Vol] 178 103/ul Normal 150-450 [facility] Comment on above: Performed By: #### C BC #### [facility] [address] [place] [address] Dee Dee Griggs RBC (Bld) [#/Vol] 2.96 106/ul Critically low 4.20-5.40 [facility] Comment on above: Performed By: #### C BC #### [facility] [address] [place] [address] Dee Dee Griggs WBC (Bld) [#/Vol] 13.1 103/ul Critically high 4.0-11.0 [facility] Comment on above: Performed By: #### C BC #### [facility] [address] [place], [place] [phone] Dee Dee Griggs COVID-19 PCRon 03-11-2020 SARS-CoV-2, ALISSON Detected Abnormal Not Detected [facility] Comment on above: Result Comment: This test was developed and its performance characteristics determined by [employer]. This test has not been FDA cleared [...] assay. Performed By: #### C BC #### [facility] [address] [place] [address] Dee Dee Indu PRIORITY COVID PROCESSINGon 03-11-2020 Comment Comment Normal [facility] Comment on above: Result Comment: Rece ived Performed By: #### C BC #### [facility] [address] [place] [address] Dee Dee Indu RESPIRATORY PANEL PLUSon Adenovirus NOT DETECTED Normal NOT DETECTED [facility] Comment on above: Performed By: #### C BC #### [facility] [address] [place] [address] Dee Dee Indu B. Parapertusis NOT DETECTED Normal NOT DETECTED [facility] Comment on above: Performed By: #### C BC #### [facility] [address] [place] [address] Dee Dee Indu B. Pertussis NOT DETECTED Normal NOT DETECTED [facility] Comment on above: Performed By: #### C BC #### [facility] [address] [place] [address] Dee Dee Indu Chlamydia Pneumoniae NOT DETECTED Normal NOT DETECTED [facility] Comment on above: Performed By: #### C BC #### [facility] [address] [place] [address] Dee Dee Indu Coronavirus 229E NOT DETECTED Normal NOT DETECTED [facility] Comment on above: Performed By: #### C BC #### [facility] [address] [place] [address] Dee Dee Indu Coronavirus HKU1 NOT DETECTED Normal NOT DETECTED [facility] Comment on above: Performed By: #### C BC #### [facility] [address] [place] [address] Dee Dee Indu Coronavirus NL63 NOT DETECTED Normal NOT DETECTED [facility] Comment on above: Performed By: #### C BC #### [facility] [address] [place] [address] Dee Dee Indu Coronavirus OC43 NOT DETECTED Normal NOT DETECTED [facility] Comment on above: Performed By: #### C BC #### [facility] [address] [address] Dee Dee Indu Influenza A H1 2009 NOT DETECTED Normal NOT DETECTED [facility] Comment on above: Performed By: #### C BC #### [facility] [address] [address] Dee Dee Indu Influenza B NOT DETECTED Normal NOT DETECTED [facility] Comment on above: Performed By: #### C BC #### [facility] [address] [place] [address] Dee Dee Indu Metapneumovirus NOT DETECTED Normal NOT DETECTED [facility] Comment on above: Performed By: #### C BC #### [facility] [address] [place] [address] Dee Dee Indu Mycoplas. Pneumoniae NOT DETECTED Normal NOT DETECTED [facility] Comment on above: Performed By: #### C BC #### [facility] [address] [place] [address] Dee Dee Indu Parainfluenza 1 NOT DETECTED Normal NOT DETECTED [facility] Comment on above: Performed By: #### C BC #### [facility] [address] [place] [address] Dee Dee Indu Parainfluenza 2 NOT DETECTED Normal NOT DETECTED [facility] Comment on above: Performed By: #### C BC #### [facility] [address] [place] [address] Dee Dee Indu Parainfluenza 3 NOT DETECTED Normal NOT DETECTED [facility] Comment on above: Performed By: #### C BC #### [facility] [address] [place] [address] Dee Dee Indu Parainfluenza 4 NOT DETECTED Normal NOT DETECTED [facility] Comment on above: Performed By: #### C BC #### [facility] [address] [place] [address] Dee Dee Indu Rhino/Enterovirus NOT DETECTED Normal NOT DETECTED [facility] Comment on above: Performed By: #### C BC #### [facility] [address] [place] [address] Dee Dee Griggs RP2 Header 1 RESPIRATORY PANEL: VIRUSES Normal [facility] Comment on above: Performed By: #### C BC #### [facility] [address] [place] [address] Dee Dee Griggs RP2 Header 2 RESPIRATORY PANEL: BACTERIA Normal [facility] Comment on above: Performed By: #### C BC #### [facility] [address] [place] [address] Dee Dee Griggs RP2 Header 4 EUA SEE BELOW Normal [facility] Comment on above: Result Comment: This test is not yet approved or cleared by the [place] FDA. When there are no FDA-approved or cleared tests available, and other criteria are met, FDA can make tests available under an emergency access mechanism called an Emergency Use Authorization (EUA). The EUA for this test is supported by the Job Placement Officer of Health and Human Service?s (HHS?s) declaration [...] used). Performed By: #### C BC #### [facility] [address] [place] [address] Dee Dee Griggs RSV NOT DETECTED Normal NOT DETECTED [facility] Comment on above: Performed By: #### C BC #### [facility] [address] [place] [address] Dee Dee Indu SARS-CoV-2: COVID-19 DETECTED NOT DETECTED [facility] Comment on above: Performed By: #### C BC #### [facility] [address] [place] [address] Dee Dee Barnetten CBC AUTO DIFFon 03-10-2020 Basophils (Bld) [#/Vol] 0.0 103/ul Normal 0.0-0.1 [facility] Comment on above: Performed By: #### C BC #### [facility] [address] [place] [address] Dee Dee Griggs Basophils/100 WBC (Bld) 0.1 % Critically low 0.2-2.0 [facility] Comment on above: Performed By: #### C BC #### [facility] [address] [place] [address] Dee Dee Indu Eosinophils (Bld) [#/Vol] 0.1 103/ul Normal 0.0-0.7 [facility] Comment on above: Performed By: #### C BC #### [facility] [address] [place] [address] Dee Dee Indu Eosinophils/100 WBC (Bld) 0.5 % Critically low 0.9-7.0 [facility] Comment on above: Performed By: #### C BC #### [facility] [address] [place] [address] Dee Dee Indu Erythrocyte distribution width (RBC) [Ratio] 13.8 % Normal 11.0-15.0 [facility] Comment on above: Performed By: #### C BC #### [facility] [address] [place] [address] Dee Dee Indu Hematocrit (Bld) [Volume fraction] 30.3 % Critically low 36.0-48.0 [facility] Comment on above: Performed By: #### C BC #### [facility] [address] [place], [place] [phone] Dee Dee Indu Hemoglobin (Bld) [Mass/Vol] 10.1 g/dL Critically low 12.0-16.0 [facility] Comment on above: Performed By: #### C BC #### [facility] [address] [place] [address] Dee Dee Indu IG # 0.08 10e3/ul Critically high 0.00-0.03 [facility] Comment on above: Performed By: #### C BC #### [facility] [address] [place], [place] [phone] Dee Dee Indu IG % 0.6 % Critically high 0.0-0.5 [facility] Comment on above: Performed By: #### C BC #### [facility] [address] [place], [place] [phone] Dee Dee Indu Lymphocytes (Bld) [#/Vol] 2.4 103/ul Normal 1.2-3.8 [facility] Comment on above: Performed By: #### C BC #### [facility] [address] [place], [place] [address] Dee Deemino Griggs Lymphocytes/100 WBC (Bld) 16.9 % Critically low 20.5-60.0 [facility] Comment on above: Performed By: #### C BC #### [facility] [address] [place], [place] [phone] Dee Dee Griggs MANUAL DIFF REQ NO Normal [facility] Comment on above: Performed By: #### C BC #### [facility] [address] [place], [place] [address] Dee Deemino Barnetten MCH (RBC) [Entitic mass] 30.2 pg Normal 26.7-34.0 [facility] Comment on above: Performed By: #### C BC #### [facility] [address] [place], [place] [address] Dee Deemino Griggs MCHC (RBC) [Mass/Vol] 33.3 g/dL Normal 29.9-35.2 [facility] Comment on above: Performed By: #### C BC #### [facility] [address] [place], [place] [address] Dee Deemino Griggs MCV (RBC) [Entitic vol] 90.7 fL Normal 81.0-99.0 [facility] Comment on above: Performed By: #### C BC #### [facility] [address] [place], [place] [address] Dee Dee Indu Monocytes (Bld) [#/Vol] 1.3 103/ul Critically high 0.3-0.8 [facility] Comment on above: Performed By: #### C BC #### [facility] [address] [place], [place] [address] Dee Dee Indu Monocytes/100 WBC (Bld) 8.9 % Normal 1.7-12.0 [facility] Comment on above: Performed By: #### C BC #### [facility] [address] [place], [place] [address] Dee Dee Indu Neutrophils (Bld) [#/Vol] 10.4 103/ul Critically high 1.4-6.5 [facility] Comment on above: Performed By: #### C BC #### [facility] [address] [place], [place] [address] Dee Dee Indu Neutrophils/100 WBC (Bld) 73.0 % Normal 43.0-75.0 [facility] Comment on above: Performed By: #### C BC #### [facility] [address] [place], [place] [address] Dee Dee Indu Platelet mean volume (Bld) [Entitic vol] 10.4 fL Normal 9.5-13.5 [facility] Comment on above: Performed By: #### C BC #### [facility] [address] [place], [place] [phone] Dee Dee Indu Platelets (Bld) [#/Vol] 179 103/ul Normal 150-450 [facility] Comment on above: Performed By: #### C BC #### [facility] [address] [place], [place] [address] Dee Dee Indu RBC (Bld) [#/Vol] 3.34 106/ul Critically low 4.20-5.40 [facility] Comment on above: Performed By: #### C BC #### [facility] [address] [place], [place] [address] Dee Dee Indu WBC (Bld) [#/Vol] 14.2 103/ul Critically high 4.0-11.0 [facility] Comment on above: Performed By: #### C BC #### [facility] [address] [place], [place] [address] Dee Dee Indu CBC AUTO DIFFon 03-09-2020 Basophils (Bld) [#/Vol] 0.0 103/ul Normal 0.0-0.1 [facility] Comment on above: Performed By: #### N BOX #### [facility] [address] [place], [place] [address] Dee Dee Indu Basophils/100 WBC (Bld) 0.3 % Normal 0.2-2.0 [facility] Comment on above: Performed By: #### N BOX #### [facility] [address] [place], [place] [address] Dee Dee Indu Eosinophils (Bld) [#/Vol] 0.1 103/ul Normal 0.0-0.7 [facility] Comment on above: Performed By: #### N BOX #### [facility] [address] [id number] Dee Dee Indu Eosinophils/100 WBC (Bld) 0.9 % Normal 0.9-7.0 [facility] Comment on above: Performed By: #### N BOX #### [facility] [address] [place], [place] [address] Dee Dee Indu Erythrocyte distribution width (RBC) [Ratio] 13.8 % Normal 11.0-15.0 [facility] Comment on above: Performed By: #### N BOX #### [facility] [address] [place] [address] Dee Dee Indu Hematocrit (Bld) [Volume fraction] 35.5 % Critically low 36.0-48.0 [facility] Comment on above: Performed By: #### N BOX #### [facility] [address] [place], [place] [address] Dee Dee Indu Hemoglobin (Bld) [Mass/Vol] 12.0 g/dL Normal 12.0-16.0 [facility] Comment on above: Performed By: #### N BOX #### [facility] [address] [place], [place] [address] Dee Dee Indu IG # 0.09 10e3/ul Critically high 0.00-0.03 [facility] Comment on above: Performed By: #### N BOX #### [facility] [address] [place], [place] [address] Dee Dee Indu IG % 0.8 % Critically high 0.0-0.5 [facility] Comment on above: Performed By: #### N BOX #### [facility] [address] [place], [place] [address] Dee Dee Indu Lymphocytes (Bld) [#/Vol] 2.3 103/ul Normal 1.2-3.8 [facility] [place] [facility] Comment on above: Performed By: #### N BOX #### [facility] [address] [place], [place] [address] Dee Dee Indu Lymphocytes/100 WBC (Bld) 19.8 % Critically low 20.5-60.0 [facility] Comment on above: Performed By: #### N BOX #### [facility] [address] [place], [place] [address] Dee Dee Indu MANUAL DIFF REQ NO Normal [facility] Comment on above: Performed By: #### N BOX #### [facility] [address] [place], [place] [address] Dee Dee Indu MCH (RBC) [Entitic mass] 30.4 pg Normal 26.7-34.0 [facility] [place] [facility] Comment on above: Performed By: #### N BOX #### [facility] [address] [place] [id number] Dee Dee Indu MCHC (RBC) [Mass/Vol] 33.8 g/dL Normal 29.9-35.2 [facility] Comment on above: Performed By: #### N BOX #### [facility] Laboratory [address] [place] [id number] Dee Dee Indu MCV (RBC) [Entitic vol] 89.9 fL Normal 81.0-99.0 [facility] Comment on above: Performed By: #### N BOX #### [facility] [address] [place] [address] Dee [place] Indu Monocytes (Bld) [#/Vol] 0.9 103/ul Critically high 0.3-0.8 [facility] Comment on above: Performed By: #### N BOX #### [facility] [address] [place] [address] Dee Dee Indu Monocytes/100 WBC (Bld) 7.8 % Normal 1.7-12.0 [facility] Comment on above: Performed By: #### N BOX #### [facility] [address] [place], [place] [address] Dee Dee Indu Neutrophils (Bld) [#/Vol] 8.2 103/ul Critically high 1.4-6.5 [facility] Comment on above: Performed By: #### N BOX #### [facility] [address] [place], [place] [address] Dee Dee Indu Neutrophils/100 WBC (Bld) 70.4 % Normal 43.0-75.0 [facility] Comment on above: Performed By: #### N BOX #### [facility] [address] [place] [address] Dee Dee Indu Platelet mean volume (Bld) [Entitic vol] 10.3 fL Normal 9.5-13.5 [facility] Comment on above: Performed By: #### N BOX #### [facility] [address] [place] [address] Dee Dee Indu Platelets (Bld) [#/Vol] 211 103/ul Normal 150-450 [facility] Comment on above: Performed By: #### N BOX #### [facility] [address] [place], [place] [id number] Dee Dee Indu RBC (Bld) [#/Vol] 3.95 106/ul Critically low 4.20-5.40 [facility] Comment on above: Performed By: #### N BOX #### [facility] [address] [place] [address] Dee Dee Indu WBC (Bld) [#/Vol] 11.6 103/ul Critically high 4.0-11.0 [facility] Comment on above: Performed By: #### N BOX #### [facility] [address] [place] [address] Dee Dee Indu Basophils (Bld) [#/Vol] 0.0 103/ul Normal 0.0-0.1 [facility] Comment on above: Performed By: #### N BOX #### [facility] [address] [place] [address] Dee Dee Indu Basophils/100 WBC (Bld) 0.4 % Normal 0.2-2.0 [facility] Comment on above: Performed By: #### N BOX #### [facility] [address] [place] [address] Dee Dee Indu Eosinophils (Bld) [#/Vol] 0.2 103/ul Normal 0.0-0.7 [facility] Comment on above: Performed By: #### N BOX #### [facility] [address] [place] [id number] Dee Dee Indu Eosinophils/100 WBC (Bld) 2.0 % Normal 0.9-7.0 [facility] Comment on above: Performed By: #### N BOX #### [facility] [address] [place] [address] Dee Dee Indu Erythrocyte distribution width (RBC) [Ratio] 13.8 % Normal 11.0-15.0 [facility] Comment on above: Performed By: #### N BOX #### [facility] [address] [place] [address] Dee Dee Indu Hematocrit (Bld) [Volume fraction] 35.0 % Critically low 36.0-48.0 [facility] Comment on above: Performed By: #### N BOX #### [facility] [address] [place] [address] Dee Dee Indu Hemoglobin (Bld) [Mass/Vol] 11.8 g/dL Critically low 12.0-16.0 [facility] Comment on above: Performed By: #### N BOX #### [facility] [address] [place] [address] Dee Dee Indu IG # 0.07 10e3/ul Critically high 0.00-0.03 [facility] Comment on above: Performed By: #### N BOX #### [facility] [address] [place] [address] Dee Dee Indu IG % 0.7 % Critically high 0.0-0.5 [facility] Comment on above: Performed By: #### N BOX #### [facility] [address] [place], [place] [phone] Dee Dee Indu Lymphocytes (Bld) [#/Vol] 3.1 103/ul Normal 1.2-3.8 [facility] Comment on above: Performed By: #### N BOX #### [facility] [address] [place] [address] Dee Dee Indu Lymphocytes/100 WBC (Bld) 29.5 % Normal 20.5-60.0 [facility] Comment on above: Performed By: #### N BOX #### [facility] [address] [place], [place] [phone] Dee Deemino [place] MANUAL DIFF REQ NO Normal [facility] Comment on above: Performed By: #### N BOX #### [facility] [address] [place] [id number] Dee Dee Indu MCH (RBC) [Entitic mass] 30.3 pg Normal 26.7-34.0 [facility] Comment on above: Performed By: #### N BOX #### [facility] [address] [place], [place] [phone] Dee Deemino Griggs MCHC (RBC) [Mass/Vol] 33.7 g/dL Normal 29.9-35.2 [facility] Comment on above: Performed By: #### N BOX #### [facility] [address] [place], [place] [phone] Dee Dee Indu MCV (RBC) [Entitic vol] 90.0 fL Normal 81.0-99.0 [facility] Comment on above: Performed By: #### N BOX #### [facility] [address] [place], [place] [address] Dee Dee Indu Monocytes (Bld) [#/Vol] 0.9 103/ul Critically high 0.3-0.8 [facility] Comment on above: Performed By: #### N BOX #### [facility] [address] [place], [place] [address] Dee Dee Indu Monocytes/100 WBC (Bld) 8.4 % Normal 1.7-12.0 [facility] Comment on above: Performed By: #### N BOX #### [facility] [address] [place], [place] [address] Dee Dee Indu Neutrophils (Bld) [#/Vol] 6.3 103/ul Normal 1.4-6.5 [facility] Comment on above: Performed By: #### N BOX #### [facility] [address] [place], [place] [address] Dee Dee Indu Neutrophils/100 WBC (Bld) 59.0 % Normal 43.0-75.0 [facility] Comment on above: Performed By: #### N BOX #### [facility] [address] [place] [address] Dee Deemino Griggs Platelet mean volume (Bld) [Entitic vol] 10.4 fL Normal 9.5-13.5 [facility] Comment on above: Performed By: #### N BOX #### [facility] [address] [place] [address] Dee Deemino Griggs Platelets (Bld) [#/Vol] 221 103/ul Normal 150-450 [facility] Comment on above: Performed By: #### N BOX #### [facility] [address] [place] [address] Dee Deemino Griggs RBC (Bld) [#/Vol] 3.89 106/ul Critically low 4.20-5.40 [facility] Comment on above: Performed By: #### N BOX #### [facility] [address] [place] [address] Dee Deemino Griggs WBC (Bld) [#/Vol] 10.6 103/ul Normal 4.0-11.0 [facility] Comment on above: Performed By: #### N BOX #### [facility] [address] [place] [address] Dee Dee Griggs DRUG SCREEN RAPID (URINE)on 03-09-2020 AMP Negative Normal NEGATIVE [facility] Comment on above: Performed By: #### N BOX #### [facility] [address] [place] [address] Dee Dee Indu BAR Negative Normal NEGATIVE [facility] Comment on above: Performed By: #### N BOX #### [facility] [address] [place] [address] Dee Dee Indu BUP Negative Normal NEGATIVE [facility] Comment on above: Performed By: #### N BOX #### [facility] [address] [place] [address] Dee Dee Indu BZO Negative Normal NEGATIVE [facility] Comment on above: Performed By: #### N BOX #### [facility] [address] [place] [address] Dee Dee Indu CLINT Negative Normal NEGATIVE [facility] Comment on above: Performed By: #### N BOX #### [facility] [address] [place] [address] Dee Dee Indu CUT-OFFS SEE BELOW Normal [facility] Comment on above: Result Comment: AMP [...] ng/mL Performed By: #### N BOX #### [facility] [address] [place] [address] [facility]UG CLASS TEST SYSTEM CUT-OFF CONCENTRATIONS ARE FOLLOWS: Normal [facility] Comment on above: Performed By: #### N BOX #### [facility] [address] [place] [address] Dee Dee Indu mAMP Negative Normal NEGATIVE [facility] Comment on above: Performed By: #### N BOX #### [facility] [address] [place] [address] Dee Dee Indu MTD Negative Normal NEGATIVE [facility] Comment on above: Performed By: #### N BOX #### [facility] [address] [place] [address] Dee Dee Indu OPI Negative Normal NEGATIVE [facility] Comment on above: Performed By: #### N BOX #### [facility] [address] [place] [address] Dee Dee Indu OXY Negative Normal NEGATIVE [facility] Comment on above: Performed By: #### N BOX #### [facility] [address] [place] [address] Dee Dee Indu PCP Negative Normal NEGATIVE [facility] Comment on above: Performed By: #### N BOX #### [facility] [address] [place] [address] Dee Dee Griggs PPX Negative Normal NEGATIVE [facility] Comment on above: Performed By: #### N BOX #### [facility] [address] [place] [address] Dee Dee Griggs TCA Negative Normal NEGATIVE [facility] Comment on above: Performed By: #### N BOX #### [facility] [address] [place] [address] Dee Dee Griggs THC Negative Normal NEGATIVE [facility] Comment on above: Performed By: #### N BOX #### [facility] [address] [place] [address] Dee Dee Griggs LDHon 03-09-2020 LDH 190 U/L Normal 122-222 [facility] Comment on above: Performed By: #### N BOX #### [facility] [address] [place] [address] Dee Dee Griggs PROF 14(COMP METB)on 020 Albumin [Mass/Vol] 2.9 g/dL Critically low 3.5-5.0 Th e [facility] Comment on above: Performed By: #### N BOX #### [facility] [address] [place] [address] Dee Dee Griggs Albumin/Globulin [Mass ratio] 0.7 {ratio} Normal [facility] Comment on above: Performed By: #### N BOX #### [facility] [address] [place] [address] Dee Deemino Griggs ALP [Catalytic activity/Vol] 152 U/L Critically high 38-126 [facility] Comment on above: Performed By: #### N BOX #### [facility] [address] [place] [address] Dee Dee Griggs Anion gap [Moles/Vol] 13.6 mmol/L Normal [facility] Comment on above: Performed By: #### N BOX #### [facility] [address] [place] [address] Dee Dee Indu Bilirubin Ql (U) 0.7 mg/dL Normal 0.2-1.3 [facility] Comment on above: Performed By: #### N BOX #### [facility] [address] [place] [address] Dee Dee Indu Calcium [Mass/Vol] 9.5 mg/dL Normal 8.4-10.2 [facility] Comment on above: Performed By: #### N BOX #### [facility] [address] [place] [address] Dee Dee Indu Chloride [Moles/Vol] 102 mmol/L Normal 98-107 [facility] Comment on above: Performed By: #### N BOX #### [facility] [address] [place] [address] Dee Dee Indu CO2 [Moles/Vol] 24.1 mmol/L Normal 22.0-30.0 [facility] Comment on above: Performed By: #### N BOX #### [facility] [address] [place] [address] Dee Dee Indu Creatinine [Mass/Vol] 0.63 mg/dL Normal 0.52-1.04 [facility] Comment on above: Performed By: #### N BOX #### [facility] [address] [place] [address] Dee Dee Indu EGFR-AF PUERTO RICAN >60 Normal >=60 [facility] Comment on above: Performed By: #### N BOX #### [facility] [address] [place] [address] Dee Dee Indu EGFR-NON AF PUERTO RICAN >60 Normal >=60 [facility] Comment on above: Performed By: #### N BOX #### [facility] [address] [place] [address] Dee Dee Indu Globulin (S) [Mass/Vol] 4.1 g/dL Normal [facility] Comment on above: Performed By: #### N BOX #### [facility] [address] [place] [address] Dee Dee Indu Glucose [Mass/Vol] 92 mg/dL Normal 74-106 [facility] Comment on above: Performed By: #### N BOX #### [facility] [address] [place], [place] [address] Dee Dee Indu Potassium [Moles/Vol] 3.7 mmol/L Normal 3.4-5.0 [facility] Comment on above: Performed By: #### N BOX #### [facility] [address] [place], [place] [address] Dee Dee Indu Protein [Mass/Vol] 7.0 g/dL Normal 6.1-8.2 [facility] Comment on above: Performed By: #### N BOX #### [facility] [address] [place], [place] [address] Dee Dee Indu Sodium [Moles/Vol] 136 mmol/L Critically low 137-145 [facility] Comment on above: Performed By: #### N BOX #### [facility] [address] [place], [place] [address] Dee Dee Indu Urea nitrogen [Mass/Vol] 7.0 mg/dL Normal 7.0-17.0 [facility] Comment on above: Performed By: #### N BOX #### [facility] [address] [place], [place] [address] Dee Dee Indu Urea nitrogen/Creatinine [Mass ratio] 11.1 mg/mg Normal [facility] Comment on above: Performed By: #### N BOX #### [facility] [address] [place], [place] [address] Dee Deemino Barnetten PROTIMEon 03-09-2020 INR Coag (PPP) [Relative time] 0.90 {INR} Normal [facility] Comment on above: Performed By: #### N BOX #### [facility] [address] [place], [place] [address] Dee Dee Indu PT Coag (PPP) [Time] PLEASE NOTE: NORMAL RANGE CHANGE 05-05-2014 DUE TO REAGENT LOT CHANGE Normal [facility] Comment on above: Performed By: #### N BOX #### [facility] [address] [place], [place] [address] Dee Dee Indu PT Coag (PPP) [Time] SEE BELOW Normal [facility] Comment on above: Result Comment: RAYO RED INR: 2.0 - 3.0 CONDITIONS NOT LISTED BELOW 2.5 - 3.5 FOR PROSTHETIC HEART VALVE REPLACEMENT 2.5 - 3.5 RECURRENT THROMBOSIS Performed By: #### N BOX #### [facility] [address] [place], [place] [phone] Dee Dee Griggs PT Coag (PPP) [Time] 9.4 s Normal 9.0-11.6 [facility] Comment on above: Performed By: #### N BOX #### [facility] [address] [place], [place] [address] Dee Dee Griggs PTTon 03-09-2020 aPTT Coag (Bld) [Time] 24.5 s Normal 22.3-36.2 [facility] Comment on above: Performed By: #### N BOX #### [facility] [address] [place], [place] [address] Dee Dee Griggs aPTT Coag (Bld) [Time] PLEASE NOTE: NORMAL RANGE CHANGE 07-12-2015 DUE TO REAGENT LOT CHANGE Normal [facility] Comment on above: Performed By: #### N BOX #### [facility] [address] [place] [address] Dee Dee Griggs SGOTon 03-09-2020 AST [Catalytic activity/Vol] 16 U/L Normal 14-36 [facility] Comment on above: Performed By: #### N BOX #### [facility] [address] [place] [address] Dee Dee Griggs SGPTon 03-09-2020 ALT [Catalytic activity/Vol] 23 U/L Normal 9-52 [facility] Comment on above: Performed By: #### N BOX #### [facility] [address] [place], [place] [address] Dee Dee Griggs URIC ACID SERUMon 03-09-2020 Urate [Mass/Vol] 5.2 mg/dL Normal 2.5-6.2 [facility] Comment on above: Performed By: #### N BOX #### [facility] [address] [place], [place] [address] Dee Dee Griggs GROUP B STREP CULTUREon [...] S F Tetracycline <=0.25 S F Normal [facility] Comment on above: Performed By: #### G BSCX ####[facility] [address] Indu CHLAMYDIA/GONOCOCCUS ALISSON ( AB/URINE/PAPon 02-18-2020 Chlamydia trachomatis, ALISSON Negative Normal Negative [facility] Comment on above: Performed By: #### C T/NGNA ####[facility] [address] [place] [address] Indu Neisseria gonorrhoeae, ALISSON Negative Normal Negative [facility] Comment on above: Performed By: #### C T/NGNA ####[facility] [address] [place] [address] Indu VAGINITIS/VAGINOSIS DNA PROB Ezequiel 02-17-2020 Fatou species Negative Normal Negative [facility] Comment on above: Performed By: #### V AGINT ####[facility] [address] [place] [address] Indu Gardnerella vaginalis Negative Normal Negative [facility] Comment on above: Performed By: #### V AGINT ####[facility] [address] [place] [address] Indu Trichomonas vaginalis Negative Normal Negative [facility] Comment on above: Performed By: #### V AGINT ####[facility] [address] [place] [address] Indu GLUCOSE - 1HRon 12-02-2019 Glucose [Mass/Vol] 130 mg/dL Critically high 74-106 [facility] Comment on above: Performed By: #### G LU1HR ####[facility] [address] [place] [id number] Indu HEMOGRAM AND PLATELon 2019 Hematocrit (Bld) [Volume fraction] 35.2 % Critically low 36.0-48.0 [facility] Comment on above: Performed By: #### H H ####[facility] [address] [place] [id number] Indu Hemoglobin (Bld) [Mass/Vol] 11.7 g/dL Critically low 12.0-16.0 [facility] Comment on above: Performed By: #### H H ####[facility] [address] [place] [address] Indu MCH (RBC) [Entitic mass] 30.0 pg Normal 26.7-34.0 [facility] Comment on above: Performed By: #### H H ####[facility] [address] [place] [address] Indu MCHC (RBC) [Mass/Vol] 33.2 g/dL Normal 29.9-35.2 [facility] Comment on above: Performed By: #### H H ####[facility] [address] [place] [address] Indu MCV (RBC) [Entitic vol] 90.3 fL Normal 81.0-99.0 [facility] Comment on above: Performed By: #### H H ####[facility] [address] [place] [address] Indu Platelets (Bld) [#/Vol] 276 103/ul Normal 150-450 [facility] Comment on above: Performed By: #### H H ####[facility] [address] [place], [place] [id number] Indu RBC (Bld) [#/Vol] 3.90 106/ul Critically low 4.20-5.40 [facility] Comment on above: Performed By: #### H H ####[facility] [address] [place] [address] Indu WBC (Bld) [#/Vol] 14.2 103/ul Critically high 4.0-11.0 T [facility] Comment on above: Performed By: #### H H ####[facility] Y[address]why[address] Indu US PREG ANATOMY SINGLEon US PREG [...] 4 days EFW:3 57 g; 56% FL/AC: 0.603583 FL/BPD: 0.705139 HC/AC: 1.167293 GESTATIONAL AGE: Age by EDC: 20 weeks, 0 days Age by current US: 20 weeks, 2 days JAY by current US: 03/14/2020 JAY by EDC: 03/16/2020 IMPRESSION: Normal anatomy scan *Reference: AIUM Practice Guideline for the performance of Obstetric Ultrasound Examinations, May 18, 2007. Normal [facility] AFP MATERNAL FOR SPINA BIFID Aon 10-13-2019 AFP MoM 0.72 Normal [facility] Comment on above: Performed By: #### A FPMAT ####[facility] B[address]uned[address] Indu AFP Value 24.8 ng/mL Normal [facility] Comment on above: Performed By: #### A FPMAT ####[facility] Mid[address]oy[address] Indu AFP, Serum for Spina Bifida Report Normal [facility] Comment on above: Performed By: #### A FPMAT ####[facility] [address] [place] [address] Indu Comment Comment Normal [facility] Comment on above: Result Comment: Ashish Robertson, Ph.D., [facility] Principal Genetics Cutter Inspector . References: Available Upon Request. . Multiples Of Median Cutoffs For AFP Elevations Cooney 2.5 Black 2.8 IDD 2.0 Twins 4.5 Abbreviation Definitions IDD - Insulin Dep Diabetes OSBR - Open Spina Bifida Risk . For further inquiries contact [employer] [facility] at [phone]. Performed By: #### A FPMAT ####[facility] Q[address]ney[address]krw[address] Indu Gest Age Collection Date 17.6 weeks Normal [facility] Comment on above: Performed By: #### A FPMAT ####[facility] J[address] Indu Gestat, Age Based on Ultrasound Normal [facility] Comment on above: Result Comment: 14.7 on 09/21/2019 Recalculations are not recommended when gestational dating by LMP and ultrasound are within 10 days. Performed By: #### A FPMAT ####[facility] [address] Indu Insulin Dep Diabetes No Normal [facility] Comment on above: Performed By: #### A FPMAT ####[facility] [address]lux[address] Indu Interpretation Comment Normal [facility] Comment on above: Result Comment: Inte [...] Customer Services to discuss available options. The [place] [employer] [place] [employer] recommends amniocentesis be offered to women age 35 and older. Performed By: #### A FPMAT ####[facility] P[address] Indu [age] Normal [facility] Comment on above: Performed By: #### A FPMAT ####[facility] Q[address]sc[address] Indu Multiple Gestation No Normal [facility] Comment on above: Performed By: #### A FPMAT ####[facility] Eixmuwxuha[address] Indu [place] 1 [place] [address] Normal [facility] Comment on above: Performed By: #### A FPMAT ####[facility] Nnekfvflme[address] Indu PDF . Normal [facility] Comment on above: Performed By: #### A FPMAT ####[facility] F[address]kyieajo[address] Indu Race Normal [facility] Comment on above: Performed By: #### A FPMAT ####[facility] By[address]jo[address] Test Results: Negative Normal The [facility] Comment on above: Performed By: #### A FPMAT ####[facility] [id number] CHLAMYDIA/GONOCOCCUS ALISSON (SW AB/URINE/PAPon 09-09-2019 Chlamydia trachomatis, ALISSON Negative Normal Negative [facility] Comment on above: Performed By: #### C T/NGNA ####[facility] [id number] [address] Neisseria gonorrhoeae, ALISSON Negative Normal Negative [facility] Comment on above: Performed By: #### C T/NGNA ####[facility] [id number] [address]Dee Dee Griggs HEP B SURFACE ANTIGEN SCREEN on 09-08-2019 HBsAg Screen Negative Normal Negative [facility] Comment on above: Performed By: #### H BSANS #### [facility] [address] [address] Dee Dee Griggs HEPATITIS C VIRUS AB W/ REFL EX QUANTon 09-08-2019 HCV AB 0.2 s/co ratio Normal 0.0-0.9 [facility] Comment on above: Performed By: #### H CVPCRR #### [facility] [address] [address] Dee Dee Griggs Interpretation: Comment Normal [facility] Comment on above: Result Comment: Nega tive Not infected with HCV, unless recent infection is suspected or other evidence exists to indicate HCV infection. Performed By: #### H CVPCRR #### [facility] [address] [place] [address] Dee Dee Griggs HIV 1 AND 2 WITH REFLEXon HIV Screen 4th Generation wRfx Non Reactive Normal Non Reactive [facility] Comment on above: Performed By: #### H IV12 #### [facility] [address] [address] Dee Dee Griggs RPR QUANTon 09-08-2019 Rapid Plasma Reagin, Quant Non Reactive Normal NonRea<1:1 [facility] Comment on above: Performed By: #### R PRQ ####[facility] [id number] [address]D[place] Griggs RUBELLA AB IGGon 09-08-2019 Rubella Antibodies, IgG 3.18 index Normal Immune >0.99 [facility] Comment on above: Result Comment: Non- immune <0.90 Equivocal 0.90 - 0.99 Immune >0.99 Performed By: #### R UBIGG #### [facility] [address] [address] Dee Dee Griggs CBC AUTO DIFFon 09-07-2019 Basophils (Bld) [#/Vol] 0.0 103/ul Normal 0.0-0.1 [facility] Comment on above: Performed By: #### C BC #### [facility] [address] [place], [place] [id number] Dee Dee Indu Basophils/100 WBC (Bld) 0.4 % Normal 0.2-2.0 [facility] Comment on above: Performed By: #### C BC #### [facility] [address] [place], [place] [id number] Dee Dee Indu Eosinophils (Bld) [#/Vol] 0.3 103/ul Normal 0.0-0.7 [facility] Comment on above: Performed By: #### C BC #### [facility] [address] [place], [place] [address] Dee Dee Indu Eosinophils/100 WBC (Bld) 2.8 % Normal 0.9-7.0 [facility] Comment on above: Performed By: #### C BC #### [facility] [address] [place] [address] Dee Dee Indu Erythrocyte distribution width (RBC) [Ratio] 13.9 % Normal 11.0-15.0 [facility] Comment on above: Performed By: #### C BC #### [facility] [address] [place], [place] [id number] Dee Dee Indu Hematocrit (Bld) [Volume fraction] 36.8 % Normal 36.0-48.0 [facility] Comment on above: Performed By: #### C BC #### [facility] [address] [place], [place] [address] Dee Dee Indu Hemoglobin (Bld) [Mass/Vol] 12.3 g/dL Normal 12.0-16.0 [facility] Comment on above: Performed By: #### C BC #### [facility] [address] [place] [address] Dee Dee Indu IG # 0.03 10e3/ul Normal 0.00-0.03 [facility] Comment on above: Performed By: #### C BC #### [facility] [address] [place], [place] [address] Dee Dee Indu IG % 0.3 % Normal 0.0-0.5 [facility] Comment on above: Performed By: #### C BC #### [facility] [address] [place], [place] [address] Dee Dee Indu Lymphocytes (Bld) [#/Vol] 2.6 103/ul Normal 1.2-3.8 [facility] Comment on above: Performed By: #### C BC #### [facility] [address] [place], [place] [address] Dee Dee Indu Lymphocytes/100 WBC (Bld) 23.3 % Normal 20.5-60.0 [facility] Comment on above: Performed By: #### C BC #### [facility] [address] [place] [address] Dee Dee Indu MANUAL DIFF REQ NO Normal [facility] Comment on above: Performed By: #### C BC #### [facility] [address] [place], [place] [id number] Dee Dee Indu MCH (RBC) [Entitic mass] 28.7 pg Normal 26.7-34.0 [facility] Comment on above: Performed By: #### C BC #### [facility] [address] [place], [place] [address] Dee Dee Indu MCHC (RBC) [Mass/Vol] 33.4 g/dL Normal 29.9-35.2 [facility] Comment on above: Performed By: #### C BC #### [facility] [address] [place], [place] [phone] Dee Dee Indu MCV (RBC) [Entitic vol] 85.8 fL Normal 81.0-99.0 [facility] Comment on above: Performed By: #### C BC #### [facility] [address] [place], [place] [address] Dee Dee Indu Monocytes (Bld) [#/Vol] 1.0 103/ul Critically high 0.3-0.8 [facility] Comment on above: Performed By: #### C BC #### [facility] [address] [place], [place] [address] Dee Dee Indu Monocytes/100 WBC (Bld) 8.8 % Normal 1.7-12.0 [facility] Comment on above: Performed By: #### C BC #### [facility] [address] [place], [place] [address] Dee Dee Indu Neutrophils (Bld) [#/Vol] 7.1 103/ul Critically high 1.4-6.5 [facility] Comment on above: Performed By: #### C BC #### [facility] [address] [place], [place] [address] Dee Dee Indu Neutrophils/100 WBC (Bld) 64.4 % Normal 43.0-75.0 [facility] Comment on above: Performed By: #### C BC #### [facility] [address] [place], [place] [address] Dee [address] Indu Platelet mean volume (Bld) [Entitic vol] 9.4 fL Critically low 9.5-13.5 [facility] Comment on above: Performed By: #### C BC #### [facility] [address] [place], [place] [address] Dee Dee Indu Platelets (Bld) [#/Vol] 272 103/ul Normal 150-450 [facility] Comment on above: Performed By: #### C BC #### [facility] [address] [place], [place] [address] Dee Dee Indu RBC (Bld) [#/Vol] 4.29 106/ul Normal 4.20-5.40 [facility] Comment on above: Performed By: #### C BC #### [facility] [address] [place], [place] [address] Dee Dee Indu WBC (Bld) [#/Vol] 11.0 103/ul Normal 4.0-11.0 [facility] Comment on above: Performed By: #### C BC #### [facility] [address] [place], [place] [address] Dee [address] Indu CULTURE URINEon 09-07-2019 CULTURE URINE Culture Observations: No growth Normal [facility] Comment on above: Performed By: #### U RCX ####[facility] [id number] [place], [place] [address]Vaxwff Indu GLYCOHEMOGLOBIN A1Con 2019 Glucose [Mass/Vol] 111 mg/dL Normal [facility] Comment on above: Performed By: #### A 1C #### [facility] [address] [place], [place] [address] Dee Dee Griggs HbA1c (Bld) [Mass fraction] 5.5 % Normal <=6.0 [facility] Comment on above: Performed By: #### A 1C #### [facility] [address] [address] Dee Dee Griggs FANY BOX TEST PT SEND OUTo n 09-07-2019 SENT TO REF LAB 09/07/2019 Normal [facility] Comment on above: Performed By: #### N BOX #### [facility] [address] [address] Dee Dee Indu TYPE AND SCREENon 09-07-2019 TYPE AND SCREEN Negative Normal [facility] Comment on above: Performed By: #### T NS #### [facility] [address] [place] [address] Dee Dee Griggs US PREG TVon 07-27-2019 US PREG TV Patient: ARCHANA RODRIGUEZ Exam Date: 07/27/2019 : 1995 Gender:F Ordering : DR JOANNE FRANKLIN . Admission #: [id number] Family : DR ТАТЬЯНА URIARTE . Order #: [id number] CLICK HERE TO VIEW EXAM RADIOLOGY REPORT [...] M.D. on 07/27/2019 at 10:12 Normal [facility] PREG QUANT HCGon 07-20-2019 HCG QUANT 7056.00 mIU/mL Normal [facility] Comment on above: Performed By: #### P REGQNT #### [facility] [address] [id number] Dee Dee Griggs HCG RANGE SEE BELOW Normal [facility] Comment on above: Result Comment: 5-50 0-1 WEEK 40-300 1-2 WEEKS 100-1,000 2-3 WEEKS 500-6,000 3-4 WEEKS 5,000-200,000 1-2 MONTHS 10,000-100,000 2-3 MONTHS 3,000-50,000 2ND TRIMESTER 1,000-50,000 3RD TRIMESTER Performed By: #### P REGQNT #### [facility] [address] [address] [address] Griggs Vital Signs Date Time Vital Sign Value Performing Clinician Facility 12-22-2024 16:15-0400 Body mass index (BMI) [Ratio] 38.94 kg/m2 Becca DIAZ Work Phone: [facility] 12-22-2024 16:15-0400 Body weight 106.14 kg Becca Gomez PA Work Phone: [facility] 12-22-2024 16:15-0400 Diastolic blood pressure 80 mm[Hg] Becca Gomez PA Work Phone: [facility] 12-22-2024 16:15-0400 Systolic blood pressure 124 mm[Hg] Becca Gomez PA Work Phone: [facility] 12-16-2024 15:37-0400 Body mass index (BMI) [Ratio] 38.96 kg/m2 Carola Harley [employer] Work Phone: [facility] 12-16-2024 15:37-0400 Body weight 106.2 kg Carola Harley [employer] Work Phone: [facility] 12-16-2024 15:37-0400 Diastolic blood pressure 78 mm[Hg] Carola Harley [employer] Work Phone: [facility] 12-16-2024 15:37-0400 Systolic blood pressure 120 mm[Hg] Carola Munozcarlos BAUER Work Phone: [facility] 12-01-2024 13:30-0400 Body mass index (BMI) [Ratio] 38.27 kg/m2 Roberto Kennedy DO Work Phone: [facility] 12-01-2024 13:30-0400 Body weight 104.33 kg Roberto Kennedy DO Work Phone: [facility] 12-01-2024 13:30-0400 Diastolic blood pressure 80 mm[Hg] Roberto Kennedy DO Work Phone: [facility] 12-01-2024 13:30-0400 Systolic blood pressure 122 mm[Hg] Roberto Kennedy DO Work Phone: [facility] 11-15-2024 14:36-0400 Body mass index (BMI) [Ratio] 37.94 kg/m2 Roberto Kennedy DO Work Phone: [facility] 11-15-2024 14:36-0400 Body weight 103.42 kg Roberto Kennedy DO Work Phone: [facility] 11-15-2024 14:36-0400 Diastolic blood pressure 72 mm[Hg] Roberto Kennedy DO Work Phone: [facility] 11-15-2024 14:36-0400 Systolic blood pressure 120 mm[Hg] Roberto Kennedy DO Work Phone: [facility] 09-28-2024 14:19-0500 Body mass index (BMI) [Ratio] 36.58 kg/m2 Becca DIAZ Work Phone: [facility] 09-28-2024 14:19-0500 Body weight 99.7 kg Becca DIAZ Work Phone: [facility] 09-28-2024 14:19-0500 Diastolic blood pressure 84 mm[Hg] Becca DIAZ Work Phone: [facility] 09-28-2024 14:19-0500 Systolic blood pressure 128 mm[Hg] Becca DIAZ Work Phone: [facility] 08-30-2024 14:27-0500 Body mass index (BMI) [Ratio] 35.47 kg/m2 Roberto Kennedy DO Work Phone: [facility] 08-30-2024 14:27-0500 Body weight 96.67 kg Roberto Kennedy DO Work Phone: [facility] 08-30-2024 14:27-0500 Diastolic blood pressure 76 mm[Hg] Roberto Kennedy DO Work Phone: [facility] 08-30-2024 14:27-0500 Systolic blood pressure 120 mm[Hg] Roberto Kennedy DO Work Phone: [facility] 08-19-2024 13:20-0500 Body height 167.64 cm [facility] 08-19-2024 13:20-0500 Body mass index (BMI) [Ratio] 34.2 kg/m2 [facility] 08-19-2024 13:20-0500 Body temperature 98.2 [degF] [facility] 08-19-2024 13:20-0500 Body weight 96.33 kg [facility] 08-19-2024 13:20-0500 Diastolic blood pressure 74 mm[Hg] [facility] 08-19-2024 13:20-0500 Heart rate 108 /min [facility] 08-19-2024 13:20-0500 Respiratory rate 18 /min [facility] 08-19-2024 13:20-0500 SaO2% (BldA) [Mass fraction] 98 % [facility] 08-19-2024 13:20-0500 Systolic blood pressure 117 mm[Hg] [facility] 07-28-2024 15:29-0500 Body mass index (BMI) [Ratio] 35.84 kg/m2 Becca DIAZ Work Phone: [facility] 07-28-2024 15:29-0500 Body weight 97.7 kg Becca DIAZ Work Phone: [facility] 07-28-2024 15:29-0500 Diastolic blood pressure 70 mm[Hg] Becca DIAZ Work Phone: [facility] 07-28-2024 15:29-0500 Systolic blood pressure 114 mm[Hg] Becca DIAZ Work Phone: [facility] 06-28-2024 13:29-0500 Body mass index (BMI) [Ratio] 35.74 kg/m2 Roberto Kennedy DO Work Phone: [facility] 06-28-2024 13:29-0500 Body weight 97.43 kg Roberto Kennedy DO Work Phone: [facility] 06-28-2024 13:29-0500 Diastolic blood pressure 74 mm[Hg] Roberto Kennedy DO Work Phone: [facility] 06-28-2024 13:29-0500 Systolic blood pressure 124 mm[Hg] Roberto Kennedy DO Work Phone: [facility] 06-10-2024 15:02-0400 Body mass index (BMI) [Ratio] 36.08 kg/m2 [facility] Nurse [facility] 06-10-2024 15:02-0400 Body weight 98.34 kg [facility] Nurse [facility] 11-27-2023 13:56-0400 Body height 167.64 cm [facility] 11-27-2023 13:56-0400 Body mass index (BMI) [Ratio] 34.3 kg/m2 [facility] 11-27-2023 13:56-0400 Body temperature 98.9 [degF] [facility] 11-27-2023 13:56-0400 Body weight 96.61 kg [facility] 11-27-2023 13:56-0400 Heart rate 102 /min [facility] 11-27-2023 13:56-0400 Respiratory rate 16 /min [facility] 11-27-2023 13:56-0400 SaO2% (BldA) [Mass fraction] 97 % [facility] 08-19-2023 14:10-0500 Body height 167.64 cm Marti Lawson Other [employer] Other 08-19-2023 14:10-0500 Body mass index (BMI) [Ratio] 34.44 kg/m2 Marti Lawson Other [employer] Other 08-19-2023 14:10-0500 Body temperature 99 [degF] Marti Lawson Other [employer] Other 08-19-2023 14:10-0500 Body weight 96.8 kg Marti Lawson Other [employer] Other 08-19-2023 14:10-0500 Respiratory rate 18 /min Marti Lawson Other [employer] Other 08-19-2023 14:10-0500 SaO2% (BldA) [Mass fraction] 98 % Marti Lawson Other [employer] Other 10-13-2019 02:06-0500 Body weight 90.72 kg ТАТЬЯНА URIARTE [facility] Comment on above: Performed By: #### AFPMAT ####[facility] [id number] [place] [id number] Indu Encounters Encounter Date Encounter Type Care Provider Facility Start: 12-29-2024 End: 12-29-2024 Clinisync Result Encounter Roberto Kennedy DO Work Phone: [facility] Unsolicited Start: 12-29-2024 End: 12-29-2024 Clinisync Result Encounter Roberto Kennedy DO Work Phone: [facility] Unsolicited Start: 12-27-2024 End: 12-27-2024 Bamboo flowsheet Orberto Kennedy DO Work Phone: [facility] Start: 12-27-2024 End: 12-27-2024 Bamboo flowsheet Roberto Kennedy DO Work Phone: [facility] Start: 12-27-2024 End: 12-27-2024 Clinisync Result Encounter Roberto Kennedy DO Work Phone: [facility] Unsolicited Start: 12-27-2024 End: 12-27-2024 flow sheet Roberto Kennedy DO Work Phone: [facility] Comment on above: Third trimester preg nestor; 38 weeks gestation of Start: 12-27-2024 End: 12-27-2024 ambulatory ROBERTO KENNEDY Not Available Start: 12-22-2024 End: 12-22-2024 Office outpatient visit 15 minutes Becca DIAZ Work Phone: [facility] Comment on above: Third trimester preg nestor; 37 weeks gestation of Start: 12-22-2024 End: 12-22-2024 ambulatory BECCA GOMEZ Not Available Start: 12-22-2024 End: 12-22-2024 Bamboo flowsheet Becca DIAZ Work Phone: [facility] Start: 12-22-2024 End: 12-22-2024 Bamboo flowsheet Becca DIAZ Work Phone: [facility] Start: 12-16-2024 End: 12-16-2024 Office outpatient visit 15 minutes Carola Harley [employer] Work Phone: [facility] Comment on above: Third trimester preg nestor; 36 weeks gestation of Start: 12-16-2024 End: 12-16-2024 ambulatory CAROLA CRICKET Not Available Start: 12-16-2024 End: 12-16-2024 Bamboo flowsheet Carola Cricket [employer] Work Phone: [facility] Start: 12-16-2024 End: 12-16-2024 Bamboo flowsheet Carola Cricket [employer] Work Phone: [facility] Start: 12-01-2024 End: 12-01-2024 Bamboo flowsheet Roberto Kennedy DO Work Phone: [facility] Start: 12-01-2024 End: 12-01-2024 Bamboo flowsheet Roberto Kennedy DO Work Phone: [facility] Start: 12-01-2024 End: 12-01-2024 Office outpatient visit 15 minutes Roberto Kennedy DO Work Phone: [facility] Comment on above: Third trimester preg nestor; 34 weeks gestation of Start: 12-01-2024 End: 12-01-2024 ambulatory ROBERTO KENNEDY Not Available Start: 11-15-2024 End: 11-15-2024 Office outpatient visit 15 minutes Roberto Kennedy DO Work Phone: [facility] Comment on above: Third trimester preg nestor; 32 weeks gestation of Start: 11-15-2024 End: 11-15-2024 ambulatory ROBERTO KENNEDY Not Available Start: 11-01-2024 End: 11-01-2024 ambulatory BECCA PATRICIA Not Available Start: 09-28-2024 End: 09-28-2024 Office outpatient visit 15 minutes Becca DIAZ Work Phone: [facility] Comment on above: Second trimester pre gnancy; 25 weeks gestation of Start: 09-28-2024 End: 09-28-2024 ambulatory BECCA PATRICIA Not Available Start: 09-24-2024 End: 09-24-2024 Clinisync Result Encounter Roberto Kennedy DO Work Phone: [facility] Unsolicited Start: 09-24-2024 End: 09-24-2024 Clinisync Result Encounter Roberto Kennedy DO Work Phone: [facility] Unsolicited Start: 08-30-2024 End: 08-30-2024 Office outpatient visit [...] Unsolicited Start: 08-30-2024 End: 08-30-2024 ambulatory ROBERTO BENAVIDES Not Available Start: 08-30-2024 End: 08-30-2024 ambulatory BECCA GOMEZ Not Available Start: 08-19-2024 End: 08-19-2024 ambulatory [facility] Work Phone: Start: 08-19-2024 End: 08-19-2024 Patient encounter procedure [facility] Work Phone: Start: 07-28-2024 [...] 07-28-2024 End: 08-05-2024 Clinisync Result Encounter Becca DIAZ Work Phone: [facility] Unsolicited Start: 07-28-2024 End: 07-30-2024 External Result Encounter Becca DIAZ Work Phone: [facility] [...] Department Unsolicited Start: 06-10-2024 End: 06-10-2024 ambulatory BECCA GOMEZ Not Available Start: 06-10-2024 End: 06-10-2024 Office outpatient visit 5 minutes [facility] Kennedy Nurse [facility] Start: 11-27-2023 End: 11-27-2023 ambulatory [facility] Work Phone: Start: 11-27-2023 End: 11-27-2023 Patient encounter procedure [facility] [place] Work Phone: Start: 08-19-2023 End: 08-19-2023 ambulatory Marti Lawson Other [employer] Other Start: 08-19-2023 Office outpatient ne w 30 minutes Marti Lawson [facility] Start: 03-22-2020 End: 03-23-2020 Patient encounter procedure ТАТЬЯНА URIARTE Facility:[facility] Start: 03-08-2020 End: 03-11-2020 Evaluation and management of inpatient JOANNE FRANKLIN Facility:[facility] Start: 02-15-2020 End: 02-15-2020 Patient encounter procedure JOANNE FRANKLIN Facility:[facility] Start: 12-02-2019 End: 12-03-2019 Patient encounter procedure JOANNE FRANKLIN Facility:[facility] Start: 10-28-2019 End: 10-29-2019 Patient encounter procedure JOANNE FRANKLIN Facility:[facility] Start: 10-11-2019 End: 10-12-2019 Patient encounter procedure JOANNE FRANKLIN Facility:[facility] Start: 09-07-2019 End: 09-07-2019 Patient encounter procedure JOANNE FRANKLIN Facility:[facility] Start: 09-07-2019 End: 09-08-2019 Patient encounter procedure JOANNE FRANKLIN Facility:[facility] Start: 07-27-2019 End: 07-28-2019 Patient encounter procedure JOANNE FRANKLIN Facility:[facility] Start: 07-20-2019 End: 07-21-2019 Patient encounter procedure ТАТЬЯНА URIARTE Facility:[facility] Procedures Date Procedure Procedure Detail Performing Clinician Start: 12-29-2024 ALL CBC WITH AUTO DIFF Roberto Kennedy DO Work Phone: Start: 12-27-2024 ALL CBC WITH AUTO DIFF Roberto Kennedy DO Work Phone: Start: 12-27-2024 Urnls dip stick/tabl et rgnt non-auto w/o micrscp Roberto Kennedy DO Work Phone: Start: 12-22-2024 Urnls dip stick/tabl et rgnt non-auto w/o micrscp Becca DIAZ Work Phone: Start: 12-16-2024 Urnls dip stick/tabl et rgnt non-auto w/o micrscp Roberto Kennedy DO Work Phone: Start: 11-15-2024 Urnls dip stick/tabl et rgnt non-auto w/o micrscp Roberto Kennedy DO Work Phone: Start: 09-28-2024 Urnls dip stick/tabl et rgnt non-auto w/o micrscp Becca DIAZ Work Phone: Start: 09-24-2024 ALL CBC WITH AUTO DIFF Roberto Kennedy DO Work Phone: Start: 08-30-2024 AFP, SERUM, OPEN SPI NA [...] Treatment Date Care Activity Detail Author Start: 02-14-2025 End: 02-14-2025 ambulatory 02/14/2025 1:30 PM EDT Visit [facility] [address] [place] [address] Becca Gomez PA [address] [place] [address] [facility] Start: 12-27-2024 End: 12-27-2024 Patient encounter procedure [facility] Comment on above: Arrived Start: 12-22-2024 End: 12-22-2024 Patient encounter procedure [facility] Comment on above: Arrived Start: 12-16-2024 End: 12-16-2024 Patient encounter procedure [facility] Comment on above: Arrived Start: 12-16-2024 End: 12-16-2025 CULTURE, GROUP B STREP WITH SUSCEPTIBLITY CULTURE, GROUP B STREP WITH SUSCEPTIBLITY Lab Routine Third trimester Expected: 12/16/2024, Expires: 12/16/2025 [facility] Work Phone: Comment on above: Expected: 12/16/2024 , Expires: 12/16/2025 Start: 12-01-2024 End: 12-01-2024 Patient encounter procedure [facility] Comment on above: Arrived Start: 10-19-2024 End: 10-19-2024 Patient encounter procedure 10/19/2024 1:20 PM EST Routine [facility] [address] [place] [address] Roberto Benavides DO [address] [place] [place], [place] [id number] [facility] Start: 09-28-2024 End: 09-28-2024 Patient encounter procedure 09/28/2024 1:30 PM EST Routine [facility] [address] [place] [address] Becca Gomez PA [address] [place], [place] [id number] [facility] Start: 09-28-2024 End: 09-28-2024 Professional / ancillary services management 09/28/2024 1:00 PM EST Ancillary Procedure [facility] [address] [place] [address] [facility] Start: 08-30-2024 End: 08-30-2024 Patient encounter procedure 08/30/2024 2:10 PM EST Routine [facility] [address] [place] [id number] Roberto Benavides DO [address] [place] [place], [place] [id number] [facility] Start: 08-30-2024 End: 08-30-2025 CBC panel - Blood by Automated count CBC Lab Routine Diabetes mellitus screening Expected: 08/30/2024 (Approximate), Expires: 08/30/2025 [facility] Work Phone: Comment on above: Expected: 08/30/2024 (Approximate), Expires: 08/30/2025 Start: 08-30-2024 End: 08-30-2025 Measurement of glucose 1 hour after glucose challenge for glucose tolerance test Glucose tolerance, 1 hour Lab Routine Diabetes mellitus screening Expected: 08/30/2024 (Approximate), Expires: 08/30/2025 [facility] Comment on above: Expected: 08/30/2024 (Approximate), Expires: 08/30/2025 Start: 08-30-2024 End: 08-30-2024 Professional / ancillary services management 08/30/2024 1:00 PM EST Ancillary Procedure [facility] [address] [place] [phone] [facility] Start: 07-28-2024 End: 07-28-2024 Patient encounter procedure 07/28/2024 2:30 PM EST Routine [facility] [address] [place] [phone] Becca Gomez PA [address] [place] [address] Arrived [facility] Comment on above: Arrived Start: 07-28-2024 End: 11-26-2024 Alpha fetoprotein, maternal Alpha fetoprotein, maternal Lab Routine Second trimester 16 weeks gestation of Expected: 07/28/2024 (Approximate), Expires: 11/26/2024 [facility] Comment on above: Expected: 07/28/2024 (Approximate), Expires: 11/26/2024 Start: 07-28-2024 End: 07-28-2025 US for US OB ANATOMY SINGLE W US OB CERVICAL LENGTH Imaging Routine Screening, , for anatomic survey Expected: 07/28/2024 (Approximate), Expires: 07/28/2025 [facility] Comment on above: Expected: 07/28/2024 (Approximate), Expires: 07/28/2025 Start: 07-26-2024 End: 07-26-2024 Patient encounter procedure 07/26/2024 1:30 PM EST Routine [facility] [address] [place] [phone] Becca [place] PA [address] [place] [address] [facility] Start: 06-28-2024 End: 06-28-2024 Patient encounter procedure 06/28/2024 1:20 PM EST Routine [facility] [address] [place] [address] Roberto Benavides DO [address] [place] [address] [facility] Start: 06-10-2024 End: 06-10-2025 ABO/Rh ABO/Rh Lab Routine Missed menses , unspecified gestational age Expected: 06/10/2024 (Approximate), Expires: 06/10/2025 [facility] Comment on above: Expected: 06/10/2024 (Approximate), Expires: 06/10/2025 Start: 06-10-2024 End: 06-10-2025 Blood type and Indirect antibody screen panel - Blood Type and screen Lab Routine Missed menses , unspecified gestational age Expected: 06/10/2024 (Approximate), Expires: 06/10/2025 [facility] Work Phone: Comment on above: Expected: 06/10/2024 (Approximate), Expires: 06/10/2025 Start: 06-10-2024 End: 06-10-2025 Drugs of abuse panel - Urine by Screen method Rapid drug screen, urine Lab Routine , unspecified gestational age Encounter for supervision of normal first in first trimester Expected: 06/10/2024 (Approximate), Expires: 06/10/2025 [facility] Comment on above: Expected: 06/10/2024 (Approximate), Expires: 06/10/2025 Start: 06-10-2024 End: 06-10-2025 US Pelvis transvaginal US OB transvaginal Imaging Routine Missed menses Expected: 06/10/2024 (Approximate), Expires: 06/10/2025 [facility] Comment on above: Expected: 06/10/2024 (Approximate), Expires: 06/10/2025 Bacteria identified in Urine by Culture Urine culture Microbiology Routine Missed menses Ordered: 06/10/2024 [facility] Comment on above: Ordered: 06/10/2024 CBC W Auto Different ial panel - Blood CBC and differential Lab Routine Missed menses , unspecified gestational age Ordered: 06/10/2024 [facility] Comment on above: Ordered: 06/10/2024 CHLAMYDIA TRACHOMATI S (GENITO/STI) CHLAMYDIA TRACHOMATIS (GENITO/STI) Lab Routine STD exposure Ordered: 07/28/2024 [facility] Comment on above: Ordered: 07/28/2024 Cytology Cervical or vaginal smear or scraping study Pap Smear Pathology and Cytology Routine Well woman exam with routine gynecological exam Ordered: 07/28/2024 [facility] Comment on above: Ordered: 07/28/2024 Hemoglobin A1c/Hemoglobin.total in Blood Hemoglobin A1c Lab Routine Missed menses , unspecified gestational age Ordered: 06/10/2024 [facility] Comment on above: Ordered: 06/10/2024 Hepatitis B virus surface Ag [Presence] in Serum or Plasma by Immunoassay Hepatitis B surface antigen Lab Routine Missed menses , unspecified gestational age Ordered: 06/10/2024 [facility] Comment on above: Ordered: 06/10/2024 Hepatitis C virus Ab [Presence] in Serum or Plasma by Immunoassay Hepatitis C antibody Lab Routine Missed menses , unspecified gestational age Ordered: 06/10/2024 [facility] Comment on above: Ordered: 06/10/2024 HIV-1/HIV-2 antigen/antibody combination immunoassay HIV-1 and HIV-2 antibodies Lab Routine Missed menses , unspecified gestational age Ordered: 06/10/2024 [facility] Comment on above: Ordered: 06/10/2024 Neisseria gonorrhoea e DNA [Presence] in Unspecified specimen by ALISSON with probe detection Neisseria gonorrhea DNA probe, direct Lab Routine STD exposure Ordered: 07/28/2024 [facility] Comment on above: Ordered: 07/28/2024 Reagin Ab [Presence] in Serum by RPR RPR Lab Routine Missed menses , unspecified gestational age Ordered: 06/10/2024 [facility] Comment on above: Ordered: 06/10/2024 Rubella antibody, IgG Rubella an tibody, IgG Lab Routine Missed menses , unspecified gestational age Ordered: 06/10/2024 [facility] Comment on above: Ordered: 06/10/2024 SURESWAB(R) ADVANCED VAGINITIS PLUS, TMA SURESWAB(R) ADVANCED VAGINITIS PLUS, TMA Pathology and Cytology Routine Vaginal discharge Ordered: 07/28/2024 [facility] Work Phone: Comment on above: Ordered: 07/28/2024 [facility] Payers Date Payer Category Payer Medicaid (Managed Care) 1.2. [id number] 1996 Unknown [id number] 2.16.840.1.635162.3.579.2.5 1996 Unknown [id number] 2.16.840.1.677977.3.579.2.5 1996 Unknown [id number] 2.16.840.1.435327.3.579.2.5 1996 Unknown [id number] 2.16.840.1.304792.3.579.2.5 1996 Unknown [id number] 2.16.840.1.124914.3.579.2.5 1996 Unknown [id number] 2.16.840.1.149099.3.579.2.5 1996 Unknown [id number] 2.16.840.1.191569.3.579.2.5 93 1996 Unknown [id number] 2.16.840.1.038658.3.579.2.5 93 1996 Unknown [id number] 2.16.840.1.961497.3.579.2.5 93 1996 Unknown [id number] 2.16.840.1.897898.3.579.2.5 93 1996 Unknown [id number] 2.16.840.1.935579.3.579.2.1 259 1996 Unknown [id number] 2.16.840.1.248785.3.579.2.1 259 1996 Unknown [id number] 2.16.840.1.035379.3.579.2.1 259 1996 Unknown [id number] 2.16.840.1.437948.3.579.2.1 259 1996 Unknown [id number] 2.16.840.1.725053.3.579.2.1 259 1996 Unknown [id number] 2.16.840.1.255952.3.579.2.1 259 1996 Unknown [id number] 2.16.840.1.714075.3.579.2.1 259 1996 Unknown [id number] 2.16.840.1.777998.3.579.2.1 259 1996 Unknown [id number] 2.16.840.1.824719.3.579.2.1 259 1996 Unknown [id number] 2.16.840.1.384312.3.579.2.1 259 1996 Unknown [id number] 2.16.840.1.875822.3.579.2.1 259 1996 Unknown [id number] 2.16.840.1.917982.3.579.2.1 259 1996 Unknown [id number] 2.16.840.1.513019.3.579.2.1 259 1996 Unknown [id number] 2.16.840.1.922792.3.579.2.1 259 1974 Unknown [id number] 2.16.840.1.115550.3.579.2.5 93 1974 Unknown [id number] 2.16.840.1.432197.3.579.2.5 93 1959 Private Health Insurance [id number] 1959 Unknown [id number] 1947 Unknown [id number] 2.16.840.1.381241.3.579.2.5 93 1947 Unknown [id number] 2.16.840.1.576470.3.579.2.5 93 Unknown [facility] [id number] Social History Date Type Detail Facility Unknown if ever smoked [facility] [employer] Other Sex Assigned At [facility] [employer] Other Start: 11-27-2023 End: 11-27-2023 Tobacco smoking status AZIS Never smoked tobacco (finding) [facility] Start: 1995 Sex Assigned At Female F [facility] Tobacco smoking status [facility] Tobacco smoking consumption unknown [facility] Start: 05-27-2024 Gender identity Identifies as female gender (finding) [facility] Start: 04-17-2024 [facility] Start: 08-19-2024 Sex Female (finding) [facility] Goals Date Patient Goal Desired Activity /State Personal health goal Clinical Notes 08-19-2023 to 12-27-2024 Kimberly Earl LPN - 12/27/2024 1:40 PM EMILY Hubbard - 12/22/2024 3:50 PM Alli Harley NP - 12/16/2024 3:30 PM Ritika Gastelum LPN - 12/01/2024 1:20 PM EDT Note Date & Type Note Facility 12-27-2024 History of Presen t illness Narrative Reason for Appointment: Patient ID: Alphonse Rodriguez is a 29 y.o. female who presents [...] nursing note reviewed. Exam conducted with a veneer redrier present. Vitals: Estimated body mass index is 38.94 kg/m as calculated from the following: Height [...] 01/08/25. Patient is to head over to [facility] due to elevated BP and will have some labs drawn and NST/BPP to be obtained today and patient to have NST done on as well. Patient to have IOL Documented by Kimberly Earl LPN on behalf of: Roberto Benavides DO documented in this encounter [facility] 12-22-2024 History of Presen t illness Narrative Reason for Appointment: Patient ID: Alphonse Rodriguez is a 29 y.o. female who presents [...] Exam Constitutional: Appearance: Normal appearance. She is normal weight. HENT: Head: Normocephalic. Cardiovascular: Rate and Rhythm: Normal rate. Pulses: Normal pulses. Pulmonary: Effort: Pulmonary effort is normal. Breath sounds: Normal breath sounds. Abdominal: Palpations: Abdomen is soft. Musculoskeletal: General: Normal range of motion. Neurological: General: No focal deficit present. Mental Status: She is alert and oriented to person, place, and time. Psychiatric: Mood and Affect: Mood normal. Behavior: Behavior normal. Thought Content: Thought content normal. Judgment: Judgment normal. Vitals and nursing note reviewed. Vitals: Estimated body mass index is 38.94 kg/m as calculated from the following: Height as of 02/07/22: 5' 5 . Weight as of this encounter: 234 lb. BP: 124/80 Patient's last menstrual period was 04/03/2024. ASSESSMENT & PLAN ICD-10-CM 1. Third trimester Z34.93 POCT urinalysis dipstick manually resulted 2. 37 weeks gestation of Z3A.37 Return OB: Patient presents today for a routine obstetrics appointment. Patient is currently 37w5d . Patient states she is doing well but has complaints of being tired due to current . Patient has verbalizes frequent movement. labor precautions was discussed/given and patient was instructed to perform kick counts three times a day. Orders Placed This Encounter Procedures POCT urinalysis dipstick manually resulted Follow Up: Patient is to return to office in 1 week for routine OB appointment. Documented by EMILY Segundo on behalf of: EMILY Segundo documented in this encounter [facility] 12-16-2024 History of Presen t illness Narrative Reason for Appointment: Patient ID: Alphonse Rodriguez is a 29 y.o. female who presents [...] nursing note reviewed. Exam conducted with a veneer redrier present. Vitals: Estimated body mass index is 38.96 kg/m as calculated from the following: Height as of 02/07/22: 5' 5 . Weight as of this encounter: 234 lb 1.9 oz. BP: 120/78 Patient's last menstrual period was 04/03/2024. ASSESSMENT & PLAN ICD-10-CM 1. Third trimester Z34.93 POCT urinalysis dipstick manually resulted CULTURE, GROUP B STREP WITH SUSCEPTIBLITY CULTURE, GROUP B STREP WITH SUSCEPTIBLITY CANCELED: CULTURE, GROUP B STREP WITH SUSCEPTIBLITY CANCELED: CULTURE, GROUP B STREP WITH SUSCEPTIBLITY 2. 36 weeks gestation of Z3A.36 POCT urinalysis dipstick manually resulted Return OB: Patient presents today for a routine obstetrics appointment. Patient is currently 36w5d . Patient states she is doing well but has complaints of being tired due to current . Patient has verbalizes frequent movement. labor precautions was discussed/given and patient was instructed to perform kick counts three times a day. Orders Placed This Encounter Procedures CULTURE, GROUP B STREP WITH SUSCEPTIBLITY POCT urinalysis dipstick manually resulted Follow Up: Patient is to return to office in 1 week for routine OB appointment. Documented by Carola Harley NP on behalf of: Carola Harely NP documented in this encounter [facility] 12-01-2024 History of Presen t illness Narrative Reason for Appointment: Patient ID: Alphonse Rodriguez is a 29 y.o. female who presents [...] nursing note reviewed. Exam conducted with a veneer redrier present. Vitals: Estimated body mass index is 38.27 kg/m as calculated from the following: Height as of 02/07/22: 5' 5 . Weight as of this encounter: 230 lb. BP: 122/80 Patient's last menstrual period was 04/03/2024. ASSESSMENT & PLAN ICD-10-CM 1. Third trimester Z34.93 2. 34 weeks gestation of Z3A.34 Return OB: Patient presents today for a routine obstetrics appointment. Patient is currently 34w4d . Patient states she is doing well but has complaints of being tired due to current . Patient has verbalizes frequent movement. labor precautions was discussed/given and patient was instructed to perform kick counts three times a day. No orders of the defined types were placed in this encounter. Follow Up: Patient is to return to office in 2 week for routine OB appointment. Documented by Indu Gastelum LPN on behalf of: Roberto Benavides DO documented in this encounter [facility] 11-15-2024 History of Presen t illness Narrative Reason for Appointment: Patient ID: Alphonse Rodriguez is a 29 y.o. female who presents [...] Exam Constitutional: Appearance: Normal appearance. She is normal weight. HENT: Head: Normocephalic. Cardiovascular: Rate and Rhythm: Normal rate. Pulses: Normal pulses. Pulmonary: Effort: Pulmonary effort is normal. Breath sounds: Normal breath sounds. Abdominal: Palpations: Abdomen is soft. Musculoskeletal: General: Normal range of motion. Neurological: General: No focal deficit present. Mental Status: She is alert and oriented to person, place, and time. Psychiatric: Mood and Affect: Mood normal. Behavior: Behavior normal. Thought Content: Thought content normal. Judgment: Judgment normal. Vitals and nursing note reviewed. Vitals: Estimated body mass index is 37.94 kg/m as calculated from the following: Height as of 02/07/22: 5' 5 . Weight as of this encounter: 228 lb. BP: 120/72 Patient's last menstrual period was 04/03/2024. ASSESSMENT & PLAN ICD-10-CM 1. Third trimester Z34.93 POCT urinalysis dipstick manually resulted 2. 32 weeks gestation of Z3A.32 Return OB: Patient presents today for a routine obstetrics appointment. Patient is currently 32w2d . Patient states she is doing well but has complaints of being tired due to current . Patient has verbalizes frequent movement. labor precautions was discussed/given and patient was instructed to perform kick counts three times a day. Orders Placed This Encounter Procedures POCT urinalysis dipstick manually resulted Follow Up: Patient is to return to office in 2 week for routine OB appointment. Documented by EMILY Segundo on behalf of: Roberto Benavides DO documented in this encounter [facility] 09-28-2024 History of Presen t illness Narrative Reason [...] nursing note reviewed. Exam conducted with a veneer redrier present. Vitals: Estimated body mass index is 36.58 kg/m as calculated from the following: Height as of 02/07/22: 5' 5 . Weight as of this encounter: 219 lb 12.8 oz. BP: 128/84 Patient's last menstrual period was 04/03/2024. ASSESSMENT & PLAN ICD-10-CM 1. Second trimester Z34.92 POCT urinalysis dipstick manually resulted 2. 25 weeks gestation of Z3A.25 Return OB: Patient presents today for a routine obstetrics appointment. Patient is currently 25w3d . Patient states she is doing well but has complaints of being tired due to current . Patient has verbalizes frequent movement. labor precautions was discussed/given and patient was instructed to perform kick counts three times a day. Orders Placed This Encounter Procedures POCT urinalysis dipstick manually resulted Follow Up: Patient is to return to office in 2 week for routine OB appointment. Documented by Carmenza Vieira MA on behalf of: EMILY Segundo documented in this encounter [facility] 08-30-2024 History of Presen t illness Narrative [...] nursing note reviewed. Exam conducted with a veneer redrier present. Vitals: Estimated body mass index is [...] Roberto Benavides DO documented in this encounter [facility] 08-19-2024 Evaluation note Diagnosis Onset Date Resolution RSV (acute bronchiolitis due to respiratory syncytial virus) acute August 19 12:22pm Contact with and (suspected) exposure to covid-19 noneactive August 19 12:22pm [facility] Work Phone: [phone] 388-301312-11-2024 History of Present illness Narrative* EMILY Segundo [...] nursing note reviewed. Exam conducted with a veneer redrier present. Vitals: Estimated body mass index is [...] obtained without difficulty and [facility]. Orders Placed This Encounter Procedures US OB ANATOMY SINGLE W US OB CERVICAL LENGTH CHLAMYDIA TRACHOMATIS (GENITO/STI) Neisseria gonorrhea DNA probe, direct Alpha fetoprotein, maternal POCT urinalysis dipstick manually resulted Follow Up: Patient is to return to our office in 4 weeks for routine OB appointment Documented by EMILY Segundo on behalf of: EMILY Segundo documented in [facility] [id number] History of Present illness Narrative* Kimberly Earl, DIFFUSION FURNACE OPERATOR - 06/28/2024 1:20 PM EST Reason for [...] nursing note reviewed. Exam conducted with a veneer redrier present. Vitals: Estimated body mass index is [...] or undercooked meat, and stay away from [facility]. Patient has been consulted regarding any further do's and don'tsof . Patient voiced understanding and all questions and concerns were answered. Follow Up: Patient is to return in 4 weeks for routine OB appointment. Documented by Kimberly Earl LPN on behalf of: Roberto Benavides DO documented in [facility] [id number] History of Present illness Narrative* Kerri Mejía [...] or undercooked meat, and stay away from [facility]. Patient has also been advised [...] by: Kerri Mejía LPN documented in this encounterHarry [facility]. [facility] [id number] Evaluation note* Encounter Date Diagnosis Assessment Notes [...] treatment plan. Patient left in stable condition [employer] Other Evaluation noteNo assessment information available [facility] Work Phone: Evaluation note* Diagnosis Missed menses , unspecified gestational age Encounter for supervision of normal first in first trimester Nausea and vomiting in Unspecified vomiting of , unspecified as to episode of care documented in this encounter [facility]* Diagnosis Second trimester state, incidental 12 weeks gestation of documented in this encounter [facility]* Diagnosis Screening, , for anatomic survey Encounter for anatomic survey Well woman exam with routine gynecological exam Routine gynecological examination Second trimester state, incidental 16 weeks gestation of Vaginal discharge Leukorrhea, not specified as infective STD exposure documented in this encounter [facility]* Diagnosis 21 weeks gestation of Second trimester state, incidental Diabetes mellitus screening Screening for diabetes mellitus documented [facility]* Diagnosis Second trimester state, incidental 25 weeks gestation of documented in [facility]* Diagnosis Third trimester state, incidental 32 weeks gestation of documented in [facility]* Diagnosis Third trimester state, incidental 34 weeks gestation of documented [facility]* Diagnosis Third trimester state, incidental 36 weeks gestation of documented [facility]* Diagnosis Third trimester state, incidental 37 weeks gestation of documented [facility]* Diagnosis Third trimester state, incidental 38 weeks gestation of documented [facility] Narrative - Reported* Type Description Date Medical History asthma Medical History gestational hypertension [employer] Other Summary Purpose Family History Relationship Condition [...] section and content) DATE CREATED AUTHOR 03/31/2020 Yovani Garcia [facility] DATE CREATED AUTHOR AUTHOR'S ORGANIZ ATION 12/28/2024 [facility] EPIC REASON FOR VISIT [...] November 27, 2023 End: November 27, 2023 Mechanical Planner Relationship Specialty Start Date End Date Татьяна Uriarte MD [address] [place] [address] PCP - General Family Medicine 06/10/24 Mechanical Planner Relationship Specialty Start Date End Date Татьяна Uriarte MD [address] [place] [facility] [place] [address] PCP - General Family Medicine 06/10/24 Mechanical Planner Relationship Specialty Start Date End Date Татьяна Uriarte MD [address] [place] [facility] [place] [address] PCP - General Family Medicine 06/10/24 Mechanical Planner Relationship Specialty Start Date End Date Татьяна Uriarte MD [address] [place] [address] PCP - General Family Medicine 06/10/24 Mechanical Planner Relationship Specialty Start Date End Date Татьяна Uriarte MD [address] [facility] [place] [address] PCP - General Family Medicine 06/10/24 Team Status: Inactive Member Role Status Dates Татьяна Uriarte MD Primary Care Provider Active Start: August 19, 2024 End: August 19, 2024 Aileen Calero APRN Attending Provider Active S tart: August 19, 2024 End: August 19, 2024 Mechanical Planner Relationship Specialty Start Date End Date Татьяна Uriarte MD [address] [facility] [place] [address] PCP - General Family Medicine 06/10/24 Mechanical Planner Relationship Specialty Start Date End Date Татьяна Uriarte MD [address] [place] [address] PCP - General Family Medicine 06/10/24 Mechanical Planner Relationship Specialty Start Date End Date Татьяна Uriarte MD [address] [place] [address] PCP - General Family Medicine 06/10/24 Goals [...] BE BASED ON THE PRIMARY CLINICAL RECORDS. [employer] [email or web address] provides no warranty or guarantee of the accuracy or completeness of information in this document.
[2025-01-03 10:29] VITALS: BP 146/90; PULSE 82; TEMP 36.6; O2SAT 97
--- NOTE | 2025-01-03 10:29 | PC.NURSE ---
Archana and 6 day old Ant arrive for follow up. Mom reports doing well with no complaints. VSS and assessment WNL. BP is 144/90 and 150/90 . Pt states was induced for history of blood pressure issues with 1st . Had a couple of higher BP s but no other symptoms. Pt to call Dr Benavides s office for early visit. Given S/S of elevated BP and when to seek care in ED. Baby Ant is alert and tracking voices. VSS and assessment WNL. Feeding well every 2-3 via bottle with pumped milk or latching directly at the breast. Mom states pumped exclusively for 2 years with first child and is comfortable with the pumping and feeding Infant to be seen by Dr Uriarte later this AM for first visit. Infant has 5-6 wet diapers and 5 yellow seedy stools daily. Mom has no concerns or questions at this time and is confident in ability to provide breast milk to infant, Leaves ambulatory for home, in car seat.
== END 2025-01-03 10:34 | disposition home or self-care (01) ==
LOC: FBCO 08:35
PROVIDERS: Visit Provider Obstetrics & Gynecology
DX: Z39.1 Encounter for care and examination of lactating mother (principal)

== ENCOUNTER 2025-01-08 11:24 | Outpatient (OUT) | payer OTHER, SELFPAY ==
--- OUTSIDE RECORDS SUMMARY | 2024-12-27 13:31 | XMS_ITS ---
Author Name Auto Generated Organization OHIP Care Team Providers Care Carpet Renovator Name Role Phone ZOË GOMEZ Attending Unavailable ZOË GOMEZ Attending Unavailable ZOË GOMEZ Referring Unavailable ROBERTO BARBA Attending Unavailable ROBERTO BARBA Attending Unavailable ROBERTO BARBA Attending Unavailable ZOË GOMEZ Attending Unavailable ROBERTO BARBA Attending Unavailable ELAINE LACY Attending Unavailable ZOË GOMEZ Attending Unavailable ROBERTO BARBA Attending Unavailable PROBLEMS No Problem Records Found PROCEDURES No Procedure Records Found RESULTS US OB FOLLOW UP TRANSABDOMINAL APPROACH Observed: 11/15/2024 1:46 PM Status: F Source: [facility] EPIC Order Comment: US OB SCAN FO R GROWTH Estimated Date of Delivery: 01/08/25 Gestational Age as of 11/01/2024: 30w2d EXAM: US OB FOLLOW UP TRANSA BDOMINAL APPROACH HISTORY: Inconsistent size. COMPARISON: OB ultrasound 09/28/2024. TECHNIQUE: Two-dimensional transabdominal grayscale ultrasound imaging of the pelvis was performed. FINDINGS: Gestation: Single Presentation: Cephalic Cardiac Activity: 152 beats per minute Placental Location: Anterior with no sonographic abnormalities identified. Cervical canal: Not visualized Amniotic Fluid Index: 11.7 cm MEASUREMENTS: BPD: 8.3 cm EGA: 33 weeks 2 days HC: 29.5 cm EGA: 32 weeks 4 days AC: 30.0 cm EGA: 33 weeks 0 days FL: 6.1 cm EGA: 31 weeks 4 days HC/AC Ratio: 1.02 The gestational age by today's ultrasound is 32 weeks 4 days (+/- 16 days gestation). Estimated Weight: 1993 grams, +/- 299 grams ( 4 lb 6 oz). Weight Percentile for gestational age: 47 % IMPRESSION: 1. Single, live intrauterine gestation 32 weeks, 2 days by LMP. Today's ultrasound measurements correlate with a gestational age of 32 weeks 4 days. Estimated weight is 1993 grams, +/- 299 grams ( 4 lb 6 oz) which correlates to 47 %. JAY is 01/06/2025. Electronically Signed:Electronically signed by CLARISSA TYLER II, MD, PHD at 16-Nov-2024 10:00:00 AM [facility] US OB LIMITED 1+ FETUSES Observed: 09/28 12:51 PM Status: F Source: [facility] EPIC Order Comment: US OB PLACENT A W US OB TRANSVAGINAL Estimated Date of Delivery: 01/08/25 Gestational Age as of 09/02/2024: 22w2d EXAM: US OB LIMITED 1+ FETUS ES HISTORY: Low-lying placenta. TECHNIQUE: Two-dimensional transabdominal grayscale ultrasound imaging of the pelvis was performed. FINDINGS: Gestation: Single Presentation: Breech Cardiac Activity: 154 beats per minute Placental Location: Anterior with no sonographic abnormalities identified. Distance from Placental Tip to Cervix: 7.2 cm Cervical Length: 4.1 cm Amniotic Fluid: Appears adequate IMPRESSION: 1. Single, live intrauterine gestation 25 weeks, 3 days by LMP. JAY is 01/08/2025. 2. Placenta is within normal limits. No evidence of a low-lying placenta. Electronically Signed:Electronically signed by CLARISSA TYLER II, MD, PHD at 01-Oct-2024 08:37:25 AM [facility] US OB 14+ WEEKS ANATOMY SCAN Observed: 0 08/30/2024 12:54 PM Status: F Source: [facility] EPIC Order Comment: US OB ANATOMY SINGLE W US OB CERVICAL LENGTH Estimated Date of Delivery: 01/08/25 Gestational Age as of 07/28/2024: 20w6d TITLE OF EXAM: OB Ultrasound : REASON FOR EXAM: Anatomy. COMPARISON: None TECHNIQUE: [...] signed and approved by the interpreting radiologist. ALLERGIES No Allergies Records Found ENCOUNTERS ADMIT/DISCHARGE ACCOUNT NUMBER ADMITTING ENCOUNTER CLASS LOCATION SOURCE 12/27/2024/ 5 [id number] Ambulatory Building:[facility] EPIC 12/22/2024/ 5 [id number] Ambulatory Building:[facility] EPIC 12/16/2024/ 5 [id number] Ambulatory Building:[facility] EPIC 12/01/2024/ 5 [id number] Ambulatory Building:[facility] EPIC 11/15/2024/ 5 [id number] Ambulatory Building:[facility] EPIC 11/15/2024/ 5 [id number] Ambulatory Building:[facility] EPIC 11/01/2024/ 5 [id number] Ambulatory Building:[facility] EPIC 09/28/2024/ 5 [id number] Ambulatory Building:[facility] EPIC 09/28/2024/ 5 [id number] Ambulatory Building:[facility] EPIC 08/30/2024/ 5 [id number] Ambulatory Building:[facility] EPIC 08/30/2024/ 5 [id number] Ambulatory Building:[facility] EPIC 07/28/2024/ 4 [id number] Ambulatory Building:[facility] EPIC 06/28/2024/ 4 [id number] Ambulatory Building:[facility] EPIC 06/10/2024/ 4 [id number] Ambulatory Building:[facility] EPIC PAYERS ENCOUNTER GUARANTOR PAYER SUBSCRIBER SOURCE 12/27/2024 DC MARTIN: Chacha [place], [place] [address]Lle: () Primary Insurance:[place] MEDICAIDPolicy Number: [id number] Date:2024-02-16 DC MARTIN: [id number] [place] [place] [address] [facility] EPIC 12/22/2024 DC SPROUSEDOB: [place], [place] [address]Vbz: (HP) Primary Insurance:[place] MEDICAIDPolicy Number: [id number] Date:2024-02-16 DC SPROUSEDOB: [id number] [facility], [facility]36 [facility] EPIC 12/16/2024 DC SPROUSEDOB: [place], [place] [address]Kfl: (HP) Primary Insurance:[place] MEDICAIDPolicy Number: [id number] Date:2024-02-16 DC SPROUSEDOB: [id number] [address] [facility] EPIC 12/01/2024 DC SPROUSEDOB: [place] [id number]: (HP) Primary Insurance:[place] MEDICAIDPolicy Number: [id number] Date:2024-02-16 DC SPROUSEDOB: [id number] [address] [facility] EPIC 11/15/2024 DC SPROUSEDOB: [place] [id number]: (HP) Primary Insurance:[place] MEDICAIDPolicy Number: [id number] Date:2024-02-16 DC SPROUSEDOB: [id number] [place] [id number] [facility] EPIC 11/15/2024 DC SPROUSEDOB: [place], [place] [address]Xqd: (HP) Primary Insurance:[place] MEDICAIDPolicy Number: [id number] Date:2024-02-16 DC SPROUSEDOB: [id number] [facility]36 [facility] EPIC 11/01/2024 DC SPROUSEDOB: [place], [place] [address]Rxh: (HP) Primary Insurance:[place] MEDICAIDPolicy Number: [id number] Date:2024-02-16 DC SPROUSEDOB: [id number] [facility], [facility]36 [facility] EPIC 09/28/2024 DC SPROUSEDOB: [place] [id number]: (HP) Primary Insurance:[place] MEDICAIDPolicy Number: [id number] Date:2024-02-16 DC SPROUSEDOB: [id number] [facility], [address] [facility] EPIC 09/28/2024 DC SPROUSEDOB: [place] [id number]: (HP) Primary Insurance:[place] MEDICAIDPolicy Number: [id number] Date:2024-02-16 DC SPROUSEDOB: [id number] [facility], [address] [facility] EPIC 08/30/2024 DC SPROUSEDOB: [place] [id number]: (HP) Primary Insurance:[place] MEDICAIDPolicy Number: [id number] Date:2024-02-16 DC SPROUSEDOB: [id number] [facility], [address] [facility] EPIC 08/30/2024 DC SPROUSEDOB: [place] [id number]: (HP) Primary Insurance:[place] MEDICAIDPolicy Number: [id number] Date:2024-02-16 DC SPROUSEDOB: [id number] [address] [place] [id number] [facility] 07/28/2024 DC SPROUSEDOB: [place], [place] [address]Vmv: (HP) Primary Insurance:[place] MEDICAIDPolicy Number: [id number] Date:2024-02-16 DC SPROUSEDOB: [id number] [address] [place] [id number] [facility] 06/28/2024 DC SPROUSEDOB: [place], [place] [address]Skw: (HP) Primary Insurance:[place] MEDICAIDPolicy Number: [id number] Date:2024-02-16 DC SPROUSEDOB: [id number] [place] [address] [facility] EPIC 06/10/2024 DC SPROUSEDOB: [place], [place] [address]Ooa: (HP) Primary Insurance:[place] MEDICAIDPolicy Number: [id number] Date:2024-02-16 DC SPROUSEDOB: [id number] [place] [id number] [facility] EPIC
--- OUTSIDE RECORDS SUMMARY | 2024-12-27 13:31 | XMS_ITS ---
Author Name Auto Generated Organization OHIP Care Team Providers Care Handle Rounder Operator Name Role Phone ZOË GOMEZ Attending Unavailable [...] II, MD, PHD at 16-Nov-2024 10:00:00 AM [facility] US OB LIMITED 1+ FETUSES Observed: 09/28 12:51 PM Status: F Source: [facility] EPIC Order Comment: US OB PLACENT [...] II, MD, PHD at 01-Oct-2024 08:37:25 AM [facility] US OB 14+ WEEKS ANATOMY SCAN Observed: 0 08/30/2024 12:54 PM Status: F Source: [facility] EPIC Order Comment: US OB [...] ADMITTING ENCOUNTER CLASS LOCATION SOURCE 12/27/2024/ 5 [id number] Ambulatory Building:[facility] EPIC 12/22/2024/ 5 [id number] Ambulatory Building:[facility] EPIC 12/16/2024/ 5 [id number] Ambulatory Building:[facility] EPIC 12/01/2024/ 5 [id number] Ambulatory Building:[facility] EPIC 11/15/2024/ 5 [id number] Ambulatory Building:[facility] EPIC 11/15/2024/ 5 [id number] Ambulatory Building:[facility] EPIC 11/01/2024/ 5 [id number] Ambulatory Building:[facility] EPIC 09/28/2024/ 5 [id number] Ambulatory Building:[facility] EPIC 09/28/2024/ 5 [id number] Ambulatory Building:[facility] EPIC 08/30/2024/ 5 [id number] Ambulatory Building:[facility] EPIC 08/30/2024/ 5 [id number] Ambulatory Building:[facility] EPIC 07/28/2024/ 4 [id number] Ambulatory Building:[facility] EPIC 06/28/2024/ 4 [id number] Ambulatory Building:[facility] EPIC 06/10/2024/ 4 [id number] Ambulatory Building:[facility] EPIC PAYERS ENCOUNTER GUARANTOR PAYER SUBSCRIBER SOURCE 12/27/2024 DC MARTIN: Chacha [address] [place], [place] [address]Vym: () Primary Insurance:[place] MEDICAIDPolicy Number: [id number] Date:2024-02-16 DC MARTIN: [id number] [place] [facility] [place] [address] [facility] EPIC 12/22/2024 DC SPROUSEDOB: [place], [place] [address]Bjj: (HP) Primary Insurance:[place] MEDICAIDPolicy Number: [id number] Date:2024-02-16 DC SPROUSEDOB: [id number] [address] [facility], [facility]36 [facility] EPIC 12/16/2024 DC SPROUSEDOB: [place], [place] [address]Sri: (HP) Primary Insurance:[place] MEDICAIDPolicy Number: [id number] Date:2024-02-16 DC SPROUSEDOB: [id number] [address] [facility] EPIC 12/01/2024 DC SPROUSEDOB: [place] [id number]: (HP) Primary Insurance:[place] MEDICAIDPolicy Number: [id number] Date:2024-02-16 DC SPROUSEDOB: [id number] [address] [facility] EPIC 11/15/2024 DC SPROUSEDOB: [place] [id number]: (HP) Primary Insurance:[place] MEDICAIDPolicy Number: [id number] Date:2024-02-16 DC SPROUSEDOB: [id number] [place] [id number] [facility] EPIC 11/15/2024 DC SPROUSEDOB: [place], [place] [address]Pnr: (HP) Primary Insurance:[place] MEDICAIDPolicy Number: [id number] Date:2024-02-16 DC SPROUSEDOB: [id number] [address] [facility]36 [facility] EPIC 11/01/2024 DC SPROUSEDOB: [place], [place] [address]Pxi: (HP) Primary Insurance:[place] MEDICAIDPolicy Number: [id number] Date:2024-02-16 DC SPROUSEDOB: [id number] [address] [facility], [facility]36 [facility] EPIC 09/28/2024 DC SPROUSEDOB: [place] [id number]: (HP) Primary Insurance:[place] MEDICAIDPolicy Number: [id number] Date:2024-02-16 DC SPROUSEDOB: [id number] [address] [facility], [address] [facility] EPIC 09/28/2024 DC SPROUSEDOB: [place] [id number]: (HP) Primary Insurance:[place] MEDICAIDPolicy Number: [id number] Date:2024-02-16 DC SPROUSEDOB: [id number] [address] [facility], [address] [facility] EPIC 08/30/2024 DC SPROUSEDOB: [place] [id number]: (HP) Primary Insurance:[place] MEDICAIDPolicy Number: [id number] Date:2024-02-16 DC SPROUSEDOB: [id number] [address] [facility], [address] [facility] EPIC 08/30/2024 DC SPROUSEDOB: [place] [id number]: (HP) Primary Insurance:[place] MEDICAIDPolicy Number: [id number] Date:2024-02-16 DC SPROUSEDOB: [id number] [address] [place] [id number] [facility] 07/28/2024 DC SPROUSEDOB: [place], [place] [address]Nth: (HP) Primary Insurance:[place] MEDICAIDPolicy Number: [id number] Date:2024-02-16 DC SPROUSEDOB: [id number] [address] [place] [id number] [facility] 06/28/2024 DC SPROUSEDOB: [place], [place] [address]Usr: (HP) Primary Insurance:[place] MEDICAIDPolicy Number: [id number] Date:2024-02-16 DC SPROUSEDOB: [id number] [place] [address] [facility] EPIC 06/10/2024 DC SPROUSEDOB: [place], [place] [address]Eam: (HP) Primary Insurance:[place] MEDICAIDPolicy Number: [id number] Date:2024-02-16 DC SPROUSEDOB: [id number] [address] [place] [id number] [facility] EPIC
--- OUTSIDE RECORDS SUMMARY | 2024-12-27 13:40 | XMS_ITS | Encounter Summary ---
Author Organization [facility] Address [address] [facility] [place] [address] Care Team Providers Care Recreation Assistant Name Role Phone Oscar Uriarte MD Primary Care Provider [phone] Reason for Visit * Reason Comments Routine Visit Encounter Details Date Type Department Care Team (Late st Contact Info) Description 12/27/2024 1:40 PM EDT Routine [facility] [address] [place] [address] Byron Benavides, DO [address] [facility] [address] Hammad Garcia, [facility]11 Third trimester ; 38 weeks gestation of Social History Tobacco Use Types Packs/Day Years Used Date Smoking Tobacco: Never Assessed Estimated Date of Delivery Comme nts Yes 01/08/2025 Based on last me nstrual period of 04/03/2024 Sex and Gender Information Value Date Recorded Sex Assigned at Female 05/27/2024 10:00 AM EDT Legal Sex Female 11:38 PM EDT Gender Identity Female 05/27/2024 10:00 AM EDT Sexual Orientation Not on file documented as of this encounter Progress Notes * Kimberly Earl LPN - 12/27/2024 1:40 PM EDT Reason for Appointment: Patient ID: Alphonse Singh is a 29 y.o. female who presents for Routine Visit Patient presents today for Return OB appointment. MEDICATIONS Current Outpatient Medications Medication Instructions albuterol 108 (90 Base) MCG/ACT inhaler Albuterol Sulfate HFA aspirin 81 mg, Daily ALLERGIES Allergies Allergen Reactions Sulfamethoxazole-Trimethoprim Anaphylaxis, Palpitations [...] Constitutional: Appearance: Normal appearance. She is well-developed. Genitourinary: Vulva normal. Cardiovascular: Rate and Rhythm: Normal rate and [...] nursing note reviewed. Exam conducted with a spanish teacher present. Vitals: Estimated body mass index is 38.94 kg/m?? as calculated from the following: Height as of 02/07/22: 5' 5 . Weight as of 12/22/24: 234 lb. BP: Patient's last menstrual period was 04/03/2024. ASSESSMENT & PLAN ICD-10-CM 1. Third trimester Z34.93 POCT urinalysis dipstick manually resulted 2. 38 weeks gestation of Z3A.38 POCT urinalysis dipstick manually resulted Patient presents today for a routine obstetrics appointment. Patient is currently 38w2d with a Estimated Date of Delivery: 01/08/25. Patient is to head over to [facility] due to elevated BP and will have some labs drawn and NST/BPP to be obtained today and patient to have NST done on as well. Patient to have IOL with Cytotec on 01/02/25 @6:30pm. Patient will arrive through the ER entrance and notify they she is there for IOL. Patient will setup for 6 week appointment prior to leaving office. Documented by Kimberly Earl LPN on behalf of: Byron Benavides DO documented in this encounter Plan of Treatment Upcoming Encounters Date Type Department Care Team (Late st Contact Info) Description 02/14/2025 1:30 PM EDT Visit [facility] [address] [place] [address] Becca Gabriel PA [address] [facility] [place] [address] documented as of this encounter Goals Goal Patient Goal Type Associated Problems Recent Progress Patient-Stated? Author Reminders Care Plan OB Reminders No Open Scheduling, Background documented as of this encounter Procedures Procedure Name Priority Date/Time Associated Diagnosis Comments POCT URINALYSIS DIPSTICK Routine 12/27/2024 2:17 PM EDT Third trimester 38 weeks gestation of documented in this encounter Results * POCT urinalysis dipstick manually resulted (12/27/2024 2:17 PM EDT) Color, UA Yellow Clarity, UA Clear Glucose, UA Negative Negative - 2000(110) ++++ mg/dL Bilirubin, UA Negative Negative - 4(70) +++ mg/dL Ketones, UA Negative Negative - 160(16) ++++ mg/dL Spec Grav, UA 1.025 1 - 1.03 Blood, UA Negative Negative - 50 Leandro/mcL pH, UA 5.5 5 - 9 Protein, UA Negative Negative - 2000(20) ++++ mg/dL Urobilinogen, UA 1.0 0.2 - 12 mg/dL Leukocytes, UA Negative Negative - 500+++ Therese/mcL Nitrite, UA Negative Negative - Positive Urine 12/27/2024 2:17 PM EDT Byron Benavides DO POINT OF CARE TEST ENTER/EDIT OR DERABLES Final Result documented in this encounter Visit Diagnoses Diagnosis Third trimester state, incidental 38 weeks gestation of documented in this encounter Additional Health Concerns Active Problems Noted Date Diagnosed Date OB Reminders 07/22/2024 documented as of this encounter Care Teams Recreation Assistant Relationship Specialty Start Date End Date Oscar Uriarte MD [address] [place] [phone] PCP - General Family Medicine 06/10/24 documented as of this encounter
--- OUTSIDE RECORDS SUMMARY | 2024-12-27 13:40 | XMS_ITS | Encounter Summary ---
Author Organization [facility] Address [address] [facility] [place] [address] Care Team Providers Care Crutching Contractor Name Role Phone Oscar Uriarte MD Primary Care Provider [phone] Reason for Visit * Reason Comments Routine Visit Encounter Details Date Type Department Care Team (Late st Contact Info) Description 12/27/2024 1:40 PM EDT Routine [facility] [address] [facility] [address] [address] Byron Benavides, DO [address] [facility] [address] Hammad Garcia, [facility]11 Third trimester ; 38 weeks gestation of [...] nursing note reviewed. Exam conducted with a dry yard worker present. Vitals: Estimated body mass index is [...] 01/08/25. Patient is to head over to [facility] due to elevated BP and will have [...] Visit [facility] [address] [place] [address] Becca Gabriel PA [address] [facility] [place] [address] documented as of this encounter Goals Goal [...] documented as of this encounter Care Teams Crutching Contractor Relationship Specialty Start Date End Date Oscar Uriarte MD [address] [place] [address] PCP - General Family Medicine 06/10/24 documented as of this encounter
--- OUTSIDE RECORDS SUMMARY | 2025-01-03 07:26 | XMS_ITS ---
Author Organization [facility] in [place] Address [address] [place] [address] Care Team Providers Care Feeder Associate Name Role Phone Torsten Uriarte Primary Care Provider REASON FOR VISIT b/p check Vital Signs Blood pressure systolic 142 mm Hg 01/04/20 25 Blood pressure diastolic 96 mm Hg 025 Encounters Encounter Location Date Provider Diagnosis [facility] [address] [place] [address] 01/03/2025 Torsten Uriarte Plan Of Treatment No Information Progress Notes * MICHAELArchana HARTLEY ADOB:[birth year] (29 yo F)Acc No.[id number]:01/03/2025 Patient: Archana ANDERSON :1995 A ge:29 Y S ex:Female Address:[address] [place] [address] Subjective: * Chief Complaints: * B /p check * Medical History: * Surgical History: * Hospitalization/Major Diagno stic Procedure: * Medications: Objective: * Vitals: B P:142/96mm Hg. * Physical Examination: Assessment: Plan: * Treatment: * Procedure Codes: * true * Date: Generated for Rajan de la garza/Autumn/eTransmitting on: 0 01/08/2025 11:26 AM EDT
--- OUTSIDE RECORDS SUMMARY | 2025-01-03 07:26 | XMS_ITS ---
Author Organization [facility] in [place] Address [address] [place] [address] Care Team Providers Care Finished Cloth Examiner Name Role Phone Torsten Uriarte Primary Care Provider REASON FOR VISIT b/p check Vital Signs Blood pressure systolic 142 mm Hg 01/04/20 25 Blood pressure diastolic 96 mm Hg 025 Encounters Encounter Location Date Provider Diagnosis [facility] [address] [place] [address] 01/03/2025 Torsten Uriarte Plan Of Treatment No Information Progress Notes * MICHAELArchana HARTLEY ADOB:[birth year] (29 yo F)Acc No.[id number]:01/03/2025 Patient: Archana ANDERSON :1995 A ge:29 Y S ex:Female Address:[address] [place] [address] Subjective: * Chief Complaints: * B /p check * Medical History: * Surgical History: * Hospitalization/Major Diagno stic Procedure: * Medications: Objective: * Vitals: B P:142/96mm Hg. * Physical Examination: Assessment: Plan: * Treatment: * Procedure Codes: * true * Date: Generated for Rajan de la garza/Autumn/eTransmitting on: 0 01/07/2025 04:19 PM EDT
--- OUTSIDE RECORDS SUMMARY | 2025-01-07 07:00 | XMS_ITS ---
Author Organization The [facility] in [place] Address [address] [place] [address] Care Team Providers Care Inclusion Manager Name Role Phone Torsten Uriarte Primary Care Provider REASON FOR VISIT bp check Vital Signs Blood pressure systolic 160 mm Hg 01/08/20 25 Blood pressure diastolic 92 mm Hg 025 Encounters Encounter Location Date Provider Diagnosis [facility] [place] [address] [place] [address] 01/07/2025 Torsten Uriarte Plan Of Treatment No Information Progress Notes * Archana RODRIGUEZ ADOB:[birth year] (29 yo F)Acc No.[id number]:01/07/2025 UNLOCKED PROGRESS NOTE BP Check Patient: Archana ANDERSON Provider: Fior Uriarte (TTCMD Kandy :1995 A ge:29 Y S ex:Female Date:01/07/2025 Address:[address] [facility] Check In:11:28 AM ESTCheck O ut:11:43 AM EST Subjective: * Chief Complaints: * 1 . Bp check. * Medical History: Objective: * Vitals: B P:160/92mm Hg. Assessment: Plan: * Treatment: * * Electronic signature of Torsten Uriarte MD, [id number] on 01/08/2025 at 11:27 AM EDT Sign off status: Pending Visit Status: C HK (Check Out) * Provider: Fior Uriarte (TTC)MD Date: 0 01/07/2025 Generated for Rajan de la garza/Autumn/Anaid on: 0 01/08/2025 11:27 AM EDT
--- OUTSIDE RECORDS SUMMARY | 2025-01-07 07:00 | XMS_ITS ---
Author Organization The [facility] in [place] Address [address] [place] [address] Care Team Providers Care Philosophy Faculty Member Name Role Phone Torsten Uriarte Primary Care Provider REASON FOR VISIT bp check Vital Signs Blood pressure systolic 160 mm Hg 01/08/20 25 Blood pressure diastolic 92 mm Hg 025 Encounters Encounter Location Date Provider Diagnosis [facility] [address] [place] [address] 01/07/2025 Torsten Uriarte Plan Of Treatment No Information Progress Notes * Archana RODRIGUEZ ADOB:[birth year] (29 yo F)Acc No.[id number]:01/07/2025 UNLOCKED PROGRESS NOTE BP Check Patient: Archana ANDERSON Provider: Fior Uriarte (TTCMD Kandy :1995 A ge:29 Y S ex:Female Date:01/07/2025 Address:[address] [facility] Check In:11:28 AM ESTCheck O ut:11:43 AM EST Subjective: * Chief Complaints: * 1 . Bp check. * Medical History: Objective: * Vitals: B P:160/92mm Hg. Assessment: Plan: * Treatment: * * Electronic signature of Torsten Uriarte MD, [id number] on 01/07/2025 at 04:19 PM EDT Sign off status: Pending Visit Status: C HK (Check Out) * Provider: Fior Uriarte ([facility])MD Date: 0 01/07/2025 Generated for Rajan de la garza/Autumn/Anaid on: 0 01/07/2025 04:19 PM EDT
--- OUTSIDE RECORDS SUMMARY | 2025-01-07 07:55 | XMS_ITS ---
Author Organization The [facility] in [place] Address [address] [place] [address] Care Team Providers Care Search Engine Marketing Strategist Name Role Phone Torsten Uriarte Primary Care Provider [phone] REASON FOR VISIT b/p [id number] ON [place] Medications Medication SIG (Take, Route, Fr equency, Duration) Notes Start Date End Date Status Lisinopril 10 MG 1 tablet Orally Once a day for 30 days 01/07/2025 Active Encounters Encounter Location Date Provider Diagnosis [place] [address] [place] [address] 01/07/2025 Torsten Uriarte Accelerated hyperten werner I10 ; Fatigue R53.83 ; Abnormal blood sugar R73.09 and Adult hypothyroidism E03.9 Assessments Encounter Date Diagnosis (ICD Code) Assessment Notes Treatment Notes Treatment Clinical Notes Section Notes 01/07/2025 Accelerated hypertension (ICD-10 - I10) 01/07/2025 Fatigue (ICD-10 - R53.83) 01/07/2025 Abnormal blood sugar (ICD-10 - R73.09) 01/07/2025 Adult hypothyroidism (ICD-10 - E03.9) Plan Of Treatment Medication Medication Name Sig Start Date Stop Date Notes Lisinopril 10 MG 1 tablet Orally Once a day for 30 days Pending Test Test Name Order Date CBC AUTO DIFF 01/07/2025 GLYCOHEMOGLOBIN A1C 01/07/2025 LIPID PROFILE 01/07/2025 PROF 14(COMP METB) 01/07/2025 THYROID PANEL (T4/TSH/FREE T3) Progress Notes * Archana RODRIGUEZ ADOB:[birth year] (29 yo F)Acc No.[id number]:01/07/2025 Patient: Archana ANDERSON :1995 A ge:29 Y S ex:Female Address:[address] [place] [phone] * Refills Start Lisinopril Tablet, 10 MG, Orally, 30, 1 tablet, Once a day, 30 days, Refills=3 Subjective: * Chief Complaints: * b /p [id number] ON [place] * Medical History: * Surgical History: * Hospitalization/Major Diagno stic Procedure: * Medications: Objective: * Vitals: * Physical Examination: Assessment: * Assessment: 1. A ccelerated hypertension - I10 2 . F atigue - R53.83 3 . A bnormal blood sugar - R73.09 4 . A dult hypothyroidism - E03.9 ? Plan: * Treatment: 2. F atigue L AB: CBC AUTO DIFF L AB: GLYCOHEMOGLOBIN A1C L AB: LIPID PROFILE L AB: PROF 14(COMP METB) L AB: THYROID PANEL (T4/TSH/FREE T3) 3. A bnormal blood sugar L AB: CBC AUTO DIFF L AB: GLYCOHEMOGLOBIN A1C L AB: LIPID PROFILE L AB: PROF 14(COMP METB) L AB: THYROID PANEL (T4/TSH/FREE T3) 4. A dult hypothyroidism L AB: CBC AUTO DIFF L AB: GLYCOHEMOGLOBIN A1C L AB: LIPID PROFILE L AB: PROF 14(COMP METB) L AB: THYROID PANEL (T4/TSH/FREE T3) 5. O thers Start Lisinopril Tablet, 10 MG, 1 tablet, Orally, Once a day, 30 days, 30, Refills 3. * Procedure Codes: * true * Date: Generated for Rajan de la garza/Vivianag/eTransmitting on: 0 01/07/2025 04:19 PM EDT
--- OUTSIDE RECORDS SUMMARY | 2025-01-07 07:55 | XMS_ITS ---
Author Organization The [facility] in [place] Address [address] [place] [address] Care Team Providers Care Label Coder Name Role Phone Torsten Uriarte Primary Care Provider REASON FOR VISIT b/p [id number] ON [place] Medications Medication SIG (Take, Route, Fr equency, Duration) Notes Start Date End Date Status Lisinopril 10 MG 1 tablet Orally Once a day for 30 days 01/07/2025 Active Encounters Encounter Location Date Provider Diagnosis [place] [address] [place] [address] 01/07/2025 Torsten Uriarte Accelerated hyperten werner I10 [...] * Archana RODRIGUEZ ADOB:[birth year] (29 yo F)Acc No.[id number]:01/07/2025 Patient: Archana ANDERSON :1995 A ge:29 Y S ex:Female Address:[address] [place] [phone] * Refills Start Lisinopril Tablet, 10 MG, Orally, 30, 1 tablet, Once a day, 30 days, Refills=3 Subjective: * Chief Complaints: * b /p [id number] ON [place] * Medical History: * [...]
--- OUTSIDE RECORDS SUMMARY | 2025-01-07 16:19 | XMS_ITS | Clinical Summary ---
Author Organization [facility] Address [address] [place] [address] Care Team Providers Care Slurry Tank Operator Name Role Phone Oscar Uriarte MD Primary Care Provider [phone] Allergies Active Allergy Reactions Criticality Noted Date Comments Latex Rash Low 06/10/2024 Other Reaction(s): hives Penicillamine 11/27/2023 Other Reaction(s): hives Penicillins Itching,Rash Low 06/10/2024 Other Reaction(s): hives Sulfa Antibiotics 11/27/2023 Other Reaction(s): anaphylaxis, tachycardia Sulfamethoxazole-Trimet hoprim Anaphylaxis,Palpita tions,Shortness of breath High 06/10/2024 Trimethoprim 11/27/2023 Other Reaction(s): anaphylaxis Medications aspirin 81 MG EC tablet Take 81 mg by mouth Daily Active albuterol 108 (90 Base) MCG/ACT inhaler Albuterol Sulfate HFA Active Encounters Date Type Department Care Team Description 12/29/2024 Clinisync Result Encounter [facility] External Department Unsolicited Byron Benavides DO 12/27/2024 1:40 PM EDT Routine [facility] [address] [place] [address] Byron Benavides DO Third trimester ; 38 weeks gestation of 12/27/2024 Abstract [facility] [address] [place] [address] Kimberly Earl LPN 12/27/2024 Clinisync Result Encounter [facility]S External Department Unsolicited Byron Benavides DO 12/27/2024 Bamboo flowsheet [facility] [address] [facility] [place] [address] Byron Benavides, DO 12/23/2024 Abstract [facility] [address] [facility] [place] [address] Byron Benavides, DO 12/23/2024 Telephone [facility] [address] [facility] [place] [address] Kimberly Earl LPN 12/22/2024 3:50 PM EDT Routine [facility] [address] [facility] [place] [address] Becca Gabriel PA Third trimester ; 37 weeks gestation of 12/22/2024 Bamboo flowsheet [facility] [address] [facility] [address] Becca Gabriel PA 12/16/2024 3:30 PM EDT Routine [facility] [address] [facility] [place] [address] Carola Harley, JUANCARLOS Third trimester ; 36 weeks gestation of 12/16/2024 Bamboo flowsheet [facility] [address] [facility] [place] [address] Carola Harley, JUANCARLOS 12/01/2024 1:20 PM EDT Routine [facility] [address] [facility] [place] [address] Byron Benavides, DO Third trimester ; 34 weeks gestation of 12/01/2024 Bamboo flowsheet [facility] [address] [facility] [place] [address] Byron Benavides, 11/15/2024 2:30 PM EDT Routine [facility] [address] [facility] [place] [address] Byron Benavides, DO Third trimester ; 32 weeks gestation of 11/15/2024 2:00 PM EDT Ancillary Procedure [facility] [address] [place] [address] [place] [address] size inconsistent with dates 11/01/2024 1:20 PM EDT Routine [facility] [address] [place] [address] [place] [address] Becca Gabriel PA 30 weeks gestation of ; Third trimester ; size inconsistent with dates 11/01/2024 Bamboo flowsheet [facility] [address] [place] [address] [place] [address] Becca Gabriel PA from Last 3 Months Social History Tobacco Use Types Packs/Day Years Used Date Smoking Tobacco: Never Assessed Estimated Date of Delivery Comme nts Yes 01/08/2025 Based on last me nstrual period of 04/03/2024 Sex and Gender Information Value Date Recorded Sex Assigned at Female 05/27/2024 10:00 AM EDT Legal Sex Female 11:38 PM EDT Gender Identity Female 05/27/2024 10:00 AM EDT Sexual Orientation Not on file Last Filed Vital Signs Vital Sign Reading Time Taken Comments Blood Pressure 124/80 12/22/2024 4:15 PM EDT Pulse - - Temperature - - Respiratory Rate - - Oxygen Saturation - - Inhaled Oxygen Concentration - - Weight 106 kg (234 lb) 12/22/2024 4:15 PM EDT Height 165.1 cm (5' 5 ) 02/07/2022 12:00 PM EDT Body Mass Index 38.94 02/07/2022 12:00 PM EDT Plan of Treatment Upcoming Encounters Date Type Department Care Team (Late st Contact Info) Description 02/14/2025 1:30 PM EDT Visit [facility] [address] [place] [address] Becca Gabriel PA [address] [place] [address] [place], [place] [id number] Goals Goal Patient Goal Type Associated Problems Recent Progress Patient-Stated? Author Reminders Care Plan OB Reminders No Open Scheduling, Background Procedures Procedure Name Priority Date/Time Associated Diagnosis Comments ALL CBC WITH AUTO DIFF Routine 6:08 AM EDT MHPT FIBRINOGEN Routine 12/27/2024 3:40 PM EDT CCF APTT Routine 12/27/2024 3:40 PM EDT SRMCOH PROTHROMBIN TIME INR W/O COUM Routine 12/27/2024 3:40 PM EDT CCF ALT Routine 12/27/2024 3:40 PM EDT CCF AST Routine 12/27/2024 3:40 PM EDT ALL URIC ACID Routine 12/27/2024 3:40 PM EDT TBH CREATININE Routine 12/27/2024 3:40 PM EDT ALL BUN Routine 12/27/2024 3:40 PM EDT ALL CBC WITH AUTO DIFF Routine 3:40 PM EDT TBH DRUG SCREEN RAPID (URINE) Routine 12/27/2024 3:30 PM EDT TBH URINE MICROSCOPIC ONLY Routine 12/27/2024 3:30 PM EDT TBH URINE T PROTEIN CREAT RATIO Routine 12/27/2024 3:30 PM EDT TBH UA (CLEAN/CATCH) REFERRAL NURSE/MICRO IF IND. Routine 12/27/2024 3:30 PM EDT POCT URINALYSIS DIPSTICK Routine 12/27/2024 2:17 PM EDT Third trimester 38 weeks gestation of POCT URINALYSIS DIPSTICK Routine 12/22/2024 4:16 PM EDT Third trimester POCT URINALYSIS DIPSTICK Routine 12/16/2024 3:44 PM EDT Third trimester 36 weeks gestation of POCT URINALYSIS DIPSTICK Routine 11/15/2024 2:42 PM EDT Third trimester US OB FOLLOW UP TRANSABDOMINAL APPROACH Routine 11/15/2024 2:13 PM EDT size inconsistent with dates POCT URINALYSIS DIPSTICK Routine 11/01/2024 1:21 PM EDT 30 weeks gestation of Third trimester from Last 3 Months Results * (ABNORMAL) ALL CBC WITH AUTO DIFF (12/29/2024 6:08 AM EDT) Only the most recent of2 resultswithin the time period is included. TBH WBC 13.4(H) 4.0 - 11.0 10 3/uL TBH TBH RBC 3.61(L) 4.20 - 5.40 10 6/uL TBH TBH HGB 10.7(L) 12.0 - 16.0 g/dL TBH TBH HCT 31.8(L) 36.0 - 48.0 % TBH TBH MCV 88.1 81.0 - 99.0 fL TBH TBH MCH 29.6 26.7 - 34.0 pg TBH TBH MCHC 33.6 29.9 - 35.2 g/dL TBH TBH RDW 14.6 11.0 - 15.0 % TBH TBH PLT 246 150 - 450 10 3/uL TBH TBH MPV 10.9 9.5 - 13.5 fL TBH NEUTROPHILS PERCENT AUTO 65.9 43.0 - 75.0 % TBH LYMPHOCYTES PERCENT AUTO 24.3 20.5 - 60.0 % TBH MONOCYTES PERCENT AUTO 8.3 1.7 - 12.0 % TBH TBH EO % 0.4(L) 0.9 - 7.0 % TBH BASOPHILS PERCENT AUTO 0.4 0.2 - 2.0 % TBH IMMATURE GRANULOCYTES PCT AUTO 0.7(H) 0.0 - 0.5 % TBH NEUTROPHILS ABSOLUTE AUTO 8.8(H) 1.4 - 6.5 10 3/uL TBH LYMPHOCYTES ABSOLUTE AUTO 3.3 1.2 - 3.8 10 3/uL TBH MONOCYTES ABSOLUTE AUTO 1.1(H) 0.3 - 0.8 10 3/uL TBH TBH EO # 0.1 0.0 - 0.7 10 3/uL TBH BASOPHILS ABSOLUTE AUTO 0.1 0.0 - 0.1 10 3/uL TBH IMMATURE GRANULOCYTES ABS AUTO 0.09(H) 0.00 - 0.03 10 3/uL TBH 12/29/2024 6:08 AM EDT 12/29/2024 6:16 AM EDT Narrative CLINISYNC - 12/29/2024 6:27 AM EDT Byron Kennedy DO CLINISYNC Final Result [facility] * TB CREATININE (12/27/2024 3:40 PM EDT) CREATININE 0.59 0.55 - 1.02 mg/dL TBH TBH EGFR-AF VIETNAMESE >60 >=60 mL/min/1.7 3m 2 TBH TBH EGFR-NON AF VIETNAMESE >60 >=60 mL/min/1.7 3m 2 TBH 12/27/2024 3:40 PM EDT 12/27/2024 3:43 PM EDT Narrative CLINISYNC - 12/27/2024 4:06 PM EDT [facility] Kennedy DO CLINISYNC Final Result [facility] * SRMCOH PROTHROMBIN TIME INR W/O COUM (12/27/2024 3:40 PM EDT) PROTHROMBIN TIME 9.5 9.0 - 11.6 sec TBH TBH INR <0.93 TBH Comment: DESIRED INR: 2.0-3.0 CONDITIONS NOT LISTED BELOW 2.5-3.5 FOR PROSTHETIC HEART VALVE REPLACEMENT 2.5-3.5 RECURRENT THROMBOSIS 12/27/2024 3:40 PM EDT 12/27/2024 3:43 PM EDT Narrative CLINISYNC - 12/27/2024 4:18 PM EDT us Byron Kennedy DO CLINISYNC Final Result [facility] TB * MHPT FIBRINOGEN (12/27/2024 3:40 PM EDT) FIBRINOGEN 376 200 - 400 mg/dL TBH 12/27/2024 3:40 PM EDT 12/27/2024 3:43 PM EDT Narrative CLINISYNC - 12/27/2024 4:18 PM EDT us Byron Kennedy DO CLINISYNC Final Result Performing Organization Address [facility]/ZIP Co de Phone Number CLINISYNC TB * (ABNORMAL) CCF AST (12/27/2024 3:40 PM EDT) ASPARTATE AMINO TRANSFERASE 13(L) 15 - 37 U/L TBH 12/27/2024 3:40 PM EDT 12/27/2024 3:43 PM EDT Narrative CLINISYNC - 12/27/2024 4:06 PM EDT us Byron Kennedy DO CLINISYNC Final Result Performing Organization Address [facility]/ZIP Co de Phone Number CLINISYNC TBH * CCF APTT (12/27/2024 3:40 PM EDT) PARTIAL THROMBOPLASTIN TIME 25.6 22.3 - 36.2 sec TBH 12/27/2024 3:40 PM EDT 12/27/2024 3:43 PM EDT Narrative CLINISYNC - 12/27/2024 4:18 PM EDT us Byron Kennedy DO CLINISYNC Final Result [facility] * [facility] ALT (12/27/2024 3:40 PM EDT) ALANINE AMINOTRANSFERASE 14 14 - 59 U/L TB 12/27/2024 3:40 PM EDT 12/27/2024 3:43 PM EDT Narrative CLINISYNC - 12/27/2024 4:06 PM EDT Byron Kennedy DO CLINISYNC Final Result Performing Organization Address [facility] Co de Phone Number [facility] * ALL URIC ACID (12/27/2024 3:40 PM EDT) URIC ACID 4.1 2.6 - 6.0 mg/dL TB 12/27/2024 3:40 PM EDT 12/27/2024 3:43 PM EDT Narrative CLINISYNC - 12/27/2024 4:06 PM EDT [employer] DO CLINISYNC Final Result Performing Organization Address [facility] Co de Phone Number [facility] * ALL BUN (12/27/2024 3:40 PM EDT) BLOOD UREA NITROGEN 8.0 7.0 - 18.0 mg/dL TB 12/27/2024 3:40 PM EDT 12/27/2024 3:43 PM EDT Narrative CLINISYNC - 12/27/2024 4:06 PM EDT [employer] DO CLINISYNC Final Result Performing Organization Address [facility] Co de Phone Number [facility] * (ABNORMAL) TBH URINE T PROTEIN CREAT RATIO (12/27/2024 3:30 PM EDT) TOTAL PROTEIN URINE RANDOM <6.0 <=11.9 mg/dL TBH CREATININE URINE RANDOM <13.00(L) 20.00 - 300.00 mg/dL TBH PROTEIN CREATININE RATIO URINE 0.00 TBH 12/27/2024 3:30 PM EDT 12/27/2024 3:43 PM EDT Narrative CLINISYNC - 12/27/2024 4:07 PM EDT [facility] Kennedy DO CLINISYNC Final Result Performing Organization Address [facility] Co de Phone Number CLINISYNC TBH * (ABNORMAL) TBH URINE MICROSCOPIC ONLY (12/27/2024 3:30 PM EDT) TBH WBC 2-5(A) NONE SEEN #/HPF TBH TBH RBC 0-2 0 - 2 #/HPF TBH BACTERIA URINE SMALL(A) NONE SEEN #/HPF TBH MUCUS URINE NONE SEEN NONE SEEN TBH SQUAMOUS EPITHELIAL CELL URINE MODERATE(A ) NONE/RARE #/LPF TBH CRYSTALS SEEN? None Seen None Seen #/HPF TBH CAST SEEN? NONE SEEN NONE SEEN #/LPF TBH URINE CULTURE INDICATED YES-LC TBH 12/27/2024 3:30 PM EDT 12/27/2024 3:43 PM EDT Narrative CLINISYHI - 12/27/2024 4:13 PM EDT [facility] CLINISYNC Final Result Performing Organization Address [facility] de Phone Number [facility] TB * (ABNORMAL) TBH UA (CLEAN/CATCH) REFERRAL NURSE/MICRO IF IND. (12/27/2024 3:30 PM EDT) COLOR URINE LT. YELLOW YELLOW TBH CLARITY URINE CLEAR CLEAR TBH SPECIFIC GRAVITY URINE <=1.005(A) 1.005 - 1.025 TBH PH URINE 6.5 5.0 - 9.0 TBH PROTEIN URINE NEGATIVE NEG/TRACE mg/dL TBH GLUCOSE URINE UA NEGATIVE NEGATIVE mg/dL TBH BILIRUBIN URINE NEGATIVE NEGATIVE TBH KETONES URINE NEGATIVE NEGATIVE mg/dL TBH BLOOD URINE TRACE-I NEGATIVE TBH NITRITE URINE NEGATIVE NEGATIVE TBH UROBILINOGEN URINE 0.2 0.2 - 1.0 EU/dL TBH LEUKOCYTE ESTERASE URINE SMALL(A) NEGATIVE TBH URINE MICROSCOPIC INDICATED YES TBH 12/27/2024 3:30 PM EDT 12/27/2024 3:43 PM EDT Narrative CLINISYNC - 12/27/2024 4:13 PM EDT us Byron Kennedy DO CLINIS[facility]NC Final Result [facility] * TBH DRUG SCREEN RAPID (URINE) (12/27/2024 3:30 PM EDT) Pathologist [facility] CANNABINOID SCREEN URINE NEGATIVE NEGATIVE TBH PHENCYCLIDINE SCREEN URINE NEGATIVE NEGATIVE TBH COCAINE SCREEN URINE NEGATIVE NEGATIVE TBH METHAMPHETAMINES SCREEN URINE NEGATIVE NEGATIVE TBH OPIATE SCREEN URINE NEGATIVE NEGATIVE TBH AMPHETAMINE SCREEN URINE NEGATIVE NEGATIVE TBH BENZODIAZEPINES SCREEN URINE NEGATIVE NEGATIVE TBH TRICYCLIC ANTIDEPRESSANT URINE NEGATIVE NEGATIVE TBH METHADONE SCREEN URINE NEGATIVE NEGATIVE TBH BARBITURATES SCREEN URINE NEGATIVE NEGATIVE TBH OXYCODONE SCREEN URINE NEGATIVE NEGATIVE TBH BUPRENORPHINE SCREEN URINE NEGATIVE NEGATIVE TBH Comment: DRUG CLASS TEST SYSTEM CUT-OFF CONCENTRATIONS ARE FOLLOWS: AMP (Amphetamine): 500 ng/mL BAR (Barbiturates): 200 ng/mL BZO (Benzodiazepines): 150 ng/mL BUP (Buprenorphine): 10 ng/mL CLINT (Cocaine): 150 ng/mL mAMP (Methamphetamine): 500 ng/mL MTD (Methadone): 200 ng/mL OPI (Opiates): 100 ng/mL OXY (Oxycodone): 100 ng/mL PCP (Phencyclidine): 25 ng/mL THC (Cannabinoids): 50 ng/mL TCA (Trycyclic Antidepressants): 300 ng/mL 12/27/2024 3:30 PM EDT 12/27/2024 5:06 PM EDT Narrative CLINISYNC - 12/27/2024 5:27 PM EDT us Byron Kennedy DO CLINISYNC Final Result [facility] TB * POCT urinalysis dipstick manually resulted (12/27/2024 2:17 PM EDT) Only the most recent of5 resultswithin the time period is included. Color, UA Yellow Clarity, UA Clear Glucose, UA Negative Negative - 1999(110) ++++ mg/dL Bilirubin, UA Negative Negative - 4(70) +++ mg/dL Ketones, UA Negative Negative - 160(16) ++++ mg/dL Spec Grav, UA 1.025 1 - 1.03 Blood, UA Negative Negative - 50 Leandro/mcL pH, UA 5.5 5 - 9 Protein, UA Negative Negative - 1999(20) ++++ mg/dL Urobilinogen, UA 1.0 0.2 - 12 mg/dL Leukocytes, UA Negative Negative - 500+++ Therese/mcL Nitrite, UA Negative Negative - Positive Urine 12/27/2024 2:17 PM EDT us Byron Kennedy DO POINT OF CARE TEST ENTER/EDIT OR DERABLES Final Result * US OB follow up transabdominal approach (11/15/2024 2:13 PM EDT) Anatomical Region Laterality Modality Body Ultrasound 11/16/2024 10:0 1 AM EDT Narrative 11/16/2024 10:01 AM EDT EXAM: US OB FOLLOW UP TRANSABDOMINAL APPROACH [...] II, MD, PHD at 16-Nov-2024 10:00:00 AM [facility] Procedure Note Clarissa Tyler MD - 11/16/2024 EXAM: US OB FOLLOW UP TRANSABDOMINAL APPROACH HISTORY: Inconsistent size. COMPARISON: OB ultrasound 09/28/2024. TECHNIQUE: Two-dimensional transabdominal grayscale ultrasound imaging ofthe pelvis was performed. FINDINGS: Gestation: Single Presentation: Cephalic Cardiac Activity: 152 beats per minute Placental Location: Anterior with no sonographic abnormalitiesidentified. Cervical canal: Not visualized Amniotic Fluid Index: 11.7 cm MEASUREMENTS: BPD: 8.3 cm EGA: 33 weeks 2 days HC: 29.5 cm EGA: 32 weeks 4 days AC: 30.0 cm EGA: 33 weeks 0 days FL: 6.1 cm EGA: 31 weeks 4 days HC/AC Ratio: 1.02 The gestational age by today's ultrasound is 32 weeks 4 days (+/- 16 daysgestation). Estimated Weight: 1993 grams, +/- 299 grams ( 4 lb 6 oz). Weight Percentile for gestational age: 47 % IMPRESSION: 1. Single, live intrauterine gestation 32 weeks, 2 days by LMP. Today'sultrasound measurements correlate with a gestational age of 32 weeks 4days. Estimated weight is 1993 grams, +/- 299 grams ( 4 lb 6 oz)which correlates to 47 %. JAY is 01/06/2025. Electronically Signed:Electronically signed by CLARISSA TYLER II, MD, PHDat 16-Nov-2024 10:00:00 AM [facility] DIAZ IMDeb OB US PROCEDURES Final Resul t from Last 3 Months Additional Health Concerns Active Problems Noted Date Diagnosed Date OB Reminders 07/22/2024 Insurance [place] [employer] Care Teams Slurry Tank Operator Relationship Specialty Start Date End Date Oscar Uriarte MD [address] [place] [id number] PCP - General Family Medicine 06/10/24
--- OUTSIDE RECORDS SUMMARY | 2025-01-07 16:19 | XMS_ITS | Encounter Summary ---
Author Organization [facility] Address [address] [place] [address] Care Team Providers Care Bulk Pallet Builder Name Role Phone Oscar Uriarte MD Primary Care Provider [phone] Encounter Details Date Type Department Care Team (Late Contact Info) Description 12/27/2024 Bamboo flowsheet [facility] OB [address] [facility] [place] [address] Byron Benavides DO [address] [facility] [address] Hammad Garcia, [facility]11 Social History Tobacco Use Types Packs/Day Years [...] on file documented as of this encounter Plan of Treatment Upcoming Encounters Date Type Department Care Team (Late Contact Info) Description 02/14/2025 1:30 PM EDT Visit [facility] OB [address] [facility] [place] [address] Becca Gabriel PA [address] [facility] [address] [place], [place] [id number] documented as of this encounter Goals Goal Patient Goal Type Associated Problems Recent Progress Patient-Stated? Author Reminders Care Plan OB Reminders No Open Scheduling, Background documented as of this encounter Visit Diagnoses Not on filedocumented in this encounter Additional Health Concerns Active Problems Noted Date Diagnosed Date OB Reminders 07/22/2024 documented as of this encounter Care Teams Bulk Pallet Builder Relationship Specialty Start Date End Date Oscar Uriarte MD [address] [place] [address] PCP - General Family Medicine 06/10/24 documented as of this encounter
--- OUTSIDE RECORDS SUMMARY | 2025-01-07 16:19 | XMS_ITS | Encounter Summary ---
Author Organization [facility] Address [address] [place] [address] Care Team Providers Care Radio Mechanic Helper Name Role Phone Oscar Uriarte MD Primary Care Provider [phone] Encounter Details Date Type Department Care Team (Late Contact Info) Description 12/27/2024 Abstract [facility] [address] [place] [phone] Kimberly Earl LPN Social History Tobacco Use Types Packs/Day Years [...] Upcoming Encounters Date Type Department Care Team ([facility] Contact Info) Description 02/14/2025 1:30 PM EDT Visit [facility] OB [address] [place] [place] [address] [place] [address] Becca Gabriel PA [address] [place] [address] [place], [place] [phone] documented as of this encounter Goals Goal Patient Goal Type Associated Problems Recent Progress Patient-Stated? Author Reminders Care Plan OB Reminders No Open Scheduling, Background documented as of this encounter Visit Diagnoses Not on filedocumented in this encounter Additional Health Concerns Active Problems Noted Date Diagnosed Date OB Reminders 07/22/2024 documented as of this encounter Care Teams Radio Mechanic Helper Relationship Specialty Start Date End Date Oscar Uriarte MD [address] [place] [address] PCP - General Family Medicine 06/10/24 documented as of this encounter
--- OUTSIDE RECORDS SUMMARY | 2025-01-07 16:19 | XMS_ITS | Encounter Summary ---
Author Organization [facility] Address [address] [place] [address] Care Team Providers Care Tobacco Wrapping Machine Tender Name Role Phone Oscar Uriarte MD Primary Care Provider [phone] Encounter Details Date Type Department Care Team (Late Contact Info) Description 12/29/2024 Clinisync Result Encounter [facility] External Department Unsolicited Byron Benavides DO [address] [place], [place] [phone] Social History Tobacco Use Types Packs/Day Years [...] PM EDT Visit [facility] OB [address] [facility] [phone] Becca Gabriel PA [address] [place], [place] [phone] documented as of this encounter Goals Goal Patient Goal Type Associated Problems Recent Progress Patient-Stated? Author Reminders Care Plan OB Reminders No Open Scheduling, Background documented as of this encounter Procedures Procedure Name Priority Date/Time Associated Diagnosis Comments ALL CBC WITH AUTO DIFF Routine 12/29/2024 6:08 AM EDT documented in this encounter Results * (ABNORMAL) ALL CBC WITH AUTO DIFF (12/29/2024 6:08 AM EDT) TBH WBC 13.4(H) 4.0 - 11.0 10 [...] CLINISYNC - 12/29/2024 6:27 AM EDT Byron Benavides DO CLINIS[facility] Final Result [facility] documented in this encounter Visit Diagnoses Not on filedocumented in this encounter Additional Health Concerns Active Problems Noted Date Diagnosed Date OB Reminders 07/22/2024 documented as of this encounter Care Teams Tobacco Wrapping Machine Tender Relationship Specialty Start Date End Date Oscar Uriarte MD [address] [place] [address] PCP - General Family Medicine 06/10/24 documented as of this encounter
--- OUTSIDE RECORDS SUMMARY | 2025-01-07 16:19 | XMS_ITS | Encounter Summary ---
Author Organization [facility] Address [address] [facility] [place] [address] Care Team Providers Care Waist Cutter Name Role Phone Oscar Uriarte MD Primary Care Provider [phone] Encounter Details Date Type Department Care Team (Late Contact Info) Description 06/14/2024 Clinisync Result Encounter [facility] External Department Unsolicited Roberto Benavides DO [address] [place], [place] [phone] Social History Tobacco Use Types Packs/Day Years [...] PM EDT Visit [facility] BCP OB [address] [facility] [place] [phone] Becca Gabriel PA [address] [facility] [address] [place], [place] [phone] documented as of this encounter Procedures Procedure Name Priority Date/Time Associated Diagnosis Comments US OB TRANSVAGINAL 06/14/2024 4: 30 AM EDT documented in this encounter Results * US OB TRANSVAGINAL (06/14/2024 4:30 AM EDT) Anatomical Region Laterality Modality Other 06/14/2024 4:30 AM EDT Narrative 06/14/2024 4:33 [place] [address] Ultrasound Report Signed Patient: Archana Rodriguez MR#: [id number] : 1995 Acct:[id number] Age/Sex: 28 / F ADM Date: 06/10/24 Loc: [facility] Attending Dr: Roberto Benavides D.O. Ordering Physician: Roberto Benavides D.O. Date of Service: 06/10/24 Procedure(s): US OB transvaginal Accession Number(s): [id number] cc: Roberto Benavides D.O.; Physician,Non-Staff M.DLidia [facility] [place] [id number] Patient Name: ARCHANA RODRIGUEZ MRN: [id number] date: 1995 Sex: F Assigned Patient Location: [facility] Current Patient Location: [facility] Accession/Order Number: [id number] Exam Date: 06/10/2024 14:11 Report Date: 06/14/2024 04:30 At the request of: ROBERTO BENAVIDES Procedure: US OB transvaginal EXAMINATION: US OB transvaginal HISTORY: MISSED MENSES COMPARISON: No relevant comparison available. FINDINGS: GESTATIONAL SAC: Present and normal appearing. YOLK SAC: Present and normal appearing. POLE: Present and normal appearing. CARDIAC: Present. UTERUS: Normal size and appearance. OVARIES: Right: Not seen. Left: Normal. CERVIX: 4.0 cm in length and closed. CUL-DE-SAC: Normal. OTHER: None. AGE BY LMP: 9 weeks 5 days JAY BY LMP: 01/08/2025 AGE BY US CRL: 9 weeks 2 days JAY BY US CRL: 01/11/2025 US/US OB transvaginal IMPRESSION: 1. Single live intrauterine . Electronically authenticated by: VALDEMAR PRICE Date: 06/14/2024 04:30 Dictated By: Valdemar Price M.D. Signed By: 06/14/24432 DD/ 9 TD/TT: Sugarcane Research Technician: Procedure Note Radiology, Radiologist, MD - 06/14/2024 [place] [address] Ultrasound Report Signed Patient: Archana Rodriguez AMR#: [id number] : 1995Acct:[id number] Age/Sex: 28 FADM Date: 06/10/24 Loc: [facility] Attending Dr: Roberto Benavides D.O. Ordering Physician: Roberto Benavides D.O. Date of Service: 06/10/24 Procedure(s): US OB transvaginal Accession Number(s): [id number] cc: Roberto Benavides D.O.; Physician,Non-Staff Isabel [facility] [place] [id number] Patient Name: ARCHANA RODRIGUEZ MRN: [id number] date: 1995 Sex: F Assigned Patient Location: [facility] Current Patient Location: [facility] Accession/Order Number: [id number] Exam Date: 06/10/2024 14:11 Report Date: 06/14/2024 04:30 At the request of: ROBERTO BENAVIDES Procedure: US OB transvaginal EXAMINATION: US OB transvaginal HISTORY: MISSED MENSES COMPARISON: No relevant comparison available. FINDINGS: GESTATIONAL SAC: Present and normal appearing. YOLK SAC: Present and normal appearing. POLE: Present and normal appearing. CARDIAC: Present. UTERUS: Normal size and appearance. OVARIES: Right: Not seen. Left: Normal. CERVIX: 4.0 cm in length and closed. CUL-DE-SAC: Normal. OTHER: None. AGE BY LMP: 9 weeks 5 days JAY BY LMP: 01/08/2025 AGE BY US CRL: 9 weeks 2 days JAY BY US CRL: 01/11/2025 US/US OB transvaginal IMPRESSION: 1. Single live intrauterine . Electronically authenticated by: VALDEMAR PRICE Date: 06/14/2024 04:30 Dictated By: Valdemar Price M.D. Signed By:06/14/24432 DD/ 9 TD/TT: Sugarcane Research Technician: us Roberto Benavides DO [facility] Final Result documented in this encounter Visit Diagnoses Not on filedocumented in this encounter Care Teams Waist Cutter Relationship Specialty Start Date End Date Oscar Uriarte MD [address] [place] [address] PCP - General Family Medicine 06/10/24 documented as of this encounter
--- OUTSIDE RECORDS SUMMARY | 2025-01-07 16:19 | XMS_ITS | Encounter Summary ---
Author Organization [facility] Address [address] [place] [address] Care Team Providers Care Air Defense Specialist Name Role Phone Oscar Uriarte MD Primary Care Provider [phone] Encounter Details Date Type Department Care Team (Late Contact Info) Description 12/23/2024 Abstract [facility] OB [address] [facility] [place] [phone] Byron Benavides DO [address] [facility] [address] Hammad Garcia, [place] [address] Social History Tobacco Use Types Packs/Day Years [...] PM EDT Visit [facility] OB [address] [facility] [place] [address] Becca Gabriel PA [address] [facility] [address] [place], [place] [address] documented as of this encounter Goals Goal Patient Goal Type Associated Problems Recent Progress Patient-Stated? Author Reminders Care Plan OB Reminders No Open Scheduling, Background documented as of this encounter Visit Diagnoses Not on filedocumented in this encounter Additional Health Concerns Active Problems Noted Date Diagnosed Date OB Reminders 07/22/2024 documented as of this encounter Care Teams Air Defense Specialist Relationship Specialty Start Date End Date Oscar Uriarte MD [address] [place] [address] PCP - General Family Medicine 06/10/24 documented as of this encounter
--- OUTSIDE RECORDS SUMMARY | 2025-01-07 16:19 | XMS_ITS | Encounter Summary ---
Author Organization [facility] Address [address] [facility] [place] [address] Care Team Providers Care Ballet Soloist Name Role Phone Oscar Uriarte MD Primary Care Provider [phone] Encounter Details Date Type Department Care Team (Late Contact Info) Description 06/24/2024 Abstract [facility] OB [address] [facility] [place] [phone] Byron Benavides DO [address] [facility] [address] Hammad Garcia, [place] [address] Social History Tobacco Use Types Packs/Day Years [...] Description 02/14/2025 1:30 PM EDT Visit [facility] OB [address] [facility] [place] [address] Becca Gabriel PA [address] [facility] [address] [place], [place] [address] documented as of this encounter Visit Diagnoses Not on filedocumented in this encounter Care Teams Ballet Soloist Relationship Specialty Start Date End Date Oscar Uriarte MD [address] [place] [phone] PCP - General Family Medicine 06/10/24 documented as of this encounter
--- OUTSIDE RECORDS SUMMARY | 2025-01-07 16:19 | XMS_ITS | Encounter Summary ---
Author Organization [facility] Address [address] [place] [address] Care Team Providers Care Legal Compliance Officer Name Role Phone Oscar Uriarte MD Primary Care Provider [phone] Encounter Details Date Type Department Care Team (Late Contact Info) Description 12/27/2024 Clinisync Result Encounter [facility] External Department Unsolicited Byron Benavides DO [address] [place], [place] [phone] Social History Tobacco Use Types Packs/Day Years [...] PM EDT Visit [facility] B[facility] OB [address] [facility] [address] Becca Gabriel PA [address] [place], [place] [phone] documented as of this encounter Goals Goal Patient Goal Type Associated Problems Recent Progress Patient-Stated? Author Reminders Care Plan OB Reminders No Open Scheduling, Background documented as of this encounter Procedures Procedure Name Priority Date/Time Associated Diagnosis Comments TBH CREATININE Routine 12/27/2024 3:40 PM EDT SRMCO[facility] PROTHROMBIN TIME INR W/O COUM Routine 12/27/2024 3:40 PM EDT MHPT FIBRINOGEN Routine 12/27/2024 3:40 PM EDT CCF AST Routine 12/27/2024 3:40 PM EDT [facility] APTT Routine 12/27/2024 3:40 PM EDT CCF ALT Routine 12/27/2024 3:40 PM EDT ALL URIC ACID Routine 12/27/2024 3:40 PM EDT ALL CBC WITH AUTO DIFF Routine 12/27/2024 3:40 PM EDT ALL BUN Routine 12/27/2024 3:40 PM EDT TBH URINE T PROTEIN CREAT RATIO Routine 12/27/2024 3:30 PM EDT TBH URINE MICROSCOPIC ONLY Routine 12/27/2024 3:30 PM EDT TBH UA (CLEAN/CATCH) FASHION ARTIST/MICRO IF IND. Routine 12/27/2024 3:30 PM EDT TBH DRUG SCREEN RAPID (URINE) Routine 12/27/2024 3:30 PM EDT documented in this encounter Results * MHPT FIBRINOGEN (12/27/2024 3:40 PM EDT) FIBRINOGEN 376 200 - 400 mg/dL TBH 12/27/2024 3:40 PM EDT 12/27/2024 3:43 PM EDT Narrative CLIN[facility] - 12/27/2024 4:18 PM EDT Byron Kennedy DO CLINISYNC Final Result Performing Organization Address [facility]/ZIP Co de Phone Number [facility] * CCF APTT (12/27/2024 3:40 PM EDT) PARTIAL THROMBOPLASTIN TIME 25.6 22.3 - 36.2 sec TB 12/27/2024 3:40 PM EDT 12/27/2024 3:43 PM EDT Narrative CLINISYNC - 12/27/2024 4:18 PM EDT Byron Kennedy DO CLINIS[facility]NC Final Result Performing Organization Address [facility] Co de Phone Number [facility] * SRMCOH PROTHROMBIN TIME INR W/O COUM (12/27/2024 3:40 PM EDT) PROTHROMBIN TIME 9.5 9.0 - 11.6 sec TB TB INR <0.93 TB Comment: DESIRED INR: 2.0-3.0 CONDITIONS NOT LISTED BELOW 2.5-3.5 FOR PROSTHETIC HEART VALVE REPLACEMENT 2.5-3.5 RECURRENT THROMBOSIS 12/27/2024 3:40 PM EDT 12/27/2024 3:43 PM EDT Narrative CLINISYNC - 12/27/2024 4:18 PM EDT Byron Kennedy DO CLINISYNC Final Result Performing Organization Address [facility]/ZIP Co de Phone Number [facility] * CCF ALT (12/27/2024 3:40 PM EDT) ALANINE AMINOTRANSFERASE 14 14 - 59 U/L TB 12/27/2024 3:40 PM EDT 12/27/2024 3:43 PM EDT Narrative CLINISYNC - 12/27/2024 4:06 PM EDT Byron Kennedy DO CLIN[facility]NC Final Result [facility] * (ABNORMAL) CCF AST (12/27/2024 3:40 PM EDT) ASPARTATE AMINO TRANSFERASE 13(L) 15 - 37 U/L TB 12/27/2024 3:40 PM EDT 12/27/2024 3:43 PM EDT Narrative CLINISYNC - 12/27/2024 4:06 PM EDT [facility] Kennedy DO [facility] Final Result [facility] * ALL URIC ACID (12/27/2024 3:40 PM EDT) URIC ACID 4.1 2.6 - 6.0 mg/dL TB 12/27/2024 3:40 PM EDT 12/27/2024 3:43 PM EDT Narrative CLINISYNC - 12/27/2024 4:[address] [facility] Final Result Performing Organization Address [facility]/ZIP Co de Phone Number [facility] * TB CREATININE (12/27/2024 3:40 PM EDT) CREATININE 0.59 0.55 - 1.02 mg/dL TB TBH EGFR-AF MOLDOVAN >60 >=60 mL/min/1.7 3m 2 TBH TBH EGFR-NON AF MOLDOVAN >60 >=60 mL/min/1.7 3m 2 TB 12/27/2024 3:40 PM EDT 12/27/2024 3:43 PM EDT Narrative CLINISYNC - 12/27/2024 4:[address] [facility] Final Result Performing Organization Address [facility]/ZIP Co de Phone Number [facility] * ALL BUN (12/27/2024 3:40 PM EDT) BLOOD UREA NITROGEN 8.0 7.0 - 18.0 mg/dL TBH 12/27/2024 3:40 PM EDT 12/27/2024 3:43 PM EDT Narrative CLINISYNC - 12/27/2024 4:06 PM EDT us Byron Kennedy DO CLINISYNC Final Result [facility] * (ABNORMAL) ALL CBC WITH AUTO DIFF (12/27/2024 3:40 PM EDT) TB WBC 13.3(H) 4.0 - 11.0 10 3/uL TBH TBH RBC 3.96(L) 4.20 - 5.40 10 6/uL TBH TBH HGB 11.7(L) 12.0 - 16.0 g/dL TBH TBH HCT 34.0(L) 36.0 - 48.0 % TBH TBH MCV 85.9 81.0 - 99.0 fL TBH TBH MCH 29.5 26.7 - 34.0 pg TBH TBH MCHC 34.4 29.9 - 35.2 g/dL TBH TBH RDW 14.1 11.0 - 15.0 % TBH TBH PLT 273 150 - 450 10 3/uL TBH TBH MPV 10.9 9.5 - 13.5 fL TBH NEUTROPHILS PERCENT AUTO 65.1 43.0 - 75.0 % TBH LYMPHOCYTES PERCENT AUTO 23.7 20.5 - 60.0 % TBH MONOCYTES PERCENT AUTO 9.5 1.7 - 12.0 % TBH TBH EO % 0.6(L) 0.9 - 7.0 % TBH BASOPHILS PERCENT AUTO 0.3 0.2 - 2.0 % TBH IMMATURE GRANULOCYTES PCT AUTO 0.8(H) 0.0 - 0.5 % TBH NEUTROPHILS ABSOLUTE AUTO 8.6(H) 1.4 - 6.5 10 3/uL TBH LYMPHOCYTES ABSOLUTE AUTO 3.1 1.2 - 3.8 10 3/uL TBH MONOCYTES ABSOLUTE AUTO 1.3(H) 0.3 - 0.8 10 3/uL TBH TBH EO # 0.1 0.0 - 0.7 10 3/uL TBH BASOPHILS ABSOLUTE AUTO 0.0 0.0 - 0.1 10 3/uL TBH IMMATURE GRANULOCYTES ABS AUTO 0.10(H) 0.00 - 0.03 10 3/uL TBH 12/27/2024 3:40 PM EDT 12/27/2024 3:43 PM EDT Narrative CLINISYNC - 12/27/2024 3:52 PM EDT us Byron Kennedy DO CLIN[facility] Final Result [facility] * TB DRUG SCREEN RAPID (URINE) (12/27/2024 3:30 PM EDT) CANNABINOID SCREEN URINE NEGATIVE NEGATIVE TBH PHENCYCLIDINE [...] Byron Kennedy DO CLINIS[facility]NC Final Result [facility] * (ABNORMAL) TBH URINE MICROSCOPIC ONLY (12/27/2024 [...] Narrative CLINISYNC - 12/27/2024 4:13 PM EDT Byron Kennedy DO CLINIS[facility]NC Final Result Performing Organization Address [facility] Co de Phone Number [facility]OR TB * (ABNORMAL) TBH URINE T PROTEIN CREAT RATIO (12/27/2024 3:30 PM EDT) TOTAL PROTEIN URINE RANDOM <6.0 <=11.9 mg/dL TBH CREATININE URINE RANDOM <13.00(L) 20.00 - 300.00 mg/dL TBH PROTEIN CREATININE RATIO URINE 0.00 TBH 12/27/2024 3:30 PM EDT 12/27/2024 3:43 PM EDT Narrative CLINISYNC - 12/27/2024 4:07 PM EDT [employer] DO CLINISYNC Final Result Performing Organization Address City/[facility]/ZIP Co de Phone Number [facility] TB * (ABNORMAL) TBH UA (CLEAN/CATCH) FASHION ARTIST/MICRO IF IND. (12/27/2024 3:30 PM EDT) COLOR [...] us Byron Kennedy DO CLINIS[facility]NC Final Result [facility] documented in this encounter Visit Diagnoses Not on filedocumented in this encounter Additional Health Concerns Active Problems Noted Date Diagnosed Date OB Reminders 07/22/2024 documented as of this encounter Care Teams Legal Compliance Officer Relationship Specialty Start Date End Date Oscar Uriarte MD [address] [place] [address] PCP - General Family Medicine 06/10/24 documented as of this encounter
--- OUTSIDE RECORDS SUMMARY | 2025-01-07 16:19 | XMS_ITS | Encounter Summary ---
Author Organization [facility] Address [address] [place] [address] Care Team Providers Care Jewel Hole Cornerer Name Role Phone [place] Uriarte MD Primary Care Provider [phone] Encounter Details Date Type Department Care Team (Late Contact Info) Description 06/10/2024 Abstract [facility] OB [address] [facility] [place] [phone] Byron Benavides DO [address] [facility] [address] Hammad Garcia, [id number] Social History Tobacco Use Types Packs/Day Years [...] Description 02/14/2025 1:30 PM EDT Visit [facility] OB [address] [facility] [place] [place] [address] Becca Gabriel PA [address] [facility] [address] [place], [place] [phone] documented as of this encounter Visit Diagnoses Not on filedocumented in this encounter Care Teams Jewel Hole Cornerer Relationship Specialty Start Date End Date Oscar Uriarte MD [address] [place] [address] PCP - General Family Medicine 06/10/24 documented as of this encounter
--- OUTSIDE RECORDS SUMMARY | 2025-01-07 16:20 | XMS_ITS | Patient Health Record ---
Author Organization [facility] [place] Address [address] [place] [address] Care Team Providers Care Medical Receptionist Name Role Phone JoseTorsten gilliland Primary Care Provider Allergies Allergen (clinical drug ingredient) Drug/Non Drug Allergy documented on EMR Reaction Allergy Type Onset Date Status amoxicillin Amoxicillin hives Drug Allergy Act becca Latex Latex hives Allergy Active Substance with sulfonamide structure and antibacterial mechanism of action (substance) Sulfa Antibiotics tachycardia Drug Allergy Active Reason For Referral No Information Medications Medication SIG (Take, Route, Fr equency, Duration) Notes Start Date End Date Status Lisinopril 10 MG 1 tablet Orally Once a day for 30 days 01/07/2025 Active Vital Signs Blood pressure diastolic 92 mm Hg 01/07/2025 Blood pressure systolic 160 mm Hg 01/07/2025 Encounters Encounter Location Date Provider Diagnosis [address] [address] 01/03/2025 Torsten Uriarte [address] [address] 01/07/2025 Torsten Uriarte Accelerated hyperten werner I10 ; Fatigue R53.83 ; Abnormal blood sugar R73.09 and Adult hypothyroidism E03.[address] [address] 01/07/2025 Torsten Uriarte Assessments Encounter Date Diagnosis (ICD Code) Assessment Notes Treatment Notes Treatment Clinical Notes Section Notes 01/07/2025 Accelerated hypertension (ICD-10 - I10) 01/07/2025 Fatigue (ICD-10 - R53.83) 01/07/2025 Abnormal blood sugar (ICD-10 - R73.09) 01/07/2025 Adult hypothyroidism (ICD-10 - E03.9) Plan Of Treatment Pending Test Test Name Order Date CBC AUTO DIFF 01/07/2025 GLYCOHEMOGLOBIN A1C 01/07/2025 LIPID PROFILE 01/07/2025 PROF 14(COMP METB) 01/07/2025 THYROID PANEL (T4/TSH/FREE T3) Insurance Providers Payer Name Payer Address Payer Phone Subscriber Number Group Number Insured Name Patient Relationship to Insured Coverage Start Date Coverage End Date [employer] [place] [employer] [address] [address] [place] [phone] [id number] Archana Singh Self - patient is the insured Medical (General) History Medical History History ICD Code Recurrent frontal sinusitis J01.11 Irregular intermenstrual bleeding N92.1 Bilateral headache R51.9 Hospitalization History Reason Date(Month/Year) cough 2018 GI 1998 fever 1998
--- OUTSIDE RECORDS SUMMARY | 2025-01-07 16:20 | XMS_ITS | Encounter Summary ---
Author Organization [facility] Address [address] [place] [address] Care Team Providers Care Clinical Laboratory Service Teacher Name Role Phone Oscar Uriarte MD Primary Care Provider [phone] Encounter Details Date Type Department Care Team ([facility] Contact Info) Description 08/13/2024 Orders Only [facility] OB [address] [facility] [place] [phone] Chel Hill MA [address] [place] [address] [place] [address] Social History Tobacco Use Types Packs/Day Years [...] Upcoming Encounters Date Type Department Care Team ([facility] Contact Info) Description 02/14/2025 1:30 PM EDT Visit [facility] OB [address] [facility] [place] [address] Becca Gabriel PA [address] [facility] [address] [place], [place] [phone] documented as of this encounter Goals Goal Patient Goal Type Associated Problems Recent Progress Patient-Stated? Author Reminders Care Plan OB Reminders No Open Scheduling, Background documented as of this encounter Procedures Procedure Name Priority Date/Time Associated Diagnosis Comments PAP SMEAR Routine 07/28/2024 12:00 AM EST documented in this encounter Results * Pap Smear (07/28/2024 12:00 AM EST) Swab Cervical swab / Unknown us Byron Benavides DO LAB CYTOLOGY ORDERABLES Final Re sult EXTERNAL LAB documented in this encounter Visit Diagnoses Not on filedocumented in this encounter Additional Health Concerns Active Problems Noted Date Diagnosed Date OB Reminders 07/22/2024 documented as of this encounter Care Teams Clinical Laboratory Service Teacher Relationship Specialty Start Date End Date Oscar Uriarte MD [address] [place] [phone] PCP - General Family Medicine 06/10/24 documented as of this encounter
--- OUTSIDE RECORDS SUMMARY | 2025-01-08 11:26 | XMS_ITS | Encounter Summary ---
Author Organization [facility] Address [address] [facility] [place] [address] Care Team Providers Care Computer Aided Design Designer Name Role Phone Oscar Uriarte MD Primary Care Provider [phone] Encounter Details Date Type Department Care Team (Late Contact Info) Description 06/24/2024 Abstract [facility] OB [address] [facility] [phone] Byrno Benavides DO [address] [facility] [address], [place] [address] Social History Tobacco Use Types Packs/Day Years [...] Description 02/14/2025 1:30 PM EDT Visit [facility] OB [address] [facility] [place] [address] Becca Gabriel PA [address] [facility] [address] [place], [place] [phone] documented as of this encounter Visit Diagnoses Not on filedocumented in this encounter Care Teams Computer Aided Design Designer Relationship Specialty Start Date End Date Oscar Uriarte MD [address] [place] [address] PCP - General Family Medicine 06/10/24 documented as of this encounter
--- OUTSIDE RECORDS SUMMARY | 2025-01-08 11:26 | XMS_ITS | Encounter Summary ---
Author Organization [facility] Address [address] [facility] [place] [address] Care Team Providers Care Hris Coordinator Name Role Phone Oscar Uriarte MD Primary Care Provider [phone] Encounter Details Date Type Department Care Team (Late Contact Info) Description 06/14/2024 Clinisync Result Encounter [facility] External Department Unsolicited Roberto Benavides DO [address] [place], [place] [phone] Social History Tobacco Use Types Packs/Day Years [...] PM EDT Visit [facility] BCP OB [address] [facility] [place] [address] Becca Gabriel PA [address] [facility] [address] [place], [place] [address] documented as of this encounter Procedures Procedure Name Priority Date/Time Associated Diagnosis Comments US OB TRANSVAGINAL 06/14/2024 4: 30 AM EDT documented in this encounter Results * US OB TRANSVAGINAL (06/14/2024 4:30 AM EDT) Anatomical Region Laterality Modality Other 06/14/2024 4:30 AM EDT Narrative 06/14/2024 4:33 [place] [address] Ultrasound Report Signed Patient: Archana Rodriguez MR#: [id number] : 1995 Acct:[id number] Age/Sex: 28 / F ADM Date: 06/10/24 Loc: [facility] Attending Dr: Roberto Benavides D.O. Ordering Physician: Roberto Benavides D.O. Date of Service: 06/10/24 Procedure(s): US OB transvaginal Accession Number(s): [id number] cc: Roberto Benavides D.O.; Physician,Non-Staff M.DLidia The [place] [id number] Patient Name: ARCHANA RODRIGUEZ MRN: [id number] date: 1995 Sex: F Assigned Patient Location: [facility] Current Patient Location: [facility] Accession/Order Number: [id number] Exam Date: 06/10/2024 14:11 Report Date: 06/14/2024 [...] M.D. Signed By: 06/14/24432 DD/ 9 TD/TT: Patient Experience Coordinator: Procedure Note Radiology, Radiologist, MD - 06/14/2024 [place] [address] Ultrasound Report Signed Patient: Archana Rodriguez AMR#: [id number] : 1995Acct:[id number] Age/Sex: 28 FADM Date: 06/10/24 Loc: [facility] Attending Dr: Roberto Benavdies D.O. Ordering Physician: Roberto Benavides D.O. Date of Service: 06/10/24 Procedure(s): US OB transvaginal Accession Number(s): [id number] cc: Roberto Benavides D.O.; Physician,Non-Staff Isabel [place] [id number] Patient Name: ARCHANA RODRIGUEZ MRN: [id number] date: 1995 Sex: F Assigned Patient Location: [facility] Current Patient Location: [facility] Accession/Order Number: [id number] Exam Date: 06/10/2024 14:11 Report Date: 06/14/2024 [...] Price M.D. Signed By:06/14/24432 DD/ 9 TD/TT: Patient Experience Coordinator: us Roberto Benavides DO [facility] Final Result documented in this encounter Visit Diagnoses Not on filedocumented in this encounter Care Teams Hris Coordinator Relationship Specialty Start Date End Date Oscar Uriarte MD [address] [place] [address] PCP - General Family Medicine 06/10/24 documented as of this encounter
--- OUTSIDE RECORDS SUMMARY | 2025-01-08 11:26 | XMS_ITS | Encounter Summary ---
Author Organization [facility] Address [address] [place] [address] Care Team Providers Care Customer Service Assistant Name Role Phone Oscar Uriarte MD Primary Care Provider [phone] Encounter Details Date Type Department Care Team (Late Contact Info) Description 12/27/2024 Bamboo flowsheet [facility] BCP OB [address] [facility] [address] Byron Benavides DO [address] [facility] [address] [place], [place] [address] Social History Tobacco Use Types Packs/Day Years [...] PM EDT Visit [facility] BCP OB [address] [facility] [address] Becca Gabriel PA [address] [facility] [address] [place], [place] [phone] documented as of this encounter Goals Goal Patient Goal Type Associated Problems Recent Progress Patient-Stated? Author Reminders Care Plan OB Reminders No Open Scheduling, Background documented as of this encounter Visit Diagnoses Not on filedocumented in this encounter Additional Health Concerns Active Problems Noted Date Diagnosed Date OB Reminders 07/22/2024 documented as of this encounter Care Teams Customer Service Assistant Relationship Specialty Start Date End Date Oscar Uriarte MD [address] [place] [address] PCP - General Family Medicine 06/10/24 documented as of this encounter
--- OUTSIDE RECORDS SUMMARY | 2025-01-08 11:26 | XMS_ITS | Encounter Summary ---
Author Organization [facility] Address [address] [facility] [address] Care Team Providers Care Liquefied Petroleum Gasfitter Name Role Phone Oscar Uriarte MD Primary Care Provider [phone] Encounter Details Date Type Department Care Team (Late Contact Info) Description 06/10/[address] [facility] OB [address] [facility] [place] [phone] Byron Benavides DO [address] [facility] [address] [place], [facility] Social History Tobacco Use Types [...] Description 02/14/2025 1:30 PM EDT [facility] OB [address] [facility] [place] [place] [address] Becca Gabriel PA [address] [facility] [address] [place], [place] [phone] documented as of this encounter Visit Diagnoses Not on filedocumented in this encounter Care Teams Liquefied Petroleum Gasfitter Relationship Specialty Start Date End Date Oscar Uriarte MD [address] [place] [address] PCP - General Family Medicine 06/10/24 documented as of this encounter
--- OUTSIDE RECORDS SUMMARY | 2025-01-08 11:26 | XMS_ITS | Encounter Summary ---
Author Organization [facility] Address [address] [place] [address] Care Team Providers Care Cardiothoracic Physiotherapist Name Role Phone Oscar Uriarte MD Primary Care Provider [phone] Encounter Details Date Type Department Care Team (Late Contact Info) Description 12/29/2024 Clinisync Result Encounter [facility] External Department Unsolicited Byron Benavides DO [address] [place], [place] [phone] Social History Tobacco Use Types Packs/Day Years [...] PM EDT Visit [facility] BCP OB [address] [facility] [address] Becca Gabriel PA [address] [place], [place] [phone] documented as of this encounter Goals Goal [...] documented as of this encounter Care Teams Cardiothoracic Physiotherapist Relationship Specialty Start Date End Date Oscar Uriarte MD [address] [place] [address] PCP - General Family Medicine 06/10/24 documented as of this encounter
--- OUTSIDE RECORDS SUMMARY | 2025-01-08 11:26 | XMS_ITS | Encounter Summary ---
Author Organization [facility] Address [address] [place] [address] Care Team Providers Care Usability Strategist Name Role Phone Oscar Uriarte MD Primary Care Provider [phone] Encounter Details Date Type Department Care Team (Late Contact Info) Description 12/27/2024 Clinisync Result Encounter [facility] External Department Unsolicited Byron Benavides DO [address] [place] [place], [place] [phone] Social History Tobacco Use Types Packs/Day Years [...] Visit [facility] BCP OB [address] [facility] [place] [address] Becca Gabriel PA [address] [place], [place] [address] documented as of this encounter Goals Goal [...] 12/27/2024 3:30 PM EDT [facility] UA (CLEAN/CATCH) DIRECTOR OF STUDENT FINANCIAL AID/MICRO IF IND. Routine 12/27/2024 3:30 PM EDT [facility] DRUG SCREEN RAPID (URINE) Routine 12/27/2024 3:30 PM EDT documented in this encounter Results * MHPT FIBRINOGEN (12/27/2024 3:40 PM EDT) FIBRINOGEN 376 200 - 400 mg/dL [facility] 12/27/2024 3:40 PM EDT 12/27/2024 3:43 PM EDT Narrative [facility] - 12/27/2024 4:18 PM EDT Byron Kennedy DO [facility] Final Result Performing Organization Address [facility]/ZIP Co de Phone Number [facility] * [facility] APTT (12/27/2024 3:40 PM EDT) PARTIAL THROMBOPLASTIN TIME 25.6 22.3 - 36.2 sec TB 12/27/2024 3:40 PM EDT 12/27/2024 3:43 PM EDT Narrative [facility] - 12/27/2024 4:18 PM EDT Byron Kennedy DO [facility] Final Result Performing Organization Address [facility] Co de Phone Number [facility] * SRMCOH PROTHROMBIN TIME INR W/O [...] DO [facility] Final Result Performing Organization Address [facility]/ZIP Co de Phone Number [facility] * [facility] ALT (12/27/2024 3:40 PM EDT) ALANINE AMINOTRANSFERASE 14 14 - 59 U/L TB 12/27/2024 3:40 PM EDT 12/27/2024 3:43 PM EDT Narrative [facility] - 12/27/2024 4:06 PM EDT Byron Kennedy DO [facility] Final Result [facility] * (ABNORMAL) [facility] AST (12/27/2024 3:40 PM EDT) ASPARTATE AMINO TRANSFERASE 13(L) 15 - 37 U/L TB 12/27/2024 3:40 PM EDT 12/27/2024 3:43 PM EDT Narrative [facility] - 12/27/2024 4:06 PM EDT [facility] Kennedy DO [facility] Final [facility] * ALL URIC ACID (12/27/2024 3:40 PM EDT) URIC ACID 4.1 2.6 - 6.0 mg/dL TB 12/27/2024 3:40 PM EDT 12/27/2024 3:43 PM EDT Narrative [facility] - 12/27/2024 4:06 PM EDT [facility] Final Result Performing Organization Address [facility]/ZIP Co de Phone Number [facility] * TB CREATININE (12/27/2024 3:40 PM EDT) CREATININE 0.59 0.55 - 1.02 mg/dL TB [facility] EGFR-AF TRISTANIAN >60 >=60 mL/min/1.7 3m 2 TB[facility] EGFR-NON AF TRISTANIAN >60 >=60 mL/min/1.7 3m 2 TB 12/27/2024 3:40 PM EDT 12/27/2024 3:43 PM EDT Narrative CLIN[facility] - 12/27/2024 4:06 PM EDT [facility] Final Result Performing Organization Address [facility]/ZIP Co de Phone Number [facility] * ALL BUN (12/27/2024 3:40 PM EDT) BLOOD UREA NITROGEN 8.0 7.0 - 18.0 mg/dL [facility] 12/27/2024 3:40 PM EDT 12/27/2024 3:43 PM EDT Narrative CLIN[facility] - 12/27/2024 4:06 PM EDT us Byron Kennedy DO [facility] Final Result [facility] * (ABNORMAL) ALL CBC WITH AUTO [...] us Byron Kennedy DO [facility] Final Result [facility] * TB DRUG SCREEN RAPID (URINE) (12/27/2024 [...] Byron Kennedy DO [facility] Final Result [facility] * (ABNORMAL) [facility] URINE MICROSCOPIC ONLY [...] DO CLIN[facility] Final Result Performing Organization Address [facility] Co de Phone Number [facility] * (ABNORMAL) [facility] URINE T PROTEIN CREAT RATIO (12/27/2024 3:30 PM EDT) TOTAL PROTEIN URINE RANDOM <6.0 <=11.9 mg/dL [facility] CREATININE URINE RANDOM <13.00(L) 20.00 - 300.00 mg/dL [facility] PROTEIN CREATININE RATIO URINE 0.00 [facility] 12/27/2024 3:30 PM EDT 12/27/2024 3:43 PM EDT Narrative [facility] - 12/27/2024 4:07 PM EDT [facility] DO [facility] Final Result Performing Organization Address City/[facility]/ZIP Co de Phone Number [facility] TB * (ABNORMAL) [facility] UA (CLEAN/CATCH) DIRECTOR OF STUDENT FINANCIAL AID/MICRO IF IND. (12/27/2024 3:30 PM EDT) COLOR [...] us Byron Kennedy DO [facility] Final Result [facility] documented in this encounter Visit Diagnoses Not on filedocumented in this encounter Additional Health Concerns Active Problems Noted Date Diagnosed Date OB Reminders 07/22/2024 documented as of this encounter Care Teams Usability Strategist Relationship Specialty Start Date End Date Oscar Uriarte MD [address] [place] [address] PCP - General Family Medicine 06/10/24 documented as of this encounter
--- OUTSIDE RECORDS SUMMARY | 2025-01-08 11:26 | XMS_ITS | Encounter Summary ---
Author Organization [facility] Address [address] [place] [address] Care Team Providers Care Bilingual Sales Representative Name Role Phone Oscar Uriarte MD Primary Care Provider [phone] Encounter Details Date Type Department Care Team (Late Contact Info) Description 12/27/2024 Abstract NOM[facility] [address] [place] [phone] Kimberly Earl LPN Social History Tobacco Use [...] Upcoming Encounters Date Type Department Care Team ([facility] Contact Info) Description 02/14/2025 1:30 PM EDT Visit [facility] OB [address] [place] [address] [place] [address] Becca Gabriel PA [address] [place] [address] [place], [place] [phone] documented as of this encounter Goals Goal Patient Goal Type Associated Problems Recent Progress Patient-Stated? Author Reminders Care Plan OB Reminders No Open Scheduling, Background documented as of this encounter Visit Diagnoses Not on filedocumented in this encounter Additional Health Concerns Active Problems Noted Date Diagnosed Date OB Reminders 07/22/2024 documented as of this encounter Care Teams Bilingual Sales Representative Relationship Specialty Start Date End Date Oscar Uriarte MD [address] [place] [address] PCP - General Family Medicine 06/10/24 documented as of this encounter
--- OUTSIDE RECORDS SUMMARY | 2025-01-08 11:26 | XMS_ITS | Encounter Summary ---
Author Organization [facility] Address [address] [place] [address] Care Team Providers Care Columnist/Commentator Name Role Phone Oscar Uriarte MD Primary Care Provider [phone] Encounter Details Date Type Department Care Team (Late Contact Info) Description 12/23/2024 Abstract [facility] BCP OB [address] [facility] [place] [phone] Byron Benavides DO [address] [facility] [address] [place], [place] [address] Social History Tobacco Use Types Packs/Day Years [...] PM EDT Visit [facility] BCP OB [address] [facility] [place] [place] [address] Becca Gabriel PA [address] [facility] [address] [place], [place] [phone] documented as of this encounter Goals Goal Patient Goal Type Associated Problems Recent Progress Patient-Stated? Author Reminders Care Plan OB Reminders No Open Scheduling, Background documented as of this encounter Visit Diagnoses Not on filedocumented in this encounter Additional Health Concerns Active Problems Noted Date Diagnosed Date OB Reminders 07/22/2024 documented as of this encounter Care Teams Columnist/Commentator Relationship Specialty Start Date End Date Oscar Uriarte MD [address] [place] [address] PCP - General Family Medicine 06/10/24 documented as of this encounter
--- OUTSIDE RECORDS SUMMARY | 2025-01-08 11:26 | XMS_ITS | Encounter Summary ---
Author Organization [facility] Address [address] [facility] [place] [address] Care Team Providers Care Help Desk Assistant Name Role Phone Oscar Uriarte MD Primary Care Provider [phone] Encounter Details Date Type Department Care Team (Late Contact Info) Description 07/01/2024 Abstract [facility] OB [address] [facility] [phone] Byron Benavides DO [address] [facility] [address] [place], [place] [address] Social History Tobacco Use Types Packs/Day Years [...] Description 02/14/2025 1:30 PM EDT Visit [facility] OB [address] [facility] [place] [address] Becca Gabriel PA [address] [facility] [address] [place], [place] [phone] documented as of this encounter Visit Diagnoses Not on filedocumented in this encounter Care Teams Help Desk Assistant Relationship Specialty Start Date End Date Oscar Uriarte MD [address] [place] [address] PCP - General Family Medicine 06/10/24 documented as of this encounter
--- OUTSIDE RECORDS SUMMARY | 2025-01-08 11:26 | XMS_ITS | Clinical Summary ---
Author Organization [facility] Address [address] [place] [address] Care Team Providers Care Ornament Stapler Name Role Phone sOcar Uriarte MD Primary Care Provider [phone] Allergies [...] DO 12/27/2024 1:40 PM EDT Routine [facility] [address] [address] Byron Benavides DO Third trimester ; 38 weeks gestation of 12/27/2024 Abstract [facility] [address] [place] [address] Kimberly Earl LPN 12/27/2024 Clinisync Result Encounter [facility] External Department Unsolicited Byron Benavides DO 12/27/2024 Bamboo flowsheet [facility] [address] [place] [address] Byron Benavides, DO 12/23/2024 Abstract [facility] [address] [place] [address] Byron Benavides, DO 12/23/2024 Telephone [facility] [address] [place] [phone] Kimberly Earl LPN 12/22/2024 3:50 PM EDT Routine [facility] [address] [place] [address] Becca Gabriel PA Third trimester ; 37 weeks gestation of 12/22/2024 Bamboo flowsheet [facility] [address] [place] [address] Becca Gabriel PA 12/16/2024 3:30 PM EDT Routine [facility] [address] [place] [address] Carola Harley, JUANCARLOS Third trimester ; 36 weeks gestation of 12/16/2024 Bamboo flowsheet [facility] [address] [place] [address] Carola Harley, JUANCARLOS 12/01/2024 1:20 PM EDT Routine [facility] [address] [place] [address] Byron Benavides, DO Third trimester ; 34 weeks gestation of 12/01/2024 Bamboo flowsheet [facility] [address] [place] [address] Byron Benavides, 11/15/2024 2:30 PM EDT Routine [facility] [address] [place] [address] Byron Benavides, DO Third trimester ; 32 weeks gestation of 11/15/2024 2:00 PM EDT Ancillary Procedure [facility] OB [address] [place] [address] [place] [address] size inconsistent with dates 11/01/2024 1:20 PM EDT Routine [facility] OB [address] [place] [address] [place] [address] Becca Gabriel PA 30 weeks gestation of ; Third trimester ; size inconsistent with dates 11/01/2024 Bamboo flowsheet [facility] OB [address] [place] [address] [place] [address] Becca Gabriel PA from Last 3 [...] Description 02/14/2025 1:30 PM EDT Visit [facility] [address] [place] [address] Becca Gabriel PA [address] [place] [address] [place], [place] [id number] Goals Goal Patient Goal Type Associated Problems [...] 12/27/2024 3:30 PM EDT TBH UA (CLEAN/CATCH) ICU NURSE/MICRO IF IND. Routine 12/27/2024 3:30 PM [...] EDT Byron Kennedy DO [facility] * TB CREATININE (12/27/2024 3:40 PM EDT) CREATININE 0.59 0.55 - 1.02 mg/dL TBH TBH EGFR-AF SALVADOREAN >60 >=60 mL/min/1.7 3m 2 TBH TBH EGFR-NON AF SALVADOREAN >60 >=60 mL/min/1.7 3m 2 TBH 12/27/2024 3:40 PM EDT 12/27/2024 3:43 PM EDT Narrative CLINISYNC - 12/27/2024 4:06 PM EDT [facility] [place] [facility] Final Result [facility] * SRMCOH PROTHROMBIN TIME INR W/O COUM [...] DO CLINISYNC Final Result Performing Organization Address [facility]/ZIP Co de Phone Number CLINISYNC TB * (ABNORMAL) [facility] AST (12/27/2024 3:40 PM EDT) ASPARTATE AMINO TRANSFERASE 13(L) 15 - 37 U/L TBH 12/27/2024 3:40 PM EDT 12/27/2024 3:43 PM EDT Narrative CLINISYNC - 12/27/2024 4:06 PM EDT us Byron Kennedy DO CLINISYNC Final Result Performing Organization Address [facility]/ZIP Co de Phone Number CLINISYNC TBH * [facility] APTT (12/27/2024 3:40 PM EDT) PARTIAL THROMBOPLASTIN TIME 25.6 22.3 - 36.2 sec TBH 12/27/2024 3:40 PM EDT 12/27/2024 3:43 PM EDT Narrative CLINISYNC - 12/27/2024 4:18 PM EDT us Byron Kennedy DO [facility] * [facility] ALT (12/27/2024 3:40 PM EDT) ALANINE AMINOTRANSFERASE 14 14 - 59 U/L TB 12/27/2024 3:40 PM EDT 12/27/2024 3:43 PM EDT Narrative CLINISYNC - 12/27/2024 4:06 PM EDT Byron Kennedy DO CLINISYNC Final Result Performing Organization Address [facility] Co de Phone Number [facility] * ALL URIC ACID (12/27/2024 3:40 PM EDT) URIC ACID 4.1 2.6 - 6.0 mg/dL TB 12/27/2024 3:40 PM EDT 12/27/2024 3:43 PM EDT Narrative CLINISYNC - 12/27/2024 4:06 PM EDT RELEASEIFzio DO CLINISYNC Final Result Performing Organization Address [facility] Co de Phone Number [facility] * ALL BUN (12/27/2024 3:40 PM EDT) BLOOD UREA NITROGEN 8.0 7.0 - 18.0 mg/dL TB 12/27/2024 3:40 PM EDT 12/27/2024 3:43 PM EDT Narrative CLINISYNC - 12/27/2024 4:06 PM EDT [employer] Solutionso DO CLINISYNC Final Result Performing Organization Address [facility] Co de Phone Number [facility] * (ABNORMAL) TBH URINE T PROTEIN CREAT RATIO (12/27/2024 3:30 PM EDT) TOTAL PROTEIN URINE RANDOM <6.0 <=11.9 mg/dL TBH CREATININE URINE RANDOM <13.00(L) 20.00 - 300.00 mg/dL TBH PROTEIN CREATININE RATIO URINE 0.00 TBH 12/27/2024 3:30 PM EDT 12/27/2024 3:43 PM EDT Narrative CLINISYNC - 12/27/2024 4:07 PM EDT [facility] Kennedy DO CLINIS[facility] Final Result Performing Organization Address [facility] Co de Phone Number CLINISYNC TBH * [...] PM EDT 12/27/2024 3:43 PM EDT Narrative CLINISYMT - 12/27/2024 4:13 PM EDT [facility] CLINISYNC Final Result Performing Organization Address [facility] de Phone Number [facility] TB * (ABNORMAL) TBH UA (CLEAN/CATCH) ICU NURSE/MICRO IF IND. (12/27/2024 3:30 PM EDT) [...] Byron Kennedy DO [facility] Final [facility] * TBH DRUG SCREEN RAPID (URINE) (12/27/2024 3:30 PM EDT) Pathologist [facility] CANNABINOID SCREEN URINE NEGATIVE NEGATIVE TBH PHENCYCLIDINE [...] us Byron Kennedy DO CLINISYNC Final Result CLINISYMT TB * POCT urinalysis dipstick manually resulted [...] II, MD, PHD at 16-Nov-2024 10:00:00 AM [facility] Procedure Note Clarissa Tyler MD - [...] TYLER II, MD, PHDat 16-Nov-2024 10:00:00 AM [facility] us Becca DIAZ IMDeb OB US PROCEDURES Final Resul t from Last 3 Months Additional Health Concerns Active Problems Noted Date Diagnosed Date OB Reminders 07/22/2024 Insurance [employer] [employer] Care Teams Ornament Stapler Relationship Specialty Start Date End Date Oscar Uriarte MD [address] [place] [address] PCP - General Family Medicine 06/10/24
--- OUTSIDE RECORDS SUMMARY | 2025-01-08 11:27 | XMS_ITS | Patient Health Record ---
Author Organization [facility] in [place] Address [address] [place] [address] Care Team Providers Care Grinding Machine Operator Portable Name Role Phone JoseTorsten gilliland Primary Care [...] 01/07/2025 Encounters Encounter Location Date Provider Diagnosis [address] [address] 01/03/2025 Torsten Uriarte [address] [address] 01/07/2025 Torsten Uriarte Accelerated hyperten werner I10 ; Fatigue R53.83 ; Abnormal blood sugar R73.09 and Adult hypothyroidism E03.[address] [address] 01/07/2025 Torsten Uriarte Assessments Encounter Date Diagnosis [...] End Date [employer] [place] [employer] [address] [address] [place] [address] [id number] Archana Singh Self - patient is the insured Medical (General) History Medical History History ICD Code Recurrent frontal sinusitis J01.11 Irregular intermenstrual bleeding N92.1 Bilateral headache R51.9 Hospitalization History Reason Date(Month/Year) cough 2018 GI 1998 fever 1998
--- OUTSIDE RECORDS SUMMARY | 2025-01-08 11:27 | XMS_ITS | Encounter Summary ---
Author Organization [facility] Address [address] [place] [address] Care Team Providers Care Delicatessen Manager Name Role Phone Oscar Uriarte MD Primary Care Provider [phone] Encounter Details Date Type Department Care Team ([facility] Contact Info) Description 08/13/2024 Orders Only [facility] [address] [facility] [place] [phone] Chel Hill MA [address] [place] [address] [place] [address] Social History Tobacco Use Types Packs/Day Years [...] Upcoming Encounters Date Type Department Care Team ([facility] Contact Info) Description 02/14/2025 1:30 PM EDT Visit [facility] [address] [place] [address] Becca Gabriel PA [address] [place], [place] [phone] documented as of this encounter Goals Goal [...] documented as of this encounter Care Teams Delicatessen Manager Relationship Specialty Start Date End Date Oscar Uriarte MD [address] [place] [address] PCP - General Family Medicine 06/10/24 documented as of this encounter
[2025-01-08 11:53] LABS: Basophils Absolute Auto 0.1 10^3/uL (0.0-0.1); Basophils Percent Auto 0.7 % (0.2-2.0); Eosinophils Absolute Auto 0.1 10^3/uL (0.0-0.7); Eosinophils Percent Auto 1.4 % (0.9-7.0); Hematocrit 36.6 % (36.0-48.0); Immature Granulocytes Abs Auto 0.02 10^3/uL (0.00-0.03); Immature Granulocytes Pct Auto 0.3 % (0.0-0.5); Lymphocytes Absolute Auto 2.5 10^3/uL (1.2-3.8); Lymphocytes Percent Auto 36.2 % (20.5-60.0); Mean Corpuscular HGB Conc 32.8 g/dL (29.9-35.2); Mean Corpuscular Hemoglobin 29.1 pg (26.7-34.0); Mean Corpuscular Volume 88.6 fL (81.0-99.0); Mean Platelet Volume 9.4 fL (9.5-13.5); Monocytes Absolute Auto 0.5 10^3/uL (0.3-0.8); Monocytes Percent Auto 6.5 % (1.7-12.0); Neutrophils Absolute Auto 3.8 10^3/uL (1.4-6.5); Neutrophils Percent Auto 54.9 % (43.0-75.0); Platelet Count 311 10^3/uL (150-450); Red Blood Count 4.13 10^6/uL (4.20-5.40); Red Cell Distribution Width 14.4 % (11.0-15.0)
[2025-01-08 12:23] LABS: Alanine Aminotransferase 74 U/L (14-59); Albumin Globulin Ratio 0.8; Albumin Level 3.3 g/dL (3.4-5.0); Alkaline Phosphatase 120 U/L (46-116); Aspartate Amino Transferase 34 U/L (15-37); BUN Creatinine Ratio 11.9; Calcium 8.7 mg/dL (8.5-10.1); Carbon Dioxide 27.7 mmol/L (21.0-32.0); Chloride 106 mmol/L (98-107); Chol HDL Ratio 1.9; Cholesterol 190 mg/dL (<=200); Estimated GFR (African America >60 (>=60 mL/min/1.73m^2); Estimated GFR (Non-African Ame >60 (>=60 mL/min/1.73m^2); Free T3 3.02 pg/mL (2.18-3.98); Globulin 3.9 g/dL; Glucose 82 mg/dL (74-106); HDL Cholesterol 100 mg/dL (40-60); Potassium 3.7 mmol/L (3.5-5.1); Sodium 143 mmol/L (136-145); Thyroid Stimulating Hormone 0.983 uIU/mL (0.358-3.740); Total Protein 7.2 g/dL (6.4-8.2); Triglycerides 52 mg/dL (<=150); VLDL CHOLESTEROL 10.4 mg/dL
[2025-01-08 12:31] LABS: Estimated Average Glucose 126 mg/dL
== END 2025-01-08 11:25 | disposition home or self-care (01) ==
LOC: LAB 11:24
PROVIDERS: PCP Family Medicine; Visit Provider Family Medicine
DX: R53.83 Other fatigue (principal); I10 Essential (primary) hypertension; R73.09 Other abnormal glucose; E03.9 Hypothyroidism, unspecified
CPT/HCPCS: 36415; 80053; 80061; 83036; 84436; 84443; 84481; 85025